=== PATIENT | female | born 1935 | race Caucasian/White ===

== ENCOUNTER 2016-04-28 07:20 | Inpatient (IN) | payer MEDICARE, BC ==
[2016-04-28] MEDS ORDERED: SODIUM CHLORIDE 0.9% 500 ML IV STA (07:42)
--- NOTE | 2016-04-28 07:50 | ED ---
General Adult HPI - General Chief complaint: Extremity Problem,Nontraumatic Stated complaint: Leg Pain Time Seen by Provider: 04/28/16 07:25 Source: patient, RN notes reviewed Mode of arrival: EMS - History of Present Illness Initial comments: This is an 81-year-old female who presents to the emergency department complaining of left leg feeling different. Patient states feels like it's she severely swollen even though she notices it is not swollen and is not red. Patient denies any pain. Patient states it is a little bit weaker when she tries to lift it off the bed. Patient states she woke up with this. Patient denies any new numbness. Patient also mentions that she is having difficulty urinating even though she doesn't have sensation to urinate she states that she normally gets up every day and urinates in today she could not urinate. Patient states about 3 weeks, she got done taking antibiotics for urinary tract infection. Patient denies abdominal pain. Patient denies chest pain or difficulty breathing. Patient denies any pain whatsoever. Patient denies any headache patient denies any upper extremity weakness. Patient denies any blurred vision or slurred speech. Patient's 2 complaints are left leg weakness with lifting it she was able to ambulate however and her second complaint is inability to urinate - Related Data Home Medications Medication Instructions Recorded Confirmed Acetaminophen [Tylenol] 500 mg PO BID 04/28/16 04/28/16 Albuterol Sulfate [Proair Hfa] 1 - 2 puff INHALATION RT-QID PRN 04/28/16 Aspirin 81 mg PO DAILY 04/28/16 04/28/16 Atenolol [Tenormin] 25 mg PO BID 04/28/16 04/28/16 Docusate [Colace] 100 mg PO HS 04/28/16 04/28/16 Levothyroxine Sodium [Synthroid] 25 mcg PO DAILY 04/28/16 04/28/16 Losartan Potassium [Cozaar] 25 mg PO DAILY 04/28/16 04/28/16 Nitroglycerin Sl Tabs [Nitrostat] 0.4 mg SUBLINGUAL Q5M PRN 04/28/16 04/28/16 Ranitidine HCl [Zantac] 150 mg PO HS 04/28/16 04/28/16 Simvastatin [Zocor] 20 mg PO HS 04/28/16 04/28/16 Warfarin [Coumadin] 1 mg PO SUMOWETHFRSA 04/28/16 04/28/16 Warfarin [Coumadin] 2 mg PO TU 04/28/16 04/28/16 Allergies Allergy/AdvReac Type Severity Reaction Status Date / Time apixaban [From Eliquis] Allergy Unknown Verified 04/28/16 08:45 dabigatran etexilate Allergy Unknown Verified 04/28/16 08:45 [From Pradaxa] rivaroxaban [From Xarelto] Allergy Unknown Verified 04/28/16 08:45 Review of Systems ROS Statement: Those systems with pertinent positive or pertinent negative responses have been documented in the HPI. ROS Other: All systems not noted in ROS Statement are negative. Past Medical History Past Medical History: Atrial Fibrillation, Coronary Artery Disease (CAD), Thyroid Disorder Additional Past Medical History / Comment(s): shogrens leaky valve neuropathy History of Any Multi-Drug Resistant Organisms: None Reported Past Surgical History: Heart Catheterization With Stent, Hysterectomy Additional Past Surgical History / Comment(s): ovarian cyst cateracts Past Psychological History: No Psychological Hx Reported Smoking Status: Never smoker Past Alcohol Use History: Rare Past Drug Use History: None Reported General Exam - General Exam Comments Initial Comments: GENERAL: Patient is well-developed and well-nourished. Patient is nontoxic and well- hydrated and is in mild distress. ENT: Neck is soft and supple. No significant lymphadenopathy is noted. Oropharynx is clear. Moist mucous membranes. Neck has full range of motion without eliciting any pain. EYES: The sclera were anicteric and conjunctiva were pink and moist. Extraocular movements were intact and pupils were equal round and reactive to light. Eyelids were unremarkable. PULMONARY: Unlabored respirations. Good breath sounds bilaterally. No audible rales rhonchi or wheezing was noted. CARDIOVASCULAR: There is a regular rate and rhythm without any murmurs gallops or rubs. ABDOMEN: Soft and nontender with normal bowel sounds. No palpable organomegaly was noted. There is no palpable pulsatile mass. SKIN: Skin is clear with no lesions or rashes and otherwise unremarkable. NEUROLOGIC: Patient is alert and oriented x3. Cranial nerves II through XII are grossly intact. Patient's left leg is weak when she tries to lift it off the bed when compared to the right. She has good flexion at the knee ankle plantar and dorsiflexion. Normal speech, volume and content. Symmetrical smile. MUSCULOSKELETAL: Normal extremities with adequate strength and full range of motion. No lower extremity swelling or edema. No calf tenderness. LYMPHATICS: No significant lymphadenopathy is noted PSYCHIATRIC: Normal psychiatric evaluation. Normal interpersonal interactions appears functionally intact in deals appropriately with others. No signs of depression. No signs of anxiety. Course Vital Signs 04/28/16 04/28/16 07:24 09:41 Temperature 98.2 F Pulse Rate 97 101 H Respiratory 18 18 Rate Blood Pressure 157/98 149/94 O2 Sat by Pulse 100 95 Oximetry Medical Decision Making - Medical Decision Making EKG shows atrial fibrillation with PVCs. Patient's rate is 96 bpm QRS is 92 QT interval 362 QTC is 457. Patient's EKG shows no ST segment elevation or depression or T wave abnormalities are noted. Computed tomography scan showed no acute abnormality. I went back into the room to reevaluate the patient she continued to have left leg weakness. I spoke to Dr. Sevilla he agreed to admit the patient I wrote admitting orders and consult neurology. - Lab Data Result diagrams: 04/28/16 08:21 04/28/16 08:21 Lab Results 04/28/16 04/28/16 04/28/16 Range/Units 08:21 08:21 08:21 WBC 4.1 (3.8-10.6) k/uL RBC 4.20 (3.80-5.40) m/uL Hgb 13.3 (11.4-16.0) gm/dL Hct 40.7 (34.0-46.0) % MCV 96.8 (80.0-100.0) fL MCH 31.6 (25.0-35.0) pg MCHC 32.6 (31.0-37.0) g/dL RDW 13.2 (11.5-15.5) % Plt Count 141 L (150-450) k/uL Neutrophils % 66 % Lymphocytes % 21 % Monocytes % 8 % Eosinophils % 2 % Basophils % 1 % Neutrophils # 2.7 (1.3-7.7) k/uL Lymphocytes # 0.9 L (1.0-4.8) k/uL Monocytes # 0.3 (0-1.0) k/uL Eosinophils # 0.1 (0-0.7) k/uL Basophils # 0.0 (0-0.2) k/uL PT (9.0-12.0) sec INR (<1.1) APTT (22.0-30.0) sec Sodium 140 (137-145) mmol/L Potassium 4.3 (3.5-5.1) mmol/L Chloride 106 (98-107) mmol/L Carbon Dioxide 23 (22-30) mmol/L Anion Gap 11 mmol/L BUN 14 (7-17) mg/dL Creatinine 0.84 (0.52-1.04) mg/dL Est GFR (MDRD) Af Amer >60 (>60 ml/min/1.73 sqM) Est GFR (MDRD) Non-Af >60 (>60 ml/min/1.73 sqM) Glucose 109 H (74-99) mg/dL Calcium 9.0 (8.4-10.2) mg/dL Total Bilirubin 0.8 (0.2-1.3) mg/dL AST 30 (14-36) U/L ALT 15 (9-52) U/L Alkaline Phosphatase 105 (38-126) U/L Total Creatine Kinase 62 (30-135) U/L CK-MB (CK-2) 0.8 (0.0-2.4) ng/mL CK-MB (CK-2) Rel Index 1.3 Troponin I 0.030 (0.000-0.034) ng/mL Total Protein 8.8 H (6.3-8.2) g/dL Albumin 3.8 (3.5-5.0) g/dL Urine Color Urine Appearance (Clear) Urine pH (5.0-8.0) Ur Specific Cavalier (1.001-1.035) Urine Protein (Negative) Urine Glucose (UA) (Negative) Urine Ketones (Negative) Urine Blood (Negative) Urine Nitrite (Negative) Urine Bilirubin (Negative) Urine Urobilinogen (<2.0) mg/dL Ur Leukocyte Esterase (Negative) Urine WBC (0-5) /hpf Ur Squamous Epith Cells (0-4) /hpf Urine Bacteria (None) /hpf Urine Mucus (None) /hpf 04/28/16 04/28/16 Range/Units 08:21 08:30 WBC (3.8-10.6) k/uL RBC (3.80-5.40) m/uL Hgb (11.4-16.0) gm/dL Hct (34.0-46.0) % MCV (80.0-100.0) fL MCH (25.0-35.0) pg MCHC (31.0-37.0) g/dL RDW (11.5-15.5) % Plt Count (150-450) k/uL Neutrophils % % Lymphocytes % % Monocytes % % Eosinophils % % Basophils % % Neutrophils # (1.3-7.7) k/uL Lymphocytes # (1.0-4.8) k/uL Monocytes # (0-1.0) k/uL Eosinophils # (0-0.7) k/uL Basophils # (0-0.2) k/uL PT 22.7 H (9.0-12.0) sec INR 2.4 (<1.1) APTT 30.1 H (22.0-30.0) sec Sodium (137-145) mmol/L Potassium (3.5-5.1) mmol/L Chloride (98-107) mmol/L Carbon Dioxide (22-30) mmol/L Anion Gap mmol/L BUN (7-17) mg/dL Creatinine (0.52-1.04) mg/dL Est GFR (MDRD) Af Amer (>60 ml/min/1.73 sqM) Est GFR (MDRD) Non-Af (>60 ml/min/1.73 sqM) Glucose (74-99) mg/dL Calcium (8.4-10.2) mg/dL Total Bilirubin (0.2-1.3) mg/dL AST (14-36) U/L ALT (9-52) U/L Alkaline Phosphatase (38-126) U/L Total Creatine Kinase (30-135) U/L CK-MB (CK-2) (0.0-2.4) ng/mL CK-MB (CK-2) Rel Index Troponin I (0.000-0.034) ng/mL Total Protein (6.3-8.2) g/dL Albumin (3.5-5.0) g/dL Urine Color Light Yellow Urine Appearance Clear (Clear) Urine pH 7.0 (5.0-8.0) Ur Specific Cavalier 1.005 (1.001-1.035) Urine Protein 2+ H (Negative) Urine Glucose (UA) Negative (Negative) Urine Ketones Negative (Negative) Urine Blood Negative (Negative) Urine Nitrite Negative (Negative) Urine Bilirubin Negative (Negative) Urine Urobilinogen <2.0 (<2.0) mg/dL Ur Leukocyte Esterase Small H (Negative) Urine WBC 18 H (0-5) /hpf Ur Squamous Epith Cells <1 (0-4) /hpf Urine Bacteria Rare H (None) /hpf Urine Mucus Rare H (None) /hpf Disposition Clinical Impression: CVA (cerebral vascular accident) Disposition: ADMITTED IP TO THIS [facility] Time of Disposition: 10:09
--- NOTE | 2016-04-28 08:05 | CT ---
EXAMINATION TYPE: CT brain wo con for TPA DATE OF EXAM: 04/28/2016 7:59 AM COMPARISON: NONE HISTORY: 81-year-old female with left leg numbness TECHNIQUE: Examination was done in axial plane without intravenous contrast. Coronal and sagittal r econstructions performed. CT DLP: 1012.7 mGycm Automated exposure control for dose reduction was used. FINDINGS: There is no evidence of acute intracranial hemorrhage, acute ischemic changes, mass, mass-effect, or extra-axial fluid collection. There is no effacement of cerebral sulci or basal subarachnoid cister ns. There is no hydrocephalus. There is no midline shift. [place]-white matter distinction is preserv ed. Moderate patchy periventricular and deep white matter hypodensities suggest chronic small vessel isch emic disease. Paranasal sinuses and mastoid air cells are well pneumatized. Orbits and globes are intact. IMPRESSION: No acute intracranial abnormality seen at this time. [id number] changes of chronic small vessel ischemic disease. If symptoms persist, follow-up CT or MRI.
--- NOTE | 2016-04-28 08:17 | XR ---
EXAMINATION TYPE: XR chest 2V DATE OF EXAM: 04/28/2016 8:11 AM COMPARISON: 09/29/2012 HISTORY: 81 year-old female altered mental status TECHNIQUE: Frontal and lateral views FINDINGS: The heart is mildly enlarged. Diffuse interstitial and vascular prominence. Focal medial right basila r opacity. There is some minimal patchy posterior basilar opacity on the lateral view as well. No sig nificant pleural effusion. Loose bodies within the left subcoracoid recess suggesting underlying oste oarthrosis. IMPRESSION: 1. Cardiomegaly. Correlate to exclude CHF with mild pulmonary vascular congestion. 2. Patchy medial right basilar atelectasis or infiltrate. Minimal patchy opacity is present at the po sterior costophrenic sulcus as well.
[2016-04-28 08:45] LABS: Basophils % (A) 1 %; CH 31.8; Eosinophils # (A) 0.1 k/uL (0-0.7); Eosinophils % (A) 2 %; HCT 40.7 % (34.0-46.0); HDW 2.67; HGB 13.3 gm/dL (11.4-16.0); Luc # (Auto) 0.12; Luc % (Auto) 3; Lymphocytes # (A) 0.9 k/uL (1.0-4.8); Lymphocytes % (A) 21 %; MCH 31.6 pg (25.0-35.0); MCHC 32.6 g/dL (31.0-37.0); MCV 96.8 fL (80.0-100.0); Mean Platelet Volume 7.3; Monocytes # (A) 0.3 k/uL (0-1.0); Monocytes % (A) 8 %; Neutrophils # (A) 2.7 k/uL (1.3-7.7); Neutrophils % (A) 66 %; RDW 13.2 % (11.5-15.5); WBC 4.1 k/uL (3.8-10.6); WBC (Perox) 4.09
[2016-04-28 08:50] LABS: Appearance,Urine Clear (Clear); Bacteria,Urine Rare /hpf; Bilirubin,Urine Negative (Negative); Glucose,Urine (UA) Negative (Negative); Ketones,Urine Negative (Negative); Leukocyte Esterase,Urine Small (Negative); Mucus,Urine Rare /hpf; Nitrite,Urine Negative (Negative); Particle Count 1809; Protein,Urine 2+ (Negative); Specific Gravity,Urine 1.005 (1.001-1.035); Squamous Epithelial Cell,Urine <1 /hpf (0-4); UA Billing (MACRO vs. MICRO) MICRO; Urobilinogen,Urine <2.0 mg/dL (<2.0); WBC,Urine 18 /hpf (0-5)
[2016-04-28 08:57] LABS: ALT 15 U/L (9-52); AST 30 U/L (14-36); Alkaline Phosphatase 105 U/L (38-126); Anion Gap 11 mmol/L; Blood Urea Nitrogen 14 mg/dL (7-17); Carbon Dioxide 23 mmol/L (22-30); Chloride 106 mmol/L (98-107); Glucose 109 mg/dL (74-99); Non-African American GFR(MDRD) >60 (>60 ml/min/1.73 sqM); Potassium 4.3 mmol/L (3.5-5.1); Sodium 140 mmol/L (137-145); Total Bilirubin 0.8 mg/dL (0.2-1.3); Total Protein 8.8 g/dL (6.3-8.2)
[2016-04-28 09:00] LABS: INR 2.4 (<1.1); Partial Thromboplastin Time 30.1 sec (22.0-30.0); Prothrombin Time 22.7 sec (9.0-12.0)
[2016-04-28 09:21] LABS: Creatine Kinase MB 0.8 ng/mL (0.0-2.4); Troponin I 0.03 ng/mL (0.000-0.034)
--- NOTE | 2016-04-28 16:05 | US ---
EXAMINATION TYPE: US carotid duplex BILAT DATE OF EXAM: 04/28/2016 3:40 PM COMPARISON: NONE CLINICAL HISTORY: Stenosis. Left side weakness EXAM MEASUREMENTS: RIGHT: Peak Systolic Velocity (PSV) cm/sec ----- Right CCA: 60.1 ----- Right ICA: Occluded ----- Right ECA: 115.1 ICA/CCA ratio: -- RIGHT: End Diastole cm/sec ----- Right CCA: 6.0 ----- Right ICA: Occluded ----- Right ECA: 12.8 LEFT: Peak Systolic Velocity (PSV) cm/sec ----- Left CCA: 50.5 ----- Left ICA: 129.1 ----- Left ECA: 127.4 ICA/CCA ratio: 2.6 LEFT: End Diastole cm/sec ----- Left CCA: 15.6 ----- Left ICA: 20.8 ----- Left ECA: 7.9 VERTEBRALS (direction of flow): Right Vertebral: Antegrade Left Vertebral: Antegrade IMPRESSION: 1. The right ICA appears to be occluded. 2. Extensive plaque on the left with findings suggestive of a 50-69% stenosis.
[2016-04-28] MEDS ORDERED: NITROGLYCERIN SL TABS 0.4 MG TAB SUBLINGUAL PRN (16:14)
[2016-04-28] MEDS: ATENOLOL 25 MG TAB PO SCH ×2 (16:43→21:33)
[2016-04-28] MEDS: LOSARTAN 25 MG TAB PO SCH (16:43)
[2016-04-28] MEDS: ASPIRIN 81 MG CHEW PO SCH (16:43)
[2016-04-28] MEDS ORDERED: WARFARIN 2 MG TAB PO SCH (18:00)
[2016-04-28] MEDS ORDERED: LORazepam 2 MG/ML SYRINGE IV STA (20:01)
[2016-04-28] MEDS ORDERED: RX INFO: IV CONTRAST WAS GIVEN 1 EACH MISC MISCELLANE PRN (20:01)
[2016-04-28] MEDS ORDERED: ATORVASTATIN 10 MG TAB PO SCH (21:00)
--- NOTE | 2016-04-28 21:32 | CT ---
EXAMINATION TYPE: CT angio neck DATE OF EXAM: 04/28/2016 9:19 PM COMPARISON: NONE HISTORY: Left leg numbness and weakness CT DLP: 490 mGycm Automated exposure control for dose reduction was used. CONTRAST: Performed with IV Contrast, patient injected with 65 mL of Omnipaque 350. FINDINGS: There are 3-D post processed images. There is arterial flow in the vertebrobasilar artery system. Left vertebral artery is larger than the right. The thoracic aorta shows some atheromatous change at the arch. There is normal branching pattern of t he great vessels on the aortic arch. There is bilateral patency of the common internal and external c arotid arteries. There is significant plaque at the carotid artery bifurcations and worse on the righ t side. There is approximate 75% stenosis at the origin of the right internal carotid artery. There i s significant plaque at the distal right common carotid artery. The estimated lumen narrowing is more than 75%. There is arterial flow in the intracranial internal carotid arteries. There is patency of the left po sterior communicating artery. IMPRESSION: THE EXAM SHOWS SIGNIFICANT PLAQUE FORMATION AT THE CAROTID ARTERY BIFURCATIONS AND 75% OR MORE STENOS IS AT THE ORIGIN OF THE LEFT INTERNAL CAROTID ARTERY AND IN THE DISTAL RIGHT COMMON CAROTID ARTERY.
[2016-04-28] MEDS: FAMOTIDINE 20 MG TAB PO SCH (21:33)
[2016-04-28] MEDS: ACETAMINOPHEN TAB 500 MG TAB PO SCH (21:33)
--- NOTE | 2016-04-29 06:19 | CONS ---
DATE OF CONSULTATION: 04/28/2016 CHIEF COMPLAINT: Left lower extremity weakness. HISTORY OF PRESENT ILLNESS: Mrs. Lopes is a pleasant 81-year-old female who is being evaluated by the neurology service per the request of Dr. Preston Dong for left lower extremity weakness. The patient states that she woke up early this morning around 3 a.m. to use the restroom and noticed that her left leg was heavy and "It didn't feel right". She was able to ambulate to the restroom and returned to bed and woke up again at around 6 a.m. and noticed that those symptoms were somewhat worse. She was brought into [facility] for further workup and management. A CT scan of the brain was done, which showed generalized atrophy and small vessel ischemic changes. A carotid Doppler was done, which showed evidence of occlusion of the right internal carotid artery and 50% to 69% stenosis involving the left internal carotid artery. Her cardiac enzymes were normal. Her urinalysis showed 18 WBCs with small leukocyte esterase. Her BNP was elevated at 1870. She denies any shortness of breath. Her CBC was normal except for mild thrombocytopenia at 141,000. Her INR is therapeutic at 2.4. The patient does have history of atrial fibrillation and is on Coumadin and aspirin at home. Her comprehensive metabolic profile was normal. At the time of my evaluation, the patient is lying in her bed and appears to be in no acute distress. She denies any changes in her left lower extremity weakness. She denies any lateralizing numbness or tingling and denies any facial symptoms or difficulty swallowing. PAST MEDICAL HISTORY: Atrial fibrillation, coronary artery disease, Sjogren's disease, hypothyroidism, history of coronary artery stent placement, history of hysterectomy and cataract surgery. SOCIAL HISTORY: She denies any tobacco, alcohol or drug use. FAMILY HISTORY: Noncontributory. HOME MEDICATIONS: Reviewed in the chart. ALLERGIES: PRADAXA, ELIQUIS, XARELTO. REVIEW OF SYSTEMS: CONSTITUTIONAL: Negative. EYES: Negative. ENT: Negative. CARDIOVASCULAR: As mentioned above. RESPIRATORY: Negative. NEUROLOGICAL: As mentioned above. GASTROINTESTINAL: Negative. GENITOURINARY: Negative. PSYCHIATRIC: Negative. MUSCULOSKELETAL: Positive for occasional joint pain. DERMATOLOGICAL: Negative. ENDOCRINE: Positive for hypothyroidism. PHYSICAL EXAM: Vital signs show a temperature of 96.4, pulse 70, respirations 18, blood pressure 161/91. GENERAL APPEARANCE: The patient is a well-developed, elderly female who appears to be in no acute distress. HEENT: Normocephalic, atraumatic, no facial asymmetry is seen. Neck is supple with no masses felt. CARDIOVASCULAR: Regular rate and rhythm. ABDOMEN: Nontender, nondistended. Extremities showed edema in bilateral lower extremities with no clubbing seen. NEUROLOGICAL EXAM: The patient is alert, aware, and oriented x3. Speech and language are normal. Strength is 4+/5 in the left lower extremity and 5 minus out of 5 elsewhere. Sensory exam was normal to light touch in all 4 extremities. No pronator drift is seen. No facial asymmetry is noticed on cranial nerve testing. Plantar reflex showed downgoing toes bilaterally. IMPRESSION: 1. Left lower extremity weakness. 2. Internal carotid artery stenosis. 3. Possible acute ischemic stroke, right middle cerebral artery distribution. 4. Atrial fibrillation. RECOMMENDATIONS: The patient is still having weakness in her left lower extremity and her CT scan of the brain showed no acute intracranial abnormalities. I will order an MRI of the brain to check for ischemic etiologies. The patient does report some claustrophobia and will pretreat her with Ativan IV. The patient is already on Coumadin and her INR is therapeutic. Continue aspirin as well. I will order a fasting lipid panel, EEG and serum homocysteine level. Physical therapy will be consulted. I will also order a 2-D echocardiogram. As for her carotid Doppler findings, I will order a CT angiogram of the neck and will consult Dr. Miller from vascular surgery. I will repeat her CBC in the morning regarding her thrombocytopenia. Continue neuro checks. I will continue to follow with you. Further recommendations to follow. Thank you for allowing me to participate in the care of your patient. If you have any questions, please feel free to contact me.
[2016-04-29 06:32] LABS: Cholesterol 152 mg/dL (<200); HDL Cholesterol 55 mg/dL (40-60); Triglycerides 102 mg/dL (<150)
[2016-04-29 06:38] LABS: CH 31.4; CHCM 32.1; HCT 42.3 % (34.0-46.0); HDW 2.56; HGB 13.5 gm/dL (11.4-16.0); MCH 31.5 pg (25.0-35.0); MCHC 31.9 g/dL (31.0-37.0); MCV 98.5 fL (80.0-100.0); Mean Platelet Volume 6.4; RBC 4.29 m/uL (3.80-5.40); RDW 13.3 % (11.5-15.5); WBC 4.5 k/uL (3.8-10.6)
[2016-04-29] MEDS: LEVOTHYROXINE 25 MCG TAB PO SCH (06:41)
[2016-04-29] MEDS: ACETAMINOPHEN TAB 500 MG TAB PO SCH ×2 (08:36→22:16)
[2016-04-29] MEDS: ATENOLOL 25 MG TAB PO SCH ×2 (08:36→22:17)
[2016-04-29] MEDS: ASPIRIN 81 MG CHEW PO SCH (08:36)
[2016-04-29] MEDS: LOSARTAN 25 MG TAB PO SCH (08:36)
--- NOTE | 2016-04-29 08:39 | P.GSCN ---
History of Present Illness History of present illness: 81 male, patient woke up 3 in the morning with history of heavy feeling in his left lower extremity she also noticed weakness she also at the same time had difficulty in urination she never had these symptoms before there was no history of any seizure disorder no history of anorexia venoushistory of speech problem Medical history history of atrial fibrillation, history of coronary artery disease post coronary artery stent patient is under care of Dr. Clarke Avery and also under care of Dr. Jain patient had a coronary artery stent placed by Dr. Jain and she is been seeing him on regular basis she has ultrasound in his office every 6 months and no critical stenosis was seen according to the patient she also has some Brown problem and she is thinking about some surgery with Dr. Jain recommendation Personal history no history of smoking or alcohol use Past history patient had a hysterectomy and coronary artery stent placed in the past Neck examination neck is supple no bruit appreciated Chest good entry both lungs patient has history of 4 atrial fibrillation on Coumadin Vascular examination brachial radial femoral pulses are present Central nervous system oriented time and place upper extremity motor function are normal right lower extremity has normal motor function patient still has some weakness on the left lower extremity she can left left lower leg is weak patient is being history of neuropathy under care of Dr. Lester and also she has a history of Sjogren disease not on any medication Computed tomography scan of the head showed no intracranial bleed chronic small vessel ischemic changes noted sound of the carotid shows right side totally occluded left side is 50-79 CTA showed extensive plaque formation noted of the right internal carotid artery with 75% stenosis and also left carotid has 75% stenosis stenosis Patient scheduled to have MRI and EEG we will wait for the final report and follow with you recommend patient be on antiplatelet therapy Past Medical History Past Medical History: Atrial Fibrillation, Coronary Artery Disease (CAD), Chest Pain / Angina, Hyperlipidemia, Hypertension, Osteoarthritis (OA), Thyroid Disorder Additional Past Medical History / Comment(s): Recent UTI and has completed ABX, shogrens, leaky cardiac valve, neuropathy bilateral feet/legs, past inner ear problem causing imbalance-not lately, hypothyroid, OA multiple joints. History of Any Multi-Drug Resistant Organisms: None Reported Past Surgical History: Heart Catheterization With Stent, Hernia Repair, Hysterectomy, Orthopedic Surgery Additional Past Surgical History / Comment(s): 2011 PCI with stent to mid LAD, R ovarian cyst, R sided hernia repair, bilateral cataracts removed with lens implants, R knee arthroscopy and gets injections Past Anesthesia/Blood Transfusion Reactions: No Reported Reaction Date of Last Stent Placement:: 2011 Past Psychological History: No Psychological Hx Reported Additional Psychological History / Comment(s): Pt resides alone. She uses a cane or walker to ambulate. She has a cleaning person. She drives. Smoking Status: Never smoker Past Alcohol Use History: Rare Past Drug Use History: None Reported - Past Family History Father History Unknown: Yes Mother Family Medical History: No Reported History Additional Family Medical History / Comment(s): Mother when she was 99.5 yrs old of "old age." Medications and Allergies Home Medications Medication Instructions Recorded Confirmed Type Acetaminophen [Tylenol] 500 mg PO BID 04/28/16 04/28/16 History Albuterol Sulfate [Proair Hfa] 1 - 2 puff INHALATION RT-QID PRN 04/28/16 History Aspirin 81 mg PO DAILY 04/28/16 04/28/16 History Atenolol [Tenormin] 25 mg PO BID 04/28/16 04/28/16 History Docusate [Colace] 100 mg PO HS 04/28/16 04/28/16 History Levothyroxine Sodium [Synthroid] 25 mcg PO DAILY 04/28/16 04/28/16 History Losartan Potassium [Cozaar] 25 mg PO DAILY 04/28/16 04/28/16 History Nitroglycerin Sl Tabs [Nitrostat] 0.4 mg SUBLINGUAL Q5M PRN 04/28/16 04/28/16 History Ranitidine HCl [Zantac] 150 mg PO HS 04/28/16 04/28/16 History Simvastatin [Zocor] 20 mg PO HS 04/28/16 04/28/16 History Warfarin [Coumadin] 1 mg PO SUMOWETHFRSA 04/28/16 04/28/16 History Warfarin [Coumadin] 2 mg PO TU 04/28/16 04/28/16 History Allergies Allergy/AdvReac Type Severity Reaction Status Date / Time apixaban [From Eliquis] Allergy Unknown Verified 04/28/16 08:45 dabigatran etexilate Allergy Unknown Verified 04/28/16 08:45 [From Pradaxa] rivaroxaban [From Xarelto] Allergy Unknown Verified 04/28/16 08:45 Surgical - Exam Vital Signs Temp Pulse Resp BP Pulse Ox 98.2 F 97 18 157/98 100 04/28/16 07:24 04/28/16 07:24 04/28/16 07:24 04/28/16 07:24 04/28/16 07:24 Results - Labs 04/29/16 05:36 04/28/16 08:21 Diabetes panel 04/29/16 Range/Units 05:36 Triglycerides 102 (<150) mg/dL HDL Cholesterol 55 (40-60) mg/dL
--- NOTE | 2016-04-29 10:35 | ECHOF ---
Referral Reason:CVA MEASUREMENTS -------- HEIGHT: 165.1 cm WEIGHT: 83.0 kg BP: IVSd: 1.8 cm (0.6 - 1.1) LVIDd: 4.4 cm (3.9 - 5.3) LVPWd: 1.5 cm (0.6 - 1.1) IVSs: 2.3 cm LVIDs: 2.5 cm LVPWs: 1.9 cm LAESV Index (A-L): 78.62 ml/m Ao Diam: 3.1 cm (2.0 - 3.7) AV Cusp: 1.1 cm (1.5 - 2.6) LA Diam: 5.1 cm (2.7 - 3.8) MV EXCURSION: 16.659 mm (> 18.000) MV EF SLOPE: 62 mm/s (70 - 150) EPSS: 0.9 cm AV maxP.23 mmHg AV meanP.79 mmHg AR PHT: 581 ms RAP: 5.00 mmHg RVSP: 43.95 mmHg FINDINGS -------- Atrial fibrillation. This was a technically good study. The left ventricular size is normal. There is severe concentric left ventricular hypertrophy. Overall left ventricular systolic function is normal with, an EF between 55 - 60 %. The right ventricle is normal in size and function. LA is severely dilated >40 ml/m2 RA appears enlarged. There is moderate aortic regurgitation. There is severe aortic stenosis present. Peak/mean gradient across the Aortic Valve is 75.23mmHg / 50.79mmHg. Mild mitral annular calcification present. Mild mitral regurgitation is present. Moderate tricuspid regurgitation present. There is mild pulmonary hypertension. The right ventricular systolic pressure, as measured by Doppler, is 43.95mmHg. Trace/mild (physiologic) pulmonic regurgitation. The aortic root size is normal. There is no pericardial effusion. CONCLUSIONS -------- 1. Atrial fibrillation. 2. Mild mitral annular calcification present. 3. Mild mitral regurgitation is present. 4. Moderate tricuspid regurgitation present. 5. There is mild pulmonary hypertension. 6. Trace/mild (physiologic) pulmonic regurgitation. 7. The aortic root size is normal. 8. There is no pericardial effusion. 9. This was a technically good study. 10. There is severe concentric left ventricular hypertrophy. 11. Overall left ventricular systolic function is normal with, an EF between 55 - 60 %. 12. LA is severely dilated >40 ml/m2 13. RA appears enlarged. 14. There is moderate aortic regurgitation. 15. There is severe aortic stenosis present. 16. Peak/mean gradient across the Aortic Valve is 75.23mmHg / 50.79mmHg. DISH CARRIER: Nikole Canales RDCS
[2016-04-29] MEDS ORDERED: LORazepam 2 MG/ML SYRINGE ONE (15:58)
--- NOTE | 2016-04-29 16:36 | HP ---
DATE OF ADMISSION: 04/28/2016 PRESENTING COMPLAINT: Weakness left leg. HISTORY OF PRESENTING COMPLAINT: This is an 80 -year-old patient of Dr. Clarke Avery I saw earlier this morning. Patient's chronic stable medical conditions include atrial fibrillation, coronary artery disease with stent in 2011, hyperlipidemia, hypertension, osteoarthritis, Sj?gren's syndrome, peripheral neuropathy, hypothyroidism. Patient woke up about 3:00 a.m. in the morning, felt leg to be a bit different. Went back to sleep, got up at 6:00 a.m. and just simply felt the leg to be heavy and numb. Patient was able to get to the bathroom, able to take a step, not dragging it. There was no back pain. No radiation from the back of the leg. No change in vision. No change in speech. No headache. No change in the weakness in the arm. Patient weakness in left leg has remained and admitted for the same. REVIEW OF SYSTEMS: CONSTITUTIONAL: None. HEENT: None. RESPIRATORY: None. CARDIOVASCULAR: None. GASTROINTESTINAL: None. GENITOURINARY: None. MUSCULOSKELETAL: Pain in multiple joints. Dermatologic: None. HEMATOLOGIC: None. LYMPHATICS: None. PSYCHIATRY: None. NEUROLOGICAL: Numbness and tingling in his lower part of lower extremity chronic. Past medical history of atrial fibrillation, coronary artery disease with stent in 2011, hyperlipidemia, hypertension, osteoarthritis, hypothyroid, Sj?gren's syndrome, peripheral neuropathy, inner ear problems. Hypothyroid. PAST SURGICAL HISTORY: Cardiac cath with stent, hernia repair. Hysterectomy. The patient had stent to mid LAD in 2011. Right ovarian cyst. Right sided hernia repair, bilateral cataract removal, lens implant, right knee arthroscopy, injection. SOCIAL HISTORY: Lives by herself and sometimes uses a cane and a walker. No smoking. Alcohol rarely. FAMILY HISTORY: Mother at age 99 from old age. HOME MEDICATIONS: 1. Zocor 20 mg q.h.s. 2. Colace 100 mg p.o. q.h.s. 3. Coumadin 1 mg once Wednesday, Wednesday, Wednesday, , Wednesday and Wednesday and 2 mg on Wednesday. 4. Nitrostat 0.4 sublingual q.5 p.r.n. 5. Pro-Air one to two puffs q.i.d. p.r.n. 6. Tylenol 500 mg p.o. b.i.d. 7. Zantac 150 mg p.o. q.h.s. 8. Synthroid 25 mcg p.o. daily. 9. Aspirin 81 mg p.o. daily. 10. Cozaar 25 mg p.o. daily. 11. Tenormin 25 mg p.o. b.i.d. ALLERGIES TO ELIQUIS, PRADAXA AND XARELTO. On examination vital signs on presentation: Temperature 97.3, pulse 87, respiratory rate 18, blood pressure 143/86, pulse ox 96% on room air. GENERAL APPEARANCE: Well built, BMI of 30.5, sitting up in bed, comfortable. EYES: Pupils equal. Conjunctivae normal. HEENT: Oral cavity normal. NECK: JVD not raised. Mass not palpable. RESPIRATORY: Effort normal. Lungs are clear. CARDIOVASCULAR: First and second sounds normal. No edema. ABDOMEN: Soft, nontender. Liver and spleen not palpable. LYMPHATIC: No lymph node palpable in neck or axillae. PSYCHIATRY: Alert and oriented times three. Mood and affect normal. MUSCULOSKELETAL: Evidence of osteoarthritis in multiple joints, including the knees. NEUROLOGICAL: Pupils equal. Cranial nerves grossly intact. Power in the left leg is 3/5, right leg in 5/5. Reflexes are both low. Sensation preserved in both legs. INVESTIGATIONS: White count 4.1, hemoglobin 13.3, platelets 141, INR 2.4. BUN 4.3, creatinine 14, BUN 0.84, LDL 77. EKG shows atrial fibrillation with some PVCs. Rate controlled. CT scan of the brain showed some chronic changes. Nil acute reported. Carotid Doppler right ICA reported to be occluded. Extensive plaque in the left 50 to 69%. CTA shows bilateral patency of the common internal, and external carotid artery stents and significant plaque at the carotid artery bifurcation worse on the right and 75% stenosis origin of the right internal carotid artery. 2-D echocardiogram EF 55% to 60%. Moderate aortic regurgitation, severe aortic stenosis. ASSESSMENT: 1. This is a patient who presented with acute left leg weakness with 75% blocked stenosis on the right internal carotid artery, hence strongly suspect the right middle cerebellar artery stroke in a right-handed patient. Patient this well could be ischemic in nature. 2. Severe aortic stenosis, nonrheumatic. 3. Moderate aortic regurgitation, nonrheumatic. 4. Hypertensive heart disease with severe concentric left ventricular hypertrophy, ejection fraction of 55% to 60%. 5. Moderate tricuspid regurgitation. 6. Persistent atrial fibrillation, chronically on Coumadin. 7. Coronary artery disease with prior history of stent in 2011. 8. Hyperlipidemia. 9. Essential hypertension. 10. Primary osteoarthritis of multiple joints, bilateral. 11. Chronic Sj?gren's syndrome. 12. Peripheral neuropathy. 13. Hypothyroidism. PLAN: Will continue the patient's Coumadin and aspirin. We will increase the patient's Lipitor to 80 mg given history of coronary artery disease and now stroke. Consultation to neurology and vascular surgery was made. We will have to looked at more closely the right internal carotid artery in view of the CTA findings. Care was discussed in detail with the patient and daughter at bedside. Questions were answered. Copy to Dr. Avery.
[2016-04-29] MEDS: WARFARIN 1 MG TAB PO SCH (17:24)
--- NOTE | 2016-04-29 18:08 | P.PN ---
Subjective Principal diagnosis: Left lower extremity weakness Is an 81-year-old female continue be evaluated by the neurology service for left lower extremity weakness. She noticed a heaviness in her left leg about 3:00 in the morning and came to the [facility] emergency room 6 that same morning. Initial CT of the brain showed generalized atrophy and small vessel ischemic changes. Carotid Doppler showed occlusion of the right internal carotid artery and 56% stenosis of left internal carotid artery. She had a mild thrombocytopenia of heart 41,000. Repeat is normal at 160,000. She is therapeutic INR. She takes Coumadin for history of atrial fibrillation. She is also on aspirin. She continues to have some mild weakness in the left distal lower extremity. It's time my evaluation he is she is just returned from her MRI of the brain. We are waiting results. Objective - Vital Signs Vital signs: Vital Signs Temp 97 F L 04/29/16 16:00 Pulse 77 04/29/16 16:00 Resp 20 04/29/16 16:00 BP 123/67 04/29/16 16:00 Pulse Ox 95 04/29/16 16:00 Intake & Output 04/28/16 04/29/16 04/29/16 18:59 06:59 18:59 Intake Total 584 390 90 Output Total 350 Balance 584 40 90 Weight 83.1 kg Intake: Oral 584 390 90 Output: Urine 350 Other: Voiding Method Bedside Commode Toilet # Voids 1 2 # Bowel Movements 0 - Constitutional General appearance: Present: average body habitus - EENT Eyes: Present: EOMI, PERRLA. Absent: abnormal pupil, ptosis ENT: Present: hearing grossly normal - Neck Neck: Present: normal ROM. Absent: rigidity - Respiratory Respiratory: negative: prolonged expiration, prolonged inspiration - Cardiovascular Rhythm: irregularly irregular - Gastrointestinal General gastrointestinal: Absent: distended, tenderness - Neurologic Neurologic Comment(s): She is alert awake and oriented 3. Speech-language are normal. Strength remains 4+ out of 5 left lower extremity and 5 minus out of 5 in all extremities. Sensory exam is normal to light touch. There is no facial asymmetry. No tremors or seizure-like activities are seen. - Labs CBC & Chem 7: 04/29/16 05:36 04/28/16 08:21 Assessment and Plan (1) Left leg weakness Status: Acute (2) Carotid stenosis Status: Chronic (3) Atrial fibrillation Status: Chronic (4) Hyperlipidemia Status: Chronic Plan: She is still having weakness in her left leg. An MRI has just been accomplished and we are waiting results. Continue on Coumadin and aspirin. Continue Lipitor for hyperlipidemia. An EEG has also displayed accomplished. Cardiology will follow and nerve performing echocardiogram. Vascular surgeon has also been consult it for her carotid stenosis. Continue neuro checks continue physical therapy will make further recommendations based on the results of the MRI. I have performed a history and physical on the above patient. I have reviewed the above note, and agree.
--- NOTE | 2016-04-29 21:00 | MR ---
EXAMINATION TYPE: MR brain wo con DATE OF EXAM: 04/29/2016 4:48 PM COMPARISON: NONE HISTORY: Left side weakness. Standard multiplanar, multisequence MRI departmental protocol Multiplanar, multisequence images of the brain were acquired. Diffusion weighted imaging was performe d. FINDINGS: There is cerebral cortical atrophy. There is no mass effect nor midline shift. There is no sign of intracranial hemorrhage. There is mild patchy increased signal within the sara that measures overall 2 cm. There is patchy nod ular increased signal around the lateral ventricles with foci that measure up to almost 1 cm. The tot al number is 15-20. Ventricles are not enlarged. There is some thinning of the corpus callosum. The s raúl turcica appears normal. Cerebellum appears fairly normal. IMPRESSION: Patchy white matter hemispheric signal changes probably related to chronic small vessel ischemia. The re is also white matter changes in the sara also consistent with ischemia. No evidence of a cortical infarct.
[2016-04-29] MEDS: FAMOTIDINE 20 MG TAB PO SCH (22:17)
[2016-04-29] MEDS: ATORVASTATIN 80 MG TAB PO SCH (22:17)
[2016-04-30] MEDS: LEVOTHYROXINE 25 MCG TAB PO SCH (06:29)
[2016-04-30] MEDS: LOSARTAN 25 MG TAB PO SCH (08:01)
[2016-04-30] MEDS: ACETAMINOPHEN TAB 500 MG TAB PO SCH ×2 (08:01→20:46)
[2016-04-30] MEDS: ASPIRIN 81 MG CHEW PO SCH (08:01)
[2016-04-30] MEDS: ATENOLOL 25 MG TAB PO SCH ×2 (08:01→20:46)
--- NOTE | 2016-04-30 08:42 | P.PN ---
Progress Note - Text 81 -year-old white female, patient came with left lower leg weakness no history of amaurosis fugax there are no history of seizure no history of week problem patient had ultrasound of the carotid which showed right carotid totally occluded CT of the neck shows that 75% stenosis we will discuss with internal medicine and neurology for further management right carotid artery and also the left carotid artery patient had MRI there is patchy white matter changes suggestive of chronic vascular ischemia of the small vessel and also found to have a who white matter changes involving the sara and sisters. Ischemia no cortical i infarct
--- NOTE | 2016-04-30 14:18 | P.PN ---
Subjective Principal diagnosis: Pontine stroke This Is an 81-year-old female continuing to be evaluated by the neurology service for left lower extremity weakness. She noticed a heaviness in her left leg about 3:00 in the morning and came to the [facility] emergency room 6 that same morning. Initial CT of the brain showed generalized atrophy and small vessel ischemic changes. Carotid Doppler showed occlusion of the right internal carotid artery and 56% stenosis of left internal carotid artery. Cardiovascular is handling this. She had a mild thrombocytopenia of heart 41,000. Repeat was normal at 160,000. She has a therapeutic INR. She takes Coumadin for history of atrial fibrillation. She is also on aspirin. She continues to have some mild weakness in the left distal lower extremity. Her MRI did show ischemic changes in the sara. She denies any new or worsening symptoms. Objective - Vital Signs Vital signs: Vital Signs Temp 96.9 F L 04/30/16 07:50 Pulse 77 04/30/16 11:55 Resp 18 04/30/16 11:55 BP 142/67 04/30/16 11:55 Pulse Ox 97 04/30/16 11:55 Intake & Output 04/29/16 04/30/16 04/30/16 18:59 06:59 18:59 Intake Total 90 300 Output Total 425 100 Balance 90 -125 -100 Weight 84.2 kg Intake: Oral 90 300 Output: Urine 425 100 Other: Voiding Method Toilet Toilet # Voids 0 1 1 # Bowel Movements 0 1 - Constitutional General appearance: Present: average body habitus, no acute distress - EENT Eyes: Present: EOMI, PERRLA. Absent: abnormal pupil, ptosis ENT: Present: hearing grossly normal - Respiratory Respiratory: negative: prolonged expiration, prolonged inspiration - Cardiovascular Rhythm: regular - Gastrointestinal General gastrointestinal: Absent: distended, tenderness - Neurologic Neurologic Comment(s): She is alert awake and oriented 3. Speech-language are normal. There is no facial asymmetry. Strength remains 4+ out of 5 and left lower extremity 5 minus out of 5 in all other extremities. Sensory exam is normal to light touch in all 4 extremities. No tremors or seizure-like activities are seen. - Labs CBC & Chem 7: 04/29/16 05:36 04/28/16 08:21 Assessment and Plan (1) Left leg weakness Status: Acute (2) Carotid stenosis Status: Chronic (3) Atrial fibrillation Status: Chronic (4) Hyperlipidemia Status: Chronic Plan: It seems that she has suffered an acute pontine stroke affecting the left lower extremity. She will continue on Coumadin and aspirin at their current doses. She will continue atorvastatin . She is still having weakness in her left leg in continues to work with physical therapy. Cardiology will follow and nerve performing echocardiogram. Vascular surgeon has also been consult it for her carotid stenosis. Continue neuro checks continue physical therapy. She is cleared from a neurological standpoint. I have performed a history and physical on the above patient. I have reviewed the above note, and agree.
[2016-04-30] MEDS: WARFARIN 1 MG TAB PO SCH (18:02)
[2016-04-30] MEDS: ATORVASTATIN 80 MG TAB PO SCH (20:46)
[2016-04-30] MEDS: FAMOTIDINE 20 MG TAB PO SCH (20:46)
[2016-04-30 21:38] VITALS: RESP 16
--- NOTE | 2016-04-30 21:54 | PN ---
DATE OF SERVICE: 04/30/2016 PRESENTING COMPLAINT: Weakness of the left leg. INTERVAL HISTORY: This patient was admitted with acute weakness of the left leg felt to be stroke. Repeat MRI shows some chronic changes. I had discussed case with Dr. Miller from vascular surgery yesterday. When I saw the patient later today, awaiting further input from neurology. The patient weakness slightly better. Did work with physical therapy. Looking at inpatient rehab. Review of systems done for constitutional, cardiovascular, GI, pulmonary; neurological, relevant findings as above. Current medications are reviewed that include to aspirin and Lipitor. On examination, temperature 96.9, pulse 85, respiratory rate 18, blood pressure 140/63, pulse ox 98% on room air. GENERAL APPEARANCE: Sitting up, comfortable. EYES: Pupils equal. Conjunctivae normal. NECK: JVD not raised. Mass not palpable. RESPIRATORY: Lungs are clear. CARDIOVASCULAR: First and second sounds normal. No edema. ABDOMEN: Soft, nontender. Liver and spleen not palpable. PSYCHIATRY: Alert and oriented times three. Mood and affect normal. NEUROLOGICAL: Power in the left leg remains 3/5, ( ) is present. INVESTIGATIONS: MRI shows some chronic changes. ASSESSMENT: 1. Acute stroke suspect in the right MCA territory middle cerebral artery territory right-handed patient, possibly ischemic. 2. Severe aortic stenosis, nonrheumatic. 3. Moderate aortic regurgitation, nonrheumatic. 4. Hypertensive heart disease, severe concentric left ventricular hypertrophy, ejection fraction 55 to 60%. 5. Moderate tricuspid regurgitation. 6. Persistent atrial fibrillation, chronically on Coumadin. 7. Coronary artery disease with prior history of stent in 2011. 8. Hyperlipidemia. 9. Essential hypertension. 10. Primary osteoarthritis of multiple joints, bilateral. 11. Chronic Sj?gren's syndrome. 12. Peripheral neuropathy. 13. Hypothyroidism. PLAN: Continue current medication and treatment plan. Will try to get the patient to rehab hopefully hoping for this to happen tomorrow.
[2016-05-01] MEDS: LEVOTHYROXINE 25 MCG TAB PO SCH (06:16)
[2016-05-01] MEDS: ACETAMINOPHEN TAB 500 MG TAB PO SCH (08:25)
[2016-05-01] MEDS: LOSARTAN 25 MG TAB PO SCH (08:26)
[2016-05-01] MEDS: ASPIRIN 81 MG CHEW PO SCH (08:26)
[2016-05-01] MEDS: ATENOLOL 25 MG TAB PO SCH (08:26)
--- NOTE | 2016-05-01 12:09 | EEG ---
DATE OF SERVICE: 04/30/2016 INDICATIONS FOR EXAMINATION: Stroke. AGE: 81Y DESCRIPTION OF PROCEDURE: This EEG was performed using a 21 channel digital electroencephalograph, following international 10-20 system. DESCRIPTION OF THE RECORDING: From the beginning of the tracing, with the patient's eyes closed, the background rhythm was mostly consisting of 8-9 Hz alpha frequency in the posterior occipital leads. No obvious asymmetry is seen. Photic stimulation was performed with minimal driving response seen. No pathological waves were elicited. Occasional movement artifacts were seen. Hyperventilation was not performed. The patient remains awake throughout the tracing. No epileptiform discharges were seen. Her EKG showed an irregularly irregular rhythm with a normal rate. INTERPRETATION: This awake EEG can be considered within normal limits except her EKG lead showed an irregularly irregular rhythm. No epileptiform discharges were seen. The absence of epileptiform discharges does not rule out the diagnosis of epilepsy. Therefore, clinical correlation is recommended.
[2016-05-01 16:41] VITALS: BP 140/67; PULSE 79; TEMP 97.1
--- NOTE | 2016-05-01 16:44 | DS ---
DATE OF ADMISSION: 04/28/2016 DATE OF DISCHARGE: FINAL DIAGNOSES: 1. Acute stroke probably in the brainstem, ischemic in a right-handed patient. 2. Severe aortic stenosis, nonrheumatic. 3. Moderate aortic regurgitation, nonrheumatic. 4. Hypertensive heart disease, severe. 5. Concentric left ventricular hypertrophy, ejection fraction 55 to 60%. 6. Moderate tricuspid regurgitation. 7. Persistent atrial fibrillation, chronically on Coumadin. 8. Coronary artery disease with prior history of stent in 2011. 9. Hyperlipidemia. 10. Essential hypertension. 11. Primary osteoarthritis of multiple joints, bilateral. 12. Chronic Sj?gren's syndrome. 13. Peripheral neuropathy. 14. Hypothyroidism. CONSULTATION: 1. Dr. Stephens from Neurology. 2. Dr. Miller from Vascular Surgery. HOSPITAL COURSE: This patient presented with acute left leg weakness, numbness. Patient's neck CTA showed about a 75% plaque on the right side, though carotid Doppler showed complete blockage on the right side. MRI of the brain showed nonspecific changes. EEG was unremarkable. There was some improvement in the left leg with power 3/5. Patient is going to go to rehab. Per Dr. Miller at this point no further intervention is to be done. 2-D echo did show aortic stenosis. Will have patient follow with cardiology as an outpatient for the same. Care was discussed with the patient. On exam, lungs are clear. Cardiovascular: First and second sounds normal. Left leg power is 3.5. INR is 2.4. LDL is 77. DISCHARGE MEDICATIONS: 1. Tylenol 500 mg p.o. b.i.d. 2. ProAir 1 to 2 puffs q.i.d. p.r.n. 3. Aspirin 81 mg a day. 4. Tenormin 25 mg b.i.d. 5. Synthroid 25 mcg a day. 6. Cozaar 25 mg p.o. daily. 7. Nitrostat 0.4 sublingual q.5 p.r.n. 8. Zantac 150 mg p.o. q.h.s. 9. Coumadin 1 mg on Wednesday, Wednesday, Wednesday, Wednesday. 10. Coumadin 2 mg p.o. Tuesdays. 11. Lipitor 80 mg p.o. q.h.s. DISPOSITION: [facility]. Follow up with Dr. Valencia at [facility]. Follow up with Dr. Clarke Avery after discharge from [facility]. Also follow up with Dr. Miller in 10 days and follow with Dr. Cassia Miranda for aortic stenosis as an outpatient. Discharge planning more than 35 minutes.
== END 2016-05-01 16:47 | DRG 65 ==
LOC: SUPCPDRO 07:20 → EC 07:20 → 6SEL 10:10
PROVIDERS: ADMIT Hospitalist; ATTEND Hospitalist
DX: I63.231 Cerebral infarction due to unspecified occlusion or stenosis of right carotid arteries (principal); I48.1 Persistent atrial fibrillation; D69.6 Thrombocytopenia, unspecified; I11.9 Hypertensive heart disease without heart failure; G62.9 Polyneuropathy, unspecified; I36.1 Nonrheumatic tricuspid (valve) insufficiency; M35.00 Sjogren syndrome, unspecified; E03.9 Hypothyroidism, unspecified; E78.5 Hyperlipidemia, unspecified; I25.10 Atherosclerotic heart disease of native coronary artery without angina pectoris; I49.3 Ventricular premature depolarization; M15.9 Polyosteoarthritis, unspecified; Z79.01 Long term (current) use of anticoagulants; Z79.82 Long term (current) use of aspirin; Z79.899 Other long term (current) drug therapy; Z90.710 Acquired absence of both cervix and uterus; Z95.5 Presence of coronary angioplasty implant and graft; Z96.1 Presence of intraocular lens; I35.0 Nonrheumatic aortic (valve) stenosis
CPT/HCPCS: 36415; 51798; 70450; 70498; 70551; 71020; 80053; 80061; 81001; 82550; 82553; 83090; 83880; 84484; 85025; 85027; 85610; 85730; 87077; 87086; 87186; 93005; 93306; 93880; 95819; 99285

== ENCOUNTER → 2016-06-24 | Outpatient (CLI) | payer MEDICARE, BC ==
[2016-06-24 19:30] LABS: INR 1.8 (<1.1); Prothrombin Time 17.2 sec (9.0-12.0)
== END ==
LOC: MMGSC 16:06
PROVIDERS: ATTEND Internal Medicine Interventional Cardiology
DX: I48.2 Chronic atrial fibrillation (principal)
CPT/HCPCS: 36415; 85610

== ENCOUNTER → 2016-07-08 | Outpatient (CLI) | payer MEDICARE, BC ==
[2016-07-08 20:49] LABS: Prothrombin Time 19.7 sec (9.0-12.0)
== END | disposition home or self-care (01) ==
LOC: MMGSC 16:09
PROVIDERS: ATTEND Internal Medicine Interventional Cardiology
DX: I48.2 Chronic atrial fibrillation (principal)
CPT/HCPCS: 36415; 85610

== ENCOUNTER → 2016-07-30 | Outpatient (CLI) | payer MEDICARE, BC ==
[2016-07-30 18:48] LABS: CH 32.5; CHCM 31.3; HCT 43.7 % (34.0-46.0); HDW 2.65; HGB 13.2 gm/dL (11.4-16.0); Hypochromasia Slight; MCH 31.7 pg (25.0-35.0); MCHC 30.3 g/dL (31.0-37.0); MCV 104.6 fL (80.0-100.0); Macrocytosis Moderate; Mean Platelet Volume 8.5; RBC 4.17 m/uL (3.80-5.40); RDW 14.7 % (11.5-15.5); WBC 4.6 k/uL (3.8-10.6)
[2016-07-30 18:51] LABS: Anion Gap 10 mmol/L; Blood Urea Nitrogen 17 mg/dL (7-17); Carbon Dioxide 23 mmol/L (22-30); Chloride 106 mmol/L (98-107); Non-African American GFR(MDRD) >60 (>60 ml/min/1.73 sqM); Potassium 4.3 mmol/L (3.5-5.1); Sodium 139 mmol/L (137-145)
== END ==
LOC: MMGSC 10:15
PROVIDERS: ATTEND Internal Medicine Interventional Cardiology
DX: Z01.812 Encounter for preprocedural laboratory examination (principal); I35.0 Nonrheumatic aortic (valve) stenosis
CPT/HCPCS: 80051; 82565; 84520; 85027

== ENCOUNTER → 2016-07-30 | Outpatient (CLI) | payer MEDICARE, BC ==
[2016-07-30 18:59] LABS: INR 2.4 (<1.1); Prothrombin Time 23.5 sec (9.0-12.0)
== END | disposition home or self-care (01) ==
LOC: MMGSC 10:13
PROVIDERS: ATTEND Internal Medicine Interventional Cardiology
DX: I48.2 Chronic atrial fibrillation (principal)
CPT/HCPCS: 36415; 85610

== ENCOUNTER 2016-08-13 05:57 | Day surgery (SDC) | payer MEDICARE, BC ==
[2016-08-10 11:15] VITALS: BMI 29.5
[2016-08-13] MEDS ORDERED: fentaNYL (PF) 50 MCG/ML 2 ML AMP ONE (06:46)
[2016-08-13] MEDS ORDERED: MIDAZOLAM 2 MG/2 ML VIAL ONE (06:47)
[2016-08-13 06:58] VITALS: PULSE 81; TEMP 98.4
[2016-08-13] MEDS ORDERED: SODIUM CHLORIDE 0.9% 1,000 ML IV ONE (06:58)
[2016-08-13] MEDS: BENZOCAINE SPRAY 100 APPLIC/CAN MUCOUS MEM ONE ×3 (07:01→07:21)
[2016-08-13 07:02] LABS: INR 1.3 (<1.1); Prothrombin Time 13.1 sec (9.0-12.0)
[2016-08-13] MEDS: fentaNYL (PF) 50 MCG/ML 2 ML AMP IVP ONE ×2 (07:17→07:21)
[2016-08-13] MEDS ORDERED: MIDAZOLAM 2 MG/2 ML VIAL IVP ONE (07:18)
[2016-08-13] MEDS ORDERED: LIDOCAINE 2% INJ 20 MG/ML (20 ML MDV) ONE (07:21)
[2016-08-13] MEDS ORDERED: LIDOCAINE 2% INJ 20 MG/ML SQ ONE (08:02)
[2016-08-13 08:38] LABS: Site RA
[2016-08-13 08:39] LABS: Site FA
[2016-08-13 08:39] LABS: Site PA
[2016-08-13] MEDS ORDERED: IOHEXOL 350 MG/ML 125ML BOTTLE INJ ONE (08:39)
[2016-08-13] MEDS ORDERED: RX INFO: IV CONTRAST WAS GIVEN 1 EACH MISC MISCELLANE PRN (08:46)
[2016-08-13] MEDS ORDERED: NITROGLYCERIN SL TABS 0.4 MG TAB SUBLINGUAL PRN (08:46)
--- NOTE | 2016-08-13 08:49 | ECHOT ---
INDICATION: Evaluation of aortic valve. PROCEDURE: After explaining the procedure to the patient, its risks and complications; blood pressure, heart rate, O2 saturation were monitored. The throat was sprayed with Cetacaine. She received 50 mcg of intravenous Fentanyl, 0.5 mg intravenous Versed. The probe was introduced into the esophagus without difficulty, images were obtained. The probe was removed. There was no immediate complication. FINDINGS: Biatrial enlargement with noted spontaneous contrast was noted in the left atrium. The left ventricular size is normal. Ejection fraction is estimated at 50% to 55%. Mitral annular calcification was noted. Tricuspid valve is normal. The aortic valve with tricuspid valve with severe calcification severely decreased in the opening of the aortic valve with valve area of biplanimetry of 0.5 cm2. The descending thoracic aorta appears to be normal. Contrast bubbles show no evidence of shunting across the anterior intra- atrial septum with Valsalva maneuver. No pericardial effusion was noted. Doppler pulse wave obtained, revealed moderate mitral and tricuspid regurgitation with evidence of left to right shunting through an atrial septal defect if the secundum type. The peak gradient across the aortic valve was 55 mmHg with a mean of 33 mmHg. There was moderate aortic regurgitation noted. CONCLUSION: 1. Biatrial enlargement with spontaneous contrast in the left atrium. 2. Severe aortic stenosis with valve area of 0.5 cm2 and a mean gradient of 33 mmHg and moderate aortic regurgitation. 3. Normal ventricular size with an ejection fraction of 50% to 55%. 4. 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 5. Moderate mitral and tricuspid regurgitation. 6. No pericardial effusion. [facility]
[2016-08-13] MEDS ORDERED: LEVOTHYROXINE 25 MCG TAB PO SCH (09:00)
[2016-08-13] MEDS ORDERED: WARFARIN 1 MG TAB PO SCH (09:00)
[2016-08-13] MEDS ORDERED: ACETAMINOPHEN TAB 500 MG TAB PO SCH (09:00)
[2016-08-13] MEDS ORDERED: SODIUM CHLORIDE 0.9% 1,000 ML IV SCH (09:00)
[2016-08-13] MEDS ORDERED: ATENOLOL 25 MG TAB PO SCH (09:00)
--- NOTE | 2016-08-13 10:35 | CC ---
Mrs. Lopes is an 81-year-old female with a known history of coronary artery disease, aortic valve disease who has been complaining of progressive symptoms of dyspnea and had increased gradient across her aortic valve on the transthoracic echocardiogram. In view of that, recommendation made regarding cardiac catheterization. The procedure, risks and complications were discussed with the patient who is in full understanding and agreement. PROCEDURE: The patient was brought to the [facility] in the fasting semi-sedated state after introducing Fentanyl and Benadryl and achieving moderate conscious sedated state. Using Xylocaine anesthesia and Seldinger technique, an 8 Anguillan sheath was introduced in the right femoral vein and a 5 Anguillan sheath in the right femoral artery. Right thigh catheterization was performed with Lapine Griffin catheter and multiple samples and pressure were calculated. Cardiac output by thermal dilution was obtained. Following that, selective right and left coronary angiography performed using 6 Anguillan, 4 Bend right Zoya catheter in multiple views of the right coronary artery including jose angel-axial views obtained. Following that, the 6 Anguillan tight pigtail catheter was used to obtain an left ventriculogram in the FELDMAN view and an aortogram in the SERBIAN view, following catheter and sheath were removed. Hemostasis was obtained with compression of the right ( ). There were no immediate complications. The patient was returned to her room in stable condition. FINDINGS: FLUOROSCOPY: There is calcification involving the aortic knob as well as the aortic valve. HEMODYNAMICS: Pulmonary artery systolic pressure of 50 diastolic of 20 with a mean of 30 mmHg. Right ventricle systolic pressure of 52 with an end diastolic of 8 mmHg. Right atrium V-wave of 12 with a mean of 9 mmHg. LV systolic pressure of 180 mmHg ascending aorta, systolic pressure of 155 to 160 mmHg. Peak gradient of 20 to 25 mmHg. Cardiac output by thermal dilution 5.3 L/min by Madhuri 4.7 L/min. Pulmonary artery saturation is 72%. Right atrial saturation is 68%. Femoral artery saturation of 96%. CORONARIES: LEFT MAIN: This is a short size vessel, bifurcating into left circumflex, left anterior descending artery. Left main coronary artery is without any evidence of high grade stenosis. LEFT ANTERIOR DESCENDING ARTERY: This is a large size vessel reaching toward the apex without apparent apex segment, giving rise to a diagonal branch, descending segment in the mid-LAD is patent with no evidence of significant stenosis. There is mild intimal disease proximally. LEFT CIRCUMFLEX: This is a dominant vessel, large in caliber, bifurcating distally into PDA and posterolateral segment and branches. The right left circumflex as well as its branches have no evidence of obstructive coronary artery disease. RIGHT CORONARY ARTERY: This is a nondominant vessel, small in caliber that has no evidence of high-grade stenosis. LEFT VENTRICULOGRAM: The ventriculogram is performed in 30 degree FELDMAN view and revealed mild global hypokinesis. There was 2+ mitral regurgitation with ejection fraction of 45% to 50%. AORTOGRAM: Aortogram was performed in the SERBIAN view, revealed a tricuspid aortic valve, heavily calcified with 2 to 3+ aortic regurgitation. CONCLUSION: 1. Mild intimal disease in the proximal left anterior descending artery with no evidence of significant restenosis in the mid left anterior descending artery. 2. Dominant left circulation. 3. Mildly impaired left ventricular systolic function. 4. Severe aortic stenosis and mild right aortic regurgitation. 5. Normal appearance of the ascending aorta. DURATION OF THE PROCEDURE: 45 minutes. BRITTANY
--- NOTE | 2016-08-13 10:39 | MISC ---
DATE OF SERVICE: 08/13/[address] Avery; I had the pleasure to perform cardiac catheterization on Mrs. Lopes at [facility] on August 13, 2016 and a full copy of the procedure note will be forwarded to you. In brief, she was found to have no evidence of restenosis in the mid-LAD with severe aortic stenosis and atrial septal defect of the the secundum type with left to right shunting by STEPHANIE and based on those findings, I have recommended proceeding with evaluation for aortic valve replacement. I will keep you updated on her progress and thank you again for allowing me to participate in this patient's care. Please feel free to call for any questions. Sincerely yours, Enrique Jain MD [facility]
[2016-08-13] MEDS ORDERED: TICAGRELOR 90 MG TAB ONE (11:01)
[2016-08-13] MEDS ORDERED: LOSARTAN 25 MG TAB PO SCH (14:00)
[2016-08-13] MEDS ORDERED: ASPIRIN 81 MG CHEW PO SCH (14:00)
[2016-08-13] MEDS ORDERED: NON-FORMULARY DRUG (Ranitidine Hcl [Zantac] 150 MG) PO SCH (14:00)
[2016-08-13 14:05] VITALS: RESP 18
[2016-08-13] MEDS ORDERED: LOSARTAN 25 MG TAB PO STA (14:33)
[2016-08-13 17:23] VITALS: BP 152/70
[2016-08-13] MEDS ORDERED: DOCUSATE 100 MG CAP PO SCH (21:00)
[2016-08-15] MEDS ORDERED: WARFARIN 1 MG TAB PO SCH (08:46)
== END 2016-08-13 17:30 | disposition home or self-care (01) ==
LOC: CATHCVL 05:57
PROVIDERS: ATTEND Internal Medicine Interventional Cardiology
DX: I08.3 Combined rheumatic disorders of mitral, aortic and tricuspid valves (principal); I25.10 Atherosclerotic heart disease of native coronary artery without angina pectoris; I10 Essential (primary) hypertension; I48.2 Chronic atrial fibrillation; I48.1 Persistent atrial fibrillation; E78.2 Mixed hyperlipidemia; I65.23 Occlusion and stenosis of bilateral carotid arteries; I73.9 Peripheral vascular disease, unspecified; Z95.5 Presence of coronary angioplasty implant and graft; K21.9 Gastro-esophageal reflux disease without esophagitis; M35.00 Sjogren syndrome, unspecified; Z79.01 Long term (current) use of anticoagulants; Z79.82 Long term (current) use of aspirin; Z79.899 Other long term (current) drug therapy; Z88.8 Allergy status to other drugs, medicaments and biological substances
CPT/HCPCS: 93312; 93320; 93325; 85018; 82810; 85610; 99152; 99153; J2001; J2250; J3010; Q9967; 93460; 93567

== ENCOUNTER 2016-08-24 08:24 | Emergency (ER) | payer MEDICARE, BC ==
[2016-08-24] MEDS ORDERED: SODIUM CHLORIDE 0.9% 1,000 ML IV STA (08:32)
[2016-08-24] MEDS ORDERED: SODIUM CHLORIDE 0.9% 500 ML IV STA (08:32)
[2016-08-24 08:34] VITALS: RESP 18
[2016-08-24 08:58] LABS: Basophils % (A) 1 %; CH 31.6; CHCM 32.8; Eosinophils # (A) 0.1 k/uL (0-0.7); Eosinophils % (A) 3 %; HCT 40.7 % (34.0-46.0); HDW 2.67; HGB 13.5 gm/dL (11.4-16.0); Luc # (Auto) 0.11; Luc % (Auto) 3; Lymphocytes # (A) 1.2 k/uL (1.0-4.8); Lymphocytes % (A) 31 %; MCH 32.3 pg (25.0-35.0); MCHC 33.3 g/dL (31.0-37.0); Mean Platelet Volume 6.7; Monocytes # (A) 0.2 k/uL (0-1.0); Monocytes % (A) 6 %; Neutrophils # (A) 2.1 k/uL (1.3-7.7); Neutrophils % (A) 56 %; RDW 13.6 % (11.5-15.5); WBC 3.8 k/uL (3.8-10.6); WBC (Perox) 3.76
[2016-08-24 08:59] LABS: MCV 96.8 fL (80.0-100.0)
[2016-08-24 09:02] LABS: INR 1.6 (<1.2); Partial Thromboplastin Time 26.9 sec (22.0-30.0); Prothrombin Time 15.6 sec (9.0-12.0)
[2016-08-24 09:10] LABS: ALT 21 U/L (9-52); AST 25 U/L (14-36); Alkaline Phosphatase 94 U/L (38-126); Anion Gap 9 mmol/L; Blood Urea Nitrogen 13 mg/dL (7-17); Calcium 8.9 mg/dL (8.4-10.2); Carbon Dioxide 25 mmol/L (22-30); Chloride 105 mmol/L (98-107); Glucose 128 mg/dL (74-99); Magnesium 1.7 mg/dL (1.6-2.3); Non-African American GFR(MDRD) >60 (>60 ml/min/1.73 sqM); Phosphorous 3.2 mg/dL (2.5-4.5); Potassium 3.8 mmol/L (3.5-5.1); Sodium 139 mmol/L (137-145); Total Bilirubin 0.7 mg/dL (0.2-1.3)
[2016-08-24 09:12] LABS: Creatine Kinase 36 U/L (30-135)
--- NOTE | 2016-08-24 09:17 | ED ---
General Adult HPI - General Chief complaint: Eye Problems Stated complaint: VISUAL DISTURBANCES Time Seen by Provider: 08/24/16 08:32 Source: patient, EMS, RN notes reviewed, old records reviewed Mode of arrival: EMS Limitations: no limitations - History of Present Illness Initial comments: This is a 81-year-old female to the ER for evaluation today. Today's patient presents for evaluation of visual disturbance. He does have significant medical history which includes A. fib on Coumadin. Prior history of TIA and history of pontine stroke. Patient states she had some blurry vision, double vision earlier today which seem to be located in both eyes. She became very anxious and then symptoms resolved. Patient also has a valve issue with her heart was scheduled to see cardiology regarding valve replacement. At this time patient states she has no medical complaints. Patient is normal no neurological deficit - Related Data Home Medications Medication Instructions Recorded Confirmed Acetaminophen [Tylenol] 500 mg PO BID 04/28/16 08/24/16 Albuterol Sulfate [Proair Hfa] 1 - 2 puff INHALATION RT-QID PRN 04/28/16 Aspirin 81 mg PO DAILY@1400 04/28/16 08/24/16 Atenolol [Tenormin] 25 mg PO BID 04/28/16 08/24/16 Levothyroxine Sodium [Synthroid] 25 mcg PO DAILY 04/28/16 08/24/16 Losartan Potassium [Cozaar] 25 mg PO DAILY@1400 04/28/16 08/24/16 Nitroglycerin Sl Tabs [Nitrostat] 0.4 mg SUBLINGUAL Q5M PRN 04/28/16 08/24/16 Ranitidine HCl [Zantac] 150 mg PO DAILY@1400 04/28/16 08/24/16 Warfarin [Coumadin] 1 mg PO SUMOWETHFRSA 04/28/16 08/24/16 Warfarin [Coumadin] 2 mg PO TU 04/28/16 08/24/16 Simvastatin [Zocor] 20 mg PO HS 08/10/16 08/24/16 Allergies Allergy/AdvReac Type Severity Reaction Status Date / Time rivaroxaban [From Xarelto] AdvReac Severe Rapid Verified 08/24/16 08:49 Heart Rate dabigatran etexilate AdvReac Unknown ULCERS Verified 08/24/16 08:49 [From Pradaxa] apixaban [From Eliquis] AdvReac NUMBNESS Verified 08/24/16 08:49 IN LEG. Review of Systems ROS Statement: Those systems with pertinent positive or pertinent negative responses have been documented in the HPI. ROS Other: All systems not noted in ROS Statement are negative. Past Medical History Past Medical History: Atrial Fibrillation, CVA/TIA Additional Past Medical History / Comment(s): Recent UTI and has completed ABX, shogrens, leaky cardiac valve, neuropathy bilateral feet/legs, past inner ear problem causing imbalance-not lately, hypothyroid, OA multiple joints. History of Any Multi-Drug Resistant Organisms: None Reported Past Surgical History: Heart Catheterization Additional Past Surgical History / Comment(s): 2011 PCI with stent to mid LAD, R ovarian cyst, R sided hernia repair, bilateral cataracts removed with lens implants, R knee arthroscopy and gets injections, STEPHANIE Past Anesthesia/Blood Transfusion Reactions: No Reported Reaction Date of Last Stent Placement:: 2011 Past Psychological History: No Psychological Hx Reported Smoking Status: Never smoker Past Alcohol Use History: Rare Past Drug Use History: None Reported - Past Family History Father History Unknown: Yes Mother Family Medical History: No Reported History Additional Family Medical History / Comment(s): . Sister(s) Family Medical History: Cancer Additional Family Medical History / Comment(s): OVARIAN CANCER General Exam - General Exam Comments Initial Comments: NIH of 0 Limitations: no limitations General appearance: alert, in no apparent distress Head exam: Present: atraumatic, normocephalic, normal inspection Eye exam: Present: normal appearance, PERRL, EOMI. Absent: scleral icterus, conjunctival injection, periorbital swelling ENT exam: Present: normal exam, mucous membranes moist Neck exam: Present: normal inspection. Absent: tenderness, meningismus, lymphadenopathy Respiratory exam: Present: normal lung sounds bilaterally. Absent: respiratory distress, wheezes, rales, rhonchi, stridor Cardiovascular Exam: Present: regular rate, normal rhythm, normal heart sounds. Absent: systolic murmur, diastolic murmur, rubs, gallop, clicks GI/Abdominal exam: Present: soft, normal bowel sounds. Absent: distended, tenderness, guarding, rebound, rigid Extremities exam: Present: normal inspection, full ROM, normal capillary refill. Absent: tenderness, pedal edema, joint swelling, calf tenderness Back exam: Present: normal inspection Neurological exam: Present: alert, oriented X3, CN II-XII intact Psychiatric exam: Present: normal affect, normal mood Skin exam: Present: warm, dry, intact, normal color. Absent: rash Course Vital Signs 08/24/16 08/24/16 08/24/16 08:26 09:43 11:00 Temperature 98 F 97.3 F L 97.4 F L Pulse Rate 86 80 73 Respiratory 18 18 18 Rate Blood Pressure 181/83 155/92 147/77 O2 Sat by Pulse 98 96 99 Oximetry - Reevaluation(s) Reevaluation #1: 08/24/16 09:16 Neurological symptoms remain resolved EKG Findings - EKG Comments: EKG Findings:: EKG shows A. fib rate of 75, QRS 94, QTc 453 Medical Decision Making - Medical Decision Making Anything female here for evaluation neurological symptoms complaint, blurry vision, symptoms remain resolved, CT Lever is negative Coumadin subtherapeutic, spoke with patient extensively regarding symptoms, patient would like to be discharged this time, will return to ER if symptoms worsen - Lab Data Result diagrams: 08/24/16 08:30 08/24/16 08:30 Lab Results 08/24/16 08/24/16 08/24/16 Range/Units 08:30 08:30 08:30 WBC 3.8 (3.8-10.6) k/uL RBC 4.20 (3.80-5.40) m/uL Hgb 13.5 (11.4-16.0) gm/dL Hct 40.7 (34.0-46.0) % MCV 96.8 D (80.0-100.0) fL MCH 32.3 (25.0-35.0) pg MCHC 33.3 (31.0-37.0) g/dL RDW 13.6 (11.5-15.5) % Plt Count 158 (150-450) k/uL Neutrophils % 56 % Lymphocytes % 31 % Monocytes % 6 % Eosinophils % 3 % Basophils % 1 % Neutrophils # 2.1 (1.3-7.7) k/uL Lymphocytes # 1.2 (1.0-4.8) k/uL Monocytes # 0.2 (0-1.0) k/uL Eosinophils # 0.1 (0-0.7) k/uL Basophils # 0.0 (0-0.2) k/uL PT (9.0-12.0) sec INR (<1.2) APTT (22.0-30.0) sec Sodium 139 (137-145) mmol/L Potassium 3.8 (3.5-5.1) mmol/L Chloride 105 (98-107) mmol/L Carbon Dioxide 25 (22-30) mmol/L Anion Gap 9 mmol/L BUN 13 (7-17) mg/dL Creatinine 0.75 (0.52-1.04) mg/dL Est GFR (MDRD) Af Amer >60 (>60 ml/min/1.73 sqM) Est GFR (MDRD) Non-Af >60 (>60 ml/min/1.73 sqM) Glucose 128 H (74-99) mg/dL Calcium 8.9 (8.4-10.2) mg/dL Phosphorus 3.2 (2.5-4.5) mg/dL Magnesium 1.7 (1.6-2.3) mg/dL Total Bilirubin 0.7 (0.2-1.3) mg/dL AST 25 (14-36) U/L ALT 21 (9-52) U/L Alkaline Phosphatase 94 (38-126) U/L Total Creatine Kinase 36 (30-135) U/L CK-MB (CK-2) 0.9 (0.0-2.4) ng/mL CK-MB (CK-2) Rel Index 2.5 Troponin I <0.012 (0.000-0.034) ng/mL Total Protein 7.9 (6.3-8.2) g/dL Albumin 3.5 (3.5-5.0) g/dL Urine Color Urine Appearance (Clear) Urine pH (5.0-8.0) Ur Specific [place] (1.001-1.035) Urine Protein (Negative) Urine Glucose (UA) (Negative) Urine Ketones (Negative) Urine Blood (Negative) Urine Nitrite (Negative) Urine Bilirubin (Negative) Urine Urobilinogen (<2.0) mg/dL Ur Leukocyte Esterase (Negative) Urine RBC (0-5) /hpf Urine WBC (0-5) /hpf Ur Squamous Epith Cells (0-4) /hpf Urine Bacteria (None) /hpf Urine Mucus (None) /hpf 08/24/16 08/24/16 Range/Units 08:30 09:15 WBC (3.8-10.6) k/uL RBC (3.80-5.40) m/uL Hgb (11.4-16.0) gm/dL Hct (34.0-46.0) % MCV (80.0-100.0) fL MCH (25.0-35.0) pg MCHC (31.0-37.0) g/dL RDW (11.5-15.5) % Plt Count (150-450) k/uL Neutrophils % % Lymphocytes % % Monocytes % % Eosinophils % % Basophils % % Neutrophils # (1.3-7.7) k/uL Lymphocytes # (1.0-4.8) k/uL Monocytes # (0-1.0) k/uL Eosinophils # (0-0.7) k/uL Basophils # (0-0.2) k/uL PT 15.6 H (9.0-12.0) sec INR 1.6 H (<1.2) APTT 26.9 (22.0-30.0) sec Sodium (137-145) mmol/L Potassium (3.5-5.1) mmol/L Chloride (98-107) mmol/L Carbon Dioxide (22-30) mmol/L Anion Gap mmol/L BUN (7-17) mg/dL Creatinine (0.52-1.04) mg/dL Est GFR (MDRD) Af Amer (>60 ml/min/1.73 sqM) Est GFR (MDRD) Non-Af (>60 ml/min/1.73 sqM) Glucose (74-99) mg/dL Calcium (8.4-10.2) mg/dL Phosphorus (2.5-4.5) mg/dL Magnesium (1.6-2.3) mg/dL Total Bilirubin (0.2-1.3) mg/dL AST (14-36) U/L ALT (9-52) U/L Alkaline Phosphatase (38-126) U/L Total Creatine Kinase (30-135) U/L CK-MB (CK-2) (0.0-2.4) ng/mL CK-MB (CK-2) Rel Index Troponin I (0.000-0.034) ng/mL Total Protein (6.3-8.2) g/dL Albumin (3.5-5.0) g/dL Urine Color Yellow Urine Appearance Clear (Clear) Urine pH 6.5 (5.0-8.0) Ur Specific [place] 1.006 (1.001-1.035) Urine Protein Trace H (Negative) Urine Glucose (UA) Negative (Negative) Urine Ketones Negative (Negative) Urine Blood Negative (Negative) Urine Nitrite Negative (Negative) Urine Bilirubin Negative (Negative) Urine Urobilinogen <2.0 (<2.0) mg/dL Ur Leukocyte Esterase Moderate H (Negative) Urine RBC <1 (0-5) /hpf Urine WBC 43 H (0-5) /hpf Ur Squamous Epith Cells <1 (0-4) /hpf Urine Bacteria Moderate H (None) /hpf Urine Mucus Rare H (None) /hpf - Radiology Data Radiology results: report reviewed (CT brain and negative for acute disease), image reviewed Disposition Clinical Impression: TIA (transient ischemic attack) Disposition: HOME SELF-CARE Condition: Good Instructions: Transient Ischemic Attack (ED) Referrals: Clarke Avery MD [Primary Care Provider] - 1-2 days
[2016-08-24 09:24] LABS: Creatine Kinase MB 0.9 ng/mL (0.0-2.4); Troponin I <0.012 ng/mL (0.000-0.034)
--- NOTE | 2016-08-24 09:30 | CT ---
EXAMINATION TYPE: CT brain wo con DATE OF EXAM: 08/24/2016 COMPARISON: 04/28/2016 HISTORY: Visual disturbances CT DLP: 999.[address] of the brain was performed. The ventricles, basal cisterns and sulci overlying the cerebral convexities demonstrate mild enlargem ent. Remote lacunar infarcts of the basal ganglia. There is no evidence for intracranial hemorrhage or sulcal effacement. There is decreased attenuation about the periventricular white matter and deep white matter of both c erebral hemispheres, compatible with chronic small vessel ischemia. Differential diagnosis does inclu de demyelination. No mass effects are seen.No midline shift. Osseous calvarium is intact. If symptoms persist consider MRI. IMPRESSION: 1. Age related atrophic and chronic small vessel ischemic change without acute intracranial process s een at this time.
[2016-08-24 09:31] LABS: Total Protein 7.9 g/dL (6.3-8.2)
[2016-08-24 09:35] LABS: Appearance,Urine Clear (Clear); Bacteria,Urine Moderate /hpf; Bilirubin,Urine Negative (Negative); Glucose,Urine (UA) Negative (Negative); Ketones,Urine Negative (Negative); Leukocyte Esterase,Urine Moderate (Negative); Mucus,Urine Rare /hpf; Nitrite,Urine Negative (Negative); PH, Urine 6.5 (5.0-8.0); Particle Count 4699; Protein,Urine Trace (Negative); RBC,Urine <1 /hpf (0-5); Specific Gravity,Urine 1.006 (1.001-1.035); Squamous Epithelial Cell,Urine <1 /hpf (0-4); UA Billing (MACRO vs. MICRO) MICRO; Urobilinogen,Urine <2.0 mg/dL (<2.0); WBC,Urine 43 /hpf (0-5)
[2016-08-24 11:01] VITALS: BP 147/77; PULSE 73; TEMP 97.4
[2016-08-24] MEDS ORDERED: WARFARIN 1 MG TAB PO STA (11:05)
[2016-08-24] MEDS ORDERED: ENOXAPARIN 80 MG/0.8 ML SYRINGE SQ STA (11:05)
== END 2016-08-24 11:32 | disposition home or self-care (01) ==
LOC: EC 08:24
DX: G45.9 Transient cerebral ischemic attack, unspecified (principal); I48.91 Unspecified atrial fibrillation; E03.9 Hypothyroidism, unspecified; M19.90 Unspecified osteoarthritis, unspecified site; Z95.5 Presence of coronary angioplasty implant and graft; Z88.8 Allergy status to other drugs, medicaments and biological substances; Z79.01 Long term (current) use of anticoagulants; Z79.1 Long term (current) use of non-steroidal anti-inflammatories (NSAID); Z79.82 Long term (current) use of aspirin; Z79.899 Other long term (current) drug therapy
CPT/HCPCS: 99285; 96365; 96361; 96372; 36415; 93005; 80053; 82550; 82553; 83735; 84100; 84484; 85025; 85610; 85730; 81001; 87086; 87077; 87186; 70450; J0696; J1650

== ENCOUNTER → 2016-08-27 | Outpatient (CLI) | payer MEDICARE, BC ==
[2016-08-27 18:46] LABS: INR 1.9 (<1.2); Prothrombin Time 18.7 sec (9.0-12.0)
== END ==
LOC: MMGSC 09:37
PROVIDERS: ATTEND Internal Medicine Interventional Cardiology
DX: I48.2 Chronic atrial fibrillation (principal)
CPT/HCPCS: 36415; 85610

== ENCOUNTER → 2016-10-20 | Outpatient (CLI) | payer MEDICARE, BC ==
[2016-10-20 20:04] LABS: INR 2.1 (<1.2); Prothrombin Time 20.5 sec (9.0-12.0)
== END ==
LOC: MMGSC 15:08
PROVIDERS: ATTEND Internal Medicine Interventional Cardiology
DX: I48.2 Chronic atrial fibrillation (principal)
CPT/HCPCS: 36415; 85610

== ENCOUNTER → 2016-12-11 | Outpatient (CLI) | payer MEDICARE, BC ==
[2016-12-11 21:08] LABS: INR 1.4 (<1.2); Prothrombin Time 13.8 sec (9.0-12.0)
== END ==
LOC: MMGSC 14:48
PROVIDERS: ATTEND Internal Medicine Interventional Cardiology
DX: I48.2 Chronic atrial fibrillation (principal)
CPT/HCPCS: 36415; 85610

== ENCOUNTER → 2016-12-24 | Outpatient (CLI) | payer MEDICARE, BC ==
[2016-12-24 21:35] LABS: CH 29.1; CHCM 29.4; HCT 38.8 % (34.0-46.0); HDW 3.19; HGB 11.4 gm/dL (11.4-16.0); Hypochromasia Marked; MCH 29.3 pg (25.0-35.0); MCHC 29.5 g/dL (31.0-37.0); MCV 99.4 fL (80.0-100.0); Mean Platelet Volume 7.2; RDW 13.5 % (11.5-15.5)
[2016-12-24 21:37] LABS: ALT 16 U/L (9-52); AST 25 U/L (14-36); Alkaline Phosphatase 106 U/L (38-126); Anion Gap 12 mmol/L; Blood Urea Nitrogen 19 mg/dL (7-17); Calcium 8.9 mg/dL (8.4-10.2); Carbon Dioxide 21 mmol/L (22-30); Chloride 106 mmol/L (98-107); Glucose 116 mg/dL (74-99); Non-African American GFR(MDRD) 54 (>60 ml/min/1.73 sqM); Potassium 3.8 mmol/L (3.5-5.1); Sodium 139 mmol/L (137-145); Total Bilirubin 0.4 mg/dL (0.2-1.3); Total Protein 8.2 g/dL (6.3-8.2)
[2016-12-24 21:47] LABS: INR 2.1 (<1.2); Prothrombin Time 20.5 sec (9.0-12.0)
== END ==
LOC: MMGSC 15:58
PROVIDERS: ATTEND Internal Medicine Interventional Cardiology
DX: I10 Essential (primary) hypertension (principal); I48.2 Chronic atrial fibrillation
CPT/HCPCS: 36415; 80053; 85027; 85610

== ENCOUNTER → 2017-01-26 | Outpatient (CLI) | payer MEDICARE, BC ==
[2017-01-26 19:43] LABS: INR 1.9 (<1.2); Prothrombin Time 17.6 sec (9.0-12.0)
== END | disposition home or self-care (01) ==
LOC: MMGSC 16:21
PROVIDERS: ATTEND Internal Medicine Interventional Cardiology
DX: I48.2 Chronic atrial fibrillation (principal)
CPT/HCPCS: 36415; 85610

== ENCOUNTER → 2017-04-06 | Outpatient (CLI) | payer MEDICARE, BC ==
[2017-04-06 18:43] LABS: INR 3.3 (<1.2); Prothrombin Time 29.5 sec (9.0-12.0)
== END | disposition home or self-care (01) ==
LOC: MMGSC 15:35
PROVIDERS: ATTEND Internal Medicine Interventional Cardiology
DX: I48.2 Chronic atrial fibrillation (principal)
CPT/HCPCS: 36415; 85610

== ENCOUNTER 2017-04-08 22:17 | Observation (INO) | payer MEDICARE, BC ==
[2017-04-08] MEDS ORDERED: MECLIZINE 12.5 MG TAB PO STA (22:42)
[2017-04-08] MEDS ORDERED: ONDANSETRON 4 MG/2 ML VIAL IVP STA (22:42)
--- NOTE | 2017-04-08 22:50 | ED ---
Dizziness HPI - General Chief Complaint: Dizziness Stated Complaint: hypertension,dizziness Time Seen by Provider: 04/08/17 22:19 Source: patient Mode of arrival: EMS Limitations: no limitations - History of Present Illness Initial Comments: This patient is an 82-year-old woman who presents with the complaint that she is dizzy. She states that it came on tonight suddenly and was very intense, while she was in the bathroom. She states that she had to sit down on the commode or she felt she would have fallen area the patient states that it feels like things are worse if she opens her eyes. She describes it as her vision being "jumping around," and that it is better if she keeps her eyes closed. She did have some nausea and vomited twice. Since the symptoms came on they have improved somewhat. It initially seemed worse with movement but she states now turning her head does not seem to bother it is much. She denies any other associated symptoms, including no headache or ear pain. No fevers, chills, cough, chest pain, diaphoresis, lightheadedness or syncope. MD Complaint: dizziness, difficulty walking Onset/Timin -: hour(s) Timing: sudden onset Description: difficulty walking, other History of Same: No History of Trauma: No Severity: severe Improves With: other (Closing her eyes) Worsens With: movement Associated Symptoms: other (Nausea and vomiting) - Related Data Home Medications Medication Instructions Recorded Confirmed Acetaminophen [Tylenol] 500 mg PO BID 04/28/16 04/08/17 Albuterol Sulfate [Proair Hfa] 1 - 2 puff INHALATION RT-QID PRN 04/28/16 Aspirin 81 mg PO DAILY@139904/28/16 04/08/17 Levothyroxine Sodium [Synthroid] 25 mcg PO DAILY 04/28/16 04/08/17 Nitroglycerin Sl Tabs [Nitrostat] 0.4 mg SUBLINGUAL Q5M PRN 04/28/16 04/08/17 Ranitidine HCl [Zantac] 150 mg PO DAILY@1400 04/28/16 04/08/17 Warfarin [Coumadin] 0.5 mg PO MOFR 04/28/16 04/08/17 Warfarin [Coumadin] 1 mg PO DAILY 04/28/16 04/08/17 Cetirizine HCl [Zyrtec] 10 mg PO DAILY PRN 04/08/17 04/08/17 Clopidogrel [Plavix] 75 mg PO DAILY 04/08/17 04/08/17 Metoprolol Tartrate [Lopressor] 50 mg PO BID 04/08/17 04/08/17 Simvastatin [Zocor] 40 mg PO DAILY 04/08/17 04/08/17 Previous Rx's Medication Instructions Recorded Meclizine [Antivert] 25 mg PO TID #20 tab 04/09/17 Ondansetron Odt [Zofran ODT] 4 mg PO Q8HR PRN #10 tab 04/09/17 Allergies Allergy/AdvReac Type Severity Reaction Status Date / Time rivaroxaban [From Xarelto] AdvReac Severe Rapid Verified 04/08/17 22:44 Heart Rate dabigatran etexilate AdvReac Unknown ULCERS Verified 04/08/17 22:44 [From Pradaxa] apixaban [From Eliquis] AdvReac NUMBNESS Verified 04/08/17 22:44 IN LEG. Review of Systems ROS Statement: Those systems with pertinent positive or pertinent negative responses have been documented in the HPI. ROS Other: All systems not noted in ROS Statement are negative. Constitutional: Denies: fever, chills, weakness Eyes: Reports: as per HPI, vision change. Denies: eye pain, eye discharge ENT: Denies: ear pain, hearing loss, congestion Respiratory: Denies: cough, dyspnea Cardiovascular: Denies: chest pain, palpitations, syncope Gastrointestinal: Reports: nausea, vomiting. Denies: abdominal pain Genitourinary: Denies: dysuria Musculoskeletal: Denies: back pain Skin: Denies: rash Neurological: Reports: vertigo. Denies: headache, weakness, numbness, paresthesias Past Medical History Past Medical History: Atrial Fibrillation, CVA/TIA Additional Past Medical History / Comment(s): Recent UTI and has completed ABX, shogrens, leaky cardiac valve, neuropathy bilateral feet/legs, past inner ear problem causing imbalance-not lately, hypothyroid, OA multiple joints. History of Any Multi-Drug Resistant Organisms: None Reported Past Surgical History: Heart Catheterization Additional Past Surgical History / Comment(s): 2011 PCI with stent to mid LAD, R ovarian cyst, R sided hernia repair, bilateral cataracts removed with lens implants, R knee arthroscopy and gets injections, STEPHANIE Past Anesthesia/Blood Transfusion Reactions: No Reported Reaction Date of Last Stent Placement:: 2011 Past Psychological History: No Psychological Hx Reported Smoking Status: Never smoker Past Alcohol Use History: Rare Past Drug Use History: None Reported - Past Family History Father History Unknown: Yes Mother Family Medical History: No Reported History Additional Family Medical History / Comment(s): . Sister(s) Family Medical History: Cancer Additional Family Medical History / Comment(s): OVARIAN CANCER General Exam Limitations: no limitations General appearance: alert, in no apparent distress Head exam: Present: atraumatic, normocephalic Eye exam: Present: normal appearance, PERRL, EOMI, nystagmus. Absent: scleral icterus, conjunctival injection, periorbital swelling, periorbital tenderness ENT exam: Present: normal oropharynx, TM's normal bilaterally, normal external ear exam Neck exam: Present: normal inspection, full ROM Respiratory exam: Present: normal lung sounds bilaterally. Absent: respiratory distress, wheezes, rales, rhonchi, stridor GI/Abdominal exam: Present: soft. Absent: distended, tenderness, guarding, rebound, mass Extremities exam: Present: normal inspection, normal capillary refill. Absent: pedal edema, calf tenderness Back exam: Present: normal inspection. Absent: CVA tenderness (R), CVA tenderness (L) Neurological exam: Present: alert, oriented X3, CN II-XII intact. Absent: motor sensory deficit Skin exam: Present: warm, dry, intact, normal color. Absent: rash Course Vital Signs 04/08/17 04/08/17 04/09/17 22:21 22:57 00:06 Temperature 97.4 F L Pulse Rate 70 68 78 Respiratory 18 18 18 Rate Blood Pressure 198/98 183/83 224/101 O2 Sat by Pulse 98 98 98 Oximetry 04/09/17 04/09/17 04/09/17 00:23 00:37 01:28 Temperature Pulse Rate 77 88 80 Respiratory 18 18 18 Rate Blood Pressure 215/94 163/88 176/95 O2 Sat by Pulse 97 97 96 Oximetry EKG Findings - EKG Results: EKG: interpreted by ERMD, normal axis, normal QRS, normal ST/T EKG shows: atrial fibrillation (Rate approximately 81 bpm) Medical Decision Making - Lab Data Result diagrams: 04/08/17 22:35 04/08/17 22:35 Lab Results 04/08/17 04/08/17 04/08/17 Range/Units 22:21 22:35 22:35 WBC 4.0 (3.8-10.6) k/uL RBC 4.36 (3.80-5.40) m/uL Hgb 12.2 (11.4-16.0) gm/dL Hct 38.6 (34.0-46.0) % MCV 88.5 (80.0-100.0) fL MCH 28.0 (25.0-35.0) pg MCHC 31.7 (31.0-37.0) g/dL RDW 17.1 H (11.5-15.5) % Plt Count 154 (150-450) k/uL Neutrophils % 56 % Lymphocytes % 30 % Monocytes % 10 % Eosinophils % 2 % Basophils % 0 % Neutrophils # 2.3 (1.3-7.7) k/uL Lymphocytes # 1.2 (1.0-4.8) k/uL Monocytes # 0.4 (0-1.0) k/uL Eosinophils # 0.1 (0-0.7) k/uL Basophils # 0.0 (0-0.2) k/uL Hypochromasia Slight Anisocytosis Slight PT (9.0-12.0) sec INR (<1.2) APTT (22.0-30.0) sec Sodium 142 (137-145) mmol/L Potassium 4.0 (3.5-5.1) mmol/L Chloride 107 (98-107) mmol/L Carbon Dioxide 22 (22-30) mmol/L Anion Gap 13 mmol/L BUN 23 H (7-17) mg/dL Creatinine 0.80 (0.52-1.04) mg/dL Est GFR (MDRD) Af Amer >60 (>60 ml/min/1.73 sqM) Est GFR (MDRD) Non-Af >60 (>60 ml/min/1.73 sqM) Glucose 131 H (74-99) mg/dL POC Glucose (mg/dL) 117 H (75-99) mg/dL POC Glu Pipe Layer Helper ID [place], Hiren Calcium 8.9 (8.4-10.2) mg/dL Magnesium 1.9 (1.6-2.3) mg/dL Total Bilirubin 0.4 (0.2-1.3) mg/dL AST 22 (14-36) U/L ALT 10 (9-52) U/L Alkaline Phosphatase 102 (38-126) U/L Troponin I (0.000-0.034) ng/mL Total Protein 8.2 (6.3-8.2) g/dL Albumin 3.7 (3.5-5.0) g/dL Urine Color Urine Appearance (Clear) Urine pH (5.0-8.0) Ur Specific [place] (1.001-1.035) Urine Protein (Negative) Urine Glucose (UA) (Negative) Urine Ketones (Negative) Urine Blood (Negative) Urine Nitrite (Negative) Urine Bilirubin (Negative) Urine Urobilinogen (<2.0) mg/dL Ur Leukocyte Esterase (Negative) Urine RBC (0-5) /hpf Urine WBC (0-5) /hpf Ur Squamous Epith Cells (0-4) /hpf Urine Bacteria (None) /hpf Hyaline Casts (0-2) /lpf 04/08/17 04/08/17 04/09/17 Range/Units 22:35 22:35 00:16 WBC (3.8-10.6) k/uL RBC (3.80-5.40) m/uL Hgb (11.4-16.0) gm/dL Hct (34.0-46.0) % MCV (80.0-100.0) fL MCH (25.0-35.0) pg MCHC (31.0-37.0) g/dL RDW (11.5-15.5) % Plt Count (150-450) k/uL Neutrophils % % Lymphocytes % % Monocytes % % Eosinophils % % Basophils % % Neutrophils # (1.3-7.7) k/uL Lymphocytes # (1.0-4.8) k/uL Monocytes # (0-1.0) k/uL Eosinophils # (0-0.7) k/uL Basophils # (0-0.2) k/uL Hypochromasia Anisocytosis PT 30.8 H (9.0-12.0) sec INR 3.4 H (<1.2) APTT 31.3 H (22.0-30.0) sec Sodium (137-145) mmol/L Potassium (3.5-5.1) mmol/L Chloride (98-107) mmol/L Carbon Dioxide (22-30) mmol/L Anion Gap mmol/L BUN (7-17) mg/dL Creatinine (0.52-1.04) mg/dL Est GFR (MDRD) Af Amer (>60 ml/min/1.73 sqM) Est GFR (MDRD) Non-Af (>60 ml/min/1.73 sqM) Glucose (74-99) mg/dL POC Glucose (mg/dL) (75-99) mg/dL POC Glu Pipe Layer Helper ID Calcium (8.4-10.2) mg/dL Magnesium (1.6-2.3) mg/dL Total Bilirubin (0.2-1.3) mg/dL AST (14-36) U/L ALT (9-52) U/L Alkaline Phosphatase (38-126) U/L Troponin I 0.016 (0.000-0.034) ng/mL Total Protein (6.3-8.2) g/dL Albumin (3.5-5.0) g/dL Urine Color Yellow Urine Appearance Cloudy H (Clear) Urine pH 6.5 (5.0-8.0) Ur Specific [place] 1.026 (1.001-1.035) Urine Protein 2+ H (Negative) Urine Glucose (UA) Negative (Negative) Urine Ketones Negative (Negative) Urine Blood Trace H (Negative) Urine Nitrite Positive H (Negative) Urine Bilirubin Negative (Negative) Urine Urobilinogen <2.0 (<2.0) mg/dL Ur Leukocyte Esterase Negative (Negative) Urine RBC 3 (0-5) /hpf Urine WBC 6 H (0-5) /hpf Ur Squamous Epith Cells 1 (0-4) /hpf Urine Bacteria Rare H (None) /hpf Hyaline Casts 3 H (0-2) /lpf Disposition Clinical Impression: Vertigo Disposition: ADMITTED IP TO THIS HOSP Condition: Fair Instructions: Vertigo (ED) Prescriptions: Meclizine [Antivert] 25 mg PO TID #20 tab Ondansetron Odt [Zofran ODT] 4 mg PO Q8HR PRN #10 tab PRN Reason: Nausea Referrals: Viral Collazo MD [Primary Care Provider] - 1-2 days
[2017-04-08] MEDS: RX INFO: IV CONTRAST WAS GIVEN 1 EACH MISC MISCELLANE PRN (22:56)
[2017-04-08 23:01] LABS: Anisocytosis Slight; Basophils % (A) 0 %; Eosinophils # (A) 0.1 k/uL (0-0.7); Eosinophils % (A) 2 %; HCT 38.6 % (34.0-46.0); HGB 12.2 gm/dL (11.4-16.0); Hypochromasia Slight; Lymphocytes # (A) 1.2 k/uL (1.0-4.8); Lymphocytes % (A) 30 %; MCHC 31.7 g/dL (31.0-37.0); MCV 88.5 fL (80.0-100.0); Mean Platelet Volume 6.8; Monocytes # (A) 0.4 k/uL (0-1.0); Monocytes % (A) 10 %; Neutrophils # (A) 2.3 k/uL (1.3-7.7); Neutrophils % (A) 56 %; Platelet Count 154 k/uL (150-450); RBC 4.36 m/uL (3.80-5.40); RDW 17.1 % (11.5-15.5)
[2017-04-08 23:07] LABS: Glucose,Whole Blood 117 mg/dL (75-99)
[2017-04-08 23:10] LABS: INR 3.4 (<1.2); Partial Thromboplastin Time 31.3 sec (22.0-30.0); Prothrombin Time 30.8 sec (9.0-12.0)
[2017-04-08 23:44] LABS: ALT 10 U/L (9-52); AST 22 U/L (14-36); Albumin 3.7 g/dL (3.5-5.0); Alkaline Phosphatase 102 U/L (38-126); Anion Gap 13 mmol/L; Blood Urea Nitrogen 23 mg/dL (7-17); Calcium 8.9 mg/dL (8.4-10.2); Carbon Dioxide 22 mmol/L (22-30); Chloride 107 mmol/L (98-107); Glucose 131 mg/dL (74-99); Magnesium 1.9 mg/dL (1.6-2.3); Sodium 142 mmol/L (137-145); Total Bilirubin 0.4 mg/dL (0.2-1.3); Total Protein 8.2 g/dL (6.3-8.2)
[2017-04-09] MEDS ORDERED: SODIUM CHLORIDE 0.9% 500 ML IV STA (00:07)
[2017-04-09] MEDS ORDERED: DIAZEPAM 5 MG/ML 2 ML INJ IVP STA (00:08)
--- NOTE | 2017-04-09 00:23 | CT ---
EXAMINATION TYPE: CT angio head neck DATE OF EXAM: 04/09/2017 HISTORY: vertigo COMPARISON: NONE CT DLP: 311.30 mGycm. Automated Exposure Control for Dose Reduction was Utilized. TECHNIQUE: CTA scan of the neck is performed with IV Contrast, patient injected with 65 mL of Omnipa que 350, axial images are obtained, coronal and sagittal reformatted images are reviewed. Three-D rec onstructed images are created on an independent workstation and reviewed. FINDINGS: The aortic arch is atheromatous. There is normal branching pattern of the great vessels on the aortic arch. There is arterial flow in both vertebral arteries. Left vertebral artery slightly larger than the rig ht. There is arterial flow in the vertebrobasilar artery system. Basilar artery fills mostly from the left side. There is arterial flow in the common internal and external carotid arteries bilaterally. There is tor tuous proximal left internal carotid artery. There is approximate 70-60% stenosis at the origin of th e left internal carotid artery due to calcified plaque. There is similar approximate 80-90% There is arterial flow in the anterior middle and posterior cerebral arteries. There is no evidence o f aneurysm or neovascularity in the intracranial arterial circulation. There are diminutive distal br anches of both middle cerebral arteries. There is similar appearance of the posterior cerebral arteri es. There is patency of the left posterior communicating artery. There is no mass effect. There is no evidence of venous sinus thrombosis. There is no sign of carotid dissection. CONCLUSION: Atherosclerotic vascular disease. There is 80-90% stenosis at the origin of the right internal caroti d artery at the carotid artery bifurcations. There is 60-70% stenosis of the left internal carotid ar scottie at the origin. There are diminutive middle and posterior cerebral arteries in the intracranial arterial circulation. No evidence of intracranial aneurysm. No evidence of cerebral cortical infarct. Stenosis at the orig in of the right internal carotid artery due to plaque.
[2017-04-09 00:24] LABS: Appearance,Urine Cloudy (Clear); Bacteria,Urine Rare /hpf; Bilirubin,Urine Negative (Negative); Blood,Urine Trace (Negative); Color,Urine Yellow; Glucose,Urine (UA) Negative (Negative); Hyaline Casts,Urine 3 /lpf (0-2); Ketones,Urine Negative (Negative); Leukocyte Esterase,Urine Negative (Negative); Nitrite,Urine Positive (Negative); PH, Urine 6.5 (5.0-8.0); Protein,Urine 2+ (Negative); RBC,Urine 3 /hpf (0-5); Specific Gravity,Urine 1.026 (1.001-1.035); Squamous Epithelial Cell,Urine 1 /hpf (0-4); Urobilinogen,Urine <2.0 mg/dL (<2.0); WBC,Urine 6 /hpf (0-5)
[2017-04-09] MEDS ORDERED: MECLIZINE 12.5 MG TAB PO STA (01:35)
[2017-04-09] MEDS ORDERED: ONDANSETRON 4 MG/2 ML VIAL IVP STA (01:47)
[2017-04-09] MEDS ORDERED: PROCHLORPERAZINE 5 MG TAB PO PRN (01:48)
[2017-04-09] MEDS ORDERED: ONDANSETRON 4 MG/2 ML VIAL IVP PRN (01:48)
[2017-04-09] MEDS ORDERED: NALOXONE 0.4 MG/ML 1 ML VIAL IV PRN (01:48)
[2017-04-09] MEDS ORDERED: ACETAMINOPHEN TAB 325 MG TAB PO PRN (01:48)
[2017-04-09] MEDS ORDERED: ALBUTEROL NEBULIZED 2.5 MG/3 ML INHALATION PRN (01:51)
[2017-04-09] MEDS ORDERED: NITROGLYCERIN SL TABS 0.4 MG TAB SUBLINGUAL PRN (01:51)
[2017-04-09] MEDS ORDERED: cloNIDine HCL 0.1 MG TAB PO STA (02:20)
[2017-04-09] MEDS: SODIUM CHLORIDE 0.9% 1,000 ML IV SCH (03:47)
--- NOTE | 2017-04-09 07:16 | P.HPIM ---
History of Present Illness H&P Date: 04/09/17 Chief Complaint: Vertigo 82-year-old female with past medical history of TIA and CVA, hypertension. Patient presented to the ED today due to sudden onset dizziness with acute changes in vision. She reported that she was in the bathroom when suddenly she felt her vision is jumpy and got really dizzy she couldn't move however things got better when she closed her eyes. She then noticed that she couldn't walk due to poor balance when she opens her eyes and severe vertigo. Otherwise she denied any headache changes in hearing or any ringing sounds in her ears, she denied any other focal neurologic deficits like weakness or numbness in her extremities. She remained in the bathroom with her eyes closed she has a emergency called by and that she pressed and asked for her daughter to be contacted. She remained the whole time in the bathroom with her eye closed as she gets dizzy every time she opens her eyes but feels fine when she closes her eyes. She eventually had her daughter daughter who came over and called the ambulance ambulance and was brought to the hospital she threw up in the ambulance twice, in the ED patient noticed that her symptoms are getting better until they completely resolved. At that point patient was not getting dizzy when she opens her eyes or move it moves her head. CT angiogram of the head and neck was performed which showed new onset acute right internal carotid stenosis of 80-90% and left internal carotid stenosis of 60-70% no evidence of new stroke. 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 And that she was told at that time that she had some carotid stenosis but was not significant and only required monitoring. Patient also has history of atrial fibrillation she is compliant with her Coumadin and her INR level was 3.2 due to recent changes in the dosing patient otherwise denies any bleeding. Currently patient was seen and evaluated on the medical floor she was completely asymptomatic. Review of Systems Constitutional: Patient denies fever, denies chills, denies night sweating, denies significant weight changes Eyes: Patient denies visual changes, denies eye pain ENT: Patient denies ear pain, denies rhinorrhea, denies sore throat, or any changes in hearing Cardiovascular: Patient denies chest pain, denies exertional dyspnea, denies peripheral leg edema, denies orthopnea, denies paroxysmal nocturnal dyspnea Respiratory:Patient denies cough, denies wheezing, denies shortness of breath Gastrointestinal: Patient denies diarrhea, denies constipation, denies nausea , denies vomiting, denies abdominal pain Genitourinary: Patient denies dysuria, denies hematuria, denies changes in urinary habits, denies genital lesions Musculoskeletal: Patient denies muscle pain, denies joint pain Psychiatric: Patient denies changes in mood or memory, denies suicidal ideation, denies anxiety Endocrine: Patient denies heat intolerance, denies cold intolerance, denies excessive thirst, denies polyuria Neurological: Patient denies focal neurologic deficits, denies weakness, denies numbness, denies tingling Hem/Lymphatic: Patient denies bleeding tendency, denies bruising, denies swollen lymph glands Allergic/Immun: Patient denies recent allergic reactions Skin: Patient denies rashes, denies pruritis, denies ulcers Past Medical History Past Medical History: Atrial Fibrillation, CVA/TIA Additional Past Medical History / Comment(s): Recent UTI and has completed ABX, shogrens, leaky cardiac valve, neuropathy bilateral feet/legs, past inner ear problem causing imbalance-not lately, hypothyroid, OA multiple joints. History of Any Multi-Drug Resistant Organisms: None Reported Past Surgical History: Heart Catheterization Additional Past Surgical History / Comment(s): 2011 PCI with stent to mid LAD, R ovarian cyst, R sided hernia repair, bilateral cataracts removed with lens implants, R knee arthroscopy and gets injections, STEPHANIE Past Anesthesia/Blood Transfusion Reactions: No Reported Reaction Date of Last Stent Placement:: 2011 Past Psychological History: No Psychological Hx Reported Additional Psychological History / Comment(s): Pt resides alone. She uses a cane or walker to ambulate. She has a cleaning person. She drives. Smoking Status: Never smoker Past Alcohol Use History: Rare Past Drug Use History: None Reported - Past Family History Father History Unknown: Yes Mother Family Medical History: No Reported History Additional Family Medical History / Comment(s): . Sister(s) Family Medical History: Cancer Additional Family Medical History / Comment(s): OVARIAN CANCER Medications and Allergies Home Medications Medication Instructions Recorded Confirmed Type Acetaminophen [Tylenol] 500 mg PO BID 04/28/16 04/08/17 History Albuterol Sulfate [Proair Hfa] 1 - 2 puff INHALATION RT-QID PRN 04/28/16 History Aspirin 81 mg PO DAILY@1400 04/28/16 04/08/17 History Levothyroxine Sodium [Synthroid] 25 mcg PO DAILY 04/28/16 04/08/17 History Nitroglycerin Sl Tabs [Nitrostat] 0.4 mg SUBLINGUAL Q5M PRN 04/28/16 04/08/17 History Ranitidine HCl [Zantac] 150 mg PO DAILY@1400 04/28/16 04/08/17 History Warfarin [Coumadin] 0.5 mg PO MOFR 04/28/16 04/08/17 History Warfarin [Coumadin] 1 mg PO DAILY 04/28/16 04/08/17 History Cetirizine HCl [Zyrtec] 10 mg PO DAILY PRN 04/08/17 04/08/17 History Clopidogrel [Plavix] 75 mg PO DAILY 04/08/17 04/08/17 History Metoprolol Tartrate [Lopressor] 50 mg PO BID 04/08/17 04/08/17 History Simvastatin [Zocor] 40 mg PO DAILY 04/08/17 04/08/17 History Meclizine [Antivert] 25 mg PO TID #20 tab 04/09/17 Rx Ondansetron Odt [Zofran ODT] 4 mg PO Q8HR PRN #10 tab 04/09/17 Rx Allergies Allergy/AdvReac Type Severity Reaction Status Date / Time rivaroxaban [From Xarelto] AdvReac Severe Rapid Verified 04/08/17 22:44 Heart Rate dabigatran etexilate AdvReac Unknown ULCERS Verified 04/08/17 22:44 [From Pradaxa] apixaban [From Eliquis] AdvReac NUMBNESS Verified 04/08/17 22:44 IN LEG. Physical Exam Vitals: Vital Signs Temp Pulse Pulse Resp BP BP Pulse Ox 04/09/17 04:04 124/71 04/09/17 03:35 124/71 04/09/17 03:07 97.1 F L 88 18 185/111 98 04/09/17 02:20 82 18 185/95 97 04/09/17 02:00 75 16 187/84 97 04/09/17 01:28 80 18 176/95 96 04/09/17 00:37 88 18 163/88 97 04/09/17 00:23 77 18 215/94 97 04/09/17 00:06 78 18 224/101 98 04/08/17 22:57 68 18 183/83 98 04/08/17 22:21 97.4 F L 70 18 198/98 98 Intake and Output 04/08/17 04/08/17 04/09/17 14:59 22:59 06:59 Other: # Voids 1 Weight 84.368 kg Patient Weight 04/09/17 06:59 Weight 84.368 kg Constitutional: No acute distress, conversant, pleasant Eyes: Anicteric sclerae, moist conjunctiva, no lid-lag Pupils equal round reactive to light ENMT: NC/AT Oropharynx clear, no erythema, exudates Neck: Supple, FROM, no masses, or JVD Right carotid bruits No thyromegaly Lungs: Clear to auscultation Clear to percussion Normal respiratory effort, no accessory muscle use Cardiovascular: Heart irregular in rate and rhythm, No murmurs, gallops, or rubs No peripheral edema Abdominal: Soft Nontender, no guarding, rebound or rigidity Abdomen moving with respiration Normoactive bowel sounds No hepatomegaly, No splenomegaly No palpable mass No abdominal wall hernia noted Skin: Normal temperature, tone, texture, turgor No induration No subcutaneous nodules No rash, lesions No ulcers Extremities: No digital cyanosis No clubbing Pedal pulses intact and symmetrical Radial pulses intact and symmetrical No calf tenderness Psychiatric: Alert and oriented to person, place and time Appropriate affect fair judgment Neuro Muscles Strength 5/5 in all 4 extremities Sensation to light touch grossly present throughout Cranial nerves II-XII grossly intact No focal sensory deficits Cerebellar exam showed intact finger nose, no dysdiadochokinesis, shrestha heel movement was intact bilaterally. Speech is coherent and intact. Lymphatics: no palpable cervical or supraclavicular , or inguinal lymph nodes Results CBC & Chem 7: 04/08/17 22:35 04/08/17 22:35 Labs: Abnormal Lab Results - Last 24 Hours (Table) 04/08/17 04/08/17 04/08/17 Range/Units 22:21 22:35 22:35 RDW 17.1 H (11.5-15.5) % PT (9.0-12.0) sec INR (<1.2) APTT (22.0-30.0) sec BUN 23 H (7-17) mg/dL Glucose 131 H (74-99) mg/dL POC Glucose (mg/dL) 117 H (75-99) mg/dL Urine Appearance (Clear) Urine Protein (Negative) Urine Blood (Negative) Urine Nitrite (Negative) Urine WBC (0-5) /hpf Urine Bacteria (None) /hpf Hyaline Casts (0-2) /lpf 04/08/17 04/09/17 Range/Units 22:35 00:16 RDW (11.5-15.5) % PT 30.8 H (9.0-12.0) sec INR 3.4 H (<1.2) APTT 31.3 H (22.0-30.0) sec BUN (7-17) mg/dL Glucose (74-99) mg/dL POC Glucose (mg/dL) (75-99) mg/dL Urine Appearance Cloudy H (Clear) Urine Protein 2+ H (Negative) Urine Blood Trace H (Negative) Urine Nitrite Positive H (Negative) Urine WBC 6 H (0-5) /hpf Urine Bacteria Rare H (None) /hpf Hyaline Casts 3 H (0-2) /lpf Thrombosis Risk Factor Assmnt - Choose All That Apply Each Factor Represents 1 point: Obesity (BMI >25) Each Risk Factor Represents 3 Points: Age 75 years or older Thrombosis Risk Factor Assessment Total Risk Factor Score: 4 Thrombosis Risk Factor Assessment Level: Moderate Risk Assessment and Plan (1) TIA (transient ischemic attack) Narrative/Plan: Patient sudden onset vertigo that has resolved completely in less than 24 hours could be explained by TIA especially with the findings of right internal carotid stenosis Continue with neuro checks Increase atorvastatin to 80 mg Continue with aspirin Neurologic evaluation Fall precautions PT/OT eval Might consider MRI of the brain pending neuro eval Current Visit: Yes Status: Acute Code(s): G45.9 - TRANSIENT CEREBRAL ISCHEMIC ATTACK, UNSPECIFIED SNOMED Code(s): 576093585 (2) Hypertension Narrative/Plan: Hypertension urgency upon presentation which has resolved now Continue home medications Current Visit: Yes Status: Acute Code(s): I10 - ESSENTIAL (PRIMARY) HYPERTENSION SNOMED Code(s): 43866776 (3) Vertigo Narrative/Plan: This could be secondary to underlying TIA await further neurologic evaluation Current Visit: Yes Status: Acute Code(s): R42 - DIZZINESS AND GIDDINESS SNOMED Code(s): 515075985 (4) Atrial fibrillation Narrative/Plan: Chronic Richard bryant, currently rate controlled, on anticoagulation with Coumadin INR is supratherapeutic due to recent changes with her Coumadin dosing Hold Coumadin for now until INR is in therapeutic range of 2-3 Coumadin dosing by pharmacy Patient denies any evidence of bleeding at this point Current Visit: No Status: Chronic Code(s): I48.91 - UNSPECIFIED ATRIAL FIBRILLATION SNOMED Code(s): 03132655 (5) Carotid stenosis Narrative/Plan: Right internal carotid stenosis of 80-90% Vascular surgery evaluation Atorvastatin dose was increased to 80 mg continue with aspirin Current Visit: Yes Status: Acute Code(s): I65.29 - OCCLUSION AND STENOSIS OF UNSPECIFIED CAROTID ARTERY SNOMED Code(s): 04056942 (6) Hyperlipidemia Narrative/Plan: Continue statin Current Visit: Yes Status: Chronic Code(s): E78.5 - HYPERLIPIDEMIA, UNSPECIFIED SNOMED Code(s): 44671287 (7) CAD (coronary artery disease) Narrative/Plan: Status post stents Continue statin and aspirin Current Visit: Yes Status: Acute Code(s): I25.10 - ATHSCL HEART DISEASE OF [place] CORONARY ARTERY W/O ANG PCTRS SNOMED Code(s): 87911656 (8) Severe aortic stenosis Narrative/Plan: Repeat 2-D echo of the heart to evaluate aortic stenosis progression Current Visit: Yes Status: Acute Code(s): I35.0 - NONRHEUMATIC AORTIC (VALVE ) STENOSIS SNOMED Code(s): 80572477 (9) Hypothyroid Narrative/Plan: Continue Synthroid Current Visit: Yes Status: Acute Code(s): E03.9 - HYPOTHYROIDISM, UNSPECIFIED SNOMED Code(s): 32483797 Plan: Surrogate decision-maker: Patient daughter Le NEWSOME STATUS: Full code DVT prophylaxis: Patient on Coumadin with INR supratherapeutic Discussed with: Patient, ER, RN Anticipated discharge: [address]: Home A total of 50 minutes were spent on the care of this complex patient more than 50% of the time was spent in counseling and care coordination.
[2017-04-09 07:55] LABS: Anisocytosis Slight; Basophils % (A) 0 %; Eosinophils % (A) 0 %; HCT 36.7 % (34.0-46.0); HGB 11.4 gm/dL (11.4-16.0); Hypochromasia Moderate; Lymphocytes % (A) 25 %; MCH 28.1 pg (25.0-35.0); MCV 90.7 fL (80.0-100.0); Mean Platelet Volume 6.9; Monocytes # (A) 0.4 k/uL (0-1.0); Monocytes % (A) 10 %; Neutrophils # (A) 2.3 k/uL (1.3-7.7); Neutrophils % (A) 62 %; Platelet Count 128 k/uL (150-450); RBC 4.05 m/uL (3.80-5.40); RDW 16.9 % (11.5-15.5); WBC 3.7 k/uL (3.8-10.6)
[2017-04-09 08:11] LABS: Anion Gap 10 mmol/L; Blood Urea Nitrogen 17 mg/dL (7-17); Calcium 8.5 mg/dL (8.4-10.2); Carbon Dioxide 20 mmol/L (22-30); Chloride 109 mmol/L (98-107); Glucose 90 mg/dL (74-99); Potassium 4.6 mmol/L (3.5-5.1); Sodium 139 mmol/L (137-145)
[2017-04-09] MEDS: LEVOTHYROXINE 25 MCG TAB PO SCH (08:30)
[2017-04-09] MEDS: METOPROLOL TARTRATE 50 MG TAB PO SCH ×2 (08:30→21:41)
[2017-04-09] MEDS: FAMOTIDINE 20 MG TAB PO SCH ×2 (08:30→21:41)
[2017-04-09] MEDS ORDERED: ATORVASTATIN 20 MG TAB PO SCH ×2 (09:00)
[2017-04-09] MEDS: ATORVASTATIN 80 MG TAB PO SCH (09:48)
[2017-04-09] MEDS: CLOPIDOGREL 75 MG TAB PO SCH (09:48)
--- NOTE | 2017-04-09 11:38 | CONS ---
CONSULTATION This is an 82-year-old, pleasant female, known to me from the office. 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 She has no history of TIA at the time of visit to my office. Patient has been admitted with a history of sudden onset of dizziness with some changes in her both regions, no loss of vision, and according to the patient, she felt that her vision is jumpy and she got dizzy, then she recovered completely. Patient has been admitted to the hospital. There is no history of any motor deficit affecting right or left upper or lower extremities. Patient had a CT of the head, involving the carotid arteries and the right carotid shows 80% to 90%, left carotid shows 70% stenosis. Patient does report history of stroke in the past. Patient has history of atrial fibrillation on Coumadin. INR of 3.2. PHYSICAL EXAMINATION: Patient was seen IN her room. Her vital signs are stable. Neck is supple. No bruit appreciated. Chest is clear to auscultation. First and second sounds are normal. Abdomen is soft. Femoral pulses are present. Motor function, patient has a normal motor function. No weakness noted in the right and upper lower extremity. PLAN: I have discussed with the patient and the family. Patient does have a bilateral high- grade stenosis but at the same time she has no history of any motor deficit. We will discuss with Internal Medicine and the patient is under care of Dr. Jain and also would like to have a Neuro consult. We will follow with you. MMKARIL / IJN: [id number] /
--- NOTE | 2017-04-09 12:09 | P.CNNES ---
History of Present Illness Consult date: 04/09/17 Reason for Consult: Patient admitted with dizziness and TIA. History of Present Illness: This patient is a 82-year-old right-handed white female who was brought into the emergency room yesterday with symptoms of acute dizziness and unsteady gait. The patient apparently was in the bathroom yesterday evening and noticed that she was having acute onset of dizziness. She felt as if the room was spinning. She also noted that her vision was quite jumpy and she could not focus. She could not walk due to poor balance and difficulty with her gait. If she kept her eyes open the symptoms were quite severe. She decided to close her eyes and sit down and her symptoms did seem to improve. She did not experience any headache or weakness. She remained in the bathroom with her eyes closed and was able to contact help through her [employer] alert button. They were able to contact her daughter who immediately came to the home to check on her. She remained in the bathroom with her eyes closed and seemed to do quite well as long as her eyes remain closed. The daughter arrived and did not notice any focal weakness or slurring of her speech. She did not have facial droop. She decided to call EMS. She was taken by EMS and brought into the emergency room. She was having increased symptoms of nausea vomiting and enroute to the hospital. She was transported to [facility] emergency room and was seen in the ER by Dr. Fonseca who ordered a CTA angiogram of the head and neck. Results of the angiogram revealed the patient to have new onset of acute right internal carotid artery stenosis of 80-90% stenosis. The left internal carotid artery showed 60-70% stenosis as well. The patient has multiple complex medical problems including history of atrial fibrillation. She is on Coumadin therapy for treatment. Her INR yesterday was noted to be 3.4. 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 The patient states she does follow with vascular surgeon Dr. Miller yearly. She did see him about her carotid arteries last year and he recommended medical management. She also has a history of underlying severe aortic stenosis and is followed up in the cardiology clinic. Patient states that she underwent valve replacement on 11/03/2016 at [facility]. This is another reason for her anticoagulation with Coumadin. Her symptoms rapidly improved in the emergency room. Given the finding of severe right internal carotid artery stenosis there is concern for possibility of TIA as well as possible brainstem ischemia given the acute onset of the vertigo. The patient denied any slurring of her speech or focal weakness at the time of onset of symptoms. As noted she has been taking Coumadin on a regular basis for treatment of her atrial fibrillation and recent valve replacement. She also takes Plavix in addition. The patient was transferred from the ER to the medical floor. This morning she is doing better and states she just does not feel 100%. She is not having the severe vertigo-type symptoms that she had yesterday. We are recommending that she undergo an MRI of the brain for further evaluation to rule out any possibility of brainstem ischemia. Patient states she was able to get up and use her walker with assistance from physical therapy. We did explain that the severity of her right internal carotid artery stenosis also could've contributed to these symptoms. She states she has had mild vertigo in the past but this would really quickly resolved within hours. The symptoms yesterday persisted then for this reason she is now been admitted to the hospital. Neurology is now been consulted for further evaluation and recommendations. Review of Systems Constitutional: Denies chills, Denies fever Eyes: denies blurred vision, denies pain Ears, nose, mouth and throat: Reports vertigo, Denies headache, Denies sore throat Cardiovascular: Denies chest pain, Denies shortness of breath Respiratory: Denies cough Gastrointestinal: Denies abdominal pain, Denies diarrhea, Denies nausea, Denies vomiting Genitourinary: Denies dysuria, Denies hematuria Musculoskeletal: Denies myalgias Integumentary: Denies pruritus, Denies rash Neurological: Reports balance difficulties, Reports vertigo, Denies numbness, Denies weakness Psychiatric: Denies anxiety, Denies depression Endocrine: Denies fatigue, Denies weight change Past Medical History Past Medical History: Atrial Fibrillation, CVA/TIA Additional Past Medical History / Comment(s): Recent UTI and has completed ABX, shogrens, leaky cardiac valve, neuropathy bilateral feet/legs, past inner ear problem causing imbalance-not lately, hypothyroid, OA multiple joints. History of Any Multi-Drug Resistant Organisms: None Reported Past Surgical History: Heart Catheterization Additional Past Surgical History / Comment(s): 2011 PCI with stent to mid LAD, R ovarian cyst, R sided hernia repair, bilateral cataracts removed with lens implants, R knee arthroscopy and gets injections, STEPHANIE Past Anesthesia/Blood Transfusion Reactions: No Reported Reaction Date of Last Stent Placement:: 2011 Past Psychological History: No Psychological Hx Reported Additional Psychological History / Comment(s): Pt resides alone. She uses a cane or walker to ambulate. She has a cleaning person. She drives. Smoking Status: Never smoker Past Alcohol Use History: Rare Past Drug Use History: None Reported - Past Family History Father History Unknown: Yes Mother Family Medical History: No Reported History Additional Family Medical History / Comment(s): . Sister(s) Family Medical History: Cancer Additional Family Medical History / Comment(s): OVARIAN CANCER Medications and Allergies Home Medications Medication Instructions Recorded Confirmed Type Acetaminophen [Tylenol] 500 mg PO BID 04/28/16 04/08/17 History Albuterol Sulfate [Proair Hfa] 1 - 2 puff INHALATION RT-QID PRN 04/28/16 History Aspirin 81 mg PO DAILY@1400 04/28/16 04/08/17 History Levothyroxine Sodium [Synthroid] 25 mcg PO DAILY 04/28/16 04/08/17 History Nitroglycerin Sl Tabs [Nitrostat] 0.4 mg SUBLINGUAL Q5M PRN 04/28/16 04/08/17 History Ranitidine HCl [Zantac] 150 mg PO DAILY@1400 04/28/16 04/08/17 History Warfarin [Coumadin] 0.5 mg PO MOFR 04/28/16 04/08/17 History Warfarin [Coumadin] 1 mg PO DAILY 04/28/16 04/08/17 History Cetirizine HCl [Zyrtec] 10 mg PO DAILY PRN 04/08/17 04/08/17 History Clopidogrel [Plavix] 75 mg PO DAILY 04/08/17 04/08/17 History Metoprolol Tartrate [Lopressor] 50 mg PO BID 04/08/17 04/08/17 History Simvastatin [Zocor] 40 mg PO DAILY 04/08/17 04/08/17 History Meclizine [Antivert] 25 mg PO TID #20 tab 04/09/17 Rx Ondansetron Odt [Zofran ODT] 4 mg PO Q8HR PRN #10 tab 04/09/17 Rx Allergies Allergy/AdvReac Type Severity Reaction Status Date / Time rivaroxaban [From Xarelto] AdvReac Severe Rapid Verified 04/08/17 22:44 Heart Rate dabigatran etexilate AdvReac Unknown ULCERS Verified 04/08/17 22:44 [From Pradaxa] apixaban [From Eliquis] AdvReac NUMBNESS Verified 04/08/17 22:44 IN LEG. Physical Examination - Vital Signs Vital Signs: Vital Signs Temp Pulse Pulse Resp BP BP Pulse Ox 04/09/17 08:00 18 04/09/17 07:00 97.6 F 63 18 163/84 97 04/09/17 04:04 124/71 04/09/17 03:35 124/71 04/09/17 03:07 97.1 F L 88 18 185/111 98 04/09/17 02:20 82 18 185/95 97 04/09/17 02:00 75 16 187/84 97 04/09/17 01:28 80 18 176/95 96 04/09/17 00:37 88 18 163/88 97 04/09/17 00:23 77 18 215/94 97 04/09/17 00:06 78 18 224/101 98 04/08/17 22:57 68 18 183/83 98 04/08/17 22:21 97.4 F L 70 18 198/98 98 Intake and Output 04/08/17 04/09/17 04/09/17 22:59 06:59 14:59 Other: # Voids 1 Weight 84.368 kg - Constitutional General appearance: average body habitus, cooperative - EENT EENT: PERRL, mucous membranes moist - Respiratory Respiratory: lungs clear, normal breath sounds - Cardiovascular Cardiovascular: normal S1, normal S2 Extremities: no peripheral edema bilaterally - Gastrointestinal Gastrointestinal: normoactive bowel sounds - Integumentary Integumentary: normal - Neurologic Cranial nerve examination: PERRL, EOMI, VFF, V1/V2/V3 grossly intact, tongue midline, intact gag reflex, intact corneal reflex, normal palatal elevation Speech examination: intact Sensorimotor examination: intact Motor examination - right side: 4/5: biceps, triceps, wrist flexion, wrist extension, distance education faculty liaison, hip flexors, knee extensors, dorsiflexion, toe extension (EHL) , plantarflexion Motor examination - left side: 4/5: biceps, triceps, wrist flexion, wrist extension, distance education faculty liaison, hip flexors, knee extensors, dorsiflexion, toe extension (EHL) , plantarflexion Detailed sensory examination: intact Reflex and gait examination: intact Reflexes: 1+: ankle, bicep, knee, tricep - Musculoskeletal Musculoskeletal: no pain - Psychiatric Psychiatric: mood/affect appropriate, cooperative Results - Laboratory Findings CBC and BMP: 04/09/17 07:29 04/09/17 07:29 Abnormal Lab Findings: Abnormal Labs 04/08/17 04/08/17 04/08/17 22:21 22:35 22:35 WBC RDW 17.1 H Plt Count PT INR APTT Chloride Carbon Dioxide BUN 23 H Glucose 131 H POC Glucose (mg/dL) 117 H Urine Appearance Urine Protein Urine Blood Urine Nitrite Urine WBC Urine Bacteria Hyaline Casts 04/08/17 04/09/17 04/09/17 22:35 00:16 07:29 WBC 3.7 L RDW 16.9 H Plt Count 128 L PT 30.8 H INR 3.4 H APTT 31.3 H Chloride Carbon Dioxide BUN Glucose POC Glucose (mg/dL) Urine Appearance Cloudy H Urine Protein 2+ H Urine Blood Trace H Urine Nitrite Positive H Urine WBC 6 H Urine Bacteria Rare H Hyaline Casts 3 H 04/09/17 07:29 WBC RDW Plt Count PT INR APTT Chloride 109 H Carbon Dioxide 20 L BUN Glucose POC Glucose (mg/dL) Urine Appearance Urine Protein Urine Blood Urine Nitrite Urine WBC Urine Bacteria Hyaline Casts Assessment and Plan (1) TIA (transient ischemic attack) Current Visit: Yes Status: Acute Code(s): G45.9 - TRANSIENT CEREBRAL ISCHEMIC ATTACK, UNSPECIFIED SNOMED Code(s): 810940799 (2) Carotid stenosis Current Visit: Yes Status: Acute Code(s): I65.29 - OCCLUSION AND STENOSIS OF UNSPECIFIED CAROTID ARTERY SNOMED Code(s): 84583242 (3) Vertigo Current Visit: Yes Status: Acute Code(s): R42 - DIZZINESS AND GIDDINESS SNOMED Code(s): 643007884 (4) Atrial fibrillation Current Visit: No Status: Chronic Code(s): I48.91 - UNSPECIFIED ATRIAL FIBRILLATION SNOMED Code(s): 63982379 Plan: This patient is a 82-year-old right-handed white female who developed severe onset of vertigo yesterday evening while using the bathroom. She was in the bathroom and could not move due to severity of vertigo symptoms. She felt her eyes were moving and she could not focus. She was able to call for help and her daughter immediately came to the home to check on her. EMS was called to the home and she was brought into the emergency room for further evaluation. Patient was seen in the ER by Dr. Fonseca who ordered a CTA angiogram of the head and neck. The results of the CT angiogram reveals severe right internal carotid artery stenosis measuring 80-90%. The left internal carotid artery measured 60-70%. He was unclear whether the severity of the carotid artery stenosis possibly could've produced some type of basilar or vertebral artery hyperperfusion. Her clinical history suggests possibility of brainstem ischemia. We have recommended that she have an MRI of the brain for further evaluation. The patient will be seen by vascular surgery. Apparently she has seen them last year and they are aware of her carotid artery disease and stenosis. The patient is on Coumadin for treatment of atrial fibrillation. Her INR on admission was 3.4. She does have history of recent valve replacement and she is being followed closely by cardiology and we will await their further evaluation and recommendations as well. The patient does seem to be doing better today after admission. We will await further recommendations from the other specialists were seeing her. We would recommend to maintain her INR between 2-3 at this time. Case was discussed at length with the patient. Doll of her questions were answered. Her overall prognosis at this time remains guarded. Time with Patient: Greater than 30
--- NOTE | 2017-04-09 13:57 | P.PN ---
Subjective Progress Note Date: 04/09/17 Principal diagnosis: The patient is a 82-year-old female with a past focal history of essential hypertension, atrial fibrillation, status post aortic valve placement 11/03/2016 on anticoagulation that was admitted for TIA workup after presenting with sudden onset of vertigo with blurry vision. CT angiography of the head and neck revealed new onset of acute right internal carotid artery stenosis of 80-90% stenosis as well as the left internal carotid artery showed 60-70% stenosis. Dr. Miller was consulted regarding her carotid artery stenosis but does not plan to do anything urgently as a patient did not have any motor deficits. The patient was seen by Dr. Serna recommends MRI and EEG both of which are pending Patient feeling much better today reports that her dizziness has improved however she is having ongoing blurry vision. No acute events overnight Objective - Vital Signs Vital signs: Vital Signs Temp 97.6 F 04/09/17 07:00 Pulse 63 04/09/17 07:00 Resp 18 04/09/17 08:00 BP 163/84 04/09/17 07:00 Pulse Ox 97 04/09/17 07:00 Intake & Output 04/08/17 04/09/17 04/09/17 18:59 06:59 18:59 Weight 84.368 kg Other: # Voids 1 - Exam Constitutional: No acute distress, conversant, pleasant Eyes: Anicteric sclerae, moist conjunctiva, no lid-lag, PERRLA ENMT: NC/AT,Oropharynx clear, no erythema, exudates Neck:Supple, FROM, no masses, or JVD, No carotid bruits; No thyromegaly Lungs: Clear to auscultation, Clear to percussion, Normal respiratory effort, no accessory muscle use Cardiovascular: Heart regular in rate and rhythm, No murmurs, gallops, or rubs no peripheral edema Abdominal: Soft Nontender, nom distended, no guarding, no rebound or rigidity, Normoactive bowel sounds No hepatomegaly, No splenomegaly, No palpable mass No abdominal wall hernia noted Skin: Normal temperature, tone, texture, turgor, No induration No subcutaneous nodules, No rash, lesions, No ulcers Extremities:No digital cyanosis No clubbing, Pedal pulses intact and symmetrical Radial pulses intact and symmetrical Normal gait and station, No calf tenderness Psychiatric: Alert and oriented to person, place and time, Appropriate affect Intact judgement Neuro: Muscles Strength 5/5 in all 4 extremities, Sensation to light touch grossly present throughout, Cranial nerves II-XII grossly intact. No focal sensory deficits - Labs CBC & Chem 7: 04/09/17 07:29 04/09/17 07:29 Labs: Abnormal Lab Results - Last 24 Hours (Table) 04/08/17 04/08/17 04/08/17 Range/Units 22:21 22:35 22:35 WBC (3.8-10.6) k/uL RDW 17.1 H (11.5-15.5) % Plt Count (150-450) k/uL PT (9.0-12.0) sec INR (<1.2) APTT (22.0-30.0) sec Chloride (98-107) mmol/L Carbon Dioxide (22-30) mmol/L BUN 23 H (7-17) mg/dL Glucose 131 H (74-99) mg/dL POC Glucose (mg/dL) 117 H (75-99) mg/dL Urine Appearance (Clear) Urine Protein (Negative) Urine Blood (Negative) Urine Nitrite (Negative) Urine WBC (0-5) /hpf Urine Bacteria (None) /hpf Hyaline Casts (0-2) /lpf 04/08/17 04/09/17 04/09/17 Range/Units 22:35 00:16 07:29 WBC 3.7 L (3.8-10.6) k/uL RDW 16.9 H (11.5-15.5) % Plt Count 128 L (150-450) k/uL PT 30.8 H (9.0-12.0) sec INR 3.4 H (<1.2) APTT 31.3 H (22.0-30.0) sec Chloride (98-107) mmol/L Carbon Dioxide (22-30) mmol/L BUN (7-17) mg/dL Glucose (74-99) mg/dL POC Glucose (mg/dL) (75-99) mg/dL Urine Appearance Cloudy H (Clear) Urine Protein 2+ H (Negative) Urine Blood Trace H (Negative) Urine Nitrite Positive H (Negative) Urine WBC 6 H (0-5) /hpf Urine Bacteria Rare H (None) /hpf Hyaline Casts 3 H (0-2) /lpf 04/09/17 Range/Units 07:29 WBC (3.8-10.6) k/uL RDW (11.5-15.5) % Plt Count (150-450) k/uL PT (9.0-12.0) sec INR (<1.2) APTT (22.0-30.0) sec Chloride 109 H (98-107) mmol/L Carbon Dioxide 20 L (22-30) mmol/L BUN (7-17) mg/dL Glucose (74-99) mg/dL POC Glucose (mg/dL) (75-99) mg/dL Urine Appearance (Clear) Urine Protein (Negative) Urine Blood (Negative) Urine Nitrite (Negative) Urine WBC (0-5) /hpf Urine Bacteria (None) /hpf Hyaline Casts (0-2) /lpf Assessment and Plan (1) TIA (transient ischemic attack) Narrative/Plan: * Neurology Dr. Rosas following, MRI EEG and echocardiogram pending * Continue patient on dual antiplatelet therapy with aspirin and Plavix along with statin therapy with Lipitor Current Visit: Yes Status: Acute Code(s): G45.9 - TRANSIENT CEREBRAL ISCHEMIC ATTACK, UNSPECIFIED SNOMED Code(s): 438463369 (2) Carotid stenosis Narrative/Plan: * Vascular Dr. Valle following * Bilateral high-grade stenosis * new onset of acute right internal carotid artery stenosis of 80-90% stenosis. The left internal carotid artery showed 60-70% stenosis as well Current Visit: Yes Status: Acute Code(s): I65.29 - OCCLUSION AND STENOSIS OF UNSPECIFIED CAROTID ARTERY SNOMED Code(s): 73049221 (3) Vertigo Narrative/Plan: * Physical therapy consulted Current Visit: Yes Status: Acute Code(s): R42 - DIZZINESS AND GIDDINESS SNOMED Code(s): 163813798 (4) Atrial fibrillation Narrative/Plan: * Rate controlled continue with beta emmy with metoprolol patient on anticoagulation with Coumadin * INR therapeutic at 3.4 Current Visit: No Status: Chronic Code(s): I48.91 - UNSPECIFIED ATRIAL FIBRILLATION SNOMED Code(s): 83148619
[2017-04-09] MEDS ORDERED: ASPIRIN 81 MG PO SCH (14:00)
[2017-04-09] MEDS ORDERED: NON-FORMULARY DRUG (Ranitidine Hcl [Zantac] 150 MG) PO SCH (14:00)
--- NOTE | 2017-04-09 17:14 | MR ---
EXAMINATION TYPE: MR brain wo con DATE OF EXAM: 04/09/2017 COMPARISON: NONE HISTORY: Vertigo. Brainstem stroke. Standard multiplanar, multisequence MRI departmental protocol Multiplanar, multisequence images of the brain were acquired. Diffusion weighted imaging was performe d. FINDINGS: There is patchy increased signal on the T2 and FLAIR images involving the sara bilaterally. This overall measures 2 cm. There is patchy increased signal in the periventricular white matter on the T2 and FLAIR images. There are numerous foci that measure up to 1 cm. There is involvement of cintia trum semiovale bilaterally. There is no mass effect nor midline shift. There is no sign of intracrani al hemorrhage. I see no evidence of a cortical infarct. Cerebellum is intact. There is mild thinning of the corpus callosum. Sella turcica appears normal. IMPRESSION: Abnormal increased signal in the sara consistent with chronic small vessel ischemia. Moderate increas ed signal similarly in the periventricular white matter and centrum semiovale could relate to chronic small vessel ischemia or demyelinating disease. The brain appears stable compared to old exam of 04/09. No evidence of any new focal abnormality. No cortical infarct seen.
[2017-04-09 23:06] VITALS: RESP 18
[2017-04-10] MEDS: SODIUM CHLORIDE 0.9% 1,000 ML IV SCH (00:13)
[2017-04-10 07:49] VITALS: PULSE 87
[2017-04-10] MEDS: LEVOTHYROXINE 25 MCG TAB PO SCH (08:26)
[2017-04-10] MEDS: METOPROLOL TARTRATE 50 MG TAB PO SCH (08:26)
[2017-04-10] MEDS: CLOPIDOGREL 75 MG TAB PO SCH (08:26)
[2017-04-10] MEDS: ATORVASTATIN 80 MG TAB PO SCH (08:26)
[2017-04-10] MEDS: FAMOTIDINE 20 MG TAB PO SCH (08:26)
--- NOTE | 2017-04-10 10:30 | PN ---
PROGRESS NOTE This patient is an 82-year-old female, she is known to me from the office. I saw her in July. She came for follow up of carotid stenosis. Patient was found to have a bilateral 50% to 90% stenosis of both the carotids. Patient came with a history of vertigo and some blurry vision affecting both eyes with complete recovery since in the hospital. She has history of atrial fibrillation, on Coumadin. INR is 3.4. Patient has aortic valve stenosis for that she had the valve replaced on 11/02/2016. Today, on examination patient is sitting in bed with her son and daughter. Her vital signs are stable. She did mention about her time when she was at home, her blood pressure was running high when she had those symptoms. Patient had a MRI of the brain which showed abnormal increasing in the sara consistent with chronic small-vessel ischemia and also moderate increased signal similarly to the periventricular white matter. This could be due to the chronic small vessel ischemia or demyelinating changes. The brain appears stable compared to the old exam which was done on 04/29/2016. No evidence of any new focal abnormality, no cortical infarct seen. I had a long discussion with the family and the patient. Patient came with high-grade stenosis of the carotid artery which was present in the month of visit to the office in July and she had no motor symptoms, no evidence of any loss of vision. Her motor functions are normal of upper and lower extremities. An MRI did not show any acute infarct. I will discuss with Neurology and Internal Medicine and I also discussed with the patient. She does not want any surgical intervention unless it is absolutely necessary. MMODL / IJN: [id number] /
--- NOTE | 2017-04-10 11:12 | EEG ---
ELECTROENCEPHALOGRAM REPORT DATE OF EE04/09/2017 ELECTROENCEPHALOGRAPHIC EXAMINATION REPORT: INDICATION FOR EXAMINATION: This patient is an 82-year-old female being evaluated for TIA and dizziness. AGE: 82. EEG FINDINGS: A routine 21 channel awake digital EEG recording was accomplished utilizing the 10-20 international system with bipolar and referential montages. The background activity in the most alert resting state consists of a low to medium amplitude, fairly well developed and well sustained 6-7 Hz activity over the posterior head regions. This posterior rhythm attenuates to eye opening. There is a small amount of low amplitude 18-20 Hz beta activity seen maximally over the anterior head regions. Muscle and movement artifact was observed on a few occasions during the tracing. Hyperventilation was not performed. Photic stimulation at flash frequencies of 2-30 Hz produced a minimal occipital driving response. No epileptiform discharges were seen. IMPRESSION: This EEG is mildly abnormal in a diffuse fashion due to slight slowing of the EEG background. The EEG failed to reveal any focal, lateralized, or epileptiform abnormalities. Clinical correlation is recommended. MMKARIL / IJN: [id number] /
--- NOTE | 2017-04-10 14:27 | P.PN ---
Subjective Progress Note Date: 04/10/17 This patient is a pleasant 82-year-old female who is being evaluated for episode of TIA. Patient was having symptoms of vertigo and blurring vision. She underwent a CTA angiogram upon admission through the ER at [facility] which did reveal right internal carotid artery stenosis of 80 -90 %. She was seen today in consultation with Dr. Miller for evaluation of carotid artery stenosis. She has history of evaluation in July of last year for similar carotid artery disease symptoms. The patient was able to complete MRI of the brain today which was reviewed. MRI reveals abnormal increased signal in the sara consistent with chronic small vessel ischemia. There was moderate increased signal in the periventricular white matter related to chronic small vessel ischemia. No evidence of acute abnormality or cortical infarct was seen. We reviewed the results of the MRI today with the patient. As noted she has been seen by Dr. Miller who did review all studies with her today in detail. The patient does not wish to have any surgical intervention unless it is absolutely necessary. Patient continues to do well today. Neurologically she remains intact. She has been up and ambulating with the use of her walker. She was able to complete a routine EEG yesterday which was reviewed and is only showing mild slowing consistent for her age with no evidence of any epileptiform discharges. Patient is to continue on Plavix and aspirin for secondary stroke prevention. She is being considered for possible discharge home later today. At this time we will continue close neurological follow-up for the patient. Her overall prognosis remains fair. Patient can follow-up in the outpatient neurology clinic in 3-4 weeks as needed. Objective - Vital Signs Vital signs: Vital Signs Temp 97.5 F L 04/10/17 07:00 Pulse 87 04/10/17 08:00 Resp 18 04/10/17 08:00 BP 147/98 04/10/17 07:00 Pulse Ox 95 04/10/17 07:00 Intake & Output 04/09/17 04/10/17 04/10/17 18:59 06:59 18:59 Intake Total 450 480 240 Balance 450 480 240 Weight 84.368 kg Intake: Oral 450 480 240 Other: # Voids 2 3 4 - Exam Physical examination: PHYSICAL EXAMINATION: Patient is resting comfortably in bed. VITAL SIGNS: Blood pressure is [147/98]. Heart rate is [87]. Respiration is [18] . Temperature is [97.5]. HEENT: Head is atraumatic, neck is supple, there were no carotid bruits. CHEST: Lungs are clear to auscultation and percussion. CARDIAC: S1, S2 normal rate and rhythm. There is no murmur. ABDOMEN: Soft and nontender. Bowel sounds are present. EXTREMITIES: There is no pedal edema. Peripheral pulses are present. Neurological examination: Patient's neurological examination is unchanged from yesterday. Patient has been ambulating with the use of her walker with no difficulties today. - Labs CBC & Chem 7: 04/09/17 07:29 04/09/17 07:29 Labs: Abnormal Lab Results - Last 24 Hours (Table) 04/10/17 Range/Units 05:44 PT 27.0 H (9.0-12.0) sec INR 3.0 H (<1.2) Assessment and Plan (1) TIA (transient ischemic attack) Current Visit: Yes Status: Acute Code(s): G45.9 - TRANSIENT CEREBRAL ISCHEMIC ATTACK, UNSPECIFIED SNOMED Code(s): 120826268 (2) Carotid stenosis Current Visit: Yes Status: Acute Code(s): I65.29 - OCCLUSION AND STENOSIS OF UNSPECIFIED CAROTID ARTERY SNOMED Code(s): 67810203 (3) Vertigo Current Visit: Yes Status: Acute Code(s): R42 - DIZZINESS AND GIDDINESS SNOMED Code(s): 319771992 (4) Atrial fibrillation Current Visit: No Status: Chronic Code(s): I48.91 - UNSPECIFIED ATRIAL FIBRILLATION SNOMED Code(s): 08941166 Plan: This patient is a 82-year-old right-handed white female who developed severe onset of vertigo yesterday evening while using the bathroom. She was in the bathroom and could not move due to severity of vertigo symptoms. She felt her eyes were moving and she could not focus. She was able to call for help and her daughter immediately came to the home to check on her. EMS was called to the home and she was brought into the emergency room for further evaluation. Patient was seen in the ER by Dr. Fonseca who ordered a CTA angiogram of the head and neck. The results of the CT angiogram reveals severe right internal carotid artery stenosis measuring 80-90%. The left internal carotid artery measured 60-70%. He was unclear whether the severity of the carotid artery stenosis possibly could've produced some type of basilar or vertebral artery hyperperfusion. Her clinical history suggests possibility of brainstem ischemia. We have recommended that she have an MRI of the brain for further evaluation. The patient will be seen by vascular surgery. Apparently she has seen them last year and they are aware of her carotid artery disease and stenosis. The patient is on Coumadin for treatment of atrial fibrillation. Her INR on admission was 3.4. She does have history of recent valve replacement and she is being followed closely by cardiology and we will await their further evaluation and recommendations as well. The patient does seem to be doing better today after admission. We will await further recommendations from the other specialists were seeing her. The patient was seen by vascular surgery and Dr. Miller today. His recommendations have been noted. She does not require any surgical intervention at this time. Patient does not wish to proceed with any surgery unless absolutely necessary. She was able to complete MRI of the brain which was also reviewed and fails to reveal any evidence of new or acute stroke. 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 We would recommend to maintain her INR between 2-3 at this time. Case was discussed at length with the patient and her son who is at bedside. All of her questions were answered. Her overall prognosis at this time remains guarded. Patient is being considered for possible discharge home later today. Her overall prognosis at this time remains guarded.
--- NOTE | 2017-04-10 15:32 | P.DS ---
Providers Date of admission: 04/09/17 01:31 Expected date of discharge: 04/10/17 Attending physician: Bhaskar Rivers MD Consults: 04/09/17 06:47 Consult Physician Routine Consulting Provider: Melvin Miller Consult Reason/Comments: carotid stenosis Do you want consulting provider notified?: Yes Consult Physician Routine Consulting Provider: Nayely Serna Consult Reason/Comments: TIA Do you want consulting provider notified?: Yes Primary care physician: Viral Collazo MD - Discharge Diagnosis(es) (1) TIA (transient ischemic attack) Status: Acute (2) Carotid stenosis Status: Acute (3) Vertigo Status: Acute (4) Atrial fibrillation Status: Chronic Hospital Course: 82-year-old female who is being evaluated for episode of TIA. Patient was having symptoms of vertigo and blurring vision. She underwent a CTA angiogram upon admission through the ER at [facility] which did reveal right internal carotid artery stenosis of 80 -90%. She was seen today in consultation with Dr. Miller for evaluation of carotid artery stenosis. She has history of evaluation in July of last year for similar carotid artery disease symptoms. The patient was able to complete MRI of the brain today which was reviewed. MRI reveals abnormal increased signal in the sara consistent with chronic small vessel ischemia. There was moderate increased signal in the periventricular white matter related to chronic small vessel ischemia. No evidence of acute abnormality or cortical infarct was seen. We reviewed the results of the MRI today with the patient. As noted she has been seen by Dr. Miller who did review all studies with her today in detail. The patient does not wish to have any surgical intervention unless it is absolutely necessary. Patient continues to do well today. Neurologically she remains intact. She has been up and ambulating with the use of her walker. She was able to complete a routine EEG yesterday which was reviewed and is only showing mild slowing consistent for her age with no evidence of any epileptiform discharges. Patient is to continue on Plavix and aspirin for secondary stroke prevention. Her metoprolol was titrated up to 75 mg PO BID. She was discharged home in stable condition, this discharge process took approximately 35 minutes Constitutional: No acute distress, conversant, pleasant Eyes: Anicteric sclerae, moist conjunctiva, no lid-lag, PERRLA ENMT: NC/AT,Oropharynx clear, no erythema, exudates Neck:Supple, FROM, no masses, or JVD, No carotid bruits; No thyromegaly Lungs: Clear to auscultation, Clear to percussion, Normal respiratory effort, no accessory muscle use Cardiovascular: Heart regular in rate and rhythm, No murmurs, gallops, or rubs no peripheral edema Abdominal: Soft Nontender, nom distended, no guarding, no rebound or rigidity, Normoactive bowel sounds No hepatomegaly, No splenomegaly, No palpable mass No abdominal wall hernia noted Skin: Normal temperature, tone, texture, turgor, No induration No subcutaneous nodules, No rash, lesions, No ulcers Extremities:No digital cyanosis No clubbing, Pedal pulses intact and symmetrical Radial pulses intact and symmetrical Normal gait and station, No calf tenderness Neuro: Muscles Strength 5/5 in all 4 extremities, Sensation to light touch grossly present throughout, Cranial nerves II-XII grossly intact. No focal sensory deficits Patient Condition at Discharge: Fair Plan - Discharge Summary New Discharge Prescriptions: New Meclizine [Antivert] 25 mg PO TID #20 tab Ondansetron Odt [Zofran ODT] 4 mg PO Q8HR PRN #10 tab PRN Reason: Nausea Metoprolol Tartrate [Lopressor] 75 mg PO BID #60 tablet Continue Warfarin [Coumadin] 0.5 mg PO MOFR Warfarin [Coumadin] 1 mg PO DAILY Nitroglycerin Sl Tabs [Nitrostat] 0.4 mg SUBLINGUAL Q5M PRN PRN Reason: Chest Pain Albuterol Sulfate [Proair Hfa] 1 - 2 puff INHALATION RT-QID PRN PRN Reason: Shortness Of Breath Acetaminophen [Tylenol] 500 mg PO BID Ranitidine HCl [Zantac] 150 mg PO DAILY@1400 Levothyroxine Sodium [Synthroid] 25 mcg PO DAILY Aspirin 81 mg PO DAILY@1400 Cetirizine HCl [Zyrtec] 10 mg PO DAILY PRN PRN Reason: Allergy Symptoms Clopidogrel [Plavix] 75 mg PO DAILY Simvastatin [Zocor] 40 mg PO DAILY Discontinued Metoprolol Tartrate [Lopressor] 50 mg PO BID Discharge Medication List Acetaminophen [Tylenol] 500 mg PO BID 04/28/16 [History] Albuterol Sulfate [Proair Hfa] 1 - 2 puff INHALATION RT-QID PRN 04/28/16 [ History] Aspirin 81 mg PO DAILY@1400 04/28/16 [History] Levothyroxine Sodium [Synthroid] 25 mcg PO DAILY 04/28/16 [History] Nitroglycerin Sl Tabs [Nitrostat] 0.4 mg SUBLINGUAL Q5M PRN 04/28/16 [History] Ranitidine HCl [Zantac] 150 mg PO DAILY@1400 04/28/16 [History] Warfarin [Coumadin] 0.5 mg PO MOFR 04/28/16 [History] Warfarin [Coumadin] 1 mg PO DAILY 04/28/16 [History] Cetirizine HCl [Zyrtec] 10 mg PO DAILY PRN 04/08/17 [History] Clopidogrel [Plavix] 75 mg PO DAILY 04/08/17 [History] Simvastatin [Zocor] 40 mg PO DAILY 04/08/17 [History] Meclizine [Antivert] 25 mg PO TID #20 tab 04/09/17 [Rx] Ondansetron Odt [Zofran ODT] 4 mg PO Q8HR PRN #10 tab 04/09/17 [Rx] Metoprolol Tartrate [Lopressor] 75 mg PO BID #60 tablet 04/10/17 [Rx] Follow up Appointment(s)/Referral(s): Viral Collazo MD [Primary Care Provider] - 1-2 days Patient Instructions/Handouts: Meclizine (By mouth), Ondansetron (By mouth), Coronary Artery Disease (DC), Vertigo (ED) Activity/Diet/Wound Care/Special Instructions: call on wednesday to dule an appointment with Dr. Collazo Discharge Disposition: HOME SELF-CARE
[2017-04-10] MEDS ORDERED: cloNIDine HCL 0.1 MG TAB PO STA (16:02)
[2017-04-10 16:10] VITALS: BP 165/79; TEMP 97.8
[2017-04-10] MEDS ORDERED: WARFARIN 1 MG TAB PO ONE (18:00)
--- NOTE | 2017-04-19 13:12 | ECHOF ---
Referral Reason:aortic stenosis MEASUREMENTS -------- HEIGHT: 165.1 cm WEIGHT: 84.4 kg BP: 166/100 IVSd: 1.3 cm (0.6 - 1.1) LVIDd: 4.3 cm (3.9 - 5.3) LVPWd: 1.4 cm (0.6 - 1.1) IVSs: 1.7 cm LVIDs: 3.5 cm LVPWs: 1.4 cm LA Diam: 4.8 cm (2.7 - 3.8) LAESV Index (A-L): 70.95 ml/m Ao Diam: 2.2 cm (2.0 - 3.7) LA Diam: 5.3 cm (2.7 - 3.8) MV EXCURSION: 13.666 mm (> 18.000) MV EF SLOPE: 20 mm/s (70 - 150) EPSS: 1.1 cm MV E Parish: 1.02 m/s MV DecT: 221 ms MV A Parish: 0.22 m/s MV E/A Ratio: 4.76 AV maxP.42 mmHg AV meanP.02 mmHg RAP: 5.00 mmHg RVSP: 40.56 mmHg FINDINGS -------- Atrial fibrillation. This was a technically good study. The left ventricular size is normal. There is mild concentric left ventricular hypertrophy. Overa ll left ventricular systolic function is low-normal with, an EF between 50 - 55 %. The right ventricle is normal in size. LA is severely dilated >40 ml/m2 The right atrial size is normal. 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 Peak/mean gradient across the Aortic Valve is 10.42mmHg / 6.02mmHg. Pt had TAVR procedure 10/25. Mild mitral annular calcification present. Mild mitral regurgitation is present. Mild tricuspid regurgitation present. There is mild pulmonary hypertension. The right ventricular systolic pressure, as measured by Doppler, is 40.56mmHg. Trace/mild (physiologic) pulmonic regurgitation. The aortic root size is normal. There is no pericardial effusion. CONCLUSIONS -------- 1. Atrial fibrillation. 2. The left ventricular size is normal. 3. There is mild concentric left ventricular hypertrophy. 4. Overall left ventricular systolic function is low-normal with, an EF between 50 - 55 %. 5. LA is severely dilated >40 ml/m2 6. 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 7. Peak/mean gradient across the Aortic Valve is 10.42mmHg / 6.02mmHg. 8. Pt had TAVR procedure 10/25. 9. Mild mitral annular calcification present. 10. Mild mitral regurgitation is present. 11. Mild tricuspid regurgitation present. 12. There is mild pulmonary hypertension. 13. The right ventricular systolic pressure, as measured by Doppler, is 40.56mmHg. 14. Trace/mild (physiologic) pulmonic regurgitation. 15. The aortic root size is normal. 16. There is no pericardial effusion. PUTTY [employer]INTER MAKER: Meagan Anne RDCS
== END 2017-04-10 16:48 | disposition home or self-care (01) ==
LOC: SUPCPDRO 22:17 → EC 22:17 → 5MS5E 04-09 01:31
PROVIDERS: ADMIT Internal Medicine; ATTEND Internal Medicine
DX: I65.23 Occlusion and stenosis of bilateral carotid arteries (principal); I10 Essential (primary) hypertension; I48.2 Chronic atrial fibrillation; E03.9 Hypothyroidism, unspecified; M19.90 Unspecified osteoarthritis, unspecified site; M35.00 Sjogren syndrome, unspecified; G62.9 Polyneuropathy, unspecified; Z95.2 Presence of prosthetic heart valve; I35.0 Nonrheumatic aortic (valve) stenosis; I25.10 Atherosclerotic heart disease of native coronary artery without angina pectoris; E78.5 Hyperlipidemia, unspecified; I16.0 Hypertensive urgency; E66.9 Obesity, unspecified; Z68.30 Body mass index [BMI] 30.0-30.9, adult; Z79.01 Long term (current) use of anticoagulants; Z79.899 Other long term (current) drug therapy; Z79.02 Long term (current) use of antithrombotics/antiplatelets; Z88.8 Allergy status to other drugs, medicaments and biological substances; Z79.82 Long term (current) use of aspirin; Z80.41 Family history of malignant neoplasm of ovary; Z86.73 Personal history of transient ischemic attack (TIA), and cerebral infarction without residual deficits; Z95.5 Presence of coronary angioplasty implant and graft
CPT/HCPCS: 96375 ×2; 96376 ×2; 96374 ×2; 99285; 36415; 95819; 93005; 93306; 97161; 80053; 80048; 83735; 84484; 85025 ×2; 85610 ×2; 85730; 81001; 70496; 70498; 70551; G0378 ×2; J3360; Q9967; J2405 ×2

== ENCOUNTER → 2017-05-27 | Outpatient (CLI) | payer MEDICARE, BC ==
[2017-05-27 19:17] LABS: INR 2.6 (<1.2); Prothrombin Time 23.1 sec (9.0-12.0)
== END | disposition home or self-care (01) ==
LOC: MMGSC 11:01
PROVIDERS: ATTEND Internal Medicine Interventional Cardiology
DX: I48.2 Chronic atrial fibrillation (principal)
CPT/HCPCS: 36415; 85610

== ENCOUNTER 2018-02-21 02:42 | Emergency (ER) | payer MEDICARE, BC ==
[2018-02-21] MEDS ORDERED: MECLIZINE 12.5 MG TAB PO STA (03:06)
--- NOTE | 2018-02-21 03:15 | ED ---
Dizziness HPI - General Chief Complaint: Dizziness Stated Complaint: dizziness Time Seen by Provider: 02/21/18 02:44 Source: EMS Mode of arrival: EMS Limitations: no limitations - History of Present Illness Initial Comments: This patient is an 83-year-old woman who states that she was sleeping tonight around 2 when she was awakened by an intense spinning sensation. She states that she had vertigo about a year ago and this feels similar to that. The symptoms did not resolve she also was noting some nausea and felt she should be seen patient denies headache, change in vision, any neurologic symptoms, neck pain, fevers or chills. Complaint: dizziness Onset/Timin -: hour(s) Timing: awoke with symptoms Description: "room spinning" History of Same: Yes History of Trauma: No Severity: severe Improves With: remaining still Worsens With: movement - Related Data Home Medications Medication Instructions Recorded Confirmed Acetaminophen [Tylenol] 500 mg PO BID 04/28/16 04/08/17 Albuterol Sulfate [Proair Hfa] 1 - 2 puff INHALATION RT-QID PRN 04/28/16 Aspirin 81 mg PO DAILY@1400 04/28/16 04/08/17 Levothyroxine Sodium [Synthroid] 25 mcg PO DAILY 04/28/16 04/08/17 Nitroglycerin Sl Tabs [Nitrostat] 0.4 mg SUBLINGUAL Q5M PRN 04/28/16 04/08/17 Ranitidine HCl [Zantac] 150 mg PO DAILY@1400 04/28/16 04/08/17 Warfarin [Coumadin] 0.5 mg PO MOFR 04/28/16 04/08/17 Warfarin [Coumadin] 1 mg PO DAILY 04/28/16 04/08/17 Cetirizine HCl [Zyrtec] 10 mg PO DAILY PRN 04/08/17 04/08/17 Clopidogrel [Plavix] 75 mg PO DAILY 04/08/17 04/08/17 Simvastatin [Zocor] 40 mg PO DAILY 04/08/17 04/08/17 Previous Rx's Medication Instructions Recorded Meclizine [Antivert] 25 mg PO TID #20 tab 04/09/17 Ondansetron Odt [Zofran ODT] 4 mg PO Q8HR PRN #10 tab 04/09/17 Metoprolol Tartrate [Lopressor] 75 mg PO BID #60 tablet 04/10/17 Levofloxacin [Levaquin] 500 mg PO DAILY 5 Days #5 tab 02/21/18 Meclizine [Antivert] 25 mg PO TID PRN #15 tab 02/21/18 Allergies Allergy/AdvReac Type Severity Reaction Status Date / Time rivaroxaban [From Xarelto] AdvReac Severe Rapid Verified 02/21/18 02:51 Heart Rate dabigatran etexilate AdvReac Unknown ULCERS Verified 02/21/18 02:51 [From Pradaxa] apixaban [From Eliquis] AdvReac NUMBNESS Verified 02/21/18 02:51 IN LEG. Review of Systems ROS Statement: Those systems with pertinent positive or pertinent negative responses have been documented in the HPI. ROS Other: All systems not noted in ROS Statement are negative. Constitutional: Denies: fever, chills Respiratory: Denies: cough, dyspnea Cardiovascular: Denies: chest pain, palpitations, orthopnea, edema, syncope Gastrointestinal: Reports: nausea. Denies: abdominal pain, vomiting Genitourinary: Denies: dysuria Musculoskeletal: Denies: back pain Skin: Denies: rash Neurological: Reports: vertigo. Denies: headache, weakness, numbness, paresthesias Past Medical History Past Medical History: Atrial Fibrillation, CVA/TIA Additional Past Medical History / Comment(s): Recent UTI and has completed ABX, shogrens, leaky cardiac valve, neuropathy bilateral feet/legs, past inner ear problem causing imbalance-not lately, hypothyroid, OA multiple joints., History of Any Multi-Drug Resistant Organisms: None Reported Past Surgical History: Heart Catheterization Additional Past Surgical History / Comment(s): 2011 PCI with stent to mid LAD, R ovarian cyst, R sided hernia repair, bilateral cataracts removed with lens implants, R knee arthroscopy and gets injections, STEPHANIE, aortic valve replacement, Past Anesthesia/Blood Transfusion Reactions: No Reported Reaction Date of Last Stent Placement:: 2011 Past Psychological History: No Psychological Hx Reported Smoking Status: Never smoker Past Alcohol Use History: Rare Past Drug Use History: None Reported - Past Family History Father History Unknown: Yes Mother Family Medical History: No Reported History Additional Family Medical History / Comment(s): . Sister(s) Family Medical History: Cancer Additional Family Medical History / Comment(s): OVARIAN CANCER General Exam Limitations: no limitations General appearance: alert, in no apparent distress Head exam: Present: atraumatic, normocephalic Eye exam: Present: normal appearance. Absent: scleral icterus, conjunctival injection ENT exam: Present: normal oropharynx Respiratory exam: Present: normal lung sounds bilaterally. Absent: respiratory distress, wheezes, rales, rhonchi, stridor Cardiovascular Exam: Present: irregular rhythm, normal heart sounds. Absent: systolic murmur, diastolic murmur, rubs, gallop GI/Abdominal exam: Present: soft. Absent: distended, tenderness, guarding, rebound Extremities exam: Present: normal inspection, normal capillary refill. Absent: pedal edema, calf tenderness Back exam: Present: normal inspection. Absent: CVA tenderness (R), CVA tenderness (L) Neurological exam: Present: alert, oriented X3, CN II-XII intact, motor sensory deficit Skin exam: Present: warm, dry, intact, normal color. Absent: rash Course Vital Signs 02/21/18 02/21/18 02/21/18 02:45 02:51 03:00 Temperature 97.6 F Pulse Rate 84 Respiratory 18 Rate Blood Pressure 175/90 175/90 O2 Sat by Pulse 98 97 96 Oximetry 02/21/18 02/21/18 02/21/18 03:10 03:20 03:30 Temperature Pulse Rate 74 Respiratory 17 Rate Blood Pressure 186/86 186/86 186/86 O2 Sat by Pulse 97 Oximetry 02/21/18 03:40 Temperature Pulse Rate 73 Respiratory 33 H Rate Blood Pressure O2 Sat by Pulse 97 Oximetry EKG Findings - EKG Results: EKG: interpreted by ERMD, normal axis, normal QRS EKG shows: atrial fibrillation (Rate 74 bpm) Medical Decision Making - Lab Data Result diagrams: 02/21/18 03:06 02/21/18 03:06 Lab Results 02/21/18 02/21/18 02/21/18 Range/Units 03:00 03:06 03:06 WBC 4.4 (3.8-10.6) k/uL RBC 4.26 (3.80-5.40) m/uL Hgb 13.7 (11.4-16.0) gm/dL Hct 42.6 (34.0-46.0) % MCV 99.9 (80.0-100.0) fL MCH 32.1 (25.0-35.0) pg MCHC 32.1 (31.0-37.0) g/dL RDW 13.3 (11.5-15.5) % Plt Count 137 L (150-450) k/uL Neutrophils % 56 % Lymphocytes % 32 % Monocytes % 6 % Eosinophils % 2 % Basophils % 1 % Neutrophils # 2.5 (1.3-7.7) k/uL Lymphocytes # 1.4 (1.0-4.8) k/uL Monocytes # 0.3 (0-1.0) k/uL Eosinophils # 0.1 (0-0.7) k/uL Basophils # 0.0 (0-0.2) k/uL PT (9.0-12.0) sec INR (<1.2) APTT (22.0-30.0) sec Sodium (137-145) mmol/L Potassium (3.5-5.1) mmol/L Chloride (98-107) mmol/L Carbon Dioxide (22-30) mmol/L Anion Gap mmol/L BUN (7-17) mg/dL Creatinine (0.52-1.04) mg/dL Est GFR (CKD-EPI)AfAm (>60 ml/min/1.73 sqM) Est GFR (CKD-EPI)NonAf (>60 ml/min/1.73 sqM) Glucose (74-99) mg/dL Plasma Lactic Acid Wenceslao (0.7-2.0) mmol/L Calcium (8.4-10.2) mg/dL Total Bilirubin (0.2-1.3) mg/dL AST (14-36) U/L ALT (9-52) U/L Alkaline Phosphatase (38-126) U/L Total Creatine Kinase 41 (30-135) U/L CK-MB (CK-2) 0.8 (0.0-2.4) ng/mL CK-MB (CK-2) Rel Index 2.0 Troponin I <0.012 (0.000-0.034) ng/mL Total Protein (6.3-8.2) g/dL Albumin (3.5-5.0) g/dL Urine Color Yellow Urine Appearance Cloudy H (Clear) Urine pH 6.5 (5.0-8.0) Ur Specific Moss 1.024 (1.001-1.035) Urine Protein 1+ H (Negative) Urine Glucose (UA) Negative (Negative) Urine Ketones Negative (Negative) Urine Blood Negative (Negative) Urine Nitrite Positive H (Negative) Urine Bilirubin Negative (Negative) Urine Urobilinogen 3.0 (<2.0) mg/dL Ur Leukocyte Esterase Moderate H (Negative) Urine RBC 1 (0-5) /hpf Urine WBC 40 H (0-5) /hpf Ur Squamous Epith Cells 5 H (0-4) /hpf Urine Bacteria Many H (None) /hpf Urine Mucus Rare H (None) /hpf 02/21/18 02/21/18 02/21/18 Range/Units 03:06 03:06 03:06 WBC (3.8-10.6) k/uL RBC (3.80-5.40) m/uL Hgb (11.4-16.0) gm/dL Hct (34.0-46.0) % MCV (80.0-100.0) fL MCH (25.0-35.0) pg MCHC (31.0-37.0) g/dL RDW (11.5-15.5) % Plt Count (150-450) k/uL Neutrophils % % Lymphocytes % % Monocytes % % Eosinophils % % Basophils % % Neutrophils # (1.3-7.7) k/uL Lymphocytes # (1.0-4.8) k/uL Monocytes # (0-1.0) k/uL Eosinophils # (0-0.7) k/uL Basophils # (0-0.2) k/uL PT 16.6 H (9.0-12.0) sec INR 1.7 H (<1.2) APTT 26.6 (22.0-30.0) sec Sodium 138 (137-145) mmol/L Potassium 4.2 (3.5-5.1) mmol/L Chloride 107 (98-107) mmol/L Carbon Dioxide 25 (22-30) mmol/L Anion Gap 6 mmol/L BUN 25 H (7-17) mg/dL Creatinine 0.75 (0.52-1.04) mg/dL Est GFR (CKD-EPI)AfAm 84 (>60 ml/min/1.73 sqM) Est GFR (CKD-EPI)NonAf 73 (>60 ml/min/1.73 sqM) Glucose 109 H (74-99) mg/dL Plasma Lactic Acid Wenceslao 1.6 (0.7-2.0) mmol/L Calcium 8.7 (8.4-10.2) mg/dL Total Bilirubin 0.7 (0.2-1.3) mg/dL AST 32 (14-36) U/L ALT 16 (9-52) U/L Alkaline Phosphatase 86 (38-126) U/L Total Creatine Kinase (30-135) U/L CK-MB (CK-2) (0.0-2.4) ng/mL CK-MB (CK-2) Rel Index Troponin I (0.000-0.034) ng/mL Total Protein 7.6 (6.3-8.2) g/dL Albumin 3.6 (3.5-5.0) g/dL Urine Color Urine Appearance (Clear) Urine pH (5.0-8.0) Ur Specific Moss (1.001-1.035) Urine Protein (Negative) Urine Glucose (UA) (Negative) Urine Ketones (Negative) Urine Blood (Negative) Urine Nitrite (Negative) Urine Bilirubin (Negative) Urine Urobilinogen (<2.0) mg/dL Ur Leukocyte Esterase (Negative) Urine RBC (0-5) /hpf Urine WBC (0-5) /hpf Ur Squamous Epith Cells (0-4) /hpf Urine Bacteria (None) /hpf Urine Mucus (None) /hpf Disposition Clinical Impression: Vertigo, Urinary tract infection Disposition: HOME SELF-CARE Condition: Good Instructions: Vertigo (DC), Urinary Tract Infection in Women (ED) Prescriptions: Levofloxacin [Levaquin] 500 mg PO DAILY 5 Days #5 tab Meclizine [Antivert] 25 mg PO TID PRN #15 tab PRN Reason: Vertigo Is patient prescribed a controlled substance at d/c from ED?: No Referrals: Viral Collazo MD [Primary Care Provider] - 1-2 days
--- NOTE | 2018-02-21 03:35 | XR ---
EXAMINATION TYPE: XR chest 1V portable DATE OF EXAM: 02/21/2018 COMPARISON: 04/28/2016 HISTORY: Dizziness TECHNIQUE: Single frontal view of the chest is obtained. FINDINGS: Heart is enlarged. There is a mild infiltrate in the right lower lobe. There is no heart f ailure. There are chest leads. Thoracic aorta is atheromatous. IMPRESSION: There is new mild right lower lobe pneumonia compared to last exam. Cardiomegaly. No hea rt failure seen. Cardiomegaly unchanged.
--- NOTE | 2018-02-21 03:40 | CT ---
EXAMINATION TYPE: CT brain wo con DATE OF EXAM: 02/21/2018 COMPARISON: 08/24/2016 HISTORY: dizzy CT DLP: 1063.4 mGycm Automated exposure control for dose reduction was used. FINDINGS: There is cerebral cortical atrophy. There is no mass effect nor midline shift. There is no sign of in tracranial hemorrhage. The calvarium is intact. There is minimal white matter hypodensity. IMPRESSION: NEGATIVE HEAD CT SCAN. NO ADVERSE CHANGE COMPARED TO OLD EXAM.
[2018-02-21 03:44] LABS: Basophils % (A) 1 %; Eosinophils # (A) 0.1 k/uL (0-0.7); Eosinophils % (A) 2 %; HCT 42.6 % (34.0-46.0); HGB 13.7 gm/dL (11.4-16.0); Lymphocytes # (A) 1.4 k/uL (1.0-4.8); Lymphocytes % (A) 32 %; MCH 32.1 pg (25.0-35.0); MCHC 32.1 g/dL (31.0-37.0); MCV 99.9 fL (80.0-100.0); Mean Platelet Volume 6.8; Monocytes # (A) 0.3 k/uL (0-1.0); Monocytes % (A) 6 %; Neutrophils # (A) 2.5 k/uL (1.3-7.7); Neutrophils % (A) 56 %; Platelet Count 137 k/uL (150-450); RBC 4.26 m/uL (3.80-5.40); RDW 13.3 % (11.5-15.5); WBC 4.4 k/uL (3.8-10.6)
[2018-02-21 03:47] LABS: Appearance,Urine Cloudy (Clear); Bacteria,Urine Many /hpf; Bilirubin,Urine Negative (Negative); Blood,Urine Negative (Negative); Color,Urine Yellow; Glucose,Urine (UA) Negative (Negative); Ketones,Urine Negative (Negative); Leukocyte Esterase,Urine Moderate (Negative); Mucus,Urine Rare /hpf; Nitrite,Urine Positive (Negative); PH, Urine 6.5 (5.0-8.0); Protein,Urine 1+ (Negative); RBC,Urine 1 /hpf (0-5); Specific Gravity,Urine 1.024 (1.001-1.035); Squamous Epithelial Cell,Urine 5 /hpf (0-4); WBC,Urine 40 /hpf (0-5)
[2018-02-21 03:52] LABS: INR 1.7 (<1.2); Partial Thromboplastin Time 26.6 sec (22.0-30.0); Prothrombin Time 16.6 sec (9.0-12.0)
[2018-02-21 04:24] LABS: Albumin 3.6 g/dL (3.5-5.0); Calcium 8.7 mg/dL (8.4-10.2); Creatine Kinase 41 U/L (30-135); Total Bilirubin 0.7 mg/dL (0.2-1.3); Total Protein 7.6 g/dL (6.3-8.2)
[2018-02-21 04:25] LABS: Potassium 4.2 mmol/L (3.5-5.1)
[2018-02-21 04:35] LABS: Creatine Kinase MB 0.8 ng/mL (0.0-2.4); Troponin I <0.012 ng/mL (0.000-0.034)
[2018-02-21] MEDS ORDERED: LEVOFLOXACIN 500 MG TAB PO STA (04:45)
[2018-02-21 04:50] VITALS: RESP 18
[2018-02-21 06:10] VITALS: BP 176/89; PULSE 82; TEMP 98
== END 2018-02-21 06:09 | disposition home or self-care (01) ==
LOC: EC 02:42
DX: N39.0 Urinary tract infection, site not specified (principal); R42 Dizziness and giddiness; R11.0 Nausea; I48.91 Unspecified atrial fibrillation; M19.90 Unspecified osteoarthritis, unspecified site; E03.9 Hypothyroidism, unspecified; Z88.8 Allergy status to other drugs, medicaments and biological substances; Z79.01 Long term (current) use of anticoagulants; Z79.02 Long term (current) use of antithrombotics/antiplatelets; Z79.82 Long term (current) use of aspirin; Z79.891 Long term (current) use of opiate analgesic; Z79.899 Other long term (current) drug therapy; Z86.73 Personal history of transient ischemic attack (TIA), and cerebral infarction without residual deficits; Z86.79 Personal history of other diseases of the circulatory system; Z95.2 Presence of prosthetic heart valve; Z95.818 Presence of other cardiac implants and grafts
CPT/HCPCS: 36415; 70450; 71045; 80053; 81001; 82550; 82553; 83605; 84484; 85025; 85610; 85730; 93005; 99285

== ENCOUNTER 2019-07-20 08:27 | Observation (INO) | payer MEDICARE, BC ==
--- NOTE | 2019-07-20 08:56 | ED ---
General Adult HPI - General Chief complaint: Shortness of Breath Stated complaint: chest heaviness Time Seen by Provider: 07/20/19 08:36 Source: patient, RN notes reviewed, old records reviewed Mode of arrival: wheelchair Limitations: no limitations - History of Present Illness Initial comments: 84-year-old female presents for evaluation of dyspnea. Patient has previous history of atrial fibrillation on Coumadin, previous stenting in the LAD in 2012 and TAVR in 2017. She reports dyspnea over the past week or so, however spent significantly more worse the past 24 hours. She does report orthopnea. She states she had some lower extremity swelling about a week ago but this resolved and denies significant lower extremity edema. She reports only a mild cough. No fever. No central chest pain. She reports a left posterior chest pressure. No abdominal pain or vomiting. No diaphoresis. - Related Data Home Medications Medication Instructions Recorded Confirmed Acetaminophen [Tylenol] 500 mg PO BID 04/28/16 07/20/19 Albuterol Sulfate [Proair Hfa] 2 puff INHALATION RT-QID PRN 04/28/16 07/20/19 Levothyroxine Sodium [Synthroid] 25 mcg PO DAILY 04/28/16 07/20/19 Warfarin [Coumadin] 0.5 mg PO MOFR 04/28/16 07/20/19 Warfarin [Coumadin] 1 mg PO DAILY 04/28/16 07/20/19 Simvastatin [Zocor] 40 mg PO DAILY 04/08/17 07/20/19 Previous Rx's Medication Instructions Recorded Metoprolol Tartrate [Lopressor] 75 mg PO BID #60 tablet 04/10/17 Allergies Allergy/AdvReac Type Severity Reaction Status Date / Time rivaroxaban [From Xarelto] AdvReac Severe Rapid Verified 07/20/19 09:35 Heart Rate dabigatran etexilate AdvReac Unknown ULCERS Verified 07/20/19 09:35 [From Pradaxa] apixaban [From Eliquis] AdvReac NUMBNESS Verified 07/20/19 09:35 IN LEG. Review of Systems ROS Statement: Those systems with pertinent positive or pertinent negative responses have been documented in the HPI. ROS Other: All systems not noted in ROS Statement are negative. Past Medical History Past Medical History: Atrial Fibrillation, CVA/TIA Additional Past Medical History / Comment(s): Recent UTI and has completed ABX, shogrens, leaky cardiac valve, neuropathy bilateral feet/legs, past inner ear problem causing imbalance-not lately, hypothyroid, OA multiple joints., History of Any Multi-Drug Resistant Organisms: None Reported Past Surgical History: Heart Catheterization Additional Past Surgical History / Comment(s): 2011 PCI with stent to mid LAD, R ovarian cyst, R sided hernia repair, bilateral cataracts removed with lens implants, R knee arthroscopy and gets injections, STEPHANIE, aortic valve replacement, Past Anesthesia/Blood Transfusion Reactions: No Reported Reaction Date of Last Stent Placement:: 2011 Past Psychological History: No Psychological Hx Reported Smoking Status: Never smoker Past Alcohol Use History: Rare Past Drug Use History: None Reported - Past Family History Father History Unknown: Yes Mother Family Medical History: No Reported History Additional Family Medical History / Comment(s): . Sister(s) Family Medical History: Cancer Additional Family Medical History / Comment(s): OVARIAN CANCER General Exam Limitations: no limitations General appearance: alert, in no apparent distress Head exam: Present: atraumatic, normocephalic Eye exam: Present: normal appearance, PERRL ENT exam: Present: normal exam Neck exam: Present: normal inspection. Absent: tenderness, meningismus Respiratory exam: Present: normal lung sounds bilaterally. Absent: respiratory distress, wheezes, rales Cardiovascular Exam: Present: regular rate, normal rhythm, systolic murmur, JVD GI/Abdominal exam: Present: soft. Absent: distended, tenderness, guarding Extremities exam: Present: pedal edema Neurological exam: Present: alert, oriented X3, CN II-XII intact. Absent: motor sensory deficit Psychiatric exam: Present: normal affect, normal mood Skin exam: Present: warm, dry, intact. Absent: cyanosis, diaphoretic Course Vital Signs 07/20/19 07/20/19 07/20/19 08:28 08:49 09:00 Temperature 97.4 F L Pulse Rate 74 83 80 Pulse Rate [ Periodicals Clerk ] Respiratory 24 22 18 Rate Blood Pressure 189/66 181/108 O2 Sat by Pulse 98 97 96 Oximetry 07/20/19 07/20/19 09:03 10:09 Temperature Pulse Rate 81 Pulse Rate [ 79 Periodicals Clerk ] Respiratory 32 H Rate Blood Pressure 165/105 O2 Sat by Pulse 98 Oximetry EKG Findings - EKG Comments: EKG Findings:: EKG: Atrial fibrillation with PVC, rate of 78, QRS duration 94, QTC 426, baseline artifact but no ST segment elevation. Medical Decision Making - Medical Decision Making 84-year-old female with atrial fibrillation, CAD, aortic valve replacement resulting with dyspnea, left posterior chest discomfort. Workup reveals a normal CBC, INR 1.9, normal electrolytes, negative troponin, BNP of 990. X-ray showing cardiomegaly, question atelectasis versus infiltrate, patient has no productive cough, no fever, no leukocytosis, doubt infiltrate. Patient's will be kept in observation for chest pain rule out, repeat echo. Patient admitted to internal medicine with cardiology on consult. - Lab Data Result diagrams: 07/20/19 08:45 07/20/19 08:45 Lab Results 07/20/19 07/20/19 07/20/19 Range/Units 08:45 08:45 08:45 WBC 4.0 (3.8-10.6) k/uL RBC 4.30 (3.80-5.40) m/uL Hgb 13.7 (11.4-16.0) gm/dL Hct 42.8 (34.0-46.0) % MCV 99.6 (80.0-100.0) fL MCH 31.8 (25.0-35.0) pg MCHC 32.0 (31.0-37.0) g/dL RDW 13.2 (11.5-15.5) % Plt Count 145 L (150-450) k/uL Neutrophils % 61 % Lymphocytes % 26 % Monocytes % 8 % Eosinophils % 3 % Basophils % 1 % Neutrophils # 2.4 (1.3-7.7) k/uL Lymphocytes # 1.0 (1.0-4.8) k/uL Monocytes # 0.3 (0-1.0) k/uL Eosinophils # 0.1 (0-0.7) k/uL Basophils # 0.0 (0-0.2) k/uL PT 18.4 H (9.0-12.0) sec INR 1.9 H (<1.2) APTT 27.0 (22.0-30.0) sec Sodium 138 (137-145) mmol/L Potassium 4.1 (3.5-5.1) mmol/L Chloride 106 (98-107) mmol/L Carbon Dioxide 22 (22-30) mmol/L Anion Gap 10 mmol/L BUN 15 (7-17) mg/dL Creatinine 0.71 (0.52-1.04) mg/dL Est GFR (CKD-EPI)AfAm 90 (>60 ml/min/1.73 sqM) Est GFR (CKD-EPI)NonAf 78 (>60 ml/min/1.73 sqM) Glucose 103 H (74-99) mg/dL Plasma Lactic Acid Wenceslao (0.7-2.0) mmol/L Calcium 8.7 (8.4-10.2) mg/dL Magnesium 1.8 (1.6-2.3) mg/dL Total Bilirubin 0.9 (0.2-1.3) mg/dL AST 28 (14-36) U/L ALT 10 (4-34) U/L Alkaline Phosphatase 92 (38-126) U/L Troponin I (0.000-0.034) ng/mL NT-Pro-B Natriuret Pep pg/mL Total Protein 8.5 H (6.3-8.2) g/dL Albumin 3.8 (3.5-5.0) g/dL 07/20/19 07/20/19 07/20/19 Range/Units 08:45 08:45 08:45 WBC (3.8-10.6) k/uL RBC (3.80-5.40) m/uL Hgb (11.4-16.0) gm/dL Hct (34.0-46.0) % MCV (80.0-100.0) fL MCH (25.0-35.0) pg MCHC (31.0-37.0) g/dL RDW (11.5-15.5) % Plt Count (150-450) k/uL Neutrophils % % Lymphocytes % % Monocytes % % Eosinophils % % Basophils % % Neutrophils # (1.3-7.7) k/uL Lymphocytes # (1.0-4.8) k/uL Monocytes # (0-1.0) k/uL Eosinophils # (0-0.7) k/uL Basophils # (0-0.2) k/uL PT (9.0-12.0) sec INR (<1.2) APTT (22.0-30.0) sec Sodium (137-145) mmol/L Potassium (3.5-5.1) mmol/L Chloride (98-107) mmol/L Carbon Dioxide (22-30) mmol/L Anion Gap mmol/L BUN (7-17) mg/dL Creatinine (0.52-1.04) mg/dL Est GFR (CKD-EPI)AfAm (>60 ml/min/1.73 sqM) Est GFR (CKD-EPI)NonAf (>60 ml/min/1.73 sqM) Glucose (74-99) mg/dL Plasma Lactic Acid Wenceslao 1.6 (0.7-2.0) mmol/L Calcium (8.4-10.2) mg/dL Magnesium (1.6-2.3) mg/dL Total Bilirubin (0.2-1.3) mg/dL AST (14-36) U/L ALT (4-34) U/L Alkaline Phosphatase (38-126) U/L Troponin I <0.012 (0.000-0.034) ng/mL NT-Pro-B Natriuret Pep 990 pg/mL Total Protein (6.3-8.2) g/dL Albumin (3.5-5.0) g/dL Disposition Clinical Impression: Atrial fibrillation, Chest pain Disposition: ADMITTED IP TO THIS [facility] Condition: Stable Is patient prescribed a controlled substance at d/c from ED?: No Referrals: Viral Collazo MD [Primary Care Provider] - 1-2 days Decision to Admit Reason: Admit from EC Decision Date: 07/20/19 Decision Time: 10:22
[2019-07-20 09:27] LABS: Basophils % (A) 1 %; Eosinophils # (A) 0.1 k/uL (0-0.7); Eosinophils % (A) 3 %; HCT 42.8 % (34.0-46.0); HGB 13.7 gm/dL (11.4-16.0); Lymphocytes % (A) 26 %; MCH 31.8 pg (25.0-35.0); MCV 99.6 fL (80.0-100.0); Mean Platelet Volume 6.9; Monocytes # (A) 0.3 k/uL (0-1.0); Monocytes % (A) 8 %; Neutrophils # (A) 2.4 k/uL (1.3-7.7); Neutrophils % (A) 61 %; Platelet Count 145 k/uL (150-450); RDW 13.2 % (11.5-15.5)
[2019-07-20 09:32] LABS: INR 1.9 (<1.2); Prothrombin Time 18.4 sec (9.0-12.0)
[2019-07-20 09:34] LABS: Albumin 3.8 g/dL (3.5-5.0); Calcium 8.7 mg/dL (8.4-10.2); Magnesium 1.8 mg/dL (1.6-2.3); Potassium 4.1 mmol/L (3.5-5.1); Total Bilirubin 0.9 mg/dL (0.2-1.3); Total Protein 8.5 g/dL (6.3-8.2)
--- NOTE | 2019-07-20 09:35 | XR ---
EXAMINATION TYPE: XR chest 2V DATE OF EXAM: 07/20/2019 COMPARISON: 02/21/2018 HISTORY: 84-year-old female shortness of breath, difficulty breathing TECHNIQUE: PA and lateral views FINDINGS: The heart is borderline to mildly enlarged. Hyperinflation with mild interstitial prominence. Some pa tchy medial right basilar opacity. No other consolidation or pleural effusion. Endovascular aortic va lve replacement. Advanced degenerative change of both shoulders. IMPRESSION: 1. Borderline to mild cardiomegaly. Prior endovascular aortic valve replacement. 2. Patchy medial right basilar atelectasis versus infiltrate. Correlate with patient's symptoms.
[2019-07-20] MEDS ORDERED: ACETAMINOPHEN TAB 325 MG TAB PO PRN (10:16)
[2019-07-20] MEDS ORDERED: NALOXONE 0.4 MG/ML 1 ML VIAL IV PRN (10:16)
[2019-07-20] MEDS ORDERED: ALBUTEROL HFA INHALER INHALATION PRN (10:17)
[2019-07-20] MEDS: METOPROLOL TARTRATE 25 MG TAB PO SCH ×2 (10:49→19:48)
[2019-07-20] MEDS ORDERED: IPRATROPIUM-ALBUTEROL 3 ML NEB INHALATION STA (11:17)
--- NOTE | 2019-07-20 13:38 | P.CRDCN ---
History of Present Illness History of present illness: HISTORY OF PRESENTING ILLNESS This is a pleasant 84-year-old female past medical history significant for chronic persistent atrial fibrillation on termite exterminator helper anti-coagulation with christiano navarro, valvular heart disease s/p TAVR 2016, coronary artery disease s/p PCI LAD 2011, hypertension, dyslipidemia and CVA 2017. She follows in the office with Dr. Jain. We have been asked to see in consultation for chest pain and dyspnea. She is seen and examined sitting up on the stretcher in the ER with her daughter at the bedside. She states for the previous 1-wk she has been experiencing increase exertional shortness of breath. At one point she also had some swelling in her legs but attributed that to increase salt intake. When she corrected the extra salt the swelling improved but her breathing continued to be labored. Then last night she experienced a discomfort in her upper mid back that felt like someone was pushing their hand into her back. The pressure radiated through to her chest. The discomfort in her back and chest has subsided but she continues to feel like she cannot take a full breath. DIAGNOSTICS EKG reveals atrial fibrillation with frequent PVCs. Chest xray mild cardiomegaly evidence of aortic valve replacement, patchy right basilar atelectasis. Laboratory reviewed, WBC 4.0, hemoglobin 13.7, platelets 145, INR 1.9, sodium 138, potassium 4.4, creatinine 0.71, magnesium 1.8, cardiac enzymes negative 1, NT proBNP 990. Current cardiac medications include Lopressor 75 mg twice a day, simvastatin 40 mg daily and Coumadin 1 mg daily with the exception of Wednesday and Wednesday she takes a half a tablet. Most recent echocardiogram obtained in the office November 2018 revealed preserved LV systolic function with ejection fraction 50%, mild to moderate mitral regurgitation, normally functioning prosthetic aortic valve, moderate to severe TR. Most recent catheterization performed in 2017 revealed mild intimal disease of the proximal LAD with no evidence of significant restenosis, severe aortic stenosis with mild AR, mildly impaired LV systolic function. REVIEW OF SYSTEMS At the time of my exam: CONSTITUTIONAL: Denies fever or chills. CARDIOVASCULAR: Complains of shortness of breath. Denies chest pain, orthopnea, PND or palpitations. RESPIRATORY: Denies cough. GASTROINTESTINAL: Denies abdominal pain, diarrhea, constipation, nausea or vomiting. MUSCULOSKELETAL: Denies myalgias. NEUROLOGIC: Denies numbness, tingling or weakness. ENDOCRINE: Denies fatigue, weight change, polydipsia or polyurina. GENITOURINARY: Denies burning, hematuria or urgency with micturation. HEMATOLOGIC: Denies history of anemia or bleeding. PHYSICAL EXAMINATION Blood pressure 162/83 heart rate 74 afebrile and maintaining oxygen saturation on room air. CONSTITUTIONAL: No apparent distress. HEENT: Head is normocephalic. Pupils are equal, round. Sclerae anicteric. Mucous membranes of the mouth are moist. No JVD. Right carotid bruit heard, no bruit on the left. CHEST EXAMINATION: Diffuse expiratory wheezes throughout, no rales or rhonchi. No chest wall tenderness is noted on palpation or with deep breathing. HEART EXAMINATION: Irregular rate and rhythm. S1, S2 heard. Systolic ejection murmur at the base and left sternal border, no gallops or rub. ABDOMEN: Soft, nontender. Positive bowel sounds. EXTREMITIES: 2+ peripheral pulses, no lower extremity edema and no calf tenderness. NEUROLOGIC EXAMINATION: Patient is awake, alert and oriented x3. ASSESSMENT Shortness of breath, clinically euvolemic. Covid test pending. Chest pain History of coronary artery disease status post PCI of the LAD 2011 Valvular heart disease status post TAVR Chronic persistent atrial fibrillation on long-term anticoagulation with Coumadin Hypertension Dyslipidemia PLAN Give updraft treatment. Obtain 2D echocardiogram and doppler study to assess cardiac structure and function. Continue to obtain serial cardiac enzymes to rule out an acute coronary event. Hold Coumadin tonight in case there is a new for further invasive testing tomorrow. Further recommendations to follow based on clinical course. Thank you kindly for this consultation. Nurse Practitioner note has been reviewed, I agree with a documented findings and plan of care. Patient was seen and examined. Past Medical History Past Medical History: Atrial Fibrillation, Coronary Artery Disease (CAD), CVA/TIA, Hyperlipidemia, Hypertension, Osteoarthritis (OA), Thyroid Disorder, Vascular Disorder Additional Past Medical History / Comment(s): 2017 CVA, 2018 TIA, shogrens, neuropathy bilateral feet/legs which affects ambulation, occasionally has episodes of "feeling faint" which resolves with sitting and putting head between knees, vertigo, caratid artery disease, hypothyroid, OA multiple joints., History of Any Multi-Drug Resistant Organisms: None Reported Past Surgical History: Appendectomy, Heart Catheterization With Stent, Hysterectomy Additional Past Surgical History / Comment(s): 2011 PCI with stent to mid LAD, R ovarian cyst, R sided hernia repair, bilateral cataracts removed with lens implants, R knee arthroscopy , STEPHANIE, TAVR with post hematoma evacuation, colonoscopy Past Anesthesia/Blood Transfusion Reactions: No Reported Reaction Date of Last Stent Placement:: 2011 Smoking Status: Never smoker - Past Family History Father History Unknown: Yes Mother Family Medical History: Osteoarthritis (OA) Additional Family Medical History / Comment(s): Osteoporosis, difficulty ambulating. Mother lived to be 99.5 Sister(s) Family Medical History: Cancer Additional Family Medical History / Comment(s): OVARIAN CANCER Medications and Allergies Home Medications Medication Instructions Recorded Confirmed Type Acetaminophen [Tylenol] 500 mg PO BID 04/28/16 07/20/19 History Albuterol Sulfate [Proair Hfa] 2 puff INHALATION RT-QID PRN 04/28/16 07/20/19 History Levothyroxine Sodium [Synthroid] 25 mcg PO DAILY 04/28/16 07/20/19 History Warfarin [Coumadin] 0.5 mg PO MOFR 04/28/16 07/20/19 History Warfarin [Coumadin] 1 mg PO DAILY 04/28/16 07/20/19 History Simvastatin [Zocor] 40 mg PO DAILY 04/08/17 07/20/19 History Metoprolol Tartrate [Lopressor] 75 mg PO BID #60 tablet 04/10/17 07/20/19 Rx Allergies Allergy/AdvReac Type Severity Reaction Status Date / Time rivaroxaban [From Xarelto] AdvReac Severe Rapid Verified 07/20/19 09:35 Heart Rate dabigatran etexilate AdvReac Unknown ULCERS Verified 07/20/19 09:35 [From Pradaxa] apixaban [From Eliquis] AdvReac NUMBNESS Verified 07/20/19 09:35 IN LEG. Physical Exam Vitals: Vital Signs Temp Pulse Pulse Resp BP Pulse Ox 07/20/19 11:08 28 H 07/20/19 10:51 80 24 165/101 07/20/19 10:09 81 32 H 165/105 98 07/20/19 09:03 79 07/20/19 09:00 80 18 181/108 96 07/20/19 08:49 83 22 97 07/20/19 08:28 97.4 F L 74 24 189/66 98 Intake and Output 07/19/19 07/20/19 07/20/19 22:59 06:59 14:59 Other: Weight 85.729 kg Results 07/20/19 08:45 07/20/19 08:45 Cardiac Enzymes 07/20/19 07/20/19 Range/Units 08:45 08:45 AST 28 (14-36) U/L Troponin I <0.012 (0.000-0.034) ng/mL Coagulation 07/20/19 Range/Units 08:45 PT 18.4 H (9.0-12.0) sec APTT 27.0 (22.0-30.0) sec CBC 07/20/19 Range/Units 08:45 WBC 4.0 (3.8-10.6) k/uL RBC 4.30 (3.80-5.40) m/uL Hgb 13.7 (11.4-16.0) gm/dL Hct 42.8 (34.0-46.0) % Plt Count 145 L (150-450) k/uL Comprehensive Metabolic Panel 07/20/19 Range/Units 08:45 Sodium 138 (137-145) mmol/L Potassium 4.1 (3.5-5.1) mmol/L Chloride 106 (98-107) mmol/L Carbon Dioxide 22 (22-30) mmol/L BUN 15 (7-17) mg/dL Creatinine 0.71 (0.52-1.04) mg/dL Glucose 103 H (74-99) mg/dL Calcium 8.7 (8.4-10.2) mg/dL AST 28 (14-36) U/L ALT 10 (4-34) U/L Alkaline Phosphatase 92 (38-126) U/L Total Protein 8.5 H (6.3-8.2) g/dL Albumin 3.8 (3.5-5.0) g/dL Current Medications Generic Name Dose Route Start Last Admin Trade Name Freq PRN Reason Stop Dose Admin Acetaminophen 650 mg 07/20/19 10:16 Tylenol Tab PO Q6HR PRN Mild Pain or Fever > 100.5 Albuterol Sulfate 2 puff 07/20/19 10:17 Ventolin Hfa Inhaler INHALATION RT-QID PRN Shortness Of Breath Albuterol/Ipratropium 3 ml 07/20/19 11:17 Duoneb 0.5 Mg-3 Mg/3 Ml Soln INHALATION 07/20/19 11:18 ONCE STA Atorvastatin Calcium 20 mg 07/21/19 09:00 Lipitor PO DAILY AYAKA Levothyroxine Sodium 25 mcg 07/21/19 06:30 Synthroid PO DAILY@0630 AYAKA Metoprolol Tartrate 75 mg 07/20/19 10:30 07/20/19 10:49 Lopressor PO 75 mg BID AYAKA Administration Naloxone HCl 0.2 mg 07/20/19 10:16 Narcan IV Q2M PRN Opioid Reversal Intake and Output 07/19/19 07/20/19 07/20/19 22:59 06:59 14:59 Other: Weight 85.729 kg Patient Weight 07/21/19 06:59 Weight 85.729 kg 07/20/19 08:45 07/20/19 08:45
[2019-07-20] MEDS ORDERED: RX INFO: IV CONTRAST WAS GIVEN 1 EACH MISC MISCELLANE PRN (13:39)
[2019-07-20] MEDS ORDERED: ALBUTEROL NEBULIZED 2.5 MG/3 ML INHALATION PRN (15:08)
--- NOTE | 2019-07-20 16:19 | CT ---
EXAMINATION TYPE: CT angio chest DATE OF EXAM: 07/20/2019 COMPARISON: Radiograph same day HISTORY: 84-year-old female SOB TECHNIQUE: Contiguous axial scanning of the chest performed with IV Contrast, patient injected with 8 0 mL of Isovue 370. Coronal/sagittal reconstructions performed. CT DLP: 386 mGycm Automated exposure control for dose reduction was used. FINDINGS: Heart mild to moderately enlarged. No flattening of the interventricular septum. There is reflux of c ontrast into the hepatic veins. Mitral annular calcifications. Endovascular aortic valve replacement demonstrated. LAD and circumflex artery calcifications are present. Moderate atherosclerotic arch calcifications. Large caliber to the main right and left pulmonary arteries at 3.1 and 2.9 cm, respectively suggestin g underlying pulmonary arterial hypertension. Satisfactory opacification of the vasculature without evidence for pulmonary embolus. No thoracic lymphadenopathy by CT size criteria. Focal patchy opacity medial segment right middle lobe. No other consolidation or pleural effusion. 2.5 cm benign right hepatic lobe cyst. Otherwise the upper abdomen otherwise shows no gross body. Bones: Advanced degenerative changes of both shoulders osteopenia. Degenerative disc disease lower th oracic spine. IMPRESSION: 1. NO EVIDENCE FOR PULMONARY EMBOLUS. 2. CARDIOMEGALY AND PULMONARY ARTERIAL HYPERTENSION. LAD AND CIRCUMFLEX ARTERY CALCIFICATIONS. 3. FOCAL PATCH OF OPACITY MEDIAL SEGMENT RIGHT MIDDLE LOBE COULD REPRESENT ATELECTASIS OR EARLY INFIL TRATE/PNEUMONIA. CLINICALLY CORRELATE.
--- NOTE | 2019-07-20 18:30 | P.HPIM ---
History of Present Illness H&P Date: 07/20/19 Chief Complaint: Short of breath History of presenting complaint: This is a very pleasant 84-year-old patient who follows with Dr. Viral Collazo. Chronic stable medical conditions include atrial fibrillation, coronary artery disease, hypertension, hyperlipidemia, osteoarthritis, peripheral neuropathy, carotid artery disease, hypothyroid. Patient had previous angioplasty stenting to the mid LAD in 2011. Also had TAVR procedure. Patient now presents with being short of breath off and on for about a month. She feels fully getting worse. Increase more so in the last 1 week she's finding it difficult to catch her breath. Yesterday night even became worse and privilege coasting. Denies any edema. No fever no chills. No cough. No wheezing. Admitted for the same. Cartilage was consulted. Review of systems: GEN.: Tired EYES: None HEENT: None NECK: None RESPIRATORY: [As above CARDIOVASCULAR: As above GASTROINTESTINAL: None GENITOURINARY: None MUSCULOSKELETAL: Joint pains LYMPHATICS: None HEMATOLOGICAL: None PSYCHIATRY: None NEUROLOGICAL: None Past medical history to include: Atrial fibrillation, coronary artery disease with stent, hyperlipidemia, h ypertension, osteoarthritis, hypothyroid, stroke in 2069, 2018 had a TIA, Sjogren's, peripheral neuropathy, does use a walker, carotid artery disease, Social history: Lives alone. Uses a walker. No smoking. Alcohol rarely. Physical examination: VITAL SIGNS: 97.4, 74, 24, 189/66, 98% room air GENERAL: BMI 30.5, sitting in the edge of the bed, comfortable. EYES: Pupils equal. Conjunctiva normal. HEENT: External appearance of nose and ears normal, oral cavity grossly normal. NECK: JVD not raised; masses not palpable. HEART: First and second heart sounds are normal; no edema. LUNGS: Respiratory rate normal; clear to auscultation. ABDOMEN: Soft, nontender, liver spleen not palpable, no masses palpable. PSYCH: Alert and oriented x3; mood and affect normal. NEUROLOGICAL: Cranial nerves grossly intact; no facial asymmetry, power and sensation grossly intact. MUSCULOSKELETAL: Evidence of OA LYMPHATICS: No lymph nodes palpable in the axilla and neck INVESTIGATIONS, reviewed in the clinical context: White count 4 hemoglobin 13.7 platelets 145 potassium 4.1 creatinine 0.71 Troponin I 2 negative proBNP 990 EKG tracing personally reviewed by me-atrial fibrillation rate in the 70s, PVCs Chest x-ray film personally reviewed by me-some cardiomegaly, venous prominence Chest CTA-endovascular aortic valve replacement, LAD and circumflex artery calcifications Assessment: -Possible unstable angina in a patient with known coronary artery disease and calcification of LAD and circumflex seen on the CT chest. Patient has no edema and no proBNP of 990 with CHF unlikely. Patient has no infective symptoms or cough fever or sputum making pneumonia unlikely -Coronary artery disease with prior history of stent -Persistent atrial fibrillation, rate controlled, on Coumadin -Essential hypertension with urgency -Hyperlipidemia -Primary osteoarthritis -Hypothyroid -Peripheral neuropathy -Gait dysfunction uses a walker Plan: Home medications resumed. Cardiology is consulted. Care was discussed with the patient. Questions were answered. PE was ruled out. Coumadin has been held per cardiology. We will add amlodipine. Past Medical History Past Medical History: Atrial Fibrillation, Coronary Artery Disease (CAD), CVA/TIA, Hyperlipidemia, Hypertension, Osteoarthritis (OA), Thyroid Disorder, Vascular Disorder Additional Past Medical History / Comment(s): 2017 CVA, 2018 TIA, shogrens, neuropathy bilateral feet/legs which affects ambulation, occasionally has episodes of "feeling faint" which resolves with sitting and putting head between knees, vertigo, caratid artery disease, hypothyroid, OA multiple joints., History of Any Multi-Drug Resistant Organisms: None Reported Past Surgical History: Appendectomy, Heart Catheterization With Stent, Hysterect iglesia Additional Past Surgical History / Comment(s): 2011 PCI with stent to mid LAD, R ovarian cyst, R sided hernia repair, bilateral cataracts removed with lens implants, R knee arthroscopy , STEPHANIE, TAVR with post hematoma evacuation, colonoscopy Past Anesthesia/Blood Transfusion Reactions: No Reported Reaction Date of Last Stent Placement:: 2011 Smoking Status: Never smoker - Past Family History Father History Unknown: Yes Mother Family Medical History: Osteoarthritis (OA) Additional Family Medical History / Comment(s): Osteoporosis, difficulty ambulating. Mother lived to be 99.5 Sister(s) Family Medical History: Cancer Additional Family Medical History / Comment(s): OVARIAN CANCER Medications and Allergies Home Medications Medication Instructions Recorded Confirmed Type Acetaminophen [Tylenol] 500 mg PO BID 04/28/16 07/20/19 History Albuterol Sulfate [Proair Hfa] 2 puff INHALATION RT-QID PRN 04/28/16 07/20/19 History Levothyroxine Sodium [Synthroid] 25 mcg PO DAILY 04/28/16 07/20/19 History Warfarin [Coumadin] 0.5 mg PO MOFR 04/28/16 07/20/19 History Warfarin [Coumadin] 1 mg PO DAILY 04/28/16 07/20/19 History Simvastatin [Zocor] 40 mg PO DAILY 04/08/17 07/20/19 History Metoprolol Tartrate [Lopressor] 75 mg PO BID #60 tablet 04/10/17 07/20/19 Rx Allergies Allergy/AdvReac Type Severity Reaction Status Date / Time rivaroxaban [From Xarelto] AdvReac Severe Rapid Verified 07/20/19 09:35 Heart Rate dabigatran etexilate AdvReac Unknown ULCERS Verified 07/20/19 09:35 [From Pradaxa] apixaban [From Eliquis] AdvReac NUMBNESS Verified 07/20/19 09:35 IN LEG. Physical Exam Vitals: Vital Signs Temp Pulse Pulse Resp BP BP Pulse Ox 07/20/19 17:13 65 20 177/95 97 07/20/19 14:07 97.6 F 71 22 161/84 97 07/20/19 13:00 74 07/20/19 12:49 61 07/20/19 12:20 74 26 H 162/83 96 07/20/19 11:08 28 H 07/20/19 10:51 80 24 165/101 07/20/19 10:09 81 32 H 165/105 98 07/20/19 09:03 79 07/20/19 09:00 80 18 181/108 96 07/20/19 08:49 83 22 97 07/20/19 08:28 97.4 F L 74 24 189/66 98 Intake and Output 07/20/19 07/20/19 07/20/19 06:59 14:59 22:59 Other: # Voids 2 Weight 85.729 kg Results CBC & Chem 7: 07/20/19 08:45 07/20/19 08:45 Labs: Abnormal Lab Results - Last 24 Hours (Table) 07/20/19 07/20/19 07/20/19 Range/Units 08:45 08:45 08:45 Plt Count 145 L (150-450) k/uL PT 18.4 H (9.0-12.0) sec INR 1.9 H (<1.2) Glucose 103 H (74-99) mg/dL Total Protein 8.5 H (6.3-8.2) g/dL Thrombosis Risk Factor Assmnt - Choose All That Apply Any of the Below Risk Factors Present?: Yes Each Factor Represents 1 point: Obesity (BMI >25) Each Risk Factor Represents 3 Points: Age 75 years or older Other congenital or acquired thrombophilia - If yes, enter type in comment: No Thrombosis Risk Factor Assessment Total Risk Factor Score: 4 Thrombosis Risk Factor Assessment Level: Moderate Risk
[2019-07-20] MEDS: amLODIPine 5 MG TAB PO SCH (19:48)
[2019-07-21] MEDS ORDERED: LEVOTHYROXINE 25 MCG TAB PO SCH (06:30)
[2019-07-21] MEDS ORDERED: AMINOPHYLLINE 500 MG/20 ML VIAL IV PRN (07:35)
[2019-07-21] MEDS ORDERED: REGADENOSON 0.4 MG/5 ML SYRINGE IV ONE (07:35)
[2019-07-21] MEDS ORDERED: CAFFEINE CITRATE 60 MG/3 ML VIAL IV PRN (07:35)
--- NOTE | 2019-07-21 08:00 | ECHOF ---
Referral Reason: MEASUREMENTS -------- HEIGHT: 167.6 cm WEIGHT: 85.7 kg BP: 165/105 RVIDd: 3.4 cm (< 3.3) IVSd: 1.6 cm (0.6 - 1.1) LVIDd: 4.0 cm (3.9 - 5.3) LVPWd: 1.5 cm (0.6 - 1.1) IVSs: 2.2 cm LVIDs: 2.1 cm LVPWs: 2.1 cm LAESV Index (A-L): 58.92 ml/m Ao Diam: 2.0 cm (2.0 - 3.7) AV Cusp: 1.1 cm (1.5 - 2.6) LA Diam: 5.0 cm (2.7 - 3.8) MV EXCURSION: 13.883 mm (> 18.000) MV EF SLOPE: 40 mm/s (70 - 150) EPSS: 0.9 cm AV maxP.30 mmHg AV meanP.84 mmHg RAP: 5.00 mmHg RVSP: 33.59 mmHg FINDINGS -------- Atrial fibrillation. This was a technically good study. The left ventricular size is normal. There is moderate concentric left ventricular hypertrophy. O verall left ventricular systolic function is low-normal with, an EF between 50 - 55 %. Left ventric ular fillimg pressure cannot be estimated due to Atrial fibrillation. The right ventricle is mildly enlarged. LA is severely dilated >40 ml/m2 The right atrial size is normal. The atrial septal defect shunts from right to left. Peak/mean gradient across the Aortic Valve is 8.30mmHg / 4.84mmHg. Normally functioning bioprosthet ic valve. TAVR procedure done The mitral valve is normal. Mild mitral regurgitation is present. The tricuspid valve appears structurally normal. Moderate tricuspid regurgitation present. Right ventricular systolic pressure is normal at < 35 mmHg. There is no pulmonic regurgitation present. The aortic root size is normal. Normal inferior vena cava with normal inspiratory collapse consistent with estimated right atrial pre ssure of 5 mmHg. There is no pericardial effusion. CONCLUSIONS -------- 1. Atrial fibrillation. 2. This was a technically good study. 3. The left ventricular size is normal. 4. There is moderate concentric left ventricular hypertrophy. 5. Overall left ventricular systolic function is low-normal with, an EF between 50 - 55 %. 6. Left ventricular fillimg pressure cannot be estimated due to Atrial fibrillation. 7. The right ventricle is mildly enlarged. 8. LA is severely dilated >40 ml/m2 9. The right atrial size is normal. 10. The atrial septal defect shunts from right to left. 11. Peak/mean gradient across the Aortic Valve is 8.30mmHg / 4.84mmHg. 12. Normally functioning bioprosthetic valve. 13. TAVR procedure done 14. The mitral valve is normal. 15. Mild mitral regurgitation is present. 16. The tricuspid valve appears structurally normal. 17. Moderate tricuspid regurgitation present. 18. Right ventricular systolic pressure is normal at < 35 mmHg. 19. There is no pulmonic regurgitation present. 20. The aortic root size is normal. 21. Normal inferior vena cava with normal inspiratory collapse consistent with estimated right atrial pressure of 5 mmHg. 22. There is no pericardial effusion. WELL TENDER: Nikole Canales RDCS
[2019-07-21 08:24] LABS: INR 1.7 (<1.2); Prothrombin Time 16.6 sec (9.0-12.0)
[2019-07-21] MEDS ORDERED: ATORVASTATIN 20 MG TAB PO SCH (09:00)
[2019-07-21 09:37] VITALS: BP 146/77; RESP 14; TEMP 98
--- NOTE | 2019-07-21 10:11 | P.PN ---
Subjective HISTORY OF PRESENTING ILLNESS This is a pleasant 84-year-old female past medical history significant for chronic persistent atrial fibrillation on assistant terminal manager anti-coagulation with coumadin, valvular heart disease s/p TAVR 2016, coronary artery disease s/p PCI LAD 2011, hypertension, dyslipidemia and CVA 2017. She follows in the office [facility] Dr. Jain. She is seen and examined sitting up in bed in no acute distress. She continues to feel episodes of shortness of breath and dry cough. She did receive a breathing treatment yesterday which she states did seem to help initially however her symptoms returned shortly thereafter. She is concerned as she feels as though she can hear herself wheezing in the bronchial region. She has had no symptoms of chest discomfort since admission. She denies palpitations or dizziness. Telemetry tracings were persistent atrial fibrillation with variable rates. Blood pressure 146/77 heart rate 67 afebrile maintaining oxygen saturation on room air. Echocardiogram obtained reveals preserved LV systolic function with ejection fraction 50-55%, moderate LVH, severely dilated left atrium, atrial septal defect shunts from right to left, normally functioning bioprosthetic valve with a mean gradient across the valve of 4 mmHg, mild mitral regurgitation, moderate tricuspid regurgitation and no rmal RVSP. CTA of the chest is negative for pulmonary embolism, cardiomegaly and pulmonary tear hypertension noted, coronary calcifications, focal patch of obesity medial segment of the right middle lobe possibly related to atelectasis or early infiltrate/pneumonia. Laboratory data reviewed, INR 1.7, cardiac enzymes negative 3. PHYSICAL EXAMINATION CONSTITUTIONAL: No apparent distress. HEENT: Head is normocephalic. Pupils are equal, round. Sclerae anicteric. Mucous membranes of the mouth are moist. No JVD. Right carotid bruit heard, no bruit on the left. CHEST EXAMINATION: Bronchial wheezes, no wheezes posteriorly, no rales or rhonchi. No chest wall tenderness is noted on palpation or with deep breathing. HEART EXAMINATION: Irregular rate and rhythm. S1, S2 heard. Systolic ejection murmur at the base and left sternal border, no gallops or rub. EXTREMITIES: 2+ peripheral pulses, no lower extremity edema and no calf tenderness. ASSESSMENT Shortness of breath, clinically euvolemic. Covid test negative Chest pain, atypical. An acute coronary event has been ruled out. History of coronary artery disease status post PCI of the LAD 2011 Valvular heart disease status post TAVR Chronic persistent atrial fibrillation on long-term anticoagulation with Coumadin Hypertension Dyslipidemia PLAN Clinically the patient's symptoms seem to be more related to underlying pulmonary etiology likely bronchitis possible pneumonia. Consider pulmonary evaluation. Recommend follow-up with Dr. Jain in the office when this has resolved for further cardiac testing. She artery has an appointment scheduled with him for the end of this month. Resume Coumadin this morning. Nurse Practitioner note has been reviewed, I agree with a documented findings and plan of care. Patient was seen and examined. Objective - Vital Signs Vital signs: Vital Signs Temp 98 F 07/21/19 08:00 Pulse 67 07/21/19 08:00 Resp 14 07/21/19 08:00 BP 146/77 07/21/19 08:00 Pulse Ox 95 07/21/19 04:00 Intake & Output 07/20/19 07/21/19 07/21/19 18:59 06:59 18:59 Weight 85.729 kg Other: # Voids 2 2 - Labs CBC & Chem 7: 07/20/19 08:45 07/20/19 08:45 Labs: Abnormal Lab Results - Last 24 Hours (Table) 07/21/19 Range/Units 07:59 PT 16.6 H (9.0-12.0) sec INR 1.7 H (<1.2)
[2019-07-21] MEDS: amLODIPine 5 MG TAB PO SCH (10:30)
[2019-07-21] MEDS: METOPROLOL TARTRATE 25 MG TAB PO SCH (10:30)
[2019-07-21] MEDS ORDERED: WARFARIN 0.5 MG TAB PO SCH (11:00)
[2019-07-21] MEDS ORDERED: WARFARIN 1 MG TAB PO SCH (11:00)
[2019-07-21] MEDS ORDERED: predniSONE 20 MG TAB PO STA (11:19)
[2019-07-21 11:49] VITALS: PULSE 72
--- NOTE | 2019-07-21 21:44 | P.DS ---
Providers Date of admission: 07/20/19 10:16 Expected date of discharge: 07/21/19 Attending physician: Georges Sevilla Consults: 07/20/19 10:16 Consult Physician Routine Consulting Provider: Enrique Jain Consult Reason/Comments: Chest pain, dyspnea Do you want consulting provider notified?: Yes Primary care physician: Viral Collazo MD Hospital Course: Chief Complaint: Short of breath History of presenting complaint: This is a very pleasant 84-year-old patient who follows with Dr. Viral Collazo. Chronic stable medical conditions include atrial fibrillation, coronary artery disease, hypertension, hyperlipidemia, osteoarthritis, peripheral neuropathy, carotid artery disease, hypothyroid. Patient had previous angioplasty stenting to the mid LAD in 2011. Also had TAVR procedure. Patient now presents with being short of breath off and on for about a month. She feels fully getting worse. Increase more so in the last 1 week she's finding it difficult to catch her breath. Yesterday night even became worse and privilege coasting. Denies any edema. No fever no chills. No cough. No wheezing. Admitted for the same. Cardiology was consulted. Today-patient was seen by gynecology. Not felt to be cardiac. Pulmonary embolism ruled out. Possibly asthma exacerbation. Patient given prednisone 60 mg and bronchodilators. Care was discussed with the patient. She will follow Dr. Marlow as an outpatient. Prescriptions were done. Amlodipine was added for blood pressure. Discussion and discharge planning more than 35 minutes Consultation: Dr. Keron Clancy from cardiology Physical examination: VITAL SIGNS: 98, 67, 14, 146/77, GENERAL: Sitting up, not in distress EYES: Pupils equal. Conjunctiva normal. HEENT: External appearance of nose and ears normal, oral cavity grossly normal. NECK: JVD not raised; masses not palpable. HEART: First and second heart sounds are normal; no edema. LUNGS: Respiratory rate increased; mild wheezing. ABDOMEN: Soft, nontender, liver spleen not palpable, no masses palpable. PSYCH: Alert and oriented x3; mood and affect normal. INVESTIGATIONS, reviewed in the clinical context: White count 4 hemoglobin 13.7 platelets 145 potassium 4.1 creatinine 0.71 Troponin I 2 negative proBNP 990 EKG tracing personally reviewed by me-atrial fibrillation rate in the 70s, PVCs Chest x-ray film personally reviewed by me-some cardiomegaly, venous prominence Chest CTA-endovascular aortic valve replacement, LAD and circumflex artery calcifications Assessment: -Possible obstructive asthma exacerbation -Coronary artery disease with prior history of stent -Persistent atrial fibrillation, rate controlled, on Coumadin -Essential hypertension with urgency -Hyperlipidemia -Primary osteoarthritis -Hypothyroid -Peripheral neuropathy -Gait dysfunction uses a walker Disposition: Home Patient Condition at Discharge: Stable Plan - Discharge Summary Discharge Rx Participant: No New Discharge Prescriptions: New Albuterol Nebulized [Ventolin Nebulized] 2.5 mg INHALATION TID PRN #90 ml PRN Reason: Shortness Of Breath Chlorthalidone 25 mg PO DAILY #30 tab amLODIPine [Norvasc] 5 mg PO DAILY #30 tab Budesonide [Pulmicort Flexhaler] 2 puff INHALATION BID #1 inhaler predniSONE 10 mg PO DAILY #30 tab Continue Warfarin [Coumadin] 0.5 mg PO MOFR Warfarin [Coumadin] 1 mg PO DAILY Albuterol Sulfate [Proair Hfa] 2 puff INHALATION RT-QID PRN PRN Reason: Shortness Of Breath Acetaminophen [Tylenol] 500 mg PO BID Levothyroxine Sodium [Synthroid] 25 mcg PO DAILY Simvastatin [Zocor] 40 mg PO DAILY Metoprolol Tartrate [Lopressor] 75 mg PO BID #60 tablet Discharge Medication List Acetaminophen [Tylenol] 500 mg PO BID 04/28/16 [History] Albuterol Sulfate [Proair Hfa] 2 puff INHALATION RT-QID PRN 04/28/16 [History] Levothyroxine Sodium [Synthroid] 25 mcg PO DAILY 04/28/16 [History] Warfarin [Coumadin] 0.5 mg PO MOFR 04/28/16 [History] Warfarin [Coumadin] 1 mg PO DAILY 04/28/16 [History] Simvastatin [Zocor] 40 mg PO DAILY 04/08/17 [History] Metoprolol Tartrate [Lopressor] 75 mg PO BID #60 tablet 04/10/17 [Rx] Albuterol Nebulized [Ventolin Nebulized] 2.5 mg INHALATION TID PRN #90 ml 07/21/19 [Rx] Budesonide [Pulmicort Flexhaler] 2 puff INHALATION BID #1 inhaler 07/21/19 [Rx] Chlorthalidone 25 mg PO DAILY #30 tab 07/21/19 [Rx] amLODIPine [Norvasc] 5 mg PO DAILY #30 tab 06/12/20 [Rx] predniSONE 10 mg PO DAILY #30 tab 07/21/19 [Rx] Follow up Appointment(s)/Referral(s): Enrique Jain MD [STAFF PHYSICIAN] - 2 Weeks (Appointment already scheduled for the end of July.) Viral Collazo MD [Primary Care Provider] - 1-2 days Rachel Marlow MD [STAFF PHYSICIAN] - 1 Week Activity/Diet/Wound Care/Special Instructions: Please make follow up appointments with physicians as it fits to your schedule. Discharge Disposition: HOME SELF-CARE
== END 2019-07-21 14:10 | disposition home or self-care (01) ==
LOC: EC 08:27 → 1SOBS 10:16
PROVIDERS: ADMIT Hospitalist; ATTEND Hospitalist
DX: R06.02 Shortness of breath (principal); R07.89 Other chest pain; R05 Cough; R06.01 Orthopnea; R06.2 Wheezing; I25.10 Atherosclerotic heart disease of native coronary artery without angina pectoris; I48.19 Other persistent atrial fibrillation; I16.0 Hypertensive urgency; E78.5 Hyperlipidemia, unspecified; M19.91 Primary osteoarthritis, unspecified site; E03.9 Hypothyroidism, unspecified; G62.9 Polyneuropathy, unspecified; R26.9 Unspecified abnormalities of gait and mobility; I10 Essential (primary) hypertension; I49.3 Ventricular premature depolarization; Z95.2 Presence of prosthetic heart valve; Z20.828 Contact with and (suspected) exposure to other viral communicable diseases; M35.00 Sjogren syndrome, unspecified; E66.9 Obesity, unspecified; Z68.30 Body mass index [BMI] 30.0-30.9, adult; Z90.49 Acquired absence of other specified parts of digestive tract; Z79.899 Other long term (current) drug therapy; Z79.890 Hormone replacement therapy; Z88.8 Allergy status to other drugs, medicaments and biological substances; Z86.73 Personal history of transient ischemic attack (TIA), and cerebral infarction without residual deficits; Z79.01 Long term (current) use of anticoagulants; Z95.5 Presence of coronary angioplasty implant and graft; Z87.440 Personal history of urinary (tract) infections; Z82.62 Family history of osteoporosis; Z80.41 Family history of malignant neoplasm of ovary; Z84.89 Family history of other specified conditions
CPT/HCPCS: 93005 ×2; 99285; 36415; 94640; 93306; 83880; 80053; 83605; 83735; 84484; 85025; 85610 ×2; 85730; 71046; 71275; G0378 ×2; U0003; J7512; Q9967

== ENCOUNTER 2022-04-28 05:14 | Observation (INO) | payer MEDICARE, BC ==
--- NOTE | 2022-04-28 06:23 | ED ---
Extremity Problem HPI - General Chief complaint: Extremity Injury, Lower Stated complaint: Leg Pain Time Seen by Provider: 04/28/22 06:00 Source: patient, RN notes reviewed Mode of arrival: EMS Limitations: no limitations - History of Present Illness Initial comments: This is an 87-year-old female who presents to the emergency department for bilateral lower extremity pain. States over the last week, she has had increasing pain to both legs. Also feels numbness in the bottom of her feet. She is at the point where she is unable to walk. She lives alone and uses a walker to move around, however she has been unable to move around very easily since this started. Denies any history of blood clots. She does have discoloration to her lower legs which she states has been present for a long period of time. Denies any notable swelling. States that she has had similar problems like this in the past that often resolve on their own within a couple o f days, however that has not been the case this time. Denies any chest pain or shortness of breath. Believes that she needs penitentiary or short-term rehab placement, as she is scared to go home and worried that she may fall. Denies any fevers, chills, sore throat, cough, dyspnea, chest pain, palpitations, abdominal pain, nausea, vomiting, diarrhea, back pain, or headaches. MD Complaint: extremity pain Onset/Timin -: week(s) Location: bilateral lower extremity - Related Data Home Medications Medication Instructions Recorded Confirmed Acetaminophen [Tylenol] 500 mg PO BID 04/28/16 04/28/22 Levothyroxine Sodium [Synthroid] 25 mcg PO DAILY 04/28/16 04/28/22 Warfarin [Coumadin] 0.5 mg PO FR@1700 04/28/16 04/28/22 Warfarin [Coumadin] 1 mg PO SUMOTUWETHSA@1700 04/28/16 04/28/22 Simvastatin [Zocor] 40 mg PO HS 04/08/17 04/28/22 Albuterol Sulfate [Albuterol 1 - 2 puff INHALATION RT-Q4H PRN 04/28/22 04/28/22 Sulfate Hfa] Metoprolol Tartrate [Lopressor] 75 mg PO BID 04/28/22 04/28/22 Sennosides/Docusate Sodium [Colace 3 tab PO Q48H 04/28/22 04/28/22 2-in-1 Tablet] Allergies Allergy/AdvReac Type Severity Reaction Status Date / Time rivaroxaban [From Xarelto] AdvReac Severe Rapid Verified 04/28/22 07:09 Heart Rate dabigatran etexilate AdvReac Unknown Ulcers, Verified 04/28/22 07:09 [From Pradaxa] Nausea, Vomting apixaban [From Eliquis] AdvReac Numbness Verified 04/28/22 07:09 in legs Review of Systems ROS Statement: Those systems with pertinent positive or pertinent negative responses have been documented in the HPI. ROS Other: All systems not noted in ROS Statement are negative. Past Medical History Past Medical History: Atrial Fibrillation, Coronary Artery Disease (CAD), CVA/TIA, Hyperlipidemia, Hypertension, Osteoarthritis (OA), Thyroid Disorder, Vascular Disorder Additional Past Medical History / Comment(s): 2017 CVA, 2018 TIA, shogrens, neuropathy bilateral feet/legs which affects ambulation, occasionally has episodes of "feeling faint" which resolves with sitting and putting head between knees, vertigo, caratid artery disease, hypothyroid, OA multiple joints., History of Any Multi-Drug Resistant Organisms: None Reported Past Surgical History: Appendectomy, Heart Catheterization With Stent, Hysterectomy Additional Past Surgical History / Comment(s): 2011 PCI with stent to mid LAD, R ovarian cyst, R sided hernia repair, bilateral cataracts removed with lens implants, R knee arthroscopy , STEPHANIE, TAVR with post hematoma evacuation, colonoscopy Past Anesthesia/Blood Transfusion Reactions: No Reported Reaction Date of Last Stent Placement:: 2011 Past Psychological History: No Psychological Hx Reported Past Alcohol Use History: Rare Past Drug Use History: None Reported - Past Family History Father History Unknown: Yes Mother Family Medical History: Osteoarthritis (OA) Additional Family Medical History / Comment(s): Osteoporosis, difficulty ambulating. Mother lived to be 99.5 Sister(s) Family Medical History: Cancer Additional Family Medical History / Comment(s): OVARIAN CANCER General Exam Limitations: no limitations General appearance: alert, in no apparent distress Head exam: Present: atraumatic, normocephalic, normal inspection Respiratory exam: Present: normal lung sounds bilaterally. Absent: respiratory distress, wheezes, rales, rhonchi, stridor Cardiovascular Exam: Present: regular rate, normal rhythm, normal heart sounds. Absent: systolic murmur, diastolic murmur, rubs, gallop, clicks Extremities exam: Present: other (Venous stasis changes to the bilateral lower extremities. Calf tenderness bilaterally. No swelling. Weak DP and TP pulses bilaterally. Capillary refill under 2 seconds.) Neurological exam: Present: alert, oriented X3, CN II-XII intact Psychiatric exam: Present: normal affect, normal mood Skin exam: Present: warm, dry, intact, normal color. Absent: rash Course Vital Signs 04/28/22 04/28/22 05:19 10:20 Temperature 98.6 F Pulse Rate 78 69 Respiratory 16 18 Rate Blood Pressure 152/91 168/89 O2 Sat by Pulse 97 97 Oximetry Medical Decision Making - Medical Decision Making This is an 87-year-old female who presents to the emergency department for bilateral lower extremity pain. Was pt. sent in by a medical professional or institution? @ -No Did you speak to anyone other than the patient for history? @ -No Did you review nursing and triage notes? @ -Yes, and I agree, it is accurate with regards to the patient's symptoms. Were old charts reviewed? @ -No Differential Diagnosis? @ -Differential Leg Pain: Leg fracture, leg sprain, DVT, PVD, arterial insufficiency, iliac artery aneurysm, cellulitis, compartment syndrome, tendinopathy, nerve entrapment, piriformis syndrome, osteoarthritis, rhabdomyolysis, myositis, cramping from an electrolyte imbalance, this is not meant to be an all inclusive list. X-rays interpreted by me (1pt min.)? @ -X-ray of the bilateral tib-fib obtained. My interpretation identifies diffuse osteoarthritic changes with no acute fractures or dislocations. U/S interpreted by me (1pt. min.)? @ -Duplex ultrasound of the bilateral lower extremities obtained. My interpretation identifies no evidence of a DVT. What testing was considered but not performed? (CT, X-rays, U/S, labs)? Why? @ -None What meds were considered but not given? Why? @ -None Did you discuss the management of the patient with other professionals? @ -Yes, Dr. Sevilla, who accepts the patient for admission. Did you reconcile home meds? @ -Yes Was smoking cessation discussed for >3mins.? @ -No Was critical care preformed (if so, how long)? @ -No Were there social determinants of health that impacted care today? How? (Homelessness, low income, unemployed, alcoholism, drug addiction, transportation, low edu. Level, literacy, decrease access to med. care, assisted, rehab)? @ -No Was there de-escalation of care discussed even if they declined? (Discuss DNR or withdrawal of care, Hospice)? @ -No What co-morbidities impacted this encounter? (DM, HTN, Smoking, COPD, CAD, Cancer, CVA, Hep., AIDS, mental health diagnosis, sleep apnea, morbid obesity)? @ -A-fib, CAD, hx of CVA, vascular disorder, HTN, HLD, thyroid disorder. Was patient admitted / discharged? @ -Admitted. Lab work obtained revealing elevated inflammatory markers and otherwise no acute findings. Duplex ultrasound of the bilateral lower extremities reveals no evidence of a DVT. X-rays of the bilateral tib-fib also reveals no acute findings. Patient noted concerned about a prior pontine stroke with abnormal carotid ultrasound obtained prior to diagnosis. States that she had similar symptoms in terms of leg weakness at that time. Carotid ultrasound obtained revealing moderate bilateral ICA stenosis. Patient's increasing pain and weakness are likely due to venous insufficiency and progressive peripheral neuropathy. Her diffuse arthritic changes are also likely playing a component. Case management did speak with the patient about home care, however she did not think that this would be adequate, as she is unable to walk and she lives alone. Case discussed Dr. Sevilla, who accepts the patient for admission for purposes of penitentiary placement. PT/OT was consulted as well as social work to look for placement. She had been on gabapentin 100 mg 3 times a day for the neuropathy in the past, this was resumed and increased to 200mg 3x a day. Undiagnosed new problem with uncertain prognosis? @ -None Drug Therapy requiring intensive monitoring for toxicity (Heparin, Nitro, Insulin, Cardizem)? @ -None Were any procedures done? @ -None Diagnosis/symptom? @ -LE pain/weakness Acute, or Chronic, or Acute on Chronic? @ -Acute Uncomplicated (without systemic symptoms) or Complicated (systemic symptoms)? @ -Complicated Side effects of treatment? @ -None Exacerbation, Progression, or Severe Exacerbation] @ -Not applicable Poses a threat to life or bodily function? @ -Yes Diagnosis/symptom? @ -Peripheral neuropathy Acute, or Chronic, or Acute on Chronic? @ -Chronic Uncomplicated (without systemic symptoms) or Complicated (systemic symptoms)? @ -Complicated Side effects of treatment? @ -None Exacerbation, Progression, or Severe Exacerbation] @ -Progression Poses a threat to life or bodily function? @ -Yes This case was discussed in detail with the attending ED physician, Dr. Blanco. Presentation, findings, and treatment plan discussed in detail as well. - Lab Data Result diagrams: 04/28/22 06:32 04/28/22 06:32 Lab Results 04/28/22 04/28/22 04/28/22 Range/Units 06:32 06:32 06:32 WBC 5.0 (3.8-10.6) k/uL RBC 3.95 (3.80-5.40) m/uL Hgb 12.8 (11.4-16.0) gm/dL Hct 38.6 (34.0-46.0) % MCV 97.7 (80.0-100.0) fL MCH 32.5 (25.0-35.0) pg MCHC 33.2 (31.0-37.0) g/dL RDW 13.1 (11.5-15.5) % Plt Count 141 L (150-450) k/uL MPV 6.8 Neutrophils % 75 % Lymphocytes % 13 % Monocytes % 9 % Eosinophils % 0 % Basophils % 0 % Neutrophils # 3.8 (1.3-7.7) k/uL Lymphocytes # 0.7 L (1.0-4.8) k/uL Monocytes # 0.4 (0-1.0) k/uL Eosinophils # 0.0 (0-0.7) k/uL Basophils # 0.0 (0-0.2) k/uL ESR 86 H (0-20) mm/hr PT (9.0-12.0) sec INR (<1.2) APTT (22.0-30.0) sec Sodium 135 L (137-145) mmol/L Potassium 4.3 (3.5-5.1) mmol/L Chloride 100 (98-107) mmol/L Carbon Dioxide 28 (22-30) mmol/L Anion Gap 7 mmol/L BUN 15 (7-17) mg/dL Creatinine 0.55 (0.52-1.04) mg/dL Est GFR (CKD-EPI)AfAm >90 (>60 ml/min/1.73 sqM) Est GFR (CKD-EPI)NonAf 84 (>60 ml/min/1.73 sqM) Glucose 111 H (74-99) mg/dL Calcium 8.4 (8.4-10.2) mg/dL Phosphorus 3.0 (2.5-4.5) mg/dL Magnesium 1.7 (1.6-2.3) mg/dL Total Bilirubin 1.3 (0.2-1.3) mg/dL AST 32 (14-36) U/L ALT 14 (4-34) U/L Alkaline Phosphatase 113 (38-126) U/L C-Reactive Protein 1.2 H (<1.0) mg/dL Total Protein 8.5 H (6.3-8.2) g/dL Albumin 3.6 (3.5-5.0) g/dL TSH 1.660 (0.465-4.680) mIU/L Urine Color Urine Appearance (Clear) Urine pH (5.0-8.0) Ur Specific [place] (1.001-1.035) Urine Protein (Negative) Urine Glucose (UA) (Negative) Urine Ketones (Negative) Urine Blood (Negative) Urine Nitrite (Negative) Urine Bilirubin (Negative) Urine Urobilinogen (<2.0) mg/dL Ur Leukocyte Esterase (Negative) 04/28/22 04/28/22 Range/Units 10:00 12:25 WBC (3.8-10.6) k/uL RBC (3.80-5.40) m/uL Hgb (11.4-16.0) gm/dL Hct (34.0-46.0) % MCV (80.0-100.0) fL MCH (25.0-35.0) pg MCHC (31.0-37.0) g/dL RDW (11.5-15.5) % Plt Count (150-450) k/uL MPV Neutrophils % % Lymphocytes % % Monocytes % % Eosinophils % % Basophils % % Neutrophils # (1.3-7.7) k/uL Lymphocytes # (1.0-4.8) k/uL Monocytes # (0-1.0) k/uL Eosinophils # (0-0.7) k/uL Basophils # (0-0.2) k/uL ESR (0-20) mm/hr PT 27.6 H (9.0-12.0) sec INR 2.8 H (<1.2) APTT 34.9 H (22.0-30.0) sec Sodium (137-145) mmol/L Potassium (3.5-5.1) mmol/L Chloride (98-107) mmol/L Carbon Dioxide (22-30) mmol/L Anion Gap mmol/L BUN (7-17) mg/dL Creatinine (0.52-1.04) mg/dL Est GFR (CKD-EPI)AfAm (>60 ml/min/1.73 sqM) Est GFR (CKD-EPI)NonAf (>60 ml/min/1.73 sqM) Glucose (74-99) mg/dL Calcium (8.4-10.2) mg/dL Phosphorus (2.5-4.5) mg/dL Magnesium (1.6-2.3) mg/dL Total Bilirubin (0.2-1.3) mg/dL AST (14-36) U/L ALT (4-34) U/L Alkaline Phosphatase (38-126) U/L C-Reactive Protein (<1.0) mg/dL Total Protein (6.3-8.2) g/dL Albumin (3.5-5.0) g/dL TSH (0.465-4.680) mIU/L Urine Color Light Yellow Urine Appearance Clear (Clear) Urine pH 7.5 (5.0-8.0) Ur Specific [place] 1.007 (1.001-1.035) Urine Protein Negative (Negative) Urine Glucose (UA) Negative (Negative) Urine Ketones Negative (Negative) Urine Blood Negative (Negative) Urine Nitrite Negative (Negative) Urine Bilirubin Negative (Negative) Urine Urobilinogen <2.0 (<2.0) mg/dL Ur Leukocyte Esterase Negative (Negative) - Radiology Data Radiology results: report reviewed, image reviewed Disposition Clinical Impression: Lower extremity pain, bilateral, Weakness, Peripheral neuropathy Disposition: ADMITTED IP TO THIS [facility] Referrals: Viral Collazo MD [Primary Care Provider] - 1-2 days
[2022-04-28 07:15] LABS: Basophils % (A) 0 %; Eosinophils % (A) 0 %; HCT 38.6 % (34.0-46.0); HGB 12.8 gm/dL (11.4-16.0); Lymphocytes # (A) 0.7 k/uL (1.0-4.8); Lymphocytes % (A) 13 %; MCH 32.5 pg (25.0-35.0); MCHC 33.2 g/dL (31.0-37.0); MCV 97.7 fL (80.0-100.0); Mean Platelet Volume 6.8; Monocytes # (A) 0.4 k/uL (0-1.0); Monocytes % (A) 9 %; Neutrophils # (A) 3.8 k/uL (1.3-7.7); Neutrophils % (A) 75 %; Platelet Count 141 k/uL (150-450); RBC 3.95 m/uL (3.80-5.40); RDW 13.1 % (11.5-15.5)
[2022-04-28 07:51] LABS: ALT 14 U/L (4-34); AST 32 U/L (14-36); African American GFR (CKD) >90 (>60 ml/min/1.73 sqM); Albumin 3.6 g/dL (3.5-5.0); Alkaline Phosphatase 113 U/L (38-126); Anion Gap 7 mmol/L; Blood Urea Nitrogen 15 mg/dL (7-17); Calcium 8.4 mg/dL (8.4-10.2); Carbon Dioxide 28 mmol/L (22-30); Chloride 100 mmol/L (98-107); Glucose 111 mg/dL (74-99); Magnesium 1.7 mg/dL (1.6-2.3); Non-African American GFR(CKD) 84 (>60 ml/min/1.73 sqM); Potassium 4.3 mmol/L (3.5-5.1); Sodium 135 mmol/L (137-145); Total Bilirubin 1.3 mg/dL (0.2-1.3); Total Protein 8.5 g/dL (6.3-8.2)
--- NOTE | 2022-04-28 07:54 | US ---
EXAMINATION TYPE: US venous doppler duplex LE DATE OF EXAM: 04/28/2022 7:39 AM COMPARISON: None CLINICAL HISTORY: Bilateral leg pain and swelling. Pain on both legs with L>R. No redness or swellin g. On blood thinners. SIDE PERFORMED: Bilateral TECHNIQUE: The lower extremity deep venous system is examined utilizing real time linear array sonog amy with graded compression, doppler sonography and color-flow sonography. VESSELS IMAGED: Common Femoral Vein Deep Femoral Vein Greater Saphenous Vein * Femoral Vein Popliteal Vein Small Saphenous Vein * Proximal Calf Veins (* superficial vessels) Grayscale, color doppler, spectral doppler imaging performed of the deep veins of the lower extremiti es. There is normal flow, compressibility, vascular waveforms. Right Leg: Negative for DVT Left Leg: Negative for DVT IMPRESSION: No ultrasound evidence for deep venous thrombosis of the bilateral lower extremities.
[2022-04-28 09:02] LABS: Erythrocyte Sedimentation Rate 86 mm/hr (0-20)
[2022-04-28 09:38] LABS: C Reactive Protein 1.2 mg/dL (<1.0)
--- NOTE | 2022-04-28 09:51 | US ---
EXAMINATION TYPE: US carotid duplex BILAT DATE OF EXAM: 04/28/2022 COMPARISON: CLINICAL HISTORY: Bilateral LE weakness, hx of pontine stroke. Bilateral leg weakness. HTN controlle d with meds. TECHNIQUE: Carotid duplex ultrasound examination. Indirect Doppler criteria was utilized. FINDINGS: EXAM MEASUREMENTS: RIGHT: Peak Systolic Velocity (PSV) cm/sec ----- Right CCA: 63.6 ----- Right ICA: 151.5 ----- Right ECA: 149.5 ICA/CCA ratio: 2.4 RIGHT: End Diastole cm/sec ----- Right CCA: 10.9 ----- Right ICA: 23.4 ----- Right ECA: 0.0 LEFT: Peak Systolic Velocity (PSV) cm/sec ----- Left CCA: 44.4 ----- Left ICA: 197.6 ----- Left ECA: 75.9 ICA/CCA ratio: 4.5 LEFT: End Diastole cm/sec ----- Left CCA: 1.7 ----- Left ICA: 16.4 ----- Left ECA: 0.0 VERTEBRALS (direction of flow): Right Vertebral: Antegrade Left Vertebral: Antegrade Rhythm: Arrhythmia HEEL SEAT TRIMMER NOTES: Limited visualization of right ICA, unable to see distally. Wall thickening and plaque visualized bilaterally. Moderate stenosis in bilateral ICA. Elevated velocities. IMPRESSION: Atheromatous plaquing with moderate bilateral ICA stenosis between 50 and 69%. Correlate with the pat ient's symptoms. Criteria for Assigning % of Stenosis / Diameter reduction (Estimation based on the indirect measurements of the internal carotid artery velocities (ICA PSV). 1. Normal (no stenosis)=ICA PSV < 125 cm/s: ratio < 2.0: ICA EDV<40 cm/s. 2. Less than 50% stenosis=ICA PSV < 125 cm/s: ratio < 2.0: ICA EDV<40 cm/s. 3. 50 to 69% stenosis=ICA PSV of 125 to 230 cm/s: ration 2.0 ? 4.0: ICA EDV 40-100 cm/s. 4. Greater than 70% stenosis to near occlusion= ICA PSV > 230 cm/s: ratio > 4.0: ICA EDV > 100 cm/s. 5. Near occlusion= ICA PSV velocities may be low or undetectable: variable ratio and ICA EDV. 6. Total occlusion=unable to detect flow.
[2022-04-28 10:08] LABS: Appearance,Urine Clear (Clear); Bilirubin,Urine Negative (Negative); Blood,Urine Negative (Negative); Color,Urine Light Yellow; Glucose,Urine (UA) Negative (Negative); Ketones,Urine Negative (Negative); Leukocyte Esterase,Urine Negative (Negative); Nitrite,Urine Negative (Negative); PH, Urine 7.5 (5.0-8.0); Protein,Urine Negative (Negative); Specific Gravity,Urine 1.007 (1.001-1.035); Urobilinogen,Urine <2.0 mg/dL (<2.0)
[2022-04-28] MEDS ORDERED: ONDANSETRON 4 MG/2 ML VIAL IVP PRN (12:05)
[2022-04-28] MEDS ORDERED: NALOXONE 0.4 MG/ML 1 ML VIAL IV PRN (12:05)
--- NOTE | 2022-04-28 12:25 | XR ---
EXAMINATION TYPE: XR tibia fibula bilateral DATE OF EXAM: 04/28/2022 COMPARISON: NONE HISTORY: Pain TECHNIQUE: Two views are submitted. FINDINGS: The osseous structures are intact. Diffuse osteopenia with severe arthropathy of the knee joint bilat erally. Near complete loss of joint space. IMPRESSION: 1. Diffuse osteopenia with severe osteoarthritis of the bilateral knee.
[2022-04-28 12:48] LABS: INR 2.8 (<1.2); Partial Thromboplastin Time 34.9 sec (22.0-30.0); Prothrombin Time 27.6 sec (9.0-12.0)
[2022-04-28] MEDS ORDERED: LACTULOSE 20 GM/30 ML CUP PO PRN (14:16)
[2022-04-28] MEDS ORDERED: LORazepam 0.5 MG TAB PO PRN (14:16)
[2022-04-28] MEDS ORDERED: MELATONIN 3 MG TABLET PO PRN (14:16)
[2022-04-28] MEDS ORDERED: CALCIUM CARBONATE 500 MG CHEWABLE PO PRN (14:16)
--- NOTE | 2022-04-28 14:19 | P.HPIM ---
History of Present Illness H&P Date: 04/28/22 Chief Complaint: Difficulty walking History of presenting complaint: This is a very pleasant 87-year-old patient who follows with Dr. Viral Collazo. Chronic stable medical conditions include atrial fibrillation, coronary artery disease, hypertension, hyperlipidemia, osteoarthritis, peripheral neuropathy, carotid artery disease, hypothyroid. angioplasty stenting to the mid LAD in 2011. Also had TAVR procedure. Patient now with progressive trouble walking. Having increasing pain and describes like a pressure lower extremity from below the knee down to the foot. Some drainage in removing the left leg. No change in bowel no change in appetite no changes sleep. No back pain. Patient has known peripheral neuropathy. Having trouble to get from the house. No fever no chills. No injury. Numbness lower extremity. Below the knee Review of systems: GEN.: Tired EYES: None HEENT: None NECK: None RESPIRATORY: [As above CARDIOVASCULAR: None GASTROINTESTINAL: None GENITOURINARY: None MUSCULOSKELETAL: Joint pains LYMPHATICS: None HEMATOLOGICAL: None PSYCHIATRY: None NEUROLOGICAL: As above Past medical history to include: Atrial fibrillation, coronary artery disease with stent, hyperlipidemia, hypertension, osteoarthritis, hypothyroid, stroke in 2069, 2018 had a TIA, Sjogren's, peripheral neuropathy, does use a walker, carotid artery disease, Social history: Lives alone. Uses a walker. No smoking. Alcohol rarely. Physical examination: VITAL SIGNS: 98.6, 69, 18, 168/89, 97% room air GENERAL: BMI 28.2, reclining in bed, comfortable. EYES: Pupils equal. Conjunctiva normal. HEENT: External appearance of nose and ears normal, oral cavity grossly normal. NECK: JVD not raised; masses not palpable. HEART: First and second heart sounds are normal; no edema. LUNGS: Respiratory rate normal; clear to auscultation. ABDOMEN: Soft, nontender, liver spleen not palpable, no masses palpable. PSYCH: Alert and oriented x3; mood and affect normal. NEUROLOGICAL: Cranial nerves grossly intact; no facial asymmetry, decreased bowel lower extremity. Decreased sensation distally. MUSCULOSKELETAL: Evidence of OA LYMPHATICS: No lymph nodes palpable in the axilla and neck INVESTIGATIONS, reviewed in the clinical context: White count 5 1112.8 platelets 141 sodium 135 potassium 4.3 creatinine 0.55 TSH 1.6 UA: Negative Doppler ultrasound bilateral lower extremity: Negative for DVT Assessment and plan: -Acute on chronic worsening gait dysfunction from worsening peripheral neuropathy. Patient only able to walk 10-20 feet slowly. Start Neurontin 100 mg 3 times a day. Consult PTOT. -Intermittent obstructive asthma Albuterol when necessary -Coronary artery disease with prior history of stent Lopressor 75 mg twice a day. Zocor 40 mg daily at bedtime. -Persistent atrial fibrillation, rate controlled, on Coumadin -Essential hypertension Lopressor 75 twice a day -Hyperlipidemia Zocor 40 mg daily at bedtime -Primary osteoarthritis Tylenol when necessary -Hypothyroid Synthroid 25 g daily -Worsening Peripheral neuropathy -Neurontin 100 mg 3 times a day -Old code Discussed with patient. Consult cyanide case hardener. Past Medical History Past Medical History: Atrial Fibrillation, Coronary Artery Disease (CAD), CVA/TIA, Hyperlipidemia, Hypertension, Osteoarthritis (OA), Thyroid Disorder, Vascular Disorder Additional Past Medical History / Comment(s): 2016 CVA, 2018 TIA, shogrens, neuropathy bilateral feet/legs which affects ambulation, occasionally has episo bev of "feeling faint" which resolves with sitting and putting head between knees, vertigo, caratid artery disease, hypothyroid, OA multiple joints., History of Any Multi-Drug Resistant Organisms: None Reported Past Surgical History: Appendectomy, Heart Catheterization With Stent, Hysterectomy Additional Past Surgical History / Comment(s): 2011 PCI with stent to mid LAD, R ovarian cyst, R sided hernia repair, bilateral cataracts removed with lens implants, R knee arthroscopy , STEPHANIE, TAVR with post hematoma evacuation, co lonoscopy Past Anesthesia/Blood Transfusion Reactions: No Reported Reaction Date of Last Stent Placement:: 2011 Past Psychological History: No Psychological Hx Reported Past Alcohol Use History: Rare Past Drug Use History: None Reported - Past Family History Father History Unknown: Yes Mother Family Medical History: Osteoarthritis (OA) Additional Family Medical History / Comment(s): Osteoporosis, difficulty ambulating. Mother lived to be 99.5 Sister(s) Family Medical History: Cancer Additional Family Medical History / Comment(s): OVARIAN CANCER Medications and Allergies Home Medications Medication Instructions Recorded Confirmed Type Acetaminophen [Tylenol] 500 mg PO BID 04/28/16 04/28/22 History Levothyroxine Sodium [Synthroid] 25 mcg PO DAILY 04/28/16 04/28/22 History Warfarin [Coumadin] 0.5 mg PO FR@1700 04/28/16 04/28/22 History Warfarin [Coumadin] 1 mg PO SUMOTUWETHSA@1700 04/28/16 04/28/22 History Simvastatin [Zocor] 40 mg PO HS 04/08/17 04/28/22 History Albuterol Sulfate [Albuterol 1 - 2 puff INHALATION RT-Q4H PRN 04/28/22 04/28/22 History Sulfate Hfa] Metoprolol Tartrate [Lopressor] 75 mg PO BID 04/28/22 04/28/22 History Sennosides/Docusate Sodium [Colace 3 tab PO Q48H 04/28/22 04/28/22 History 2-in-1 Tablet] Allergies Allergy/AdvReac Type Severity Reaction Status Date / Time rivaroxaban [From Xarelto] AdvReac Severe Rapid Verified 04/28/22 07:09 Heart Rate dabigatran etexilate AdvReac Unknown Ulcers, Verified 04/28/22 07:09 [From Pradaxa] Nausea, Vomting apixaban [From Eliquis] AdvReac Numbness Verified 04/28/22 07:09 in legs Physical Exam Vitals: Vital Signs Temp Pulse Resp BP Pulse Ox 04/28/22 10:20 69 18 168/89 97 04/28/22 05:19 98.6 F 78 16 152/91 97 Intake and Output 04/27/22 04/28/22 04/28/22 22:59 06:59 14:59 Other: Weight 79.379 kg Results CBC & Chem 7: 04/28/22 06:32 04/28/22 06:32 Labs: Abnormal Lab Results - Last 24 Hours (Table) 04/28/22 04/28/22 04/28/22 Range/Units 06:32 06:32 12:25 Plt Count 141 L (150-450) k/uL Lymphocytes # 0.7 L (1.0-4.8) k/uL ESR 86 H (0-20) mm/hr PT 27.6 H (9.0-12.0) sec INR 2.8 H (<1.2) APTT 34.9 H (22.0-30.0) sec Sodium 135 L (137-145) mmol/L Glucose 111 H (74-99) mg/dL C-Reactive Protein 1.2 H (<1.0) mg/dL Total Protein 8.5 H (6.3-8.2) g/dL
[2022-04-28] MEDS: ACETAMINOPHEN TAB 325 MG TAB PO PRN (15:26)
[2022-04-28] MEDS: GABAPENTIN 100 MG CAP PO SCH ×2 (15:27→21:38)
[2022-04-28] MEDS ORDERED: GABAPENTIN 100 MG CAP PO SCH (16:00)
[2022-04-28] MEDS: WARFARIN 1 MG TAB PO SCH (18:58)
[2022-04-28] MEDS: METOPROLOL TARTRATE 50 MG TAB PO SCH (20:37)
[2022-04-28] MEDS: ATORVASTATIN 20 MG TAB PO SCH (20:37)
[2022-04-29] MEDS: LEVOTHYROXINE 25 MCG TAB PO SCH (06:01)
[2022-04-29] MEDS: ACETAMINOPHEN TAB 325 MG TAB PO PRN (06:01)
[2022-04-29] MEDS ORDERED: SENNOSIDES-DOCUSATE SODIUM 1 EACH TAB PO SCH (09:00)
[2022-04-29] MEDS: GABAPENTIN 100 MG CAP PO SCH (09:03)
[2022-04-29] MEDS: METOPROLOL TARTRATE 50 MG TAB PO SCH ×2 (09:03→20:34)
[2022-04-29 10:09] LABS: INR 2.69 (0.90-1.11); Prothrombin Time 29.3 sec (9.9-11.9)
[2022-04-29] MEDS: WARFARIN 1 MG TAB PO SCH (18:54)
--- NOTE | 2022-04-29 19:48 | P.PN ---
Progress Note - Text Progress Note Date: 04/29/22 Chief Complaint: Difficulty walking History of presenting complaint: This is a very pleasant 87-year-old patient who follows with Dr. Viral Collazo. Chronic stable medical conditions include atrial fibrillation, coronary artery disease, hypertension, hyperlipidemia, osteoarthritis, peripheral neuropathy, carotid artery disease, hypothyroid. angioplasty stenting to the mid LAD in 2011. Also had TAVR procedure. Patient now with progressive trouble walking. Having increasing pain and describes like a pressure lower extremity from below the knee down to the foot. Some drainage in removing the left leg. No change in bowel no change in appetite no changes sleep. No back pain. Patient has known peripheral neuropathy. Having trouble to get from the house. No fever no chills. No injury. Numbness lower extremity. Below the knee 04/29/2022: Admitted with peripheral neuropathy causing trouble walking. Seen by PTOT. Slept felt with Neurontin. Nose of Neurontin changed to 200 mg daily at bedtime. Active Medications Acetaminophen (Acetaminophen Tab 325 Mg Tab) 650 mg PO Q6HR PRN PRN Reason: Mild Pain or Fever > 100.5 Last Admin: 04/29/22 06:01 Dose: 650 mg Atorvastatin Calcium (Atorvastatin 20 Mg Tab) 20 mg PO HS [facility] Last Admin: 04/28/22 20:37 Dose: 20 mg Calcium Carbonate/Glycine (Calcium Carbonate 500 Mg Chewable) 1,000 mg PO Q4HR PRN PRN Reason: Dyspepsia Gabapentin (Gabapentin 100 Mg Cap) 200 mg PO HS [facility] Lactulose (Lactulose 20 Gm/30 Ml Cup) 20 gm PO DAILY PRN PRN Reason: Constipation Levothyroxine Sodium (Levothyroxine 25 Mcg Tab) 25 mcg PO DAILY@0630 [facility] Last Admin: 04/29/22 06:01 Dose: 25 mcg Lorazepam (Lorazepam 0.5 Mg Tab) 0.5 mg PO Q6HR PRN PRN Reason: Anxiety Melatonin (Melatonin 3 Mg Tablet) 3 mg PO HS PRN PRN Reason: Insomnia Metoprolol Tartrate (Metoprolol Tartrate 50 Mg Tab) 75 mg PO BID [facility] Last Admin: 04/29/22 09:03 Dose: 75 mg Miscellaneous Information (Warfarin Per Pharmacy) 0 each MISCELLANE DIRECTED PRN PRN Reason: PER PROTOCOL Naloxone HCl (Naloxone 0.4 Mg/Ml 1 Ml Vial) 0.2 mg IV Q2M PRN PRN Reason: Opioid Reversal Ondansetron HCl (Ondansetron 4 Mg/2 Ml Vial) 4 mg IVP Q8HR PRN PRN Reason: Nausea And Vomiting Senna/Docusate Sodium (Sennosides-Docusate Sodium 1 Each Tab) 3 each PO Q48H [facility] Last Admin: 04/29/22 09:03 Dose: 2 each Warfarin Sodium (Warfarin 0.5 Mg Tab) 0.5 mg PO FR@1700 [facility]; Protocol Warfarin Sodium (Warfarin 1 Mg Tab) 1 mg PO SuMoTuWeThSa@1700 [facility]; Protocol Last Admin: 04/29/22 18:54 Dose: 1 mg Past medical history to include: Atrial fibrillation, coronary artery disease with stent, hyperlipidemia, hypertension, osteoarthritis, hypothyroid, stroke in 2069, 2018 had a TIA, Sjogren's, peripheral neuropathy, does use a walker, carotid artery disease, Social history: Lives alone. Uses a walker. No smoking. Alcohol rarely. Physical examination: VITAL SIGNS: 98.2, 81, 18, 11 4 x 62, 94% room air GENERAL: Looking better. EYES: Pupils equal. Conjunctiva normal. HEENT: External appearance of nose and ears normal, oral cavity grossly normal. NECK: JVD not raised; masses not palpable. HEART: First and second heart sounds are normal; no edema. LUNGS: Respiratory rate normal; clear to auscultation. ABDOMEN: Soft, nontender, liver spleen not palpable, no masses palpable. PSYCH: Alert and oriented x3; mood and affect normal. NEUROLOGICAL: Cranial nerves grossly intact; no facial asymmetry, decreased bowel lower extremity. Decreased sensation distally. MUSCULOSKELETAL: Evidence of OA INVESTIGATIONS, reviewed in the clinical context: April 29: INR 2.69 White count 5 1112.8 platelets 141 sodium 135 potassium 4.3 creatinine 0.55 TSH 1.6 UA: Negative Doppler ultrasound bilateral lower extremity: Negative for DVT Assessment and plan: -Acute on chronic worsening gait dysfunction from worsening peripheral neuropathy. Patient only able to walk 10-20 feet slowly. Start Neurontin 100 mg 3 times a day. Consult PTOT. -Intermittent obstructive asthma Albuterol when necessary -Coronary artery disease with prior history of stent Lopressor 75 mg twice a day. Zocor 40 mg daily at bedtime. -Persistent atrial fibrillation, rate controlled, on Coumadin -Essential hypertension Lopressor 75 twice a day -Hyperlipidemia Zocor 40 mg daily at bedtime -Primary osteoarthritis Tylenol when necessary -Hypothyroid Synthroid 25 g daily -Worsening Peripheral neuropathy Patient fell Neurontin 300 mg a day was too much. Will change the dose to 200 mg daily at bedtime. -Full code We'll cut back the dose of Neurontin to 200 mg daily at bedtime. Looking for planning for patient to be discharged to rehab tomorrow.
[2022-04-29] MEDS: ATORVASTATIN 20 MG TAB PO SCH (20:34)
[2022-04-29] MEDS ORDERED: GABAPENTIN 100 MG CAP PO SCH (21:00)
[2022-04-30] MEDS: ACETAMINOPHEN TAB 325 MG TAB PO PRN ×2 (01:12→10:08)
[2022-04-30 05:34] LABS: INR 2.5 (<1.2); Prothrombin Time 24.7 sec (9.0-12.0)
[2022-04-30] MEDS: LEVOTHYROXINE 25 MCG TAB PO SCH (06:31)
[2022-04-30 09:42] VITALS: BP 123/65; PULSE 72; RESP 16; TEMP 97.5
[2022-04-30] MEDS: METOPROLOL TARTRATE 50 MG TAB PO SCH (10:07)
--- NOTE | 2022-04-30 13:40 | P.DS ---
Providers Date of admission: 04/28/22 12:41 Expected date of discharge: 04/30/22 Attending physician: Georges Sevilla Primary care physician: Viral Collazo MD Hospital Course: Chief Complaint: Difficulty walking History of presenting complaint: This is a very pleasant 87-year-old patient who follows with Dr. Viral Collazo. Chronic stable medical conditions include atrial fibrillation, coronary artery disease, hypertension, hyperlipidemia, osteoarthritis, peripheral neuropathy, carotid artery disease, hypothyroid. angioplasty stenting to the mid LAD in 2011. Also had TAVR procedure. Patient now with progressive trouble walking. Having increasing pain and describes like a pressure lower extremity from below the knee down to the foot. Some drainage in removing the left leg. No change in bowel no change in appetite no changes sleep. No back pain. Patient has known peripheral neuropathy. Having trouble to get from the house. No fever no chills. No injury. Numbness lower extremity. Below the knee 04/29/2022: Admitted with peripheral neuropathy causing trouble walking. Seen by PTOT. Slept felt with Neurontin. Nose of Neurontin changed to 200 mg daily at bedtime. 04/30/2022: Discussed with the patient and her friend at the bedside. She slept well. We will temporarily hold off patient's Lipitor that's causing some of her muscle symptoms. Patient can resume the same in 2 weeks and does not improvement after stopping the Lipitor. She is qualified to go to rehab. Questions answered Discussion and discharge planning more than 35 minutes Past medical history to include: Atrial fibrillation, coronary artery disease with stent, hyperlipidemia, hypertension, osteoarthritis, hypothyroid, stroke in 2069, 2018 had a TIA, Sjogren's, peripheral neuropathy, does use a walker, carotid artery disease, Social history: Lives alone. Uses a walker. No smoking. Alcohol rarely. Physical examination: VITAL SIGNS: 97.5, 72, 16, 1 23 x 65, 95% room air GENERAL: In bed, comfortable EYES: Pupils equal. Conjunctiva normal. HEENT: External appearance of nose and ears normal, oral cavity grossly normal. NECK: JVD not raised; masses not palpable. HEART: First and second heart sounds are normal; no edema. LUNGS: Respiratory rate normal; clear to auscultation. ABDOMEN: Soft, nontender, liver spleen not palpable, no masses palpable. PSYCH: Alert and oriented x3; mood and affect normal. NEUROLOGICAL: Cranial nerves grossly intact; no facial asymmetry, decreased bowel lower extremity. Decreased sensation distally. MUSCULOSKELETAL: Evidence of OA INVESTIGATIONS, reviewed in the clinical context: April 30: INR 2.5 White count 5 1112.8 platelets 141 sodium 135 potassium 4.3 creatinine 0.55 TSH 1.6 UA: Negative Doppler ultrasound bilateral lower extremity: Negative for DVT Assessment and plan: -Acute on chronic worsening gait dysfunction from worsening peripheral neuropathy. Patient only able to walk 10-20 feet slowly. Neurontin 200 mg daily at bedtime. 4 rehab -Intermittent obstructive asthma Albuterol when necessary -Coronary artery disease with prior history of stent Lopressor 75 mg twice a day. -Persistent atrial fibrillation, rate controlled, on Coumadin -Essential hypertension Lopressor 75 twice a day -Hyperlipidemia Hold Lipitor for now if called to be due to the muscle pain. [employer] outpatient in 2 weeks -Primary osteoarthritis Tylenol when necessary -Hypothyroid Synthroid 25 g daily -Worsening Peripheral neuropathy Neurontin 200 mg daily at bedtime -Full code Disposition: Rehab at [facility] Plan - Discharge Summary New Discharge Prescriptions: New Gabapentin [Neurontin] 200 mg PO HS #6 cap Continue Warfarin [Coumadin] 0.5 mg PO FR@1700 Warfarin [Coumadin] 1 mg PO SUMOTUWETHSA@1700 Levothyroxine Sodium [Synthroid] 25 mcg PO DAILY Albuterol Sulfate [Albuterol Sulfate Hfa] 1 - 2 puff INHALATION RT-Q4H PRN PRN Reason: Shortness Of Breath Metoprolol Tartrate [Lopressor] 75 mg PO BID Sennosides/Docusate Sodium [Colace 2-in-1 Tablet] 3 tab PO Q48H Discontinued Acetaminophen [Tylenol] 500 mg PO BID Simvastatin [Zocor] 40 mg PO HS Discharge Medication List Levothyroxine Sodium [Synthroid] 25 mcg PO DAILY 04/28/16 [History] Warfarin [Coumadin] 0.5 mg PO FR@1700 04/28/16 [History] Warfarin [Coumadin] 1 mg PO SUMOTUWETHSA@1700 04/28/16 [History] Albuterol Sulfate [Albuterol Sulfate Hfa] 1 - 2 puff INHALATION RT-Q4H PRN 04/28/22 [History] Metoprolol Tartrate [Lopressor] 75 mg PO BID 04/28/22 [History] Sennosides/Docusate Sodium [Colace 2-in-1 Tablet] 3 tab PO Q48H 04/28/22 [History] Gabapentin [Neurontin] 200 mg PO HS #6 cap 04/30/22 [Rx] Follow up Appointment(s)/Referral(s): Viral Collazo MD [Primary Care Provider] - 1-2 days
[2022-05-01] MEDS ORDERED: WARFARIN 0.5 MG TAB PO SCH (17:00)
== END 2022-04-30 15:06 ==
LOC: EC 05:14 → 6NMEDSUR 12:41
PROVIDERS: ADMIT Hospitalist; ATTEND Hospitalist
DX: R26.9 Unspecified abnormalities of gait and mobility (principal); G62.9 Polyneuropathy, unspecified; I25.10 Atherosclerotic heart disease of native coronary artery without angina pectoris; Z95.5 Presence of coronary angioplasty implant and graft; J45.20 Mild intermittent asthma, uncomplicated; M19.91 Primary osteoarthritis, unspecified site; Z86.73 Personal history of transient ischemic attack (TIA), and cerebral infarction without residual deficits; Z20.822 Contact with and (suspected) exposure to COVID-19; M35.00 Sjogren syndrome, unspecified; I48.91 Unspecified atrial fibrillation; I10 Essential (primary) hypertension; E78.5 Hyperlipidemia, unspecified; E03.9 Hypothyroidism, unspecified; Z79.01 Long term (current) use of anticoagulants; Z79.899 Other long term (current) drug therapy; Z79.890 Hormone replacement therapy
CPT/HCPCS: 99285; 36415; 97162; 97530; 97166; 80053; 85652; 84443; 83735; 84100; 85025; 85610 ×3; 85730; 86140; 81003; 87635; 73590; 93880; 93970; G0378 ×3

== ENCOUNTER 2023-01-17 06:16 | Inpatient (IN) | payer MEDICARE, BC ==
[2023-01-17] MEDS ORDERED: IPRATROPIUM-ALBUTEROL 3 ML NEB INHALATION STA (06:30)
[2023-01-17] MEDS ORDERED: ACETAMINOPHEN TAB 500 MG TAB PO STA (06:33)
[2023-01-17] MEDS ORDERED: SODIUM CHLORIDE 0.9% 1,000 ML IV ONE (06:34)
[2023-01-17 06:46] LABS: Basophils % (A) 0 %; Eosinophils % (A) 0 %; HCT 43.1 % (34.0-46.0); Lymphocytes # (A) 0.4 k/uL (1.0-4.8); Lymphocytes % (A) 7 %; MCH 32.9 pg (25.0-35.0); MCHC 32.4 g/dL (31.0-37.0); MCV 101.7 fL (80.0-100.0); Macrocytosis Slight; Mean Platelet Volume 7.4; Monocytes # (A) 0.4 k/uL (0-1.0); Monocytes % (A) 8 %; Neutrophils # (A) 4.4 k/uL (1.3-7.7); Neutrophils % (A) 82 %; Platelet Count 122 k/uL (150-450); RBC 4.24 m/uL (3.80-5.40); RDW 13.1 % (11.5-15.5); WBC 5.3 k/uL (3.8-10.6)
--- NOTE | 2023-01-17 06:55 | ED ---
SOB HPI - General Chief Complaint: Shortness of Breath Stated Complaint: sob Time Seen by Provider: 01/17/23 06:17 Source: patient, family, RN notes reviewed Mode of arrival: ambulatory Limitations: no limitations - History of Present Illness Initial Comments: This is an 87-year-old female who presents to the emergency department for shortness of breath. Patient states that symptoms have been worsening over the last 3 days. She has an associated cough that is somewhat productive. Denies any chest pain. She has not measured any fevers at home, although she was found to be febrile here. Denies any known history of COPD or asthma, however she reyes s use albuterol breathing treatments at home that have not been very helpful. She does not wear oxygen at home, however EMS found her to have a low oxygen saturation and she was started on a nasal cannula. Also states that she has not taken her blood pressure medication yet today. She went to several events over the last couple of weeks and is unsure if she has been around anyone sick during those. MD Complaint: shortness of breath, cough Onset/Timin -: days(s) - Related Data Home Medications Medication Instructions Recorded Confirmed Levothyroxine Sodium [Synthroid] 25 mcg PO DAILY 04/28/16 01/17/23 Warfarin [Coumadin] 0.5 mg PO FR@1700 04/28/16 01/17/23 Warfarin [Coumadin] 1 mg PO SUMOTUWETHSA@1700 04/28/16 01/17/23 Albuterol Sulfate [Albuterol 1 - 2 puff INHALATION RT-Q4H PRN 04/28/22 01/17/23 Sulfate Hfa] Metoprolol Tartrate [Lopressor] 75 mg PO BID 04/28/22 01/17/23 Acetaminophen Tab [Tylenol Tab] 500 mg PO BID 01/17/23 01/17/23 Albuterol Nebulized [Ventolin 1.25 mg INHALATION RT-Q6H PRN 01/17/23 01/17/23 Nebulized (Accuneb)] Benzonatate [Tessalon Perles] 100 mg PO TID PRN 01/17/23 01/17/23 Simvastatin [Zocor] 40 mg PO HS 01/17/23 01/17/23 Allergies Allergy/AdvReac Type Severity Reaction Status Date / Time rivaroxaban [From Xarelto] AdvReac Severe Rapid Verified 01/17/23 12:25 Heart Rate dabigatran etexilate AdvReac Unknown Ulcers, Verified 01/17/23 12:25 [From Pradaxa] Nausea, Vomting apixaban [From Eliquis] AdvReac Numbness Verified 01/17/23 12:25 in legs Review of Systems ROS Statement: Those systems with pertinent positive or pertinent negative responses have been documented in the HPI. ROS Other: All systems not noted in ROS Statement are negative. Past Medical History Past Medical History: Atrial Fibrillation, Coronary Artery Disease (CAD), CVA /TIA, Hyperlipidemia, Hypertension, Osteoarthritis (OA), Thyroid Disorder, Vascular Disorder Additional Past Medical History / Comment(s): 2017 CVA 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 History of Any Multi-Drug Resistant Organisms: None Reported Past Surgical History: Appendectomy, Heart Catheterization With Stent, Hysterectomy Additional Past Surgical History / Comment(s): 2011 PCI with stent to mid LAD, R ovarian cyst, R sided hernia repair, bilateral cataracts removed with lens implants, R knee arthroscopy , STEPHANIE, TAVR with post hematoma evacuation, colonoscopy Past Anesthesia/Blood Transfusion Reactions: No Reported Reaction Date of Last Stent Placement:: 2011 Past Psychological History: No Psychological Hx Reported Smoking Status: Second hand smoke exposure Past Alcohol Use History: Rare Past Drug Use History: None Reported - Past Family History Father History Unknown: Yes Mother Family Medical History: Osteoarthritis (OA) Additional Family Medical History / Comment(s): Osteoporosis, difficulty ambulating. Mother lived to be 99.5 Sister(s) Family Medical History: Cancer Additional Family Medical History / Comment(s): OVARIAN CANCER General Exam Limitations: no limitations General appearance: alert, in no apparent distress Head exam: Present: atraumatic, normocephalic, normal inspection Respiratory exam: Present: wheezes, decreased breath sounds, prolonged expiratory Cardiovascular Exam: Present: tachycardia, irregular rhythm Neurological exam: Present: alert, oriented X3, CN II-XII intact Psychiatric exam: Present: normal affect, normal mood Skin exam: Present: warm, dry, intact, normal color. Absent: rash Course Vital Signs 01/17/23 01/17/23 01/17/23 06:18 06:21 06:29 Temperature 101.8 F H Pulse Rate 94 101 H Respiratory 28 H 26 H 26 H Rate Blood Pressure 191/103 181/110 O2 Sat by Pulse 90 L 96 Oximetry 01/17/23 01/17/23 01/17/23 06:38 06:48 07:14 Temperature Pulse Rate 95 92 100 Respiratory 40 H Rate Blood Pressure 164/104 O2 Sat by Pulse 95 Oximetry 01/17/23 01/17/23 01/17/23 07:31 07:32 08:00 Temperature Pulse Rate 93 92 Respiratory 28 H 16 Rate Blood Pressure 159/81 O2 Sat by Pulse 85 L 92 L 94 L Oximetry 01/17/23 01/17/23 01/17/23 08:12 11:41 13:00 Temperature 98.9 F Pulse Rate 73 87 Respiratory 22 24 Rate Blood Pressure 125/75 125/75 O2 Sat by Pulse 93 L 95 Oximetry 01/17/23 16:15 Temperature Pulse Rate 78 Respiratory 22 Rate Blood Pressure 141/83 O2 Sat by Pulse 92 L Oximetry Medical Decision Making - Medical Decision Making This is an 87-year-old female who presents to the emergency department for shortness of breath. Was pt. sent in by a medical professional or institution? @ -No Did you speak to anyone other than the patient for history? @ -No Did you review nursing and triage notes? @ -Yes, and I agree, it is accurate with regards to the patient's symptoms. Were old charts reviewed? @ -No Differential Diagnosis? @ -Differential Dyspnea: Coronary syndrome, arrhythmia, tamponade, asthma, COPD, pulmonary embolism, pneumonia, pneumothorax, pulmonary effusion, anaphylaxis, diabetic ketoacidosis, flailed chest, pulmonary contusion, diaphragmatic rupture, anemia, neuromuscular, this is not meant to be an all-inclusive list. EKG interpreted by me (3pts min.)? @ -EKG interpreted by me demonstrating the following: Atrial fibrillation. Ve ntricular rate 94 beats per minute, QRS duration 105 ms, QTC 410 ms. X-rays interpreted by me (1pt min.)? @ -Chest x-ray obtained. My interpretation identifies a right basilar opacity. CT interpreted by me (1pt min.)? @ -Not obtained U/S interpreted by me (1pt. min.)? @ -Not obtained What testing was considered but not performed? (CT, X-rays, U/S, labs)? Why? @ -None What meds were considered but not given? Why? @ -None Did you discuss the management of the patient with other professionals? @ -Yes, Dr. Meyer, who accepts the patient for admission. Did you reconcile home meds? @ -No Was smoking cessation discussed for >3mins.? @ -No Was critical care preformed (if so, how long)? @ -No Were there social determinants of health that impacted care today? How? (Homelessness, low income, unemployed, alcoholism, drug addiction, transpor tation, low edu. Level, literacy, decrease access to med. care, senior care, rehab)? @ -No Was there de-escalation of care discussed even if they declined? (Discuss DNR or withdrawal of care, Hospice)? @ -No What co-morbidities impacted this encounter? (DM, HTN, Smoking, COPD, CAD, Cancer, CVA, Hep., AIDS, mental health diagnosis, sleep apnea, morbid obesity)? @ -Atrial fibrillation, CAD, HTN, HLD Was patient admitted / discharged? @ -Admitted. Patient was febrile on arrival with a temperature of 101.8F and she was given 1g of Tylenol. Lab work demonstrates an elevated BNP of 2970, which is higher than it has been before and she has no known history of congestive heart failure. Troponin also elevated, likely secondary to CHF. 40mg IV Lasix was administered. Patient tested positive for influenza A. Chest x-ray demonstrates a right medial basilar opacity that is stable from 2020. No other consolidation was evident. Findings were also suggestive of cardiomegaly and COPD. Patient denies a hx of COPD. Duoneb breathing treatment administered, which the patient felt was beneficial and she was started on Tamiflu. She was wearing 4 L oxygen via nasal cannula on arrival, and does not wear oxygen at home. We did turn this off, and her oxygen dropped to 84-85% on room air, and the oxygen was resumed. We did increase this slowly, and she did not maintain adequate saturation on 2 or 3L, and she was restarted on 4L. She was also working very hard to breathe and had notable wheezing on examination. She was subsequently admitted to medicine for hypoxia and influenza A, as well as new onset congestive heart failure. Serial troponins ordered and consult placed for pulmonology and cardiology. Undiagnosed new problem with uncertain prognosis? @ -None Drug Therapy requiring intensive monitoring for toxicity (Heparin, Nitro, Insulin, Cardizem)? @ -None Were any procedures done? @ -None Diagnosis/symptom? @ -Influenza A, hypoxia, new onset CHF Acute, or Chronic, or Acute on Chronic? @ -Acute Uncomplicated (without systemic symptoms) or Complicated (systemic symptoms)? @ -Complicated Side effects of treatment? @ -None Exacerbation, Progression, or Severe Exacerbation] @ -Not applicable Poses a threat to life or bodily function? @ -Yes This case was discussed in detail with the attending ED physician, Dr. Chiu. Presentation, findings, and treatment plan discussed in detail as well. - Lab Data Result diagrams: 01/17/23 06:35 01/17/23 06:35 Lab Results 01/17/23 01/17/23 01/17/23 Range/Units 06:35 06:35 06:35 WBC 5.3 (3.8-10.6) k/uL RBC 4.24 (3.80-5.40) m/uL Hgb 14.0 (11.4-16.0) gm/dL Hct 43.1 (34.0-46.0) % MCV 101.7 H (80.0-100.0) fL MCH 32.9 (25.0-35.0) pg MCHC 32.4 (31.0-37.0) g/dL RDW 13.1 (11.5-15.5) % Plt Count 122 L (150-450) k/uL MPV 7.4 Neutrophils % 82 % Lymphocytes % 7 % Monocytes % 8 % Eosinophils % 0 % Basophils % 0 % Neutrophils # 4.4 (1.3-7.7) k/uL Lymphocytes # 0.4 L (1.0-4.8) k/uL Monocytes # 0.4 (0-1.0) k/uL Eosinophils # 0.0 (0-0.7) k/uL Basophils # 0.0 (0-0.2) k/uL Macrocytosis Slight PT 31.4 H (10.0-12.5) sec INR 3.2 H (<1.2) APTT 37.1 H (22.0-30.0) sec Sodium 131 L (137-145) mmol/L Potassium 4.4 (3.5-5.1) mmol/L Chloride 94 L (98-107) mmol/L Carbon Dioxide 24 (22-30) mmol/L Anion Gap 13 mmol/L BUN 18 H (7-17) mg/dL Creatinine 0.54 (0.52-1.04) mg/dL Est GFR (CKD-EPI)AfAm >90 (>60 ml/min/1.73 sqM) Est GFR (CKD-EPI)NonAf 84 (>60 ml/min/1.73 sqM) Glucose 127 H (74-99) mg/dL Plasma Lactic Acid Wenceslao (0.7-2.0) mmol/L Calcium 8.8 (8.4-10.2) mg/dL Total Bilirubin 1.5 H (0.2-1.3) mg/dL AST 51 H (14-36) U/L ALT 17 (4-34) U/L Alkaline Phosphatase 106 (38-126) U/L Troponin I (0.000-0.034) ng/mL NT-Pro-B Natriuret Pep 2970 pg/mL Total Protein 9.5 H (6.3-8.2) g/dL Albumin 3.9 (3.5-5.0) g/dL Influenza Type A (PCR) (Not Detectd) Influenza Type B (PCR) (Not Detectd) RSV (PCR) (Not Detectd) SARS-CoV-2 (PCR) (Not Detectd) 01/17/23 01/17/23 01/17/23 Range/Units 06:35 06:35 06:35 WBC (3.8-10.6) k/uL RBC (3.80-5.40) m/uL Hgb (11.4-16.0) gm/dL Hct (34.0-46.0) % MCV (80.0-100.0) fL MCH (25.0-35.0) pg MCHC (31.0-37.0) g/dL RDW (11.5-15.5) % Plt Count (150-450) k/uL MPV Neutrophils % % Lymphocytes % % Monocytes % % Eosinophils % % Basophils % % Neutrophils # (1.3-7.7) k/uL Lymphocytes # (1.0-4.8) k/uL Monocytes # (0-1.0) k/uL Eosinophils # (0-0.7) k/uL Basophils # (0-0.2) k/uL Macrocytosis PT (10.0-12.5) sec INR (<1.2) APTT (22.0-30.0) sec Sodium (137-145) mmol/L Potassium (3.5-5.1) mmol/L Chloride (98-107) mmol/L Carbon Dioxide (22-30) mmol/L Anion Gap mmol/L BUN (7-17) mg/dL Creatinine (0.52-1.04) mg/dL Est GFR (CKD-EPI)AfAm (>60 ml/min/1.73 sqM) Est GFR (CKD-EPI)NonAf (>60 ml/min/1.73 sqM) Glucose (74-99) mg/dL Plasma Lactic Acid Wenceslao 2.0 (0.7-2.0) mmol/L Calcium (8.4-10.2) mg/dL Total Bilirubin (0.2-1.3) mg/dL AST (14-36) U/L ALT (4-34) U/L Alkaline Phosphatase (38-126) U/L Troponin I 0.051 H* (0.000-0.034) ng/mL NT-Pro-B Natriuret Pep pg/mL Total Protein (6.3-8.2) g/dL Albumin (3.5-5.0) g/dL Influenza Type A (PCR) Detected A (Not Detectd) Influenza Type B (PCR) Not Detected (Not Detectd) RSV (PCR) Not Detected (Not Detectd) SARS-CoV-2 (PCR) Not Detected (Not Detectd) - Radiology Data Radiology results: report reviewed, image reviewed Disposition Clinical Impression: Influenza A, Hypoxia, New onset of congestive heart failure Disposition: ADMITTED IP TO THIS HOSP
[2023-01-17 07:00] LABS: ALT 17 U/L (4-34); AST 51 U/L (14-36); African American GFR (CKD) >90 (>60 ml/min/1.73 sqM); Albumin 3.9 g/dL (3.5-5.0); Alkaline Phosphatase 106 U/L (38-126); Anion Gap 13 mmol/L; Blood Urea Nitrogen 18 mg/dL (7-17); Calcium 8.8 mg/dL (8.4-10.2); Carbon Dioxide 24 mmol/L (22-30); Chloride 94 mmol/L (98-107); Glucose 127 mg/dL (74-99); Non-African American GFR(CKD) 84 (>60 ml/min/1.73 sqM); Sodium 131 mmol/L (137-145); Total Bilirubin 1.5 mg/dL (0.2-1.3); Total Protein 9.5 g/dL (6.3-8.2)
[2023-01-17 07:01] LABS: Potassium 4.4 mmol/L (3.5-5.1)
[2023-01-17 07:04] LABS: INR 3.2 (<1.2); Partial Thromboplastin Time 37.1 sec (22.0-30.0); Prothrombin Time 31.4 sec (10.0-12.5)
[2023-01-17 07:08] LABS: NT-Pro-B-Type Natriuretic Pept 2970 pg/mL
[2023-01-17] MEDS ORDERED: FUROSEMIDE 10 MG/ML 4 ML VIAL IV STA ×2 (07:36→08:06)
[2023-01-17] MEDS ORDERED: NALOXONE 0.4 MG/ML 1 ML VIAL IV PRN (07:50)
[2023-01-17] MEDS ORDERED: HYDROcodone/APAP 5-325MG 1 EACH TAB PO PRN (07:50)
[2023-01-17] MEDS ORDERED: ACETAMINOPHEN TAB 325 MG TAB PO PRN (07:50)
[2023-01-17] MEDS ORDERED: IPRATROPIUM-ALBUTEROL 3 ML NEB INHALATION PRN (07:52)
[2023-01-17] MEDS: ONDANSETRON 4 MG/2 ML VIAL IVP PRN (08:02)
--- NOTE | 2023-01-17 08:32 | XR ---
EXAMINATION TYPE: XR chest 2V DATE OF EXAM: 01/17/2023 COMPARISON: 07/20/2019 HISTORY: 87-year-old female shortness of breath, difficulty breathing TECHNIQUE: AP and lateral views FINDINGS: Heart moderately enlarged. Endovascular aortic valve replacement. There are scattered arterial calcifications. Hyperinflation. The focal medial right basilar opacity r emains unchanged from 2020 and may be chronic. No other consolidation or pleural effusion. Prominent degenerative change in both shoulders. IMPRESSION: 1. Moderate cardiomegaly and COPD. 2. Medial right basilar opacity remains unchanged from 2020 and may represent chronic volume loss. Co rrelate clinically to exclude a focus of pneumonia.
[2023-01-17] MEDS: OSELTAMIVIR 75 MG CAP PO SCH ×2 (09:26→20:27)
[2023-01-17 09:41] LABS: Appearance,Urine Clear (Clear); Color,Urine Yellow
[2023-01-17 09:42] LABS: Bilirubin,Urine Negative (Negative); Blood,Urine Small (Negative); Glucose,Urine (UA) Negative (Negative); Ketones,Urine 1+ (Negative); Leukocyte Esterase,Urine Negative (Negative); Nitrite,Urine Negative (Negative); Protein,Urine 3+ (Negative); Urobilinogen,Urine <2.0 mg/dL (<2.0)
[2023-01-17 09:45] LABS: Bacteria,Urine Few /hpf; Hyaline Casts,Urine 1 /lpf (0-2); RBC,Urine 13 /hpf (0-5); Squamous Epithelial Cell,Urine 1 /hpf (0-4); WBC,Urine 1 /hpf (0-5)
[2023-01-17] MEDS: SENNOSIDES-DOCUSATE SODIUM 1 EACH TAB PO SCH (10:19)
[2023-01-17] MEDS: ALBUTEROL HFA INHALER INHALATION PRN ×2 (11:35→19:50)
[2023-01-17] MEDS: methylPREDNISolone SOD SUCCI 40 MG/ML 1 ML VIAL IV SCH ×3 (11:45→23:21)
--- NOTE | 2023-01-17 12:21 | P.CNPUL ---
History of Present Illness Consult date: 01/17/23 Reason for consult: dyspnea History of present illness: 87-year-old female patient presented to the emergency department because of increased cough, congestion, wheezing, shortness of breath. No previous history of lung disease or disorder. The patient check positive for influenza A. She stated her symptoms have been going on for about 4-5 days. Denies having any chest pain. No altered mentation. She does not wear oxygen at home. She is currently on 4 L of oxygen by nasal cannula to maintain a saturation above 90%. The chest x-ray from the emergency showed cardiomegaly moderate-sized heart enlargement, in addition to some right basilar opacity that has remained unchanged since 2019. There is also volume loss. No clear indication for underlying pneumonia. She is afebrile. She is weak. She has a white cell count of 5.3. Hemoglobin was at 14. She has chronic into fibrillation. She has limited on anticoagulation and INR to 3.2 which is therapeutic at this point in time. BUN is at 80 with a creatinine of 0.5. Sodium levels of 131. Troponins are 0.05 and 0.1 respectively 2. ProBNP level is 2970. The EKG is consistent with atrial fibrillation and left axis deviation. Incomplete right bundle branch block pattern. She was started on Tamiflu. She'll be also placed on IV Solu-Medrol. She is also receiving Lasix 40 mg every 12 hours. Review of Systems Constitutional: Reports fatigue, Reports weakness Eyes: denies as per HPI, denies blurred vision, denies bulging eye, denies decreased vision, denies diplopia, denies discharge, denies dry eye, denies irritation, denies itching, denies pain, denies photophobia, denies loss of peripheral vision, denies loss of vision, denies tunnel vision/blind spots Ears: deny: decreased hearing, ear discharge, earache, tinnitus Ears, nose, mouth and throat: Reports as per HPI, Reports sore throat Breasts: absent: as per HPI, change in shape, gynecomastia, masses, nipple discharge, pain, skin changes, swelling Respiratory: Reports cough, Reports dyspnea Gastrointestinal: Reports as per HPI Genitourinary: Reports as per HPI Menstruation: Reports as per HPI Musculoskeletal: Reports as per HPI Musculoskeletal: absent: ankle pain, ankle stiffness, ankle swelling Integumentary: Reports as per HPI Neurological: Reports as per HPI Psychiatric: Reports as per HPI Endocrine: Reports as per HPI Hematologic/Lymphatic: Reports as per HPI Allergic/Immunologic: Reports as per HPI Past Medical History Past Medical History: Atrial Fibrillation, Coronary Artery Disease (CAD), CVA/TIA, Hyperlipidemia, Hypertension, Osteoarthritis (OA), Thyroid Disorder, Vascular Disorder Additional Past Medical History / Comment(s): 2017 CVA 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 History of Any Multi-Drug Resistant Organisms: None Reported Past Surgical History: Appendectomy, Heart Catheterization With Stent, Hysterectomy Additional Past Surgical History / Comment(s): 2011 PCI with stent to mid LAD, R ovarian cyst, R sided hernia repair, bilateral cataracts removed with lens implants, R knee arthroscopy , STEPHANIE, TAVR with post hematoma evacuation, colonoscopy Past Anesthesia/Blood Transfusion Reactions: No Reported Reaction Date of Last Stent Placement:: 2011 Past Psychological History: No Psychological Hx Reported Smoking Status: Second hand smoke exposure Past Alcohol Use History: Rare Past Drug Use History: None Reported - Past Family History Father History Unknown: Yes Mother Family Medical History: Osteoarthritis (OA) Additional Family Medical History / Comment(s): Osteoporosis, difficulty ambulating. Mother lived to be 99.5 Sister(s) Family Medical History: Cancer Additional Family Medical History / Comment(s): OVARIAN CANCER Medications and Allergies Home Medications Medication Instructions Recorded Confirmed Type Levothyroxine Sodium [Synthroid] 25 mcg PO DAILY 04/28/16 04/28/22 History Warfarin [Coumadin] 0.5 mg PO FR@1700 04/28/16 04/28/22 History Warfarin [Coumadin] 1 mg PO SUMOTUWETHSA@1700 04/28/16 04/28/22 History Albuterol Sulfate [Albuterol 1 - 2 puff INHALATION RT-Q4H PRN 04/28/22 04/28/22 History Sulfate Hfa] Metoprolol Tartrate [Lopressor] 75 mg PO BID 04/28/22 04/28/22 History Sennosides/Docusate Sodium [Colace 3 tab PO Q48H 04/28/22 04/28/22 History 2-in-1 Tablet] Gabapentin [Neurontin] 200 mg PO HS #6 cap 04/30/22 Rx Allergies Allergy/AdvReac Type Severity Reaction Status Date / Time rivaroxaban [From Xarelto] AdvReac Severe Rapid Verified 04/28/22 07:09 Heart Rate dabigatran etexilate AdvReac Unknown Ulcers, Verified 04/28/22 07:09 [From Pradaxa] Nausea, Vomting apixaban [From Eliquis] AdvReac Numbness Verified 04/28/22 07:09 in legs Physical Exam Vitals: Vital Signs Temp Pulse Resp BP Pulse Ox 01/17/23 08:12 98.9 F 01/17/23 07:32 93 28 H 159/81 92 L 01/17/23 07:31 85 L 01/17/23 06:48 92 01/17/23 06:38 95 01/17/23 06:29 101 H 26 H 181/110 96 01/17/23 06:21 26 H 01/17/23 06:18 101.8 F H 94 28 H 191/103 90 L Intake and Output 01/16/23 01/17/23 01/17/23 22:59 06:59 14:59 Other: Weight 78.925 kg Calm and comfortable currently on 4 L O2 nasal cannula Head exam was generally normal. There was no scleral icterus or corneal arcus. Mucous membranes were moist. Neck was supple and without jugular venous distension, thyromegaly, or carotid bruits. Carotids were easily palpable bilaterally. There was no adenopathy. Lungs sounds are diminished and the patient is Without wheezes had bilaterally Heart sounds are irregular consistent with atrial fibrillation fibrillation. No significant murmurs Abdominal exam revealed normal bowel sounds. The abdomen was soft, non-tender, and without masses, organomegaly, or appreciable enlargement of the abdominal aorta. Examination of the extremities revealed easily palpable radial, femoral and pedal pulses. There was no cyanosis, clubbing or edema. Examination of the skin revealed no evidence of significant rashes, suspicious appearing nevi or other concerning lesions. Neurologically, the patient is awake and alert and the patient does not have any focal neurological deficit. Cranial nerves are essentially intact. Results - Laboratory Findings CBC and BMP: 01/17/23 06:35 01/17/23 06:35 PT/INR, D-dimer PT 31.4 sec (10.0-12.5) H 01/17/23 06:35 INR 3.2 (<1.2) H 01/17/23 06:35 Abnormal lab findings: Abnormal Labs 01/17/23 01/17/23 01/17/23 06:35 06:35 06:35 MCV 101.7 H Plt Count 122 L Lymphocytes # 0.4 L PT 31.4 H INR 3.2 H APTT 37.1 H Sodium 131 L Chloride 94 L BUN 18 H Glucose 127 H Total Bilirubin 1.5 H AST 51 H Troponin I Total Protein 9.5 H Urine Protein Urine Ketones Urine Blood Urine RBC Urine Bacteria Influenza Type A (PCR) 01/17/23 01/17/23 01/17/23 06:35 06:35 08:45 MCV Plt Count Lymphocytes # PT INR APTT Sodium Chloride BUN Glucose Total Bilirubin AST Troponin I 0.051 H* Total Protein Urine Protein 3+ H Urine Ketones 1+ H Urine Blood Small H Urine RBC 13 H Urine Bacteria Few H Influenza Type A (PCR) Detected A - Diagnostic Findings Chest x-ray: image reviewed Assessment and Plan Plan: Acute influenza A infection, nonvaccinated Acute hypoxic respiratory failure Acute bronchospasm wheezing secondary to above CHF with mild elevation of the proBNP level. Chronic atrial fibrillation maintain on anticoagulation with warfarin Previous history of CVA no residual deficits Chronic neuropathy Hypothyroidism Hypertension Hyperlipidemia Coronary artery disease Troponin elevation, likely type II ischemia Sjogren's disease Plan Titrate oxygen flow to maintain saturation above 90% Continue Tamiflu Start IV Solu-Medrol 40 mg every 8 hours Agree with diuretics Continue anticoagulation with warfarin and monitor daily PT/INR Resume all medications Monitor oxygenation We'll admit to the medical floor and will continue to follow
--- NOTE | 2023-01-17 12:32 | P.CRDCN ---
History of Present Illness Consult date: 01/17/23 History of present illness: History of Present Illness: The patient is an 87-year-old female who presented with symptoms of progressive dyspnea and cough and was found to have influenza A. She has a known history of chronic persistent atrial fibrillation, aortic valve replacement by TAVR. He has underwent cardiac catheterization in 2017 and was found to have mild obs tructive CAD and mildly impaired LV function. She has been doing well until last week when she started complaining of the dyspnea on exertion, the cough, the wheezing and was febrile on presentation. She was not vaccinated for influenza. She has a prior history of PCI of the LAD in 2011. She has a history of hypertension, hyperlipidemia, she is nonsmoker. In the emergency room she was noted to have mild troponin elevation. Her INR was 3.2. Her chest x-ray showed right basilar opacity that has been noted in the past. Medications: Metoprolol 75 mg twice a day, Coumadin, simvastatin, Synthroid, albuterol Review of Systems: Respiratory: She has dyspnea on exertion, wheezing and cough GI: No nausea or vomiting . No history of peptic ulcer disease. No recent GI bleed. : No hematuria or dysuria. Nervous System: No stroke or seizure. Physical Examination: 87-year-old female mildly dyspneic, coughing ,Blood pressure 125/70, Heart rate 70 Head: Normocephalic. Eyes: Sclerae nonicteric. Neck: Good carotid upstroke, no bruit, no jugular venous distention. Lungs: Diffuse wheezes and crackles bilaterally Heart: Irregular rate and rhythm, S1-S2, no S3, no rub. Systolic ejection murmur. Abdomen: Soft nontender, positive bowel sounds no organomegaly. Extremities: No edema, intact distal pulses. Labs: Hemoglobin 14, INR 3.2, potassium 4.4, BUN 18, creatinine 0.54, troponin 0.05. and 0.108, NT proBNP 2970 EKG: Atrial fibrillation with left axis deviation and nonspecific ST-T wave changes with occasional PVCs Impression: 1. Influenza A infection was progressive dyspnea and cough 2. Troponin elevation most likely representing type II myocardial infarction related to her infection 3. Status post TAVR 4. History of CAD, stable 5. Chronic persistent atrial fibrillation, anticoagulated 6. Hyperlipidemia 7. Mild CHF probably secondary to the infection Plan: 1. Treatment of influenza A 2. IV diuretics for 24 hours 3. Obtain an echocardiogram with Doppler 4. Continue anticoagulation 5. Depending on her progress further recommendations will be made, thank you for this consult we will follow with you. 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 History of Any Multi-Drug Resistant Organisms: None Reported Past Surgical History: Appendectomy, Heart Catheterization With Stent, Hysterectomy Additional Past Surgical History / Comment(s): 2011 PCI with stent to mid LAD, R ovarian cyst, R sided hernia repair, bilateral cataracts removed with lens implants, R knee arthroscopy , STEPHANIE, TAVR with post hematoma evacuation, colonoscopy Past Anesthesia/Blood Transfusion Reactions: No Reported Reaction Date of Last Stent Placement:: 2011 Past Psychological History: No Psychological Hx Reported Smoking Status: Second hand smoke exposure Past Alcohol Use History: Rare Past Drug Use History: None Reported - Past Family History Father History Unknown: Yes Mother Family Medical History: Osteoarthritis (OA) Additional Family Medical History / Comment(s): Osteoporosis, difficulty ambulating. Mother lived to be 99.5 Sister(s) Family Medical History: Cancer Additional Family Medical History / Comment(s): OVARIAN CANCER Medications and Allergies Home Medications Medication Instructions Recorded Confirmed Type Levothyroxine Sodium [Synthroid] 25 mcg PO DAILY 04/28/16 04/28/22 History Warfarin [Coumadin] 0.5 mg PO FR@1700 04/28/16 04/28/22 History Warfarin [Coumadin] 1 mg PO SUMOTUWETHSA@1700 04/28/16 04/28/22 History Albuterol Sulfate [Albuterol 1 - 2 puff INHALATION RT-Q4H PRN 04/28/22 04/28/22 History Sulfate Hfa] Metoprolol Tartrate [Lopressor] 75 mg PO BID 04/28/22 04/28/22 History Sennosides/Docusate Sodium [Colace 3 tab PO Q48H 04/28/22 04/28/22 History 2-in-1 Tablet] Gabapentin [Neurontin] 200 mg PO HS #6 cap 04/30/22 Rx Allergies Allergy/AdvReac Type Severity Reaction Status Date / Time rivaroxaban [From Xarelto] AdvReac Severe Rapid Verified 04/28/22 07:09 Heart Rate dabigatran etexilate AdvReac Unknown Ulcers, Verified 04/28/22 07:09 [From Pradaxa] Nausea, Vomting apixaban [From Eliquis] AdvReac Numbness Verified 04/28/22 07:09 in legs Physical Exam Vitals: Vital Signs Temp Pulse Resp BP Pulse Ox 01/17/23 11:41 73 22 125/75 93 L 01/17/23 08:12 98.9 F 01/17/23 07:32 93 28 H 159/81 92 L 01/17/23 07:31 85 L 01/17/23 06:48 92 01/17/23 06:38 95 01/17/23 06:29 101 H 26 H 181/110 96 01/17/23 06:21 26 H 01/17/23 06:18 101.8 F H 94 28 H 191/103 90 L Intake and Output 01/16/23 01/17/23 01/17/23 22:59 06:59 14:59 Other: Weight 78.925 kg Results 01/17/23 06:35 01/17/23 06:35 Cardiac Enzymes 01/17/23 01/17/23 01/17/23 Range/Units 06:35 06:35 10:44 AST 51 H (14-36) U/L Troponin I 0.051 H* 0.108 H* (0.000-0.034) ng/mL Coagulation 01/17/23 Range/Units 06:35 PT 31.4 H (10.0-12.5) sec APTT 37.1 H (22.0-30.0) sec CBC 01/17/23 Range/Units 06:35 WBC 5.3 (3.8-10.6) k/uL RBC 4.24 (3.80-5.40) m/uL Hgb 14.0 (11.4-16.0) gm/dL Hct 43.1 (34.0-46.0) % Plt Count 122 L (150-450) k/uL Comprehensive Metabolic Panel 01/17/23 Range/Units 06:35 Sodium 131 L (137-145) mmol/L Potassium 4.4 (3.5-5.1) mmol/L Chloride 94 L (98-107) mmol/L Carbon Dioxide 24 (22-30) mmol/L BUN 18 H (7-17) mg/dL Creatinine 0.54 (0.52-1.04) mg/dL Glucose 127 H (74-99) mg/dL Calcium 8.8 (8.4-10.2) mg/dL AST 51 H (14-36) U/L ALT 17 (4-34) U/L Alkaline Phosphatase 106 (38-126) U/L Total Protein 9.5 H (6.3-8.2) g/dL Albumin 3.9 (3.5-5.0) g/dL Current Medications Generic Name Dose Route Start Last Admin Trade Name Freq PRN Reason Stop Dose Admin Acetaminophen 650 mg 01/17/23 07:50 Acetaminophen Tab 325 Mg Tab PO Q6HR PRN Mild Pain or Fever > 100.5 Hydrocodone Bitart/Acetaminophen 1 each 01/17/23 07:50 Hydrocodone/Apap 5-325mg 1 Each Tab PO Q4HR PRN Moderate Pain (Scale 4 to 6) Albuterol Sulfate 2 puff 01/17/23 07:55 01/17/23 11:35 Albuterol Hfa Inhaler INHALATION 2 puff Q4H PRN Administration Shortness Of Breath Furosemide 40 mg 01/17/23 21:00 Furosemide 10 Mg/Ml 4 Ml Vial IV Q12HR [facility] Gabapentin 200 mg 01/17/23 21:00 Gabapentin 100 Mg Cap PO HS [facility] Levothyroxine Sodium 25 mcg 01/18/23 06:30 Levothyroxine 25 Mcg Tab PO DAILY@0630 [facility] Methylprednisolone Sodium Succinate 40 mg 01/17/23 11:30 01/17/23 11:45 Methylprednisolone Sod Succi 40 Mg/Ml 1 Ml Vial IV 40 mg Q8HR AYAKA Administration Metoprolol Tartrate 75 mg 01/17/23 21:00 Metoprolol Tartrate 25 Mg Tab PO BID AYAKA Naloxone HCl 0.2 mg 01/17/23 07:50 Naloxone 0.4 Mg/Ml 1 Ml Vial IV Q2M PRN Opioid Reversal Ondansetron HCl 4 mg 01/17/23 07:50 01/17/23 08:02 Ondansetron 4 Mg/2 Ml Vial IVP 4 mg Q8HR PRN Administration Nausea And Vomiting Oseltamivir Phosphate 75 mg 01/17/23 09:00 01/17/23 09:26 Oseltamivir 75 Mg Cap PO 01/21/23 21:01 75 mg Q12HR AYAKA Administration Protocol Senna/Docusate Sodium 3 each 01/17/23 10:15 01/17/23 10:19 Sennosides-Docusate Sodium 1 Each Tab PO Not Given Q48H AYAKA Intake and Output 01/16/23 01/17/23 01/17/23 22:59 06:59 14:59 Other: Weight 78.925 kg 01/17/23 06:35 01/17/23 06:35
--- NOTE | 2023-01-17 13:24 | P.HPIM ---
History of Present Illness H&P Date: 01/17/23 Chief Complaint: Shortness breath 87-year-old female who presents to the emergency department for shortness of breath. Patient states that symptoms have been worsening over the last 3 days. She has an associated cough that is somewhat productive. Denies any chest pain. She has not measured any fevers at home, although she was found to be febrile here. Denies any known history of COPD or asthma, however she does use albuterol breathing treatments at home that have not been very helpful. She does not wear oxygen at home, however EMS found her to have a low oxygen saturation and she was started on a nasal cannula. Also states that she has not taken her blood pressure medication yet today. She went to several events over the last couple of weeks and is unsure if she has been around anyone sick during those. --white cell count of 5.3. Hemoglobin was at 14. She has chronic into fibrillation. She is on anticoagulation with Coumadin and INR to 3.2 which is t herapeutic at this point in time. BUN is at 80 with a creatinine of 0.5. Sodium levels of 131. Troponins are 0.05 and 0.1 respectively 2. ProBNP level is 2970. The EKG is consistent with atrial fibrillation and left axis deviation. Incomplete right bundle branch block pattern. She was started on Tamiflu. She'll be also placed on IV Solu-Medrol. She is also receiving Lasix 40 mg every 12 hours. Review of Systems REVIEW OF SYSTEMS: CONSTITUTIONAL: No fever, no malaise, no fatigue. HEENT: No recent visual problems or hearing problems. Denied any sore throat. CARDIOVASCULAR: No chest pain, orthopnea, PND, no palpitations, no syncope. PULMONARY: No shortness of breath, no cough, no hemoptysis. GASTROINTESTINAL: No diarrhea, no nausea, no vomiting, no abdominal pain. NEUROLOGICAL: No headaches, no weakness, no numbness. HEMATOLOGICAL: Denies any bleeding or petechiae. GENITOURINARY: Denies any burning micturition, frequency, or urgency. MUSCULOSKELETAL/RHEUMATOLOGICAL: Denies any joint pain, swelling, or any muscle pain. ENDOCRINE: Denies any polyuria or polydipsia. The rest of the 14-point review of systems is negative. 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 History of Any Multi-Drug Resistant Organisms: None Reported Past Surgical History: Appendectomy, Heart Catheterization With Stent, Hysterectomy Additional Past Surgical History / Comment(s): 2011 PCI with stent to mid LAD, R ovarian cyst, R sided hernia repair, bilateral cataracts removed with lens implants, R knee arthroscopy , STEPHANIE, TAVR with post hematoma evacuation, colonoscopy Past Anesthesia/Blood Transfusion Reactions: No Reported Reaction Date of Last Stent Placement:: 2011 Past Psychological History: No Psychological Hx Reported Smoking Status: Second hand smoke exposure Past Alcohol Use History: Rare Past Drug Use History: None Reported - Past Family History Father History Unknown: Yes Mother Family Medical History: Osteoarthritis (OA) Additional Family Medical History / Comment(s): Osteoporosis, difficulty ambulating. Mother lived to be 99.5 Sister(s) Family Medical History: Cancer Additional Family Medical History / Comment(s): OVARIAN CANCER Medications and Allergies Home Medications Medication Instructions Recorded Confirmed Type Levothyroxine Sodium [Synthroid] 25 mcg PO DAILY 04/28/16 01/17/23 History Warfarin [Coumadin] 0.5 mg PO FR@1700 04/28/16 01/17/23 History Warfarin [Coumadin] 1 mg PO SUMOTUWETHSA@1700 04/28/16 01/17/23 History Albuterol Sulfate [Albuterol 1 - 2 puff INHALATION RT-Q4H PRN 04/28/22 01/17/23 History Sulfate Hfa] Metoprolol Tartrate [Lopressor] 75 mg PO BID 04/28/22 01/17/23 History Acetaminophen Tab [Tylenol Tab] 500 mg PO BID 01/17/23 01/17/23 History Albuterol Nebulized [Ventolin 1.25 mg INHALATION RT-Q6H PRN 01/17/23 01/17/23 History Nebulized (Accuneb)] Benzonatate [Tessalon Perles] 100 mg PO TID PRN 01/17/23 01/17/23 History Simvastatin [Zocor] 40 mg PO HS 01/17/23 01/17/23 History Allergies Allergy/AdvReac Type Severity Reaction Status Date / Time rivaroxaban [From Xarelto] AdvReac Severe Rapid Verified 01/17/23 12:25 Heart Rate dabigatran etexilate AdvReac Unknown Ulcers, Verified 01/17/23 12:25 [From Pradaxa] Nausea, Vomting apixaban [From Eliquis] AdvReac Numbness Verified 01/17/23 12:25 in legs Physical Exam Vitals: Vital Signs Temp Pulse Resp BP Pulse Ox 01/17/23 08:12 98.9 F 01/17/23 07:32 93 28 H 159/81 92 L 01/17/23 07:31 85 L 01/17/23 06:48 92 01/17/23 06:38 95 01/17/23 06:29 101 H 26 H 181/110 96 01/17/23 06:21 26 H 01/17/23 06:18 101.8 F H 94 28 H 191/103 90 L Intake and Output 01/16/23 01/17/23 01/17/23 22:59 06:59 14:59 Other: Weight 78.925 kg General appearance: alert, in no apparent distress Head exam: Present: atraumatic, normocephalic, normal inspection Respiratory exam: Present: wheezes, decreased breath sounds, prolonged expiratory Cardiovascular Exam: Present: tachycardia, irregular rhythm Neurological exam: Present: alert, oriented X3, CN II-XII intact Psychiatric exam: Present: normal affect, normal mood Skin exam: Present: warm, dry, intact, normal color. Absent: rash Results CBC & Chem 7: 01/17/23 06:35 01/17/23 06:35 Labs: Abnormal Lab Results - Last 24 Hours (Table) 01/17/23 01/17/23 01/17/23 Range/Units 06:35 06:35 06:35 MCV 101.7 H (80.0-100.0) fL Plt Count 122 L (150-450) k/uL Lymphocytes # 0.4 L (1.0-4.8) k/uL PT 31.4 H (10.0-12.5) sec INR 3.2 H (<1.2) APTT 37.1 H (22.0-30.0) sec Sodium 131 L (137-145) mmol/L Chloride 94 L (98-107) mmol/L BUN 18 H (7-17) mg/dL Glucose 127 H (74-99) mg/dL Total Bilirubin 1.5 H (0.2-1.3) mg/dL AST 51 H (14-36) U/L Troponin I (0.000-0.034) ng/mL Total Protein 9.5 H (6.3-8.2) g/dL Urine Protein (Negative) Urine Ketones (Negative) Urine Blood (Negative) Influenza Type A (PCR) (Not Detectd) 01/17/23 01/17/23 01/17/23 Range/Units 06:35 06:35 08:45 MCV (80.0-100.0) fL Plt Count (150-450) k/uL Lymphocytes # (1.0-4.8) k/uL PT (10.0-12.5) sec INR (<1.2) APTT (22.0-30.0) sec Sodium (137-145) mmol/L Chloride (98-107) mmol/L BUN (7-17) mg/dL Glucose (74-99) mg/dL Total Bilirubin (0.2-1.3) mg/dL AST (14-36) U/L Troponin I 0.051 H* (0.000-0.034) ng/mL Total Protein (6.3-8.2) g/dL Urine Protein 3+ H (Negative) Urine Ketones 1+ H (Negative) Urine Blood Small H (Negative) Influenza Type A (PCR) Detected A (Not Detectd) Assessment and Plan Assessment: 1. Acute hypoxic respiratory failure; multifactorial, related to influenza A infection and CHF exacerbation -- she remains on O2 per nasal cannula; we will titrate her weaning keeping O2 saturation above 90% 2. Elevated troponin; likely type II demand ischemia due to CHF exacerbation and influenza A infection causing hypoxia - We will monitor and trend troponin; monitor EKG - Cardiology is consulted; appreciate recommendations 2. Acute influenza A infection - Patient has been placed on Tamiflu 75 mg twice a day; continue with symptomatic treatment - We will hold off on IV fluid hydration given CHF exacerbation - Patient encouraged increased fluid intake 3. Severe acute bronchospasm - Patient has been placed on IV Solu-Medrol 40 mg IV every 8 hours; bronchodilator nebulizer treatments 4 times a day and when necessary - Consult pulmonology; patient recommendations 4. Acute exacerbation CHF; BNP is elevated - Patient is placed on Lasix 40 mg IV every 12 hours; we will monitor strict SALONI's, daily weights, low salt and fluid restricted diet - Cardiology is consulted; appreciate input 5. Chronic atrial fibrillation; patient anticoagulated on Coumadin; metoprolol 75 mg twice a day for rate control 6. Hypertension; metoprolol 75 mg twice a day 7. Hypothyroidism; levothyroxin 25 MCG daily DVT prophylaxis; SCDs/Coumadin CODE STATUS; full code
[2023-01-17 17:15] LABS: Glucose,Whole Blood 125 mg/dL (70-110)
[2023-01-17] MEDS: GABAPENTIN 100 MG CAP PO SCH (20:27)
[2023-01-17] MEDS: METOPROLOL TARTRATE 25 MG TAB PO SCH (20:27)
[2023-01-17] MEDS: FUROSEMIDE 10 MG/ML 4 ML VIAL IV SCH (20:27)
[2023-01-18] MEDS: LEVOTHYROXINE 25 MCG TAB PO SCH (06:16)
[2023-01-18 07:24] LABS: INR 4.5 (<1.2); Prothrombin Time 43.9 sec (10.0-12.5)
[2023-01-18 07:44] LABS: African American GFR (CKD) 66 (>60 ml/min/1.73 sqM); Anion Gap 10 mmol/L; Blood Urea Nitrogen 31 mg/dL (7-17); Calcium 8.2 mg/dL (8.4-10.2); Carbon Dioxide 30 mmol/L (22-30); Chloride 93 mmol/L (98-107); Glucose 107 mg/dL (74-99); Non-African American GFR(CKD) 57 (>60 ml/min/1.73 sqM); Potassium 4.2 mmol/L (3.5-5.1); Sodium 133 mmol/L (137-145)
[2023-01-18] MEDS: ALBUTEROL HFA INHALER INHALATION PRN ×2 (07:55→11:21)
[2023-01-18 08:31] LABS: Basophils % (A) 0 %; Eosinophils % (A) 0 %; HCT 42.8 % (34.0-46.0); HGB 13.7 gm/dL (11.4-16.0); Hypochromasia Moderate; Lymphocytes # (A) 0.3 k/uL (1.0-4.8); Lymphocytes % (A) 4 %; MCH 33.4 pg (25.0-35.0); MCHC 31.9 g/dL (31.0-37.0); MCV 104.7 fL (80.0-100.0); Macrocytosis Slight; Mean Platelet Volume 7.8; Monocytes # (A) 0.3 k/uL (0-1.0); Monocytes % (A) 5 %; Neutrophils # (A) 6.1 k/uL (1.3-7.7); Neutrophils % (A) 90 %; Platelet Count 112 k/uL (150-450); RBC 4.09 m/uL (3.80-5.40); RDW 13.5 % (11.5-15.5); WBC 6.8 k/uL (3.8-10.6)
[2023-01-18] MEDS: METOPROLOL TARTRATE 25 MG TAB PO SCH ×2 (09:54→20:30)
[2023-01-18] MEDS: methylPREDNISolone SOD SUCCI 40 MG/ML 1 ML VIAL IV SCH ×2 (09:54→20:05)
[2023-01-18] MEDS: FUROSEMIDE 10 MG/ML 4 ML VIAL IV SCH (09:54)
[2023-01-18] MEDS: OSELTAMIVIR 60 MG/10 ML ORAL SYRINGE PO SCH ×2 (10:07→20:30)
--- NOTE | 2023-01-18 13:27 | P.PN ---
Subjective HISTORY OF PRESENT ILLNESS: The patient is an 87-year-old female who presented with symptoms of progressive dyspnea and cough and was found to have influenza A. She has a known history of chronic persistent atrial fibrillation, aortic valve replacement by TAVR. He has underwent cardiac catheterization in 2017 and was found to have mild obstructive CAD and mildly impaired LV function. She has been doing well until last week when she started complaining of the dyspnea on exertion, the cough, the wheezing and was febrile on presentation. She was not vaccinated for influenza. She has a prior history of PCI of the LAD in 2011. She has a history of hypertension, hyperlipidemia, she is nonsmoker. In the emergency room she was noted to have mild troponin elevation. Her INR was 3.2. Her chest x-ray showed right basilar opacity that has been noted in the past. Medications: Metoprolol 75 mg twice a day, Coumadin, simvastatin, Synthroid, albuterol 01/18/2023 Patient examined this morning the bedside. Patient currently denies chest pain or pressure. She denies shortness of breath. Patient complains of not urinating this morning. Bladder scan performed at the bedside with 300 mL of urine present. She is currently on IV diuretics. She states that she has not been eating much. INR today is 4.5. Coumadin remains on hold. PHYSICAL EXAM: VITAL SIGNS: Reviewed. GENERAL: Well-developed in no acute distress. NECK: Supple. No JVD or thyromegaly LUNGS: Respirations even and unlabored. Lungs essentially clear to auscultation bilaterally. HEART: Irregular rate and rhythm. S1 and S2 heard. EXTREMITIES: Normal range of motion. No clubbing or cyanosis. Peripheral pulses intact. No lower extremity edema ASSESSMENT: 1. Influenza A infection was progressive dyspnea and cough 2. Troponin elevation most likely representing type II myocardial infarction related to her infection 3. Status post TAVR 4. History of CAD, stable 5. Chronic persistent atrial fibrillation, anticoagulated 6. Hyperlipidemia 7. Mild CHF probably secondary to the infection 8. Supratherapeutic INR 9. PLAN: Discontinue IV Lasix. Begin oral Lasix 20 mg daily Continue to monitor INR. Coumadin remains on hold. Encouraged increased oral intake Further recommendations pending patient course Nurse practitioner note has been reviewed by physician. Signing provider agrees with the documented findings, assessment, and plan of care. Objective - Vital Signs Vital signs: Vital Signs Temp 97.5 F L 01/18/23 08:00 Pulse 70 01/18/23 08:00 Resp 19 01/18/23 08:00 BP 98/61 01/18/23 08:00 Pulse Ox 95 01/18/23 08:00 FiO2 Intake & Output 01/17/23 01/18/23 01/18/23 18:59 06:59 18:59 Output Total 250 Balance -250 Weight 74.5 kg Output: Urine 250 Other: Voiding Method External Catheter - Labs CBC & Chem 7: 01/18/23 06:45 01/18/23 06:45 Labs: Abnormal Lab Results - Last 24 Hours (Table) 01/17/23 01/17/23 01/17/23 Range/Units 08:45 10:44 14:00 MCV (80.0-100.0) fL Plt Count (150-450) k/uL Lymphocytes # (1.0-4.8) k/uL PT (10.0-12.5) sec INR (<1.2) Sodium (137-145) mmol/L Chloride (98-107) mmol/L BUN (7-17) mg/dL Glucose (74-99) mg/dL POC Glucose (mg/dL) (70-110) mg/dL Calcium (8.4-10.2) mg/dL Troponin I 0.108 H* 0.099 H* (0.000-0.034) ng/mL Urine Protein 3+ H (Negative) Urine Ketones 1+ H (Negative) Urine Blood Small H (Negative) Urine RBC 13 H (0-5) /hpf Urine Bacteria Few H (None) /hpf 01/17/23 01/18/23 01/18/23 Range/Units 17:13 06:45 06:45 MCV 104.7 H (80.0-100.0) fL Plt Count 112 L (150-450) k/uL Lymphocytes # 0.3 L (1.0-4.8) k/uL PT (10.0-12.5) sec INR (<1.2) Sodium 133 L (137-145) mmol/L Chloride 93 L (98-107) mmol/L BUN 31 H (7-17) mg/dL Glucose 107 H (74-99) mg/dL POC Glucose (mg/dL) 125 H (70-110) mg/dL Calcium 8.2 L (8.4-10.2) mg/dL Troponin I (0.000-0.034) ng/mL Urine Protein (Negative) Urine Ketones (Negative) Urine Blood (Negative) Urine RBC (0-5) /hpf Urine Bacteria (None) /hpf 01/18/23 Range/Units 06:45 MCV (80.0-100.0) fL Plt Count (150-450) k/uL Lymphocytes # (1.0-4.8) k/uL PT 43.9 H (10.0-12.5) sec INR 4.5 H (<1.2) Sodium (137-145) mmol/L Chloride (98-107) mmol/L BUN (7-17) mg/dL Glucose (74-99) mg/dL POC Glucose (mg/dL) (70-110) mg/dL Calcium (8.4-10.2) mg/dL Troponin I (0.000-0.034) ng/mL Urine Protein (Negative) Urine Ketones (Negative) Urine Blood (Negative) Urine RBC (0-5) /hpf Urine Bacteria (None) /hpf
--- NOTE | 2023-01-18 13:32 | XR ---
EXAMINATION TYPE: XR chest 1V DATE OF EXAM: 01/18/2023 COMPARISON: 01/17/2023 HISTORY: Hypoxia TECHNIQUE: Single frontal view of the chest is obtained. FINDINGS: Cardiomegaly with postsurgical changes. Bilateral consolidation and pleural effusion. Unde rlying COPD. No sizable pneumothorax. Diffuse osteopenia with arthropathy of the shoulders. Degenerat eros change of the spine. IMPRESSION: A bilateral infiltrate and pleural effusion have progressed from prior exam. Underlying venous congestion in the differential diagnosis correlate clinically.
--- NOTE | 2023-01-18 16:12 | P.PN ---
Subjective Progress Note Date: 01/18/23 Principal diagnosis: Acute hypoxic respiratory failure, multifactorial 87-year-old female patient presented to the emergency department because of increased cough, congestion, wheezing, shortness of breath. No previous history of lung disease or disorder. The patient check positive for influenza A. She stated her symptoms have been going on for about 4-5 days. Denies having any chest pain. No altered mentation. She does not wear oxygen at home. She is currently on 4 L of oxygen by nasal cannula to maintain a saturation above 90%. The chest x-ray from the emergency showed cardiomegaly moderate-sized heart enlargement, in addition to some right basilar opacity that has remained unchanged since 2019. There is also volume loss. No clear indication for underlying pneumonia. She is afebrile. She is weak. She has a white cell count of 5.3. Hemoglobin was at 14. She has chronic into fibrillation. She has limited on anticoagulation and INR to 3.2 which is therapeutic at this point in time. BUN is at 80 with a creatinine of 0.5. Sodium levels of 131. Tr oponins are 0.05 and 0.1 respectively 2. ProBNP level is 2970. The EKG is consistent with atrial fibrillation and left axis deviation. Incomplete right bundle branch block pattern. She was started on Tamiflu. She'll be also placed on IV Solu-Medrol. She is also receiving Lasix 40 mg every 12 hours. Reevaluated today on 01/18/23, patient is doing better, continues to have intermittent cough and wheezing, nonetheless the patient is doing better compared to yesterday. Patient is on 3 L nasal cannula with O2 saturation of 95%, patient is hemodynamically stable, temperature 97.8. WBC count is 6.8 hemoglobin is 13.7 INR is 4.5 basic metabolic profile is normal renal profile is normal. Chest x-ray showed small bilateral pleural effusions and suspect some component of interstitial edema, much worse compared to the chest x-ray on admission yesterday. Hence I'm suspecting some component of heart failure, will increase her Lasix dose to 20 mg twice a day instead of once daily patient did receive a Lasix 40 mg IV push yesterday. Objective - Vital Signs Vital signs: Vital Signs Temp 97.8 F 01/18/23 12:00 Pulse 85 01/18/23 12:00 Resp 19 01/18/23 12:00 BP 111/74 01/18/23 12:00 Pulse Ox 95 01/18/23 12:00 FiO2 Intake & Output 01/17/23 01/18/23 01/18/23 18:59 06:59 18:59 Output Total 250 Balance -250 Weight 74.5 kg Output: Urine 250 Other: Voiding Method External Catheter # Voids 0 - Exam Physical Exam: Revealed 87-year-old female, on 3 L nasal cannula with O2 saturation of 95% HEENT:[Neck is supple.] [No neck masses.] [No thyromegaly.] [No JVD.] Chest: [Crackles and rhonchi noted bilaterally. Cardiac Exam: [Normal S1 and S2, no S3 gallop, 2/6 systolic murmur thought the precordium Abdomen: [Soft, nontender, no megaly, no rebound, no guarding, normal bowel sounds.] Extremities: [No clubbing, no edema, no cyanosis.] Neurological Exam: [No focal neurologic deficit.] Alert and oriented 3. Psychiatric: Normal mood affect and normal mental status examination. - Labs CBC & Chem 7: 01/18/23 06:45 01/18/23 06:45 Labs: Abnormal Lab Results - Last 24 Hours (Table) 01/17/23 01/18/23 01/18/23 Range/Units 17:13 06:45 06:45 MCV 104.7 H (80.0-100.0) fL Plt Count 112 L (150-450) k/uL Lymphocytes # 0.3 L (1.0-4.8) k/uL PT (10.0-12.5) sec INR (<1.2) Sodium 133 L (137-145) mmol/L Chloride 93 L (98-107) mmol/L BUN 31 H (7-17) mg/dL Glucose 107 H (74-99) mg/dL POC Glucose (mg/dL) 125 H (70-110) mg/dL Calcium 8.2 L (8.4-10.2) mg/dL 01/18/23 Range/Units 06:45 MCV (80.0-100.0) fL Plt Count (150-450) k/uL Lymphocytes # (1.0-4.8) k/uL PT 43.9 H (10.0-12.5) sec INR 4.5 H (<1.2) Sodium (137-145) mmol/L Chloride (98-107) mmol/L BUN (7-17) mg/dL Glucose (74-99) mg/dL POC Glucose (mg/dL) (70-110) mg/dL Calcium (8.4-10.2) mg/dL Assessment and Plan Assessment: Impression: Acute influenza A infection Acute hypoxic respiratory failure Acute systolic congestive heart failure Acute bronchospasm, likely exacerbated by her influenza A infection, no previous documented history of COPD Chronic atrial fibrillation History of previous CVA Hypothyroidism Benign essential hypertension Sjogren's disease Coronary artery disease Chronic neuropathy History of aortic valve stenosis and previous T aVR Recommendation: Continue oxygen and titrate accordingly Continue Tamiflu Continue steroids and bronchodilators Increase Lasix to 20 mg twice a day Continue anticoagulation therapy/Coumadin reviewed chest x-ray showed worsening in her fluid status and pulmonary edema with worsening bilateral pleural effusions We will continue to follow Time with Patient: Less than 30
[2023-01-18] MEDS: ONDANSETRON 4 MG/2 ML VIAL IVP PRN (20:05)
[2023-01-18] MEDS: GABAPENTIN 100 MG CAP PO SCH ×2 (20:30→20:36)
[2023-01-18] MEDS ORDERED: ONDANSETRON 4 MG/2 ML VIAL IVP PRN (21:34)
--- NOTE | 2023-01-18 21:34 | P.PN ---
Subjective Progress Note Date: 01/18/23 Patient evaluated today on the stepdown unit resting in bed. Patient with significant weakness, also reports decreased appetite and shortness of breath. Continues on oxygen support via nasal cannula on 5L with saturation of 95% this can be weaned. Patient does not wear home oxygen. Has been started on tamiflu for positive infleunza A. Continues on IV solumedrol. Patient has been transitioned to oral lasix BID. Chest xray follow up reveals bilateral infiltrate and pleural effusion which have progressed from prior exam with underlying venous congestion in the differential diagnosis correlate clinically. INR 4.5 today warfarin remains on hold. Review of Systems Constitutional: Reports fatigue, denies fever Cardio vascular: denied any chest pain, palpitations Gastrointestinal: denied any nausea, vomiting, diarrhea reports decreased appetite Pulmonary: Reports shortness of breath Neurologic denied any new focal deficits, reports weakness All inpatient medications were reviewed and appropriate changes in these medications as dictated in the interval history and assessment and plan. PHYSICAL EXAMINATION: GENERAL: The patient is alert and oriented x3, not in any acute distress. Well developed, well nourished. HEENT: Pupils are round and equally reacting to light. EOMI. No scleral icterus. No conjunctival pallor. Normocephalic, atraumatic. No pharyngeal erythema. No thyromegaly. CARDIOVASCULAR: S1 and S2 present. No murmurs, rubs, or gallops. PULMONARY: Faint scattered wheezing, diminished on Oxygen support ABDOMEN: Soft, nontender, nondistended, normoactive bowel sounds. No palpable organomegaly. MUSCULOSKELETAL: No joint swelling or deformity. EXTREMITIES: No cyanosis, clubbing, or pedal edema. NEUROLOGICAL: Gross neurological examination did not reveal any focal deficits. Generalized weakness SKIN: No rashes. Assessment and Plan -Acute hypoxic respiratory failure; multifactorial, related to influenza A infection and CHF exacerbation, -Elevated troponin; likely type II demand ischemia due to CHF exacerbation and influenza A infection causing hypoxia -Acute influenza A infection, patient on Tamiflu 75 mg twice a day; continue with symptomatic treatment -Severe acute bronchospasm, patient continues on systemic steroids and bronchodilator nebulizer treatments 4 times a day and when necessary, pulmonary following -Acute exacerbation CHF; BNP is elevated cardiology following chest xray continues to demonstrate volume overload on oral lasix BID. Echocardiogram pending. -Chronic atrial fibrillation; patient anticoagulated on Coumadin; metoprolol 75 mg twice a day for rate control -Supratherapeutic INR warfarin held continue with monitoring and daily PT/INR -Hypertension; currently low/normal BP with IV fluids being held due to acute CHF. Remains on metoprolol 75 mg BID. -Hypothyroidism; levothyroxien 25 MCG daily DVT prophylaxis; SCDs/Coumadin CODE STATUS; full code Recommend to add ensure with meals and encourage increased oral intake. Repeat labs in AM. PT/OT have been consulted. The impression and plan of care has been dictated by Ana María Chew, Nurse Practitioner as directed. Dr. Una MD I have performed a history and physical examination and medical decision making of this patient, discussed the same with the dictator, and agree with the dictators assessment and plan as written, documented as a scribe. Based on total visit time, I have performed more than 50% of this visit. Objective - Vital Signs Vital signs: Vital Signs Temp 97.5 F L 01/18/23 08:00 Pulse 70 01/18/23 08:00 Resp 19 01/18/23 08:00 BP 98/61 01/18/23 08:00 Pulse Ox 95 01/18/23 08:00 FiO2 Intake & Output 01/17/23 01/18/23 01/18/23 18:59 06:59 18:59 Output Total 250 Balance -250 Weight 74.5 kg Output: Urine 250 Other: Voiding Method External Catheter - Labs CBC & Chem 7: 01/18/23 06:45 01/18/23 06:45 Labs: Abnormal Lab Results - Last 24 Hours (Table) 01/17/23 01/17/23 01/18/23 Range/Units 14:00 17:13 06:45 MCV 104.7 H (80.0-100.0) fL Plt Count 112 L (150-450) k/uL Lymphocytes # 0.3 L (1.0-4.8) k/uL PT (10.0-12.5) sec INR (<1.2) Sodium (137-145) mmol/L Chloride (98-107) mmol/L BUN (7-17) mg/dL Glucose (74-99) mg/dL POC Glucose (mg/dL) 125 H (70-110) mg/dL Calcium (8.4-10.2) mg/dL Troponin I 0.099 H* (0.000-0.034) ng/mL 01/18/23 01/18/23 Range/Units 06:45 06:45 MCV (80.0-100.0) fL Plt Count (150-450) k/uL Lymphocytes # (1.0-4.8) k/uL PT 43.9 H (10.0-12.5) sec INR 4.5 H (<1.2) Sodium 133 L (137-145) mmol/L Chloride 93 L (98-107) mmol/L BUN 31 H (7-17) mg/dL Glucose 107 H (74-99) mg/dL POC Glucose (mg/dL) (70-110) mg/dL Calcium 8.2 L (8.4-10.2) mg/dL Troponin I (0.000-0.034) ng/mL Assessment and Plan Time with Patient: Less than 30
[2023-01-18] MEDS ORDERED: SODIUM CHLORIDE 0.9% 1,000 ML IV SCH (21:45)
[2023-01-18] MEDS: ALPRAZolam 0.25 MG TAB PO PRN (21:47)
[2023-01-18] MEDS: METOCLOPRAMIDE 5 MG/ML 2 ML VIAL IVP PRN (21:47)
[2023-01-19] MEDS ORDERED: METOCLOPRAMIDE 5 MG/ML 2 ML VIAL IVP SCH
[2023-01-19] MEDS: LEVOTHYROXINE 25 MCG TAB PO SCH (05:39)
[2023-01-19] MEDS ORDERED: PANTOPRAZOLE 40 MG TABLET PO SCH (07:30)
[2023-01-19] MEDS ORDERED: FUROSEMIDE 20 MG TAB PO SCH ×2 (09:00)
--- NOTE | 2023-01-19 10:11 | CA ---
Transthoracic Echo Report Name: Cynthia Lopes Age: 87 Gender: F : 1935 Exam Date: 01/18/2023 09:10 Exam Location: [place] [facility] Ht (in): 67 Wt (lb): 174 Ordering Physician: Enrique Jain MD ([id number]) Attending/Referring Phys: Nursing Scheduler Andria Koch [facility] Procedure CPT: Indications: tavr Cardiac Hx: Technical Quality: Fair Contrast 1: Total Dose (mL): Contrast 2: Total Dose (mL): MEASUREMENTS (Male / Female) Normal Values 2D ECHO LV Diastolic Diameter PLAX 4.3 cm 4.2 - 5.9 / 3.9 - 5.3 cm LV Systolic Diameter PLAX 3.1 cm IVS Diastolic Thickness 1.3 cm 0.6 - 1.0 / 0.6 - 0.9 cm LVPW Diastolic Thickness 1.2 cm 0.6 - 1.0 / 0.6 - 0.9 cm LV Relative Wall Thickness 0.6 Ascending Aorta Diameter 2.6 cm M-MODE Aortic Root Diameter MM 2.2 cm LA Systolic Diameter MM 5.5 cm LA Ao Ratio MM 2.5 AV Cusp Separation MM 1.8 cm DOPPLER AV Peak Velocity 177.4 cm/s AV Peak Gradient 12.6 mmHg AV Mean Velocity 110.0 cm/s AV Mean Gradient 6.9 mmHg AV Velocity Time Integral 35.0 cm LVOT Peak Velocity 79.2 cm/s LVOT Peak Gradient 2.5 mmHg LVOT Velocity Time Integral 17.2 cm TR Peak Velocity 346.2 cm/s TR Peak Gradient 47.9 mmHg Right Atrial Pressure 15.0 mmHg Pulmonary Artery Systolic Pressu 62.9 mmHg Right Ventricular Systolic Press 62.9 mmHg FINDINGS Left Ventricle Moderately increased septal wall thickness. Mildly increased posterior wall thickness. Left ventricular cavity size normal. No obvious regional wall motion abnormalities. Left ventricular ejection fraction is estimated at 50-55%. Right Ventricle Severe right ventricular dilatation. Severe pulmonary hypertension. Right Atrium Severe right atrial dilatation. Left Atrium Severe left atrial dilatation. Mitral Valve Mitral valve thickened. Mild mitral annular calcification. Trace to mild mitral regurgitation. Aortic Valve Normally functioning bioprosthetic aortic valve without stenosis with a peak gradient of 12.59 mmHg and mean gradient 6.92 mmHg. Trace aortic regurgitation. Tricuspid Valve Structurally normal tricuspid valve. Moderate tricuspid regurgitation. Pulmonic Valve Structurally normal pulmonic valve. Trace to mild pulmonic regurgitation. Pericardium Minimal pericardial effusion (normal variant). Aorta Normal size aortic root and proximal ascending aorta. CONCLUSIONS Normal LV size. Moderate LVH Left ventricular ejection fraction is estimated at 55%. No obvious regional wall motion abnormalities. Normally functioning bioprosthetic aortic valve with trace PV leak. Mean gradient 7 mmHg Severe biatrial dilatation Moderate TR Severe pulmonary hypertension, RVSP 60 mmHg Previewed by: Dr Gonzalo Huddleston (Electronically Signed) Final Date: 19 January 2023 10:10
[2023-01-19 10:21] LABS: Prothrombin Time 67.4 sec (10.0-12.5)
[2023-01-19 10:22] LABS: African American GFR (CKD) 30 (>60 ml/min/1.73 sqM); Anion Gap 14 mmol/L; Blood Urea Nitrogen 61 mg/dL (7-17); Carbon Dioxide 20 mmol/L (22-30); Chloride 98 mmol/L (98-107); Glucose 158 mg/dL (74-99); Non-African American GFR(CKD) 26 (>60 ml/min/1.73 sqM); Potassium 4.7 mmol/L (3.5-5.1); Sodium 132 mmol/L (137-145)
[2023-01-19 10:31] LABS: INR 6.9 (<1.2)
[2023-01-19] MEDS: PANTOPRAZOLE 40 MG/10 ML VIAL IVP SCH ×2 (10:33→20:33)
[2023-01-19] MEDS: methylPREDNISolone SOD SUCCI 40 MG/ML 1 ML VIAL IV SCH ×2 (10:33→20:34)
[2023-01-19] MEDS: METOPROLOL TARTRATE 25 MG TAB PO SCH ×2 (10:33→20:34)
[2023-01-19] MEDS: OSELTAMIVIR 60 MG/10 ML ORAL SYRINGE PO SCH (10:50)
[2023-01-19] MEDS: SENNOSIDES-DOCUSATE SODIUM 1 EACH TAB PO SCH (10:50)
[2023-01-19] MEDS: ALBUTEROL HFA INHALER INHALATION PRN ×2 (11:49→15:25)
[2023-01-19] MEDS ORDERED: SODIUM CHLORIDE 0.9% 1,000 ML IV SCH (12:45)
--- NOTE | 2023-01-19 13:23 | XR ---
EXAMINATION TYPE: XR chest 1V DATE OF EXAM: 01/19/2023 COMPARISON: 01/18/2023 HISTORY: Hypoxia TECHNIQUE: Single frontal view of the chest is obtained. FINDINGS: Cardiomegaly with postsurgical changes. Bilateral consolidation and pleural effusion. Unde rlying COPD. No sizable pneumothorax. Diffuse osteopenia with arthropathy of the shoulders. Degenerat eros change of the spine. IMPRESSION: Bilateral consolidation and pleural effusion are stable. Underlying venous congestion in the differential diagnosis.
--- NOTE | 2023-01-19 13:58 | P.PN ---
Subjective HISTORY OF PRESENT ILLNESS: The patient is an 87-year-old female who presented with symptoms of progressive dyspnea and cough and was found to have influenza A. She has a known history of chronic persistent atrial fibrillation, aortic valve replacement by TAVR. He has underwent cardiac catheterization in 2017 and was found to have mild obstructive CAD and mildly impaired LV function. She has been doing well until last week when she started complaining of the dyspnea on exertion, the cough, the wheezing and was febrile on presentation. She was not vaccinated for influenza. She has a prior history of PCI of the LAD in 2011. She has a history of hypertension, hyperlipidemia, she is nonsmoker. In the emergency room she was noted to have mild troponin elevation. Her INR was 3.2. Her chest x-ray showed right basilar opacity that has been noted in the past. Medications: Metoprolol 75 mg twice a day, Coumadin, simvastatin, Synthroid, albuterol 01/18/2023 Patient examined this morning the bedside. Patient currently denies chest pain or pressure. She denies shortness of breath. Patient complains of not urinating this morning. Bladder scan performed at the bedside with 300 mL of urine present. She is currently on IV diuretics. She states that she has not been eating much. INR today is 4.5. Coumadin remains on hold. 01/19/2023 Patient examined this morning at the bedside. Patient denies chest pain or pressure. She denies shortness of breath. She has been transitioned to oral Lasix. She states she is not eating or drinking well and appears dry on examination. Creatinine up to 1.7. INR 6.9. PHYSICAL EXAM: VITAL SIGNS: Reviewed. GENERAL: Well-developed in no acute distress. NECK: Supple. No JVD or thyromegaly LUNGS: Respirations even and unlabored. Lungs essentially clear to auscultation bilaterally. HEART: Irregular rate and rhythm. S1 and S2 heard. 3/6 systolic murmur EXTREMITIES: Normal range of motion. No clubbing or cyanosis. Peripheral pulses intact. No lower extremity edema ASSESSMENT: 1. Influenza A infection was progressive dyspnea and cough 2. Troponin elevation most likely representing type II myocardial infarction related to her infection 3. Status post TAVR 4. History of CAD, stable 5. Chronic persistent atrial fibrillation, anticoagulated 6. Hyperlipidemia 7. Mild CHF probably secondary to the infection 8. Supratherapeutic INR 9. Acute kidney injury PLAN: Discontinue Lasix Recommend gentle fluid hydration. Will defer to primary medicine Repeat kidney function in a.m. Continue to monitor INR. Coumadin remains on hold. Encouraged increased oral intake Further recommendations pending patient course Nurse practitioner note has been reviewed by physician. Signing provider agrees with the documented findings, assessment, and plan of care. Objective - Vital Signs Vital signs: Vital Signs Temp 97.4 F L 01/19/23 04:00 Pulse 65 01/19/23 04:00 Resp 18 01/19/23 04:00 BP 105/61 01/19/23 04:00 Pulse Ox 91 L 01/19/23 04:00 FiO2 Intake & Output 01/18/23 01/19/23 01/19/23 18:59 06:59 18:59 Intake Total 490 Output Total 200 350 0 Balance 290 -350 0 Weight 75 kg Intake: IV 10 0.9 10 Oral 480 Output: Urine 200 350 0 Other: Voiding Method External Catheter Indwelling Catheter # Voids 0 - Labs CBC & Chem 7: 01/18/23 06:45 01/19/23 09:24 Labs: Abnormal Lab Results - Last 24 Hours (Table) 01/18/23 Range/Units 06:45 MCV 104.7 H (80.0-100.0) fL Plt Count 112 L (150-450) k/uL Lymphocytes # 0.3 L (1.0-4.8) k/uL
--- NOTE | 2023-01-19 14:27 | P.PN ---
Subjective Progress Note Date: 01/19/23 Patient evaluated today on the stepdown unit resting in bed. Patient with significant weakness, also reports decreased appetite and shortness of breath. Continues on oxygen support via nasal cannula on 5L with saturation of 95% this can be weaned. Patient does not wear home oxygen. Has been started on tamiflu for positive infleunza A. Continues on IV solumedrol. Patient has been transitioned to oral lasix BID. Chest xray follow up reveals bilateral infiltrate and pleural effusion which have progressed from prior exam with underlying venous congestion in the differential diagnosis correlate clinically. INR 4.5 today warfarin remains on hold. 01/19/2023 Patient sitting up in chair today with daughter at the bedside does feel more awake alert than yesterday. Remains on high dose steroids which was decreased to 40 mg IV BID yesterday, patient has had supratherapeutic INR today at 6.9. Will recommending monitoring and repeat level tomorrow. Was given IV hydration overnight today requiring 8L of oxygen with evidence of JVD. Resumed on lasix which will be changed to IV. Chest xray showing bilateral consolidations and pleural effusions. Underlying venous congestion in differential. Echocardiogram reveals EF 55% with severe pulmonary hypertension, moderate TR, severe biatrial dilatation. Review of Systems Constitutional: Reports fatigue, denies fever Cardio vascular: denied any chest pain, palpitations Gastrointestinal: denied any nausea, vomiting, diarrhea reports decreased appetite Pulmonary: Reports shortness of breath Neurologic denied any new focal deficits, reports weakness All inpatient medications were reviewed and appropriate changes in these medications as dictated in the interval history and assessment and plan. PHYSICAL EXAMINATION: GENERAL: The patient is alert and oriented x3, not in any acute distress. Well developed, well nourished. HEENT: Pupils are round and equally reacting to light. EOMI. No scleral icterus. No conjunctival pallor. Normocephalic, atraumatic. No pharyngeal erythema. No thyromegaly. CARDIOVASCULAR: S1 and S2 present. No murmurs, rubs, or gallops. PULMONARY: Faint scattered wheezing, diminished on Oxygen support ABDOMEN: Soft, nontender, nondistended, normoactive bowel sounds. No palpable organomegaly. MUSCULOSKELETAL: No joint swelling or deformity. EXTREMITIES: No cyanosis, clubbing, or pedal edema. NEUROLOGICAL: Gross neurological examination did not reveal any focal deficits. Generalized weakness SKIN: No rashes. Assessment and Plan -Acute hypoxic respiratory failure; multifactorial, related to influenza A infec tion and CHF exacerbation -Elevated troponin; likely type II demand ischemia due to CHF exacerbation and influenza A infection causing hypoxia -Acute influenza A infection, patient on Tamiflu 75 mg twice a day; continue with symptomatic treatment -Severe acute bronchospasm, patient continues on systemic steroids and bronchodilator nebulizer treatments 4 times a day and when necessary, pulmonary following -Acute exacerbation CHF diastolic dysfunction; BNP is elevated cardiology following chest xray continues to demonstrate volume overload on IV lasix BID. -Acute kidney injury likely from volume overload. -Chronic atrial fibrillation; patient anticoagulated on Coumadin; metoprolol 75 mg twice a day for rate control -Supratherapeutic INR warfarin held continue with monitoring and daily PT/INR -Hypertension; currently low/normal BP with IV fluids being held due to acute CHF. Remains on metoprolol 75 mg BID. -Hypothyroidism; levothyroxine 25 MCG daily DVT prophylaxis; SCDs/Coumadin CODE STATUS; full code Recommend to add ensure with meals and encourage increased oral intake. IV lasix 20 mg IV Q12 and fluids have been discontinued which were started overnight. Recommending to repeat BMP in the AM. PT/OT following. Wean oxygen as tolerated. Cardiology and pulmonary following. Repeat PT/INR in AM. The impression and plan of care has been dictated by Ana María Chew, Nurse Practitioner as directed. Dr. Una MD I have performed a history and physical examination and medical decision making of this patient, discussed the same with the dictator, and agree with the dictators assessment and plan as written, documented as a scribe. Based on total visit time, I have performed more than 50% of this visit. Objective - Vital Signs Vital signs: Vital Signs Temp 97.4 F L 01/19/23 04:00 Pulse 65 01/19/23 04:00 Resp 18 01/19/23 04:00 BP 105/61 01/19/23 04:00 Pulse Ox 96 01/19/23 08:50 FiO2 Intake & Output 01/18/23 01/19/23 01/19/23 18:59 06:59 18:59 Intake Total 490 Output Total 200 350 0 Balance 290 -350 0 Weight 75 kg Intake: IV 10 0.9 10 Oral 480 Output: Urine 200 350 0 Other: Voiding Method External Catheter Indwelling Catheter # Voids 0 - Labs CBC & Chem 7: 01/18/23 06:45 01/19/23 09:24 Assessment and Plan Time with Patient: Less than 30
--- NOTE | 2023-01-19 15:03 | P.PN ---
Subjective Progress Note Date: 01/19/23 Principal diagnosis: Acute hypoxic respiratory failure, multifactorial 87-year-old female patient presented to the emergency department because of increased cough, congestion, wheezing, shortness of breath. No previous history of lung disease or disorder. The patient check positive for influenza A. She stated her symptoms have been going on for about 4-5 days. Denies having any chest pain. No altered mentation. She does not wear oxygen at home. She is currently on 4 L of oxygen by nasal cannula to maintain a saturation above 90%. The chest x-ray from the emergency showed cardiomegaly moderate-sized heart enlargement, in addition to some right basilar opacity that has remained unchanged since 2019. There is also volume loss. No clear indication for underlying pneumonia. She is afebrile. She is weak. She has a white cell count of 5.3. Hemoglobin was at 14. She has chronic into fibrillation. She has limited on anticoagulation and INR to 3.2 which is therapeutic at this point in time. BUN is at 80 with a creatinine of 0.5. Sodium levels of 131. Tr oponins are 0.05 and 0.1 respectively 2. ProBNP level is 2970. The EKG is consistent with atrial fibrillation and left axis deviation. Incomplete right bundle branch block pattern. She was started on Tamiflu. She'll be also placed on IV Solu-Medrol. She is also receiving Lasix 40 mg every 12 hours. Reevaluated today on 01/18/23, patient is doing better, continues to have intermittent cough and wheezing, nonetheless the patient is doing better compared to yesterday. Patient is on 3 L nasal cannula with O2 saturation of 95%, patient is hemodynamically stable, temperature 97.8. WBC count is 6.8 hemoglobin is 13.7 INR is 4.5 basic metabolic profile is normal renal profile is normal. Chest x-ray showed small bilateral pleural effusions and suspect some component of interstitial edema, much worse compared to the chest x-ray on admission yesterday. Hence I'm suspecting some component of heart failure, will increase her Lasix dose to 20 mg twice a day instead of once daily patient did receive a Lasix 40 mg IV push yesterday. Patient was reevaluated today on 01/19/23, basically about the same, not much of a change in the last 24 hours, patient is up to 8 L high flow nasal cannula with O2 saturation in the 91% range, follow-up chest x-ray continues to show bilateral pleural effusions with venous congestion, strongly consistent with congestive heart failure, doubt underlying pneumonia although it is not entirely ruled out but felt to be less likely patient did come in with acute influenza infection, and her chest x-ray has worsened since admission in comparison to the admission chest x-ray. Patient was receiving fluids, and yesterday I recommended diuresis. Creatinine today is up to 1.7, INR is rising up to 6.9. Patient was seen by cardiology, and her Lasix was increased to 20 mg IV push every 12 hours, remains on methylprednisolone for her bronchospasm 40 mg IV push twice a day, remains on Tamiflu. Objective - Vital Signs Vital signs: Vital Signs Temp 98.3 F 01/19/23 12:00 Pulse 65 01/19/23 14:00 Resp 18 01/19/23 14:00 BP 107/69 01/19/23 12:00 Pulse Ox 91 L 01/19/23 12:00 FiO2 Intake & Output 01/18/23 01/19/23 01/19/23 18:59 06:59 18:59 Intake Total 490 Output Total 200 350 0 Balance 290 -350 0 Weight 75 kg Intake: IV 10 0.9 10 Oral 480 Output: Urine 200 350 0 Other: Voiding Method External Catheter Indwelling Catheter Indwelling Catheter # Voids 0 - Exam Physical Exam: Revealed 87-year-old female, on 3 8 nasal cannula with O2 saturation 91% HEENT:[Neck is supple.] [No neck masses.] [No thyromegaly.] [No JVD.] Chest: [Crackles , at the bases noted bilaterally. Some rhonchi on forced expiratory maneuver. Cardiac Exam: [Normal S1 and S2, no S3 gallop, 2/6 systolic murmur thought the precordium Abdomen: [Soft, nontender, no megaly, no rebound, no guarding, normal bowel sounds.] Extremities: [No clubbing, no edema, no cyanosis.] Neurological Exam: [No focal neurologic deficit.] Alert and oriented 3. Psychiatric: Normal mood affect and normal mental status examination. - Labs CBC & Chem 7: 01/18/23 06:45 01/19/23 09:24 Labs: Abnormal Lab Results - Last 24 Hours (Table) 01/19/23 01/19/23 Range/Units 09:24 09:24 PT 67.4 H (10.0-12.5) sec INR 6.9 H* (<1.2) Sodium 132 L (137-145) mmol/L Carbon Dioxide 20 L (22-30) mmol/L BUN 61 H (7-17) mg/dL Creatinine 1.72 H (0.52-1.04) mg/dL Glucose 158 H (74-99) mg/dL Calcium 8.0 L (8.4-10.2) mg/dL Assessment and Plan Assessment: Impression: Acute influenza A infection Acute hypoxic respiratory failure Acute diastolic congestive heart failure, good LV function noted on recent echocardiogram Severe pulmonary hypertension Acute bronchospasm, likely exacerbated by her influenza A infection, no previous documented history of COPD Chronic atrial fibrillation History of previous CVA Hypothyroidism Benign essential hypertension Sjogren's disease Coronary artery disease Chronic neuropathy History of aortic valve stenosis and previous T aVR Recommendation: Continue oxygen and titrate accordingly Continue Tamiflu Continue steroids and bronchodilators Continue Lasix, and continue to monitor renal profile Hold Coumadin for now since INR seems to be quite elevated reviewed chest x-ray showed worsening in her fluid status and pulmonary edema with worsening bilateral pleural effusions We will continue to follow Time with Patient: Less than 30
[2023-01-19] MEDS: ALPRAZolam 0.25 MG TAB PO PRN (20:34)
[2023-01-19] MEDS: METOCLOPRAMIDE 5 MG/ML 2 ML VIAL IVP PRN (20:34)
[2023-01-19] MEDS: FUROSEMIDE 10 MG/ML 2 ML VIAL IV SCH (20:34)
[2023-01-20] MEDS ORDERED: FUROSEMIDE 10 MG/ML 4 ML VIAL IV STA (00:07)
[2023-01-20] MEDS: LEVOTHYROXINE 25 MCG TAB PO SCH (06:43)
[2023-01-20 07:53] LABS: Glucose,Whole Blood 142 mg/dL (70-110)
[2023-01-20 08:14] LABS: ABG Base Excess 2.6 mmol/L; ABG HCO3 31 mmol/L (21-25); ABG PO2 100 mmHg (83-108); ABG TCO2 33 mmol/L (19-24); Allen Test Performed? Yes
[2023-01-20 08:18] LABS: ABG PCO2 81 mmHg (35-45); ABG PH 7.19 (7.35-7.45)
--- NOTE | 2023-01-20 08:25 | XR ---
EXAMINATION TYPE: XR chest 1V portable DATE OF EXAM: 01/20/2023 COMPARISON: 01/19/2023 HISTORY: Shortness of breath TECHNIQUE: Single frontal view of the chest is obtained. FINDINGS: Cardiomegaly with postsurgical changes. Bilateral consolidation and pleural effusion. Unde rlying COPD. No sizable pneumothorax. Diffuse osteopenia with arthropathy of the shoulders. Degenerat eros change of the spine. Soft tissue ossification\calcification seen overlying left axilla and right humeral head. IMPRESSION: 1. Bilateral consolidation and pleural effusion is stable.
[2023-01-20 09:09] LABS: INR 4.9 (<1.2); Prothrombin Time 48.2 sec (10.0-12.5)
[2023-01-20 09:49] LABS: ABG Base Excess 2.4 mmol/L; ABG HCO3 30 mmol/L (21-25); ABG Oxygen Saturation 94.4 % (94-97); ABG PCO2 69 mmHg (35-45); ABG PH 7.24 (7.35-7.45); ABG PO2 75 mmHg (83-108); ABG TCO2 32 mmol/L (19-24); Allen Test Performed? Yes
[2023-01-20 10:33] LABS: African American GFR (CKD) 22 (>60 ml/min/1.73 sqM); Anion Gap 12 mmol/L; Blood Urea Nitrogen 85 mg/dL (7-17); Calcium 8.3 mg/dL (8.4-10.2); Carbon Dioxide 27 mmol/L (22-30); Chloride 94 mmol/L (98-107); Glucose 142 mg/dL (74-99); Non-African American GFR(CKD) 19 (>60 ml/min/1.73 sqM); Potassium 4.7 mmol/L (3.5-5.1); Sodium 133 mmol/L (137-145)
[2023-01-20] MEDS: FUROSEMIDE 10 MG/ML 2 ML VIAL IV SCH (11:19)
[2023-01-20] MEDS: PANTOPRAZOLE 40 MG/10 ML VIAL IVP SCH ×2 (11:20→20:45)
[2023-01-20] MEDS: methylPREDNISolone SOD SUCCI 40 MG/ML 1 ML VIAL IV SCH ×2 (11:20→20:44)
--- NOTE | 2023-01-20 13:39 | P.PN ---
Subjective HISTORY OF PRESENT ILLNESS: The patient is an 87-year-old female who presented with symptoms of progressive dyspnea and cough and was found to have influenza A. She has a known history of chronic persistent atrial fibrillation, aortic valve replacement by TAVR. He has underwent cardiac catheterization in 2017 and was found to have mild obstructive CAD and mildly impaired LV function. She has been doing well until last week when she started complaining of the dyspnea on exertion, the cough, the wheezing and was febrile on presentation. She was not vaccinated for influenza. She has a prior history of PCI of the LAD in 2011. She has a history of hypertension, hyperlipidemia, she is nonsmoker. In the emergency room she was noted to have mild troponin elevation. Her INR was 3.2. Her chest x-ray showed right basilar opacity that has been noted in the past. Medications: Metoprolol 75 mg twice a day, Coumadin, simvastatin, Synthroid, albuterol 01/18/2023 Patient examined this morning the bedside. Patient currently denies chest pain or pressure. She denies shortness of breath. Patient complains of not urinating this morning. Bladder scan performed at the bedside with 300 mL of urine present. She is currently on IV diuretics. She states that she has not been eating much. INR today is 4.5. Coumadin remains on hold. 01/19/2023 Patient examined this morning at the bedside. Patient denies chest pain or pressure. She denies shortness of breath. She has been transitioned to oral Lasix. She states she is not eating or drinking well and appears dry on examination. Creatinine up to 1.7. INR 6.9. 01/20/2023 Patient examined this morning to bedside. Patient developed respiratory distress overnight increased oxygen demand and was given a one-time dose of IV Lasix. She was also placed on Airvo. She was started on IV lasix Q12 hours. She is currently on Bipap at the time of examination. Patient appears more lethargic today. Creatinine worsening at 2.2. INR remains elevated at 4.9. PHYSICAL EXAM: VITAL SIGNS: Reviewed. GENERAL: Well-developed in no acute distress. NECK: Supple. No JVD or thyromegaly LUNGS: Respirations even and unlabored. Lungs essentially clear to auscultation bilaterally. HEART: Irregular rate and rhythm. S1 and S2 heard. 3/6 systolic murmur EXTREMITIES: Normal range of motion. No clubbing or cyanosis. Peripheral pulses intact. No lower extremity edema ASSESSMENT: 1. Influenza A infection was progressive dyspnea and cough 2. Troponin elevation most likely representing type II myocardial infarction related to her infection 3. Status post TAVR 4. History of CAD, stable 5. Chronic persistent atrial fibrillation, anticoagulated 6. Hyperlipidemia 7. Mild CHF probably secondary to the infection 8. Supratherapeutic INR 9. Acute kidney injury PLAN: Continue current cardiac medications Repeat kidney function in a.m. Continue to monitor INR. Coumadin remains on hold. Encouraged increased oral intake Prognosis remains guarded Further recommendations pending patient course Nurse practitioner note has been reviewed by physician. Signing provider agrees with the documented findings, assessment, and plan of care. Objective - Vital Signs Vital signs: Vital Signs Temp 97.4 F L 01/20/23 04:00 Pulse 62 01/20/23 04:00 Resp 28 H 01/20/23 04:00 BP 129/60 01/20/23 04:00 Pulse Ox 95 01/20/23 04:00 FiO2 65 01/20/23 08:39 Intake & Output 01/19/23 01/20/23 01/20/23 18:59 06:59 18:59 Intake Total 520 Output Total 0 300 Balance 520 -300 Weight 78.5 kg Intake: IV 40 0.9 40 Oral 480 Output: Urine 0 300 Other: Voiding Method Indwelling Catheter Indwelling Catheter - Labs CBC & Chem 7: 01/18/23 06:45 01/20/23 08:21 Labs: Abnormal Lab Results - Last 24 Hours (Table) 01/19/23 01/20/23 01/20/23 Range/Units 09:24 07:52 08:10 PT (10.0-12.5) sec INR (<1.2) ABG pH 7.19 L* (7.35-7.45) ABG pCO2 81 H* (35-45) mmHg ABG pO2 (83-108) mmHg ABG HCO3 31 H (21-25) mmol/L ABG Total CO2 33 H (19-24) mmol/L Sodium 132 L (137-145) mmol/L Chloride (98-107) mmol/L Carbon Dioxide 20 L (22-30) mmol/L BUN 61 H (7-17) mg/dL Creatinine 1.72 H (0.52-1.04) mg/dL Glucose 158 H (74-99) mg/dL POC Glucose (mg/dL) 142 H (70-110) mg/dL Calcium 8.0 L (8.4-10.2) mg/dL 01/20/23 01/20/23 01/20/23 Range/Units 08:21 08:21 09:45 PT 48.2 H (10.0-12.5) sec INR 4.9 H (<1.2) ABG pH 7.24 L (7.35-7.45) ABG pCO2 69 H (35-45) mmHg ABG pO2 75 L (83-108) mmHg ABG HCO3 30 H (21-25) mmol/L ABG Total CO2 32 H (19-24) mmol/L Sodium 133 L (137-145) mmol/L Chloride 94 L (98-107) mmol/L Carbon Dioxide (22-30) mmol/L BUN 85 H (7-17) mg/dL Creatinine 2.21 H (0.52-1.04) mg/dL Glucose 142 H (74-99) mg/dL POC Glucose (mg/dL) (70-110) mg/dL Calcium 8.3 L (8.4-10.2) mg/dL
--- NOTE | 2023-01-20 14:15 | P.PN ---
Subjective Progress Note Date: 01/20/23 Principal diagnosis: Acute hypoxic respiratory failure, multifactorial 87-year-old female patient presented to the emergency department because of increased cough, congestion, wheezing, shortness of breath. No previous history of lung disease or disorder. The patient check positive for influenza A. She stated her symptoms have been going on for about 4-5 days. Denies having any chest pain. No altered mentation. She does not wear oxygen at home. She is currently on 4 L of oxygen by nasal cannula to maintain a saturation above 90%. The chest x-ray from the emergency showed cardiomegaly moderate-sized heart enlargement, in addition to some right basilar opacity that has remained unchanged since 2019. There is also volume loss. No clear indication for underlying pneumonia. She is afebrile. She is weak. She has a white cell count of 5.3. Hemoglobin was at 14. She has chronic into fibrillation. She has limited on anticoagulation and INR to 3.2 which is therapeutic at this point in time. BUN is at 80 with a creatinine of 0.5. Sodium levels of 131. Tr oponins are 0.05 and 0.1 respectively 2. ProBNP level is 2970. The EKG is consistent with atrial fibrillation and left axis deviation. Incomplete right bundle branch block pattern. She was started on Tamiflu. She'll be also placed on IV Solu-Medrol. She is also receiving Lasix 40 mg every 12 hours. Reevaluated today on 01/18/23, patient is doing better, continues to have intermittent cough and wheezing, nonetheless the patient is doing better compared to yesterday. Patient is on 3 L nasal cannula with O2 saturation of 95%, patient is hemodynamically stable, temperature 97.8. WBC count is 6.8 hemoglobin is 13.7 INR is 4.5 basic metabolic profile is normal renal profile is normal. Chest x-ray showed small bilateral pleural effusions and suspect some component of interstitial edema, much worse compared to the chest x-ray on admission yesterday. Hence I'm suspecting some component of heart failure, will increase her Lasix dose to 20 mg twice a day instead of once daily patient did receive a Lasix 40 mg IV push yesterday. Patient was reevaluated today on 01/19/23, basically about the same, not much of a change in the last 24 hours, patient is up to 8 L high flow nasal cannula with O2 saturation in the 91% range, follow-up chest x-ray continues to show bilateral pleural effusions with venous congestion, strongly consistent with congestive heart failure, doubt underlying pneumonia although it is not entirely ruled out but felt to be less likely patient did come in with acute influenza infection, and her chest x-ray has worsened since admission in comparison to the admission chest x-ray. Patient was receiving fluids, and yesterday I recommended diuresis. Creatinine today is up to 1.7, INR is rising up to 6.9. Patient was seen by cardiology, and her Lasix was increased to 20 mg IV push every 12 hours, remains on methylprednisolone for her bronchospasm 40 mg IV push twice a day, remains on Tamiflu. Patient was evaluated today on 01/20/23, patient developed worsening hypercapnia today, and she required placement back on BiPAP this morning. I walked in to see the patient, and she was opening her eyes, arousable, but quite lethargic, ABG at the time showed a pO2 of 100 pCO2 of 81 pH of 7.19 and this was on airvo. At 90% FiO2 and 60 L flow. Hence I transition the patient to BiPAP 24/07/65%, and her May the ABG showed a pO2 of 75 pCO2 69 pH of 7.24. FiO2 was cut down to 60%, I was considering transferring the patient to the ICU, but family changed her CODE STATUS to no code, and I felt I couldn't manage the patient with BiPAP, now that she is not to be intubated hence we'll keep the patient on the floor, and we'll continue present supportive care measures, her daughter and her son were updated on her condition. Yesterday the patient did receive diuretics, today I will go ahead and discontinue her narcotics and sedatives as they may have contributed to her hypercapnia. Chest x-ray this morning showed mostly cardiomegaly, small bilateral pleural effusions and atelectasis. She did receive Lasix last night and received Lasix yesterday. Objective - Vital Signs Vital signs: Vital Signs Temp 97.4 F L 01/20/23 04:00 Pulse 63 01/20/23 08:00 Resp 36 H 01/20/23 08:00 BP 130/79 01/20/23 08:00 Pulse Ox 95 01/20/23 08:00 FiO2 65 12/13/23 12:57 Intake & Output 01/19/23 01/20/23 01/20/23 18:59 06:59 18:59 Intake Total 520 Output Total 0 300 Balance 520 -300 Weight 78.5 kg Intake: IV 40 0.9 40 Oral 480 Output: Urine 0 300 Other: Voiding Method Indwelling Catheter Indwelling Catheter - Exam Physical Exam: Revealed 87-year-old female, on airvo, patient is lethargic arousable opens eyes and follows instructions, but tends to fall asleep easily. HEENT:[Neck is supple.] [No neck masses.] [No thyromegaly.] [No JVD.] Chest: [Diminished breath sounds at the bases no crackles or rhonchi or wheezes Cardiac Exam: [Normal S1 and S2, no S3 gallop, 2/6 systolic murmur thought the precordium Abdomen: [Soft, nontender, no megaly, no rebound, no guarding, normal bowel sounds.] Extremities: [No clubbing, no edema, no cyanosis.] Neurological Exam: Quite lethargic, but arousable, follows simple instructions, but tends to fall asleep easily. Psychiatric: Unable to assess - Labs CBC & Chem 7: 01/18/23 06:45 01/20/23 08:21 Labs: Abnormal Lab Results - Last 24 Hours (Table) 01/20/23 01/20/23 01/20/23 Range/Units 07:52 08:10 08:21 PT (10.0-12.5) sec INR (<1.2) ABG pH 7.19 L* (7.35-7.45) ABG pCO2 81 H* (35-45) mmHg ABG pO2 (83-108) mmHg ABG HCO3 31 H (21-25) mmol/L ABG Total CO2 33 H (19-24) mmol/L Sodium 133 L (137-145) mmol/L Chloride 94 L (98-107) mmol/L BUN 85 H (7-17) mg/dL Creatinine 2.21 H (0.52-1.04) mg/dL Glucose 142 H (74-99) mg/dL POC Glucose (mg/dL) 142 H (70-110) mg/dL Calcium 8.3 L (8.4-10.2) mg/dL 12/13/23 12/13/23 Range/Units 08:21 09:45 PT 48.2 H (10.0-12.5) sec INR 4.9 H (<1.2) ABG pH 7.24 L (7.35-7.45) ABG pCO2 69 H (35-45) mmHg ABG pO2 75 L (83-108) mmHg ABG HCO3 30 H (21-25) mmol/L ABG Total CO2 32 H (19-24) mmol/L Sodium (137-145) mmol/L Chloride (98-107) mmol/L BUN (7-17) mg/dL Creatinine (0.52-1.04) mg/dL Glucose (74-99) mg/dL POC Glucose (mg/dL) (70-110) mg/dL Calcium (8.4-10.2) mg/dL Assessment and Plan Assessment: Impression: Acute hypoxic and hypercapnic respiratory failure, multifactorial Acute influenza A infection Acute hypoxic respiratory failure Acute diastolic congestive heart failure, good LV function noted on recent echocardiogram Severe pulmonary hypertension, as noted on echocardiogram Acute bronchospasm, likely exacerbated by her influenza A infection, no previous documented history of COPD Chronic atrial fibrillation History of previous CVA Hypothyroidism Benign essential hypertension Sjogren's disease Coronary artery disease Chronic neuropathy History of aortic valve stenosis and previous T aVR Recommendation: Continue BiPAP 24/07/60% Continue Tamiflu Continue steroids and bronchodilators Continue Lasix, and continue to monitor renal profile Continue to hold Coumadin Consider CT of the brain if her hypercapnia does not improve Discussed and updated her daughter and her son on her condition. DO NOT RESUSCITATE CODE STATUS We will continue to follow Time with Patient: Less than 30
[2023-01-20] MEDS: METOPROLOL TARTRATE 25 MG TAB PO SCH ×2 (15:11→20:45)
[2023-01-20] MEDS: OSELTAMIVIR 60 MG/10 ML ORAL SYRINGE PO SCH (15:12)
--- NOTE | 2023-01-20 15:33 | P.PN ---
Subjective Progress Note Date: 01/20/23 Patient evaluated today on the stepdown unit resting in bed. Patient with significant weakness, also reports decreased appetite and shortness of breath. Continues on oxygen support via nasal cannula on 5L with saturation of 95% this can be weaned. Patient does not wear home oxygen. Has been started on tamiflu for positive infleunza A. Continues on IV solumedrol. Patient has been transitioned to oral lasix BID. Chest xray follow up reveals bilateral infiltrate and pleural effusion which have progressed from prior exam with underlying venous congestion in the differential diagnosis correlate clinically. INR 4.5 today warfarin remains on hold. 01/19/2023 Patient sitting up in chair today with daughter at the bedside does feel more awake alert than yesterday. Remains on high dose steroids which was decreased to 40 mg IV BID yesterday, patient has had supratherapeutic INR today at 6.9. Will recommending monitoring and repeat level tomorrow. Was given IV hydration overnight today requiring 8L of oxygen with evidence of JVD. Resumed on lasix which will be changed to IV. Chest xray showing bilateral consolidations and pleural effusions. Underlying venous congestion in differential. Echocardiogram reveals EF 55% with severe pulmonary hypertension, moderate TR, severe biatrial dilatation. 01/20/2023 Patient evaluated today in bed currently on BiPAP 100%. Patient had worsening respiratory distress overnight was initially placed on Airvo high flow oxygen support; which ABGs were done revealing pH 7.19 with pCO2 81 and patient was then placed on BiPAP has had some improving in the blood gas levels on repeat. Patient had worsening proBNP 9000 after receiving gentle hydration was given lasix 20 mg IV and fluids stopped. Patient was given a second dose of IV lasix overnight 40 mg due to increasing oxygen demands. Follow up chest xray this AM reveals bilateral consolidation and pleural effusion stable. Labs today show sodium 133, potassium 4.7, BUN 85, creatinine 2.21, blood sugar 142, calcium 8.3. PT/INR 4.9. 750 mls of urine output in the last 24 hours. Review of Systems Unable to complete full review of systems patient is on BiPAP and lethargic PHYSICAL EXAMINATION: GENERAL: The patient is alert and oriented x3, not in any acute distress. Lethargic, weak. Well developed, well nourished. HEENT: Pupils are round and equally reacting to light. EOMI. No scleral icterus. No conjunctival pallor. Normocephalic, atraumatic. No pharyngeal erythema. No thyromegaly. CARDIOVASCULAR: S1 and S2 present. No murmurs, rubs, or gallops. PULMONARY: Faint scattered wheezing, diminished, on bipap support ABDOMEN: Soft, nontender, nondistended, normoactive bowel sounds. No palpable organomegaly. MUSCULOSKELETAL: No joint swelling or deformity. EXTREMITIES: No cyanosis, clubbing, or pedal edema. NEUROLOGICAL: Gross neurological examination did not reveal any focal deficits. Generalized weakness SKIN: No rashes. Assessment and Plan -Acute hypoxic respiratory failure; multifactorial, related to influenza A infection and CHF exacerbation currently on bipap 100 fio2 with blood gases revealing respiratory acidosis pCO2 of 81 -Elevated troponin; likely type II demand ischemia due to CHF exacerbation and influenza A infection causing hypoxia -Acute influenza A infection, patient on Tamiflu 75 mg twice a day; continue with symptomatic treatment -Severe acute bronchospasm, patient continues on systemic steroids and bronchodilator nebulizer treatments 4 times a day and when necessary, pulmonary following -Acute exacerbation CHF diastolic dysfunction; BNP is elevated cardiology following chest xray continues to demonstrate volume overload on IV lasix BID. Patient received an extra dose of IV lasix over night has worsening renal function today. -Acute kidney injury likely from volume overload. creatinine worsened with IV lasix. Nephrology has been consulted. -Chronic atrial fibrillation; patient anticoagulated on Coumadin; metoprolol 75 mg twice a day for rate control -Supratherapeutic INR warfarin held continue with monitoring and daily PT/INR -Hypertension; currently low/normal BP with IV fluids being held due to acute CHF. Remains on metoprolol 75 mg BID. -Hypothyroidism; levothyroxine 25 MCG daily DVT prophylaxis; SCDs/Coumadin CODE STATUS; full code Recommend to add ensure with meals and encourage increased oral intake. Recommend stopping IV lasix, nephrology consultation. Continue with indwelling catheter and strict intake and output monitoring. Cardiology and pulmonary following closely. Repeat labs in AM. The impression and plan of care has been dictated by Ana María Chew, Nurse Practitioner as directed. Dr. Una MD I have performed a history and physical examination and medical decision making of this patient, discussed the same with the dictator, and agree with the dictators assessment and plan as written, documented as a scribe. Based on total visit time, I have performed more than 50% of this visit. Objective - Vital Signs Vital signs: Vital Signs Temp 98.3 F 01/20/23 12:00 Pulse 76 01/20/23 14:00 Resp 22 01/20/23 14:00 BP 141/79 01/20/23 12:00 Pulse Ox 95 01/20/23 12:00 FiO2 65 01/20/23 12:57 Intake & Output 01/19/23 01/20/23 01/20/23 18:59 06:59 18:59 Intake Total 520 Output Total 0 300 450 Balance 520 -300 -450 Weight 78.5 kg Intake: IV 40 0.9 40 Oral 480 Output: Urine 0 300 450 Other: Voiding Method Indwelling Catheter Indwelling Catheter Indwelling Catheter - Labs CBC & Chem 7: 01/18/23 06:45 01/20/23 08:21 Labs: Abnormal Lab Results - Last 24 Hours (Table) 01/20/23 01/20/23 01/20/23 Range/Units 07:52 08:10 08:21 PT (10.0-12.5) sec INR (<1.2) ABG pH 7.19 L* (7.35-7.45) ABG pCO2 81 H* (35-45) mmHg ABG pO2 (83-108) mmHg ABG HCO3 31 H (21-25) mmol/L ABG Total CO2 33 H (19-24) mmol/L Sodium 133 L (137-145) mmol/L Chloride 94 L (98-107) mmol/L BUN 85 H (7-17) mg/dL Creatinine 2.21 H (0.52-1.04) mg/dL Glucose 142 H (74-99) mg/dL POC Glucose (mg/dL) 142 H (70-110) mg/dL Calcium 8.3 L (8.4-10.2) mg/dL 01/20/23 01/20/23 Range/Units 08:21 09:45 PT 48.2 H (10.0-12.5) sec INR 4.9 H (<1.2) ABG pH 7.24 L (7.35-7.45) ABG pCO2 69 H (35-45) mmHg ABG pO2 75 L (83-108) mmHg ABG HCO3 30 H (21-25) mmol/L ABG Total CO2 32 H (19-24) mmol/L Sodium (137-145) mmol/L Chloride (98-107) mmol/L BUN (7-17) mg/dL Creatinine (0.52-1.04) mg/dL Glucose (74-99) mg/dL POC Glucose (mg/dL) (70-110) mg/dL Calcium (8.4-10.2) mg/dL Assessment and Plan Time with Patient: Less than 30
[2023-01-21 05:51] VITALS: PULSE 101
[2023-01-21] MEDS: LEVOTHYROXINE 25 MCG TAB PO SCH (05:53)
[2023-01-21 08:13] LABS: Basophils % (A) 0 %; Eosinophils % (A) 0 %; HCT 41.5 % (34.0-46.0); HGB 13.4 gm/dL (11.4-16.0); Lymphocytes # (A) 0.2 k/uL (1.0-4.8); Lymphocytes % (A) 3 %; MCH 32.9 pg (25.0-35.0); MCHC 32.2 g/dL (31.0-37.0); MCV 102.1 fL (80.0-100.0); Macrocytosis Slight; Mean Platelet Volume 7.7; Monocytes # (A) 0.4 k/uL (0-1.0); Monocytes % (A) 6 %; Neutrophils # (A) 5.8 k/uL (1.3-7.7); Neutrophils % (A) 90 %; RBC 4.07 m/uL (3.80-5.40); RDW 12.8 % (11.5-15.5); WBC 6.5 k/uL (3.8-10.6)
[2023-01-21] MEDS: methylPREDNISolone SOD SUCCI 40 MG/ML 1 ML VIAL IV SCH ×2 (08:32→20:06)
[2023-01-21] MEDS: PANTOPRAZOLE 40 MG/10 ML VIAL IVP SCH ×2 (08:32→20:06)
[2023-01-21 08:47] VITALS: BP 180/88; TEMP 97.7
[2023-01-21 08:51] LABS: African American GFR (CKD) 36 (>60 ml/min/1.73 sqM); Anion Gap 13 mmol/L; Blood Urea Nitrogen 86 mg/dL (7-17); Calcium 8.4 mg/dL (8.4-10.2); Carbon Dioxide 29 mmol/L (22-30); Chloride 96 mmol/L (98-107); Glucose 154 mg/dL (74-99); Magnesium 2.3 mg/dL (1.6-2.3); Non-African American GFR(CKD) 31 (>60 ml/min/1.73 sqM); Potassium 3.6 mmol/L (3.5-5.1); Sodium 138 mmol/L (137-145)
[2023-01-21 09:05] LABS: Prothrombin Time 51.2 sec (10.0-12.5)
[2023-01-21 09:33] LABS: INR 5.2 (<1.2)
[2023-01-21] MEDS ORDERED: hydrALAZINE HCL 20 MG/ML 1 ML VIAL IVP PRN (10:51)
--- NOTE | 2023-01-21 10:54 | P.NPCON ---
History of Present Illness - Reason for Consult acute renal failure - History of Present Illness Reason for consultation: Acute kidney injury History of present illness: Patient is a 87-year-old female seen in renal consultation for acute kidney injury. Patient's creatinine on admission was 0.54 and peaked at 2.21 on 01/20/2023. It is down to 1.48 today. Patient came to the hospital on 01/17/2023 due to shortness of breath. Patient's symptoms are worsening for 3 days prior to admission. She was also having a productive cough. She is currently on a BiPAP. Agent is not a reliable historian. Family members are present at bedside who provided history. No history of diabetes. She does have history of coronary artery disease with 1 stent. Patient had a sister who was on hemodialysis and is now . Patient's mostly independent at home. She did not get the flu vaccination this year. She tested positive for influenza A this admission. She was receiving diuretics which were discontinued 01/20/2023. Patient noted to have preserved ejection fraction with moderate tricuspid regurgitation and severe pulmonary hypertension on echocardiogram done this admission. Has a Christopher catheter. Nonoliguric. Vital signs are stable. General: No acute distress. HEENT: On BiPAP. LUNGS: Scattered rhonchi. HEART: Rate and Rhythm are regular. ABDOMEN: No distention. EXTREMITITES: No edema. 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 History of Any Multi-Drug Resistant Organisms: None Reported Past Surgical History: Appendectomy, Heart Catheterization With Stent, Hy sterectomy Additional Past Surgical History / Comment(s): 2011 PCI with stent to mid LAD, R ovarian cyst, R sided hernia repair, bilateral cataracts removed with lens implants, R knee arthroscopy , STEPHANIE, TAVR with post hematoma evacuation, colonoscopy Past Anesthesia/Blood Transfusion Reactions: No Reported Reaction Date of Last Stent Placement:: 2011 Past Psychological History: No Psychological Hx Reported Additional Psychological History / Comment(s): Pt resides alone. She uses a walker to ambulate. She has a cleaning person. She no longer drives, her family takes her to [employer]. Smoking Status: Never smoker, Second hand smoke exposure Past Alcohol Use History: Rare Past Drug Use History: None Reported - Past Family History Father History Unknown: Yes Mother Family Medical History: Osteoarthritis (OA) Additional Family Medical History / Comment(s): Osteoporosis, difficulty ambulating. Mother lived to be 99.5 Sister(s) Family Medical History: Cancer Additional Family Medical History / Comment(s): OVARIAN CANCER Medications and Allergies Home Medications Medication Instructions Recorded Confirmed Type Levothyroxine Sodium [Synthroid] 25 mcg PO DAILY 04/28/16 01/17/23 History Warfarin [Coumadin] 0.5 mg PO FR@1700 04/28/16 01/17/23 History Warfarin [Coumadin] 1 mg PO SUMOTUWETHSA@1700 04/28/16 01/17/23 History Albuterol Sulfate [Albuterol 1 - 2 puff INHALATION RT-Q4H PRN 04/28/22 01/17/23 History Sulfate Hfa] Metoprolol Tartrate [Lopressor] 75 mg PO BID 04/28/22 01/17/23 History Acetaminophen Tab [Tylenol Tab] 500 mg PO BID 01/17/23 01/17/23 History Albuterol Nebulized [Ventolin 1.25 mg INHALATION RT-Q6H PRN 01/17/23 01/17/23 History Nebulized (Accuneb)] Benzonatate [Tessalon Perles] 100 mg PO TID PRN 01/17/23 01/17/23 History Simvastatin [Zocor] 40 mg PO HS 01/17/23 01/17/23 History Allergies Allergy/AdvReac Type Severity Reaction Status Date / Time rivaroxaban [From Xarelto] AdvReac Severe Rapid Verified 01/17/23 12:25 Heart Rate dabigatran etexilate AdvReac Unknown Ulcers, Verified 01/17/23 12:25 [From Pradaxa] Nausea, Vomting apixaban [From Eliquis] AdvReac Numbness Verified 01/17/23 12:25 in legs gabapentin AdvReac Confusion Verified 01/18/23 20:40 Physical Exam Vitals: Vital Signs Temp Pulse Resp BP Pulse Ox FiO2 01/21/23 09:32 60 01/21/23 08:30 97.7 F 101 H 38 H 180/88 93 L 60 01/21/23 04:21 60 01/21/23 04:00 101 H 31 H 166/77 95 60 01/21/23 00:37 60 01/21/23 00:00 88 33 H 158/83 93 L 60 01/20/23 21:53 60 01/20/23 20:00 98.6 F 102 H 26 H 146/71 94 L 60 01/20/23 15:43 65 01/20/23 15:34 98.4 F 72 31 H 136/77 94 L 60 01/20/23 14:00 76 22 01/20/23 12:57 65 01/20/23 12:00 98.3 F 76 22 141/79 95 60 Intake and Output 01/20/23 01/21/23 01/21/23 22:59 06:59 14:59 Output Total 1400 Balance -1400 Output: Urine 1400 Other: Voiding Method Indwelling Catheter Indwelling Catheter Weight 77 kg Results - Lab Results Most recent lab results ABG pH 7.24 (7.35-7.45) L 01/20/23 09:45 ABG pCO2 69 mmHg (35-45) H 01/20/23 09:45 ABG pO2 75 mmHg (83-108) L 01/20/23 09:45 ABG HCO3 30 mmol/L (21-25) H 01/20/23 09:45 ABG O2 Saturation 94.4 % (94-97) 01/20/23 09:45 Calcium 8.4 mg/dL (8.4-10.2) 01/21/23 07:30 Magnesium 2.3 mg/dL (1.6-2.3) 01/21/23 07:30 01/21/23 07:30 01/21/23 07:30 Assessment and Plan Plan: Assessment: 1. Acute kidney injury secondary to ATN secondary to diuresis and infection. Creatinine peaked at 2.2 on this admission and is 1.48 today. Baseline creatinine near 0.5. 2. Acute hypoxic respiratory failure. 3. Influenza infection. 4. Benign hypertension. Exacerbated by steroids. Plan: Continue to hold off on diuretics. Add as needed hydralazine. Repeat UA once renal function comes back to baseline. Check renal ultrasound. Continue to monitor renal function and urine output. Has Christopher catheter. CODE STATUS was discussed with the family members. Patient is a no code. They wish for conservative measures. Also refused renal replacement therapy if needed. 20 minutes spent. Thank you for the consultation. I will continue to follow the patient with you during her hospital stay.
[2023-01-21 10:59] LABS: Platelet Count 95 k/uL (150-450)
[2023-01-21] MEDS ORDERED: SCOPOLAMINE 1 MG/72 HR PATCH TRANSDERM SCH (11:00)
[2023-01-21] MEDS ORDERED: ZINC OXIDE PASTE (Z-GUARD) 1 APPLIC APPLIC TOPICAL PRN (11:02)
[2023-01-21] MEDS: MORPHINE SULFATE (100 MG/2 ML) 100 MG in SODIUM CHLORIDE 0.9% 100 ML IV SCH ×2 (11:27→21:28)
[2023-01-21] MEDS: METOPROLOL TARTRATE 25 MG TAB PO SCH ×2 (12:16→20:06)
[2023-01-21] MEDS: OSELTAMIVIR 60 MG/10 ML ORAL SYRINGE PO SCH (12:17)
[2023-01-21] MEDS: SENNOSIDES-DOCUSATE SODIUM 1 EACH TAB PO SCH (12:17)
[2023-01-21 12:35] VITALS: RESP 34
--- NOTE | 2023-01-21 13:45 | P.PN ---
Subjective Progress Note Date: 01/21/23 Principal diagnosis: Acute hypoxic respiratory failure, multifactorial 87-year-old female patient presented to the emergency department because of increased cough, congestion, wheezing, shortness of breath. No previous history of lung disease or disorder. The patient check positive for influenza A. She stated her symptoms have been going on for about 4-5 days. Denies having any chest pain. No altered mentation. She does not wear oxygen at home. She is currently on 4 L of oxygen by nasal cannula to maintain a saturation above 90%. The chest x-ray from the emergency showed cardiomegaly moderate-sized heart enlargement, in addition to some right basilar opacity that has remained unchanged since 2019. There is also volume loss. No clear indication for underlying pneumonia. She is afebrile. She is weak. She has a white cell count of 5.3. Hemoglobin was at 14. She has chronic into fibrillation. She has limited on anticoagulation and INR to 3.2 which is therapeutic at this point in time. BUN is at 80 with a creatinine of 0.5. Sodium levels of 131. Tr oponins are 0.05 and 0.1 respectively 2. ProBNP level is 2970. The EKG is consistent with atrial fibrillation and left axis deviation. Incomplete right bundle branch block pattern. She was started on Tamiflu. She'll be also placed on IV Solu-Medrol. She is also receiving Lasix 40 mg every 12 hours. Reevaluated today on 01/18/23, patient is doing better, continues to have intermittent cough and wheezing, nonetheless the patient is doing better compared to yesterday. Patient is on 3 L nasal cannula with O2 saturation of 95%, patient is hemodynamically stable, temperature 97.8. WBC count is 6.8 hemoglobin is 13.7 INR is 4.5 basic metabolic profile is normal renal profile is normal. Chest x-ray showed small bilateral pleural effusions and suspect some component of interstitial edema, much worse compared to the chest x-ray on admission yesterday. Hence I'm suspecting some component of heart failure, will increase her Lasix dose to 20 mg twice a day instead of once daily patient did receive a Lasix 40 mg IV push yesterday. Patient was reevaluated today on 01/19/23, basically about the same, not much of a change in the last 24 hours, patient is up to 8 L high flow nasal cannula with O2 saturation in the 91% range, follow-up chest x-ray continues to show bilateral pleural effusions with venous congestion, strongly consistent with congestive heart failure, doubt underlying pneumonia although it is not entirely ruled out but felt to be less likely patient did come in with acute influenza infection, and her chest x-ray has worsened since admission in comparison to the admission chest x-ray. Patient was receiving fluids, and yesterday I recommended diuresis. Creatinine today is up to 1.7, INR is rising up to 6.9. Patient was seen by cardiology, and her Lasix was increased to 20 mg IV push every 12 hours, remains on methylprednisolone for her bronchospasm 40 mg IV push twice a day, remains on Tamiflu. Patient was evaluated today on 01/20/23, patient developed worsening hypercapnia today, and she required placement back on BiPAP this morning. I walked in to see the patient, and she was opening her eyes, arousable, but quite lethargic, ABG at the time showed a pO2 of 100 pCO2 of 81 pH of 7.19 and this was on airvo. At 90% FiO2 and 60 L flow. Hence I transition the patient to BiPAP 24/07/65%, and her May the ABG showed a pO2 of 75 pCO2 69 pH of 7.24. FiO2 was cut down to 60%, I was considering transferring the patient to the ICU, but family changed her CODE STATUS to no code, and I felt I couldn't manage the patient with BiPAP, now that she is not to be intubated hence we'll keep the patient on the floor, and we'll continue present supportive care measures, her daughter and her son were updated on her condition. Yesterday the patient did receive diuretics, today I will go ahead and discontinue her narcotics and sedatives as they may have contributed to her hypercapnia. Chest x-ray this morning showed mostly cardiomegaly, small bilateral pleural effusions and atelectasis. She did receive Lasix last night and received Lasix yesterday. Patient was reevaluated today on 01/21/2023, patient remains on BiPAP, remains hypercapnic based on her clinical picture, opens eyes but does not follow any instructions, patient is quite obtunded, and obviously she is probably more hypercapnic. Family is at bedside, updated the family condition, discussed the different options including the option of CT of the brain, ABG, continuation of present supportive care measures and BiPAP, also even discussed the option of intubation and mechanical ventilation, or option of comfort care measures. Apparently the patient seems to be failing to thrive, and at this point the family seems to be already decided to go with comfort care measures. I believe this is quite appropriate. And will proceed with comfort care on this patient. Objective - Vital Signs Vital signs: Vital Signs Temp 97.7 F 01/21/23 08:30 Pulse 101 H 01/21/23 08:30 Resp 34 H 01/21/23 12:05 BP 180/88 01/21/23 08:30 Pulse Ox 93 L 01/21/23 08:30 FiO2 60 01/21/23 09:32 Intake & Output 01/20/23 01/21/23 01/21/23 18:59 06:59 18:59 Intake Total 2.954 Output Total 450 1400 700 Balance -450 -1400 -697.046 Weight 77 kg Intake: Intake, IV Titration 2.954 Amount Morphine Sulfate (100 mg/ 2.954 2 ml) 100 mg In Sodium Chloride 0.9% 100 ml @ 1 MG/HR 1.02 mls/hr IV . Q24H [facility] Rx#:[id number] Output: Urine 450 1400 700 Other: Voiding Method Indwelling Catheter Indwelling Catheter Indwelling Catheter - Exam Physical Exam: Revealed 87-year-old female, on BiPAP, obtunded. HEENT:[Neck is supple.] [No neck masses.] [No thyromegaly.] [No JVD.] Chest: [Diminished breath sounds at the bases minimal crackles at the bases Cardiac Exam: [Normal S1 and S2, no S3 gallop, 2/6 systolic murmur thought the precordium Abdomen: [Soft, nontender, no megaly, no rebound, no guarding, normal bowel sounds.] Extremities: [No clubbing, no edema, no cyanosis.] Neurological Exam: Obtunded, opens eyes but does not follow any instructions and tends to fall asleep easily Psychiatric: Unable to assess - Labs CBC & Chem 7: 01/21/23 07:30 01/21/23 07:30 Labs: Abnormal Lab Results - Last 24 Hours (Table) 01/21/23 01/21/23 01/21/23 Range/Units 07:30 07:30 08:21 MCV 102.1 H (80.0-100.0) fL Plt Count 95 L (150-450) k/uL Lymphocytes # 0.2 L (1.0-4.8) k/uL PT 51.2 H (10.0-12.5) sec INR 5.2 H* (<1.2) Chloride 96 L (98-107) mmol/L BUN 86 H (7-17) mg/dL Creatinine 1.48 H (0.52-1.04) mg/dL Glucose 154 H (74-99) mg/dL Assessment and Plan Assessment: Impression: Acute hypoxic and hypercapnic respiratory failure, multifactorial Acute influenza A infection Acute diastolic congestive heart failure, good LV function noted on recent echocardiogram Severe pulmonary hypertension, as noted on echocardiogram Acute bronchospasm, likely exacerbated by her influenza A infection, no previous documented history of COPD Chronic atrial fibrillation History of previous CVA Hypothyroidism Benign essential hypertension Sjogren's disease Coronary artery disease Chronic neuropathy History of aortic valve stenosis and previous T aVR Recommendation: After examining the patient, I had a long discussion with family members at bedside. Discussed with the family the different options at this point and considering the patient is doing well. Discussed the option of continuing present care with BiPAP Discussed the option of CT of the brain and ABG and decide accordingly Discussed option of even intubation and mechanical ventilation Discussed the option of comfort care Family is definitely decided to proceed with comfort care. I believe this is appropriate, and we'll proceed with comfort care measures We will continue to follow Time with Patient: Less than 30
--- NOTE | 2023-01-21 20:31 | P.PN ---
Subjective Progress Note Date: 01/21/23 Patient evaluated today on the stepdown unit resting in bed. Patient with significant weakness, also reports decreased appetite and shortness of breath. Continues on oxygen support via nasal cannula on 5L with saturation of 95% this can be weaned. Patient does not wear home oxygen. Has been started on tamiflu for positive infleunza A. Continues on IV solumedrol. Patient has been transitioned to oral lasix BID. Chest xray follow up reveals bilateral infiltrate and pleural effusion which have progressed from prior exam with underlying venous congestion in the differential diagnosis correlate clinically. INR 4.5 today warfarin remains on hold. 01/19/2023 Patient sitting up in chair today with daughter at the bedside does feel more awake alert than yesterday. Remains on high dose steroids which was decreased to 40 mg IV BID yesterday, patient has had supratherapeutic INR today at 6.9. Will recommending monitoring and repeat level tomorrow. Was given IV hydration overnight today requiring 8L of oxygen with evidence of JVD. Resumed on lasix which will be changed to IV. Chest xray showing bilateral consolidations and pleural effusions. Underlying venous congestion in differential. Echocardiogram reveals EF 55% with severe pulmonary hypertension, moderate TR, severe biatrial dilatation. 01/20/2023 Patient evaluated today in bed currently on BiPAP 100%. Patient had worsening respiratory distress overnight was initially placed on Airvo high flow oxygen support; which ABGs were done revealing pH 7.19 with pCO2 81 and patient was then placed on BiPAP has had some improving in the blood gas levels on repeat. Patient had worsening proBNP 9000 after receiving gentle hydration was given lasix 20 mg IV and fluids stopped. Patient was given a second dose of IV lasix overnight 40 mg due to increasing oxygen demands. Follow up chest xray this AM reveals bilateral consolidation and pleural effusion stable. Labs today show sodium 133, potassium 4.7, BUN 85, creatinine 2.21, blood sugar 142, calcium 8.3. PT/INR 4.9. 750 mls of urine output in the last 24 hours. 01/21/2023 Patient remains on BiPAP overnight without improvement. She is lethargic. Was taken of IV fluids, did have urine output overnight of 1400 mls. Labs today have improved with sodium of 138, BUN 86, creatinine 1.48. Glucose 154. Repeat ABGs due show improvement on pH to 7.24 and pCO2 to 69. Patient was continued on IV solumedrol. INR remains elevated at 5.2 today. Not improving. Pulmonary recommending comfort care and orders were entered. Hospice was consulted for this patient. At this time family would like to make patient comfortable and not undergo any further testing or aggresive measures. Patient is a DNR. Review of Systems Unable to complete full review of systems patient is on BiPAP and lethargic PHYSICAL EXAMINATION: GENERAL: The patient is alert and oriented x1, not in any acute distress. Let hargic, weak. Well developed, well nourished. HEENT: Pupils are round and equally reacting to light. EOMI. No scleral icterus. No conjunctival pallor. Normocephalic, atraumatic. No pharyngeal erythema. No thyromegaly. CARDIOVASCULAR: S1 and S2 present. No murmurs, rubs, or gallops. PULMONARY: Faint scattered wheezing, diminished, on bipap support diminished aeration. ABDOMEN: Soft, nontender, nondistended, normoactive bowel sounds. No palpable organomegaly. MUSCULOSKELETAL: No joint swelling or deformity. EXTREMITIES: No cyanosis, clubbing, or pedal edema. NEUROLOGICAL: Gross neurological examination did not reveal any focal deficits. Generalized weakness SKIN: No rashes. Assessment and Plan -Acute hypoxic respiratory failure; multifactorial, related to influenza A infection and CHF exacerbation currently on bipap 100 Fi O2 with blood gases revealing respiratory acidosis pCO2 of 81, the blood gases did improve slightly with BiPAP overnight however patient remains lethargic. -Elevated troponin; likely type II demand ischemia due to CHF exacerbation and influenza A infection causing hypoxia -Acute influenza A infection, patient on Tamiflu 75 mg twice a day; continue with symptomatic treatment -Severe acute bronchospasm, patient continues on systemic steroids and bronchodi lator nebulizer treatments 4 times a day and when necessary, pulmonary following -Acute exacerbation CHF diastolic dysfunction; BNP is elevated cardiology following chest xray continues to demonstrate volume overload on IV lasix BID. Patient received an extra dose of IV lasix over night has worsening renal function. Lasix was stopped. Renal function improved. -Acute kidney injury likely from volume overload. creatinine worsened with IV lasix. Nephrology has been consulted. -Chronic atrial fibrillation; patient anticoagulated on Coumadin; metoprolol 75 mg twice a day for rate control -Supratherapeutic INR warfarin held continue with monitoring and daily PT/INR -Hypertension; currently low/normal BP with IV fluids being held due to acute CHF. Remains on metoprolol 75 mg BID. -Hypothyroidism; levothyroxine 25 MCG daily DVT prophylaxis; SCDs warfarin has remained on hold due to supratherapeutic INR Patient has been evaluated by pulmonary services without much improvement in the ABGs patient remains lethargic and requiring BiPAP support she is not responsive at this time. Family would like to make her comfortable and pulmonary has recommended and started comfort care measures for this patient. Hospice was consulted for evaluation. The impression and plan of care has been dictated by Ana María Chew Nurse Practitioner as directed. Dr. Una MD I have performed a history and physical examination and medical decision making of this patient, discussed the same with the dictator, and agree with the dictators assessment and plan as written, documented as a scribe. Based on total visit time, I have performed more than 50% of this visit. Objective - Vital Signs Vital signs: Vital Signs Temp 98.6 F 01/20/23 20:00 Pulse 101 H 01/21/23 04:00 Resp 31 H 01/21/23 04:00 BP 166/77 01/21/23 04:00 Pulse Ox 95 01/21/23 04:00 FiO2 60 01/21/23 04:21 Intake & Output 01/20/23 01/21/23 01/21/23 18:59 06:59 18:59 Output Total 450 1400 Balance -450 -1400 Weight 77 kg Output: Urine 450 1400 Other: Voiding Method Indwelling Catheter Indwelling Catheter - Labs CBC & Chem 7: 01/21/23 07:30 01/21/23 07:30 Labs: Abnormal Lab Results - Last 24 Hours (Table) 01/20/23 01/20/23 01/20/23 Range/Units 08:21 08:21 09:45 PT 48.2 H (10.0-12.5) sec INR 4.9 H (<1.2) ABG pH 7.24 L (7.35-7.45) ABG pCO2 69 H (35-45) mmHg ABG pO2 75 L (83-108) mmHg ABG HCO3 30 H (21-25) mmol/L ABG Total CO2 32 H (19-24) mmol/L Sodium 133 L (137-145) mmol/L Chloride 94 L (98-107) mmol/L BUN 85 H (7-17) mg/dL Creatinine 2.21 H (0.52-1.04) mg/dL Glucose 142 H (74-99) mg/dL Calcium 8.3 L (8.4-10.2) mg/dL Assessment and Plan Time with Patient: Less than 30
--- NOTE | 2023-01-23 16:23 | P.DS ---
Providers Date of admission: 01/17/23 07:26 Attending physician: Luiza Meyer MD Consults: 01/17/23 07:50 Consult Physician Urgent Consulting Provider: Rachel Marlow Consult Reason/Comments: Influenza A, hypoxia Do you want consulting provider notified?: Yes 01/20/23 15:25 Consult Physician Routine Consulting Provider: Armen Jamison Consult Reason/Comments: YUDI Do you want consulting provider notified?: Yes Primary care physician: Nasim L [place] Hospital Course: Final Diagnosis -Acute hypoxic respiratory failure; multifactorial, related to influenza A infection and CHF exacerbation currently on bipap 100 Fi O2 with blood gases revealing respiratory acidosis pCO2 of 81 -Elevated troponin; likely type II demand ischemia due to CHF exacerbation and influenza A infection causing hypoxia -Acute influenza A infection, patient on Tamiflu -Severe acute bronchospasm -Acute exacerbation CHF diastolic dysfunction -Severe pulmonary hypertension -Acute kidney injury likely from volume overload and worsened with diuresis. Now with ATN from infection. -Chronic atrial fibrillation; patient anticoagulated on Coumadin -Supratherapeutic INR warfarin held -Hypertension -Hypothyroidism -Hx of TAVR Patient on 01/21/2023 at 2211 Hospital Course 87-year-old female who presents to the emergency department for shortness of breath. Has medical history of atrial fibrillation anticoagulated with warfarin, hypertension, hypothyroidism, CHF. Patient states that symptoms have been worsening over the last 3 days. She has an associated cough that is somewhat productive. Denies any chest pain. She has not measured any fevers at home, although she was found to be febrile here. Denies any known history of COPD or asthma, however she does use albuterol breathing treatments at home that have not been very helpful. She does not wear oxygen at home, however EMS found her to have a low oxygen saturation and she was started on a nasal cannula. Also states that she has not taken her blood pressure medication yet today. She went to several events over the last couple of weeks and is unsure if she has been around anyone sick during those. Initial work up reveals white cell count of 5.3. Hemoglobin was at 14. BUN is at 80 with a creatinine of 0.5. Sodium levels of 131. Troponins are 0.05 and 0.1 respectively 2. ProBNP level is 2970. INR 3.2. The EKG is consistent with atrial fibrillation and left axis deviation. Incomplete right bundle branch block pattern. Admitted to the hospital under medicine with consults placed to cardiology and pulmonary. She was started on Tamiflu, IV solu-medrol. She is also receiving Lasix 40 mg every 12 hours. Had an echocardiogram done showing LV function EF 55% with severe biatrial dilation, moderate tricuspid regurgitation and severe pulmonary hypertension. There was minimal pericardial effusion normal variant. Follow-up chest x-rays continued to demonstrate bilateral consolidation and pleural effusion with underlying COPD. Patient has been diuresed for the CHF picture however had worsening renal function. Nephrology was consulted for this and agreeing with holding off on diuretics which were discontinued due to the w orsening renal function. Pt now with ATN from infection. Pulmonary had considered intubation however family decided to change code status to DO NOT RESUSCITATE, She was not improving and placed on BiPAP and ABGs found to show a pCO2 of 81. Patient remains lethargic and on BIPAP not wanting any further measures done and wanted patient to be made comfortable. Pulmonary had discussed plan in extent with family and options and placed the comfort care orders. Patient did on 01/21/2023 at 2211. Thank you for allowing us to participate in the care of this patient. The impression and plan of care has been dictated by Ana María Chew, Nurse Practitioner as directed. Dr. Una MD I have performed a history and physical examination and medical decision making of this patient, discussed the same with the dictator, and agree with the dictators assessment and plan as written, documented as a scribe. Based on total visit time, I have performed more than 50% of this visit. Plan - Discharge Summary Discharge Rx Participant: Yes New Discharge Prescriptions: No Action Warfarin [Coumadin] 0.5 mg PO FR@1700 Warfarin [Coumadin] 1 mg PO SUMOTUWETHSA@1700 Levothyroxine Sodium [Synthroid] 25 mcg PO DAILY Albuterol Sulfate [Albuterol Sulfate Hfa] 1 - 2 puff INHALATION RT-Q4H PRN PRN Reason: Shortness Of Breath Metoprolol Tartrate [Lopressor] 75 mg PO BID Simvastatin [Zocor] 40 mg PO HS Benzonatate [Tessalon Perles] 100 mg PO TID PRN PRN Reason: Cough Albuterol Nebulized [Ventolin Nebulized (Accuneb)] 1.25 mg INHALATION RT-Q6H PRN PRN Reason: Shortness Of Breath Acetaminophen Tab [Tylenol Tab] 500 mg PO BID Discharge Medication List Levothyroxine Sodium [Synthroid] 25 mcg PO DAILY 04/28/16 [History] Warfarin [Coumadin] 0.5 mg PO FR@1700 04/28/16 [History] Warfarin [Coumadin] 1 mg PO SUMOTUWETHSA@1700 04/28/16 [History] Albuterol Sulfate [Albuterol Sulfate Hfa] 1 - 2 puff INHALATION RT-Q4H PRN 04/28/22 [History] Metoprolol Tartrate [Lopressor] 75 mg PO BID 04/28/22 [History] Acetaminophen Tab [Tylenol Tab] 500 mg PO BID 01/17/23 [History] Albuterol Nebulized [Ventolin Nebulized (Accuneb)] 1.25 mg INHALATION RT-Q6H PRN 01/17/23 [History] Benzonatate [Tessalon Perles] 100 mg PO TID PRN 01/17/23 [History] Simvastatin [Zocor] 40 mg PO HS 01/17/23 [History] Follow up Appointment(s)/Referral(s): Gilmer Murrell MD [REFERRING] - 1-2 days Discharge Disposition: - Preliminary Cause of Preliminary Cause of : Congestive Heart Failure, Influenza A
== END 2023-01-21 22:11 | disposition expired ==
LOC: EC 06:16 → SUPCPDRO 06:16 → 3SCARD 07:26
PROVIDERS: ADMIT Internal Medicine; ATTEND Internal Medicine
PROC: 5A09357 Assistance with Respiratory Ventilation, Less than 24 Consecutive Hours, Continuous Positive Airway Pressure (ICD-10-PCS; principal; 2023-01-20)
DX: I11.0 Hypertensive heart disease with heart failure (principal); I21.A1 Myocardial infarction type 2; I50.41 Acute combined systolic (congestive) and diastolic (congestive) heart failure; N17.0 Acute kidney failure with tubular necrosis; J96.01 Acute respiratory failure with hypoxia; J96.02 Acute respiratory failure with hypercapnia; I48.19 Other persistent atrial fibrillation; E87.29 Other acidosis; J10.1 Influenza due to other identified influenza virus with other respiratory manifestations; E03.9 Hypothyroidism, unspecified; E78.5 Hyperlipidemia, unspecified; G62.9 Polyneuropathy, unspecified; I07.1 Rheumatic tricuspid insufficiency; Z77.22 Contact with and (suspected) exposure to environmental tobacco smoke (acute) (chronic); Z11.52 Encounter for screening for COVID-19; Z66 Do not resuscitate; Z51.5 Encounter for palliative care; Z60.2 Problems related to living alone; J98.01 Acute bronchospasm; Z79.01 Long term (current) use of anticoagulants; I45.10 Unspecified right bundle-branch block; T50.2X5A Adverse effect of carbonic-anhydrase inhibitors, benzothiadiazides and other diuretics, initial encounter; I27.20 Pulmonary hypertension, unspecified; M35.00 Sjogren syndrome, unspecified; Z88.8 Allergy status to other drugs, medicaments and biological substances; R79.1 Abnormal coagulation profile; I25.10 Atherosclerotic heart disease of native coronary artery without angina pectoris; I35.0 Nonrheumatic aortic (valve) stenosis; R62.7 Adult failure to thrive; T38.0X5A Adverse effect of glucocorticoids and synthetic analogues, initial encounter; Z79.890 Hormone replacement therapy; Z79.899 Other long term (current) drug therapy; Z86.73 Personal history of transient ischemic attack (TIA), and cerebral infarction without residual deficits; Z95.2 Presence of prosthetic heart valve; Z95.5 Presence of coronary angioplasty implant and graft
CPT/HCPCS: 36415; 36600; 71045; 71046; 80048; 80053; 81001; 82805; 83605; 83735; 83880; 84484; 85025; 85610; 85730; 87636; 93005; 93306; 94640; 94660; 94760; 96361; 96374; 96375; 96376; 99285